=== PATIENT | male | born 1965 | race Caucasian/White ===

== ENCOUNTER 2024-04-23 00:05 | Inpatient (IN) | payer OTHER, SELFPAY ==
--- NOTE | ~2024-04-23 | XR_ITS ---
EXAMINATION: XR PELVIS CLINICAL INFORMATION: Unwitnessed mechanical fall COMPARISON: None available. TECHNIQUE: AP view of the pelvis. FINDINGS: No fracture. Hip joint spaces are maintained. Alignment is anatomic. Sacroiliac joints and pubic symphysis are normal. No abnormal soft tissue calcifications. XR/XR pelvis 1-2V IMPRESSION: Normal pelvis. Electronically signed by: John Garcia MD 04/27/2024 06:42 AM J[facility]
--- NOTE | ~2024-04-23 | CT_ITS ---
EXAMINATION: CT ABDOMEN AND PELVIS WITHOUT CONTRAST CLINICAL INFORMATION: Abdominal pain. Vomiting. COMPARISON: None available. TECHNIQUE: Multidetector volumetric imaging was performed from the superior aspect of the liver through the pubic symphysis. Sagittal and coronal reformatted images were obtained on the technologist's workstation. This CT examination was performed using dose optimization techniques as appropriate, variously including the following: *Automated exposure control *Adjustment of mA and/or kV according to patient size (this includes techniques or standardized protocols for targeted exams where dose is matched to indication/reason for exam; i.e. extremities or head) *Use of iterative reconstruction technique DLP: 656 mGy-cm FINDINGS: Inadequate evaluation of the intra-abdominal organs and vascular structures due to lack of IV contrast. LIVER, GALLBLADDER, AND BILIARY TREE: Liver measures 10 cm. Nodular surface. Heterogeneous attenuation. Prominent umbilical vein. Multiple calcifications layering within the lumen of the gallbladder. Gallbladder wall measures 3 mm. Common bile duct measures 4 mm. PANCREAS: No main pancreatic ductal dilatation. No peripancreatic fluid collections. SPLEEN: Measures 14 cm. ADRENAL GLANDS: No nodular lesions. KIDNEYS AND URETERS: There is dilatation of the left pelvicalyceal system and proximal left ureter. I do not see an obstructing calculus. No hydronephrosis in the right kidney. No gross nephrolithiasis in either kidney. BLADDER: Fluid-filled. GASTROINTESTINAL TRACT: Abundant stool within the large intestine and specifically rectosigmoid colon. No pneumatosis intestinalis. No intestinal obstruction pattern. Ascites, moderate volume. No fluid collections in the peritoneal cavity or retroperitoneum. Fluid-filled and fat-containing umbilical hernia, small. I cannot clearly identify the appendix. ABDOMINAL WALL: Small umbilical hernia containing fat and fluid. An edematous fat planes of the abdomen and pelvis and upper thighs. LYMPH NODES: Prominent lymph nodes in the retroperitoneum and mesentery and. VASCULAR: Prominent vessels in the splenic hilum and left perinephric suggesting splenorenal shunting. Prominent umbilical vein suggesting patency. I cannot evaluate the gastroesophageal junction. PELVIC VISCERA: Not evaluated. OSSEOUS STRUCTURES: Status post kyphoplasty/vertebroplasty procedure, L1 vertebra. Multilevel thoracolumbar spondylosis. No acute fracture in the axial skeleton or the bony pelvis. Osteopenia versus osteoporosis. No acute airspace disease in the included lungs. No gross pulmonary nodules. CT/CT abdomen pelvis wo IV con IMPRESSION: Concerning cirrhosis and likely portal hypertension resulting in moderate ascites. Spontaneous bacterial peritonitis cannot be excluded. Cholelithiasis. Fleischner guidelines were followed. Electronically signed by: Taco Rae MD 04/24/2024 07:48 AM [facility]
--- NOTE | ~2024-04-23 | XR_ITS ---
EXAMINATION: XR SHOULDER, LEFT CLINICAL INFORMATION: Unwitnessed mechanical fall, left shoulder injury and pain COMPARISON: None available. TECHNIQUE: AP external rotation, Grashey, scapular Y views of the left shoulder. FINDINGS: BONES: A radiolucent destructive lesion measuring 1.4 cm in width, 3.0 cm in vertical height is seen in the left humeral greater tuberosity and lateral superior left humeral head leading to superior lateral left humeral head cortical defect. JOINTS: Alignment of joints is normal. SOFT TISSUE: Soft tissue is normal. No radiopaque foreign body or abnormal air collection is seen. XR/XR shoulder LT min 2V IMPRESSION: 1. A radiolucent destructive lesion measuring 1.4 cm in width, 3.0 cm in vertical height is seen in the left humeral greater tuberosity and lateral superior left humeral head leading to superior lateral left humeral head cortical defect. 2. Differential diagnosis includes metastatic disease, multiple myeloma, and bony erosions due to inflammatory arthritis or hyperparathyroidism. Electronically signed by: John Garcia MD 04/27/2024 06:51 AM [facility]ADA PENALOZA
--- NOTE | ~2024-04-23 | CT_ITS ---
EXAMINATION: CT CERVICAL SPINE WITHOUT CONTRAST CLINICAL INFORMATION: Unwitnessed mechanical fall, neck injury and pain COMPARISON: None available. TECHNIQUE: Multiple 3 and 0.6 mm axial images were obtained from base of skull to T1 levels without IV contrast enhancement. Sagittal and coronal 2.0 mm bone window images were reconstructed from axial image data. This CT examination was performed using dose optimization techniques as appropriate, variously including the following: *Automated exposure control *Adjustment of mA and/or kV according to patient size (this includes techniques or standardized protocols for targeted exams where dose is matched to indication/reason for exam; i.e. extremities or head) *Use of iterative reconstruction technique DLP: 348.10 mGy-cm FINDINGS: C1/C2: Bony structures are intact. There is no spinal stenosis. C2/C3: Bony structures are intact with normal alignment. There is no spinal stenosis. Bilateral C2/C3 neuroforamina are patent. Bilateral apophyseal joints are intact with normal alignment. The right apophyseal joint shows bony ankylosis. C3/C4: Bony structures are intact with normal alignment. There is no spinal stenosis. Bilateral C3/C4 neuroforamina are patent. Bilateral apophyseal joints are intact with normal alignment. The right apophyseal joint shows bony ankylosis. C4/C5: Bony structures are intact with grade 1 C4-C5 anterolisthesis with exposure of intervertebral disc. There is no spinal stenosis. Bilateral C4/C5 neuroforamina are patent. Bilateral apophyseal joints are intact with normal alignment. C5/C6: Bony structures are intact with grade 1 C5-C6 anterolisthesis with exposure of intervertebral disc. There is no spinal stenosis. Bilateral C5/C6 neuroforamina are patent. Bilateral apophyseal joints are intact with normal alignment. C6/C7: Bony structures are intact with normal alignment. There is marked decrease in intervertebral disc height. Sclerotic vertebral endplate changes are seen at C6-C7 junction. Prominent anterior and posterior bridging syndesmophytes are present. There is no spinal stenosis. Bilateral C6/C7 neuroforamina are patent. Bilateral apophyseal joints are intact with normal alignment. C7/T1: Bony structures are intact with normal alignment. There is no spinal stenosis. Bilateral C7/T1 neuroforamina are patent. Bilateral apophyseal joints are intact with normal alignment. Multilevel bilateral apophyseal joint and uncovertebral joint osteoarthritis with loss of joint space, sclerosis, facet hypertrophy and osteophytosis are seen. In the visualized bilateral lung apices, a 4.4 mm right lateral apical nodule is seen attached to anterior pleural border. A 4.0 mm nodule is seen in medial right lung apex. CT/CT cervical spine wo IV con IMPRESSION: 1. No evidence of acute fracture or dislocation in the cervical spine. 2. Grade 1 C4-C5 and C5-C6 anterolisthesis. 3. Multilevel cervical spondylosis. 4. Advanced C6-C7 degenerative cervical disc disease, sclerotic vertebral endplate changes and bridging syndesmophytes are present. 5. Right-sided C2-C3 and C3-C4 apophyseal joints bony ankylosis. 6. According to the UPDATED 2017 Fleischner Society recommendations, the advised follow-up imaging for nodules <6mm in the upper lobes is not necessarily required in low-risk patients. In high-risk patients with a nodule in the upper lobe and/or demonstrating suspicious morphology, an optional CT follow-up at 12 months may be obtained. If stable at 12 months, no further follow-up is recommended. number Fleischner guidelines were followed. Electronically signed by: John Garcia MD 04/27/2024 07:16 AM [facility]
--- NOTE | ~2024-04-23 | CT_ITS ---
EXAMINATION: CT HEAD WITHOUT CONTRAST CLINICAL INFORMATION: Unwitnessed mechanical fall COMPARISON: None available. TECHNIQUE: Contiguous axial imaging was performed from the skull base to vertex without intravenous administration of contrast. This CT examination was performed using dose optimization techniques as appropriate, variously including the following: *Automated exposure control *Adjustment of mA and/or kV according to patient size (this includes techniques or standardized protocols for targeted exams where dose is matched to indication/reason for exam; i.e. extremities or head) *Use of iterative reconstruction technique DLP: 655.69 mGy-cm FINDINGS: Ventricles, sulci and cisterns are normal. Bilateral frontal periventricular white matters show decrease in attenuation. There is no midline shift, no abnormal intra- or extra- axial fluid accumulation. Parker and white matter differentiation is normal. Bone window images show no evidence of skull fracture. Moderate mucosal thickening is seen in lower bilateral maxillary sinuses. CT/CT head/brain wo IV con IMPRESSION: 1. Bilateral frontal periventricular ischemic white matter disease is seen, compatible with microangiopathy. 2. No intracranial hemorrhage or skull fracture is seen. 3. No evidence of space occupying lesion could be found. 4. The current plain CT scan of the brain shows no diagnostic evidence of acute cerebral infarction. 5. Moderate bilateral maxillary sinusitis. Electronically signed by: John Garcia MD 04/27/2024 07:04 AM [facility]
[2024-04-23 00:28] VITALS: BMI 22.1
[2024-04-23 03:57] VITALS: BP 129/92
[2024-04-23] MEDS: Furosemide 20 MG TABLET 60 MG PO (03:57)
[2024-04-23] MEDS: Lidocaine 4 % Patch ADH..PATCH 1 PATCH TRANSDERMA (04:03)
[2024-04-23] MEDS: hydrOXYzine HCL 25 MG TABLET PO ×2 (04:16→21:03)
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
[2024-04-23 07:00] VITALS: BMI 22.1
[2024-04-23] MEDS: Omeprazole 20 MG CAPSULE.DR PO (07:54)
[2024-04-23 08:00] VITALS: BP 101/73; PULSE 72; RESP 16; TEMP 36.9; O2SAT 100
--- NOTE | 2024-04-23 09:49 | HO.PM.IMCN ---
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 He reported a recent relapse from his alcohol sobriety, and his complex medical diagnoses secondary to cirrhosis have caused severe sudden depression for him. He just recently had a paracentesis 2 days ago which he reports he goes for every Saturday. He also takes furosemide 60 mg daily. He complains of constant 6/10 generalized abdominal pain which he describes as a pressure. He reports when this pain escalates he has frequent visits to the emergency department. Review of Systems Constitutional: Constitutional: Denies body ache(s), Denies chills, Denies fatigue, Denies fever(s) and Denies headache(s) Eyes: Eyes: Denies blurry vision and Denies change in vision ENT: Denies headache(s), Denies nasal congestion, Denies nasal obstruction, Denies post nasal drip and Denies sore throat Cardiovascular: Cardiovascular: Denies chest pain, Denies rapid heart rate, Denies leg edema and Denies dyspnea Respiratory: Respiratory: Denies chest congestion, Denies cough, Denies dyspnea and Denies wheezing Gastrointestinal: Gastrointestinal: Denies melena, Denies constipation, Denies diarrhea, Denies nausea and Denies vomiting Genitourinary: Genitourinary: Denies dysuria Musculoskeletal: Musculoskeletal: Denies myalgias and Reports arthralgias (left shoulder) Integumentary/Breasts: Skin/Breast: Denies rash Neurologic: Denies confusion, Denies headache(s) and Denies memory loss Psychiatric: Psychiatric: Denies confusion and Denies memory loss Endocrine: Endocrine: Denies fatigue Hematologic/Lymphatic: Hematologic/Lymphatic: Reports easy bruising Allergic/Immunologic: Allergic/Immunologic: Denies wheezing [facility] Medical History (Updated 04/23/24 @ 15:13 by Muriel Fu PA-C) Esophageal and gastric varices Bipolar 1 disorder CHERYL (obstructive sleep apnea) JOHANN (iron deficiency anemia) Chronic deep vein thrombosis (DVT) CKD (chronic kidney disease) Pancytopenia Portal hypertension Cirrhosis, alcoholic Type 2 diabetes mellitus without complications GERD (gastroesophageal reflux disease) Functional capacity: uses cane/walker Social History Household Members: None Housing: Other Housing Other:: pt was living in housing Do you presently have visiting nurse or other home services: No Patient Tobacco Use Status: Current everyday Tobacco user Tobacco use type: Cigar Cigarettes Per Day: 1 Smoked in Last 30 Days: Yes e-Cigarette/Vaping Use: Never Used Patient Interested in Nicotine Replacement: No Patient Given Instructions on How to Stop Smoking: No (pt not interested) Second Hand Smoke Exposure: Yes Use of substances other than those prescribed or required for medical reasons: Yes Substance Use Type: Marijuana Last Used Substance: Days (ago) Currently Displaying Signs/Symptoms of Drug Intoxication Withdrawal: No Any prior treatment program specific to substance use: No Have you been hit, kicked, punched, or otherwise hurt by someone within the past year? If so, by whom?: No Do you feel safe in your current relationship?: Yes Is there a partner from a previous relationship who is making you feel unsafe now?: No Are you made to feel afraid or neglected: No Spiritual Healthcare Practices: unknown Hinduism Healthcare Practices: unknown Cultural Healthcare Practices: unknown Advance Directives: No Advance Directives Information Provided: Yes Do you have thoughts of harming others: None Do you have a plan to hurt others: No Plan Recently lost weight without trying: Yes How much weight loss: 14-23 pounds Eating poorly because of decreased appetite: Yes Nutrition screen score: 5 Nutrition Risks: Anorexia Poor oral hygiene: No service: Yes Sexual orientation: Straight/Heterosexual Meds Allergies Allergy/AdvReac Type Severity Reaction Status Date / Time acetaminophen AdvReac Unknown Verified 04/23/24 00:13 bismuth subsalicylate AdvReac Unknown Verified 04/23/24 00:13 [From Pepto-Bismol] celecoxib [From Celebrex] AdvReac Unknown Verified 04/23/24 00:13 NSAIDS (Non-Steroidal AdvReac Unknown Verified 04/23/24 00:13 Anti-Inflamma Active Medications: Current Medications Al Hydroxide/Mg Hydroxide (Magnesium Hydrox/Alum Hydrox 30 Ml Oral.Susp) 30 ml PO Q6H PRN PRN Reason: Heartburn/Nausea Baclofen (Baclofen 10 Mg Tablet) 10 mg PO TID [facility] Gabapentin (Gabapentin 300 Mg Capsule) 600 mg PO TID [facility] Hydroxyzine HCl (Hydroxyzine Hcl 25 Mg Tablet) 25 mg PO Q6H PRN PRN Reason: Anxiety Last Admin: 04/23/24 04:16 Dose: 25 mg Insulin Glargine (Insulin Glargine,Hum.Rec.Anlog 100 Unit/Ml 10 Ml Vial) 20 unit SUBCUT BID [facility] Lactulose (Lactulose 20 Gm/30 Ml Solution) 30 gm PO TID [facility] Magnesium Hydroxide (Milk Of Magnesia 30 Ml Oral.Susp) 30 ml PO DAILY PRN PRN Reason: Constipation Magnesium Oxide (Magnesium Oxide 400 Mg Tablet) 400 mg PO DAILY [facility] Midodrine (Midodrine Hcl 5 Mg Tablet) 5 mg PO TID [facility] Nicotine (Nicotine 14 Mg Patch.Td24) 14 mg TRANSDERMA DAILY [facility] Non-Formulary Medication (Orphenadrine Citrate) 100 mg PO BID PRN PRN Reason: Pain Omeprazole (Omeprazole 20 Mg Capsule.Dr) 20 mg PO DAILY@0630 [facility] Last Admin: 04/23/24 07:54 Dose: 20 mg Ondansetron HCl (Ondansetron Odt 4 Mg Tab.Rapdis) 4 mg TRANSLINGU Q8H PRN PRN Reason: Nausea Propranolol HCl (Propranolol Hcl 10 Mg Tablet) 10 mg PO BID [facility]; Protocol Quetiapine Fumarate (Quetiapine Fumarate 25 Mg Tablet) 25 mg PO BEDTIME [facility] Rifaximin (Rifaximin 550 Mg Tablet) 550 mg PO BID [facility] Spironolactone (Spironolactone 25 Mg Tablet) 100 mg PO DAILY [facility]; Protocol Trazodone HCl (Trazodone Hcl 50 Mg Tablet) 50 mg PO BEDTIME MRX1 PRN PRN Reason: Insomnia Home Medications ?Medication ?Instructions ?Recorded ?Confirmed ?Last Taken ?Type Chronulac 30 g PO TID 04/23/24 04/23/24 Unknown History baclofen 10 mg tablet 10 mg PO TID 04/23/24 04/23/24 Unknown History furosemide 20 mg tablet 60 mg PO 1XD 04/23/24 04/23/24 Unknown History gabapentin 300 mg capsule 600 mg PO TID 04/23/24 04/23/24 Unknown History insulin detemir U-100 100 unit/mL 20 unit subcut BID 04/23/24 04/23/24 Unknown History (3 mL) subcutaneous pen (Levemir FlexPen) lidocaine 4 % topical patch 1 patch topical 1XD pain 04/23/24 04/23/24 Unknown History magnesium oxide 400 mg (241.3 mg 400 mg PO DAILY 04/23/24 04/23/24 Unknown History magnesium) tablet midodrine 5 mg tablet 5 mg PO TID 04/23/24 04/23/24 Unknown History nicotine 14 mg/24 hr daily 1 patch topical DAILY 04/23/24 04/23/24 Unknown History transdermal patch ondansetron HCl 4 mg tablet 4 mg PO Q8H PRN Nausea 04/23/24 04/23/24 Unknown History orphenadrine citrate 100 mg 100 mg PO BID PRN Pain 04/23/24 04/23/24 Unknown History tablet,extended release pantoprazole 40 mg tablet,delayed 40 mg PO DAILY 04/23/24 04/23/24 Unknown History release propranolol 10 mg tablet 10 mg PO BID 04/23/24 04/23/24 Unknown History quetiapine 25 mg tablet 25 mg PO BEDTIME 04/23/24 04/23/24 Unknown History rifaximin 550 mg tablet (Xifaxan) 550 mg PO BID 04/23/24 04/23/24 Unknown History spironolactone 25 mg tablet 100 mg PO DAILY 04/23/24 04/23/24 Unknown History Physical Exam Vital Signs and Narrative: Vital Signs: Last Vital Signs BP 129/92 H 04/23/24 03:57 BMI result Body Mass Index 22.1 General: AOx3, no acute distress Resp: CTA bilaterally CVS: RRR, +murmur GI: +BS, tender RLQ, bandage from recent paracentesis, distended, no fluid wave. Skin: Warm, dry Neuro: Cranial nerves II-XII grossly intact bilaterally. 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 Medically cleared for the psych floor. mood disorder/SI - plan per psych cirrhosis/portal HTN/gastric/esophageal varices - decompensated with ascites - US guided paracentesis every Saturday - continue furosemide, spironolactone, lactulose, rifaximin, baclofen, orphenadrine, midodrine, propranolol, gabapentin - given multiple medications for pain including gabapentin and muscle relaxers will hold off on adding anything else at this time T2DM - on insulin - check A1C to determine need for sliding scale - continue glargine 20U BID - encourage low carb/low sugar diet chronic JOHANN - continue iron CHERYL - no CPAP, pt declines CKD - avoid nephrotoxins GERD - continue omeprazole daily Thank you for allowing me to participate in the pt's care. Signing off for now. Please contact the medical team if any questions or concerns. Total time managing care of this patient today: 30 minutes.
[2024-04-23 10:04] VITALS: BP 101/73; PULSE 72
[2024-04-23] MEDS: Magnesium Oxide 400 MG TABLET PO (10:04)
[2024-04-23] MEDS: Spironolactone 25 MG TABLET 100 MG PO (10:04)
[2024-04-23] MEDS: Propranolol HCL 10 MG TABLET PO ×2 (10:04→20:42)
[2024-04-23] MEDS: Baclofen 10 MG TABLET PO (10:05)
[2024-04-23] MEDS: Gabapentin 300 MG CAPSULE 600 MG PO ×3 (10:05→20:44)
[2024-04-23] MEDS: Insulin Glargine,Hum.rec.anlog 100 UNIT/ML 10 ML VIAL 20 UNIT SUBCUT ×2 (10:05→20:40)
[2024-04-23] MEDS: Lactulose 20 GM/30 ML SOLUTION 30 GM PO (10:06)
[2024-04-23] MEDS: rifAXIMin 550 MG TABLET PO ×2 (11:28→20:43)
[2024-04-23 12:31] LABS: Glucose, Whole Blood 143 mg/dL (60-115)
[2024-04-23] MEDS: Ondansetron ODT 4 MG TAB.RAPDIS TRANSLINGU (13:03)
[2024-04-23 14:20] VITALS: BP 115/74; PULSE 77; RESP 20; O2SAT 100
--- NOTE | 2024-04-23 14:20 | PC.NURSE ---
This morning, this nurse approached Shan with a walker as his cane from home isnt typically allowed on the unit. He replied with well thats going to be a problem as I came here because I COULD use my cane. Its just aluminum. I have been reevaluated a couple of times since my surgery for a walker, but I cant use it because I cant lean on my left arm/shoulder. I cant use a wheelchair either because I cant use my left arm in that way either. Provider, charge nurse and control panel operator crude unit notified and decision made for Shan to utilize his cane and an order was placed for PT consult.
[2024-04-23] MEDS: Midodrine HCl 5 MG TABLET PO (14:23)
--- NOTE | 2024-04-23 15:04 | PM.EVENT ---
Event Note Date of Service: 04/23/24 Event Note: consult for severe abd pain. pt reports 7.5/10 pain, was 6/10 this morning. describes as severe ache and pressure. was eating lunch and had to run out and vomit. nurse witnessed. no fever or chills. nausea is mild now, did get zofran. PE: abd: mild distention, active, tender throughout, no erythema or sign of infection from recent paracentesis Plan: diagnostic paracentesis to r/o SBP ordered A/P CT without contrast ordered CBC, BMP ordered [employer] with multiple pain meds recently, concern for drug seeking. pt specifically requesting diludad, which does not feel appropriate. addiction med consult Time Spent With Patient Time: Total time managing care of this patient today 10 minutes.
--- NOTE | 2024-04-23 15:52 | P.HPPS_ITS ---
HPI Date of Service: 04/23/24 Chief Complaint: PTSD Sources of Information: patient interviewed (briefly allowed a discussion, then asked that tw read the chart and allow rest for pain), chart reviewed and crisis/core team assessment reviewed HPI Subjective Notes: [place] Warning and Conditional Voluntary Healthcare Proxy: No Guardianship: No Medical Problems Affecting Mental Status: No Narrative: 58 yo male, hx bipolar disorder ADHD, SI, Homelessness, [place] [facility]. Medically complex hx with cirrhosis with ascites. Paracentesis weekly, the last being 04/21/24 with 3730 cc removed, CKD, Pancytopenia, Hx of bile duct blockage, chronic iron deficiency anemia, DMII, Esophageal Bleeding with varices, portal HTN, chronic non obstructive thrombus @ portal splenic confluence, compression fx Lumbar spine with hx of fusion. Pt reporting depression with SI with plan to cut his throat. Reports homelessness and lack of supports. He reports [facility] 1[facility]5 [facility], having a new room-mate who is sensitive to noise and as a result was unable to open his drawer to take his meds and has missed doses for ~2 days prior to presenting to initial ER, namely Seroquel, Propranolol, Gabapentin. He argued with the staff and felt his rights were violated and left the program. He slept in his car, purchased alcohol and had increasing SI. Past Psychiatric History: Denies Denies SA Medical Evaluation Reviewed: Hospitalist [place] Pending [facility] Medical History (Updated 04/23/24 @ 17:33 by Nataly Gonzales, SURFACE [employer]) Homelessness ADHD PTSD (post-traumatic stress disorder) Esophageal and gastric varices Bipolar 1 disorder CHERYL (obstructive sleep apnea) JOHANN (iron deficiency anemia) Chronic deep vein thrombosis (DVT) CKD (chronic kidney disease) Pancytopenia Portal hypertension Cirrhosis, alcoholic Type 2 diabetes mellitus without complications GERD (gastroesophageal reflux disease) Narrative: rotator cuff tear upper endo with banding Substance History: alcohol, cannabis, cigars Diagnostics Vital Signs (24Hr): Vital Signs - 24 hr 04/23/24 03:57 04/23/24 08:00 04/23/24 10:04 Temperature 98.5 F Pulse Rate 72 Respiratory Rate 16 Blood Pressure 129/92 H 101/73 101/73 Pulse Oximetry 100 Oxygen Delivery Method 04/23/24 10:04 04/23/24 14:20 Temperature Pulse Rate 72 77 Respiratory Rate 20 Blood Pressure 101/73 115/74 Pulse Oximetry 100 Oxygen Delivery Method Room Air BMI result Body Mass Index 22.1 Labs 04/23/24 16:52 Labs: Laboratory Results - last 48 hr 04/23/24 12:26 POC Glucose 143 H EKG EKG Comment: NSR NST abn, QTc 423, rate 84 from [facility] Meds/Allergies Meds Home Medications ?Medication ?Instructions ?Recorded ?Confirmed ?Type Chronulac 30 g PO TID 04/23/24 04/23/24 History baclofen 10 mg tablet 10 mg PO TID 04/23/24 04/23/24 History furosemide 20 mg tablet 60 mg PO 1XD 04/23/24 04/23/24 History gabapentin 300 mg capsule 600 mg PO TID 04/23/24 04/23/24 History insulin detemir U-100 100 unit/mL 20 unit subcut BID 04/23/24 04/23/24 History (3 mL) subcutaneous pen (Levemir FlexPen) lidocaine 4 % topical patch 1 patch topical 1XD pain 04/23/24 04/23/24 History magnesium oxide 400 mg (241.3 mg 400 mg PO DAILY 04/23/24 04/23/24 History magnesium) tablet midodrine 5 mg tablet 5 mg PO TID 04/23/24 04/23/24 History nicotine 14 mg/24 hr daily 1 patch topical DAILY 04/23/24 04/23/24 History transdermal patch ondansetron HCl 4 mg tablet 4 mg PO Q8H PRN Nausea 04/23/24 04/23/24 History pantoprazole 40 mg tablet,delayed 40 mg PO DAILY 04/23/24 04/23/24 History release propranolol 10 mg tablet 10 mg PO BID 04/23/24 04/23/24 History quetiapine 25 mg tablet 25 mg PO BEDTIME 04/23/24 04/23/24 History rifaximin 550 mg tablet (Xifaxan) 550 mg PO BID 04/23/24 04/23/24 History spironolactone 25 mg tablet 100 mg PO DAILY 04/23/24 04/23/24 History Allergies Allergies Allergy/AdvReac Type Severity Reaction Status Date / Time acetaminophen AdvReac Unknown Verified 04/23/24 00:13 bismuth subsalicylate AdvReac Unknown Verified 04/23/24 00:13 [From Pepto-Bismol] celecoxib [From Celebrex] AdvReac Unknown Verified 04/23/24 00:13 NSAIDS (Non-Steroidal AdvReac Unknown Verified 04/23/24 00:13 Anti-Inflamma Mental Status Exam Mental Status Exam Patient Appearance: Fatigued and Appropriate Patient Orientation: Person, Place, Time and Situation Level of Consciousness: Alert Patient Behavior: Talkative Mood Description: Depressed Affect Description: Flat Patient Cognition Impaired: No Ability to Follow Directions: Good Speech Pattern: Spontaneous Speech Memory Description: Episodic Impaired Hallucinations: None Delusions: Not Present Thought Process: Rumination Thought Content: positive for Circumstantial, positive for Perseveration and positive for Suicidal Ideation Depressive Symptoms: Thoughts of /Suicide Judgement: Poor Assessment & Plan Assessment & Plan (1) Bipolar 1 disorder: Status: Acute Code(s): F31.9 - Bipolar disorder, unspecified (2) Cirrhosis, alcoholic: Status: Acute Code(s): K70.30 - Alcoholic cirrhosis of liver without ascites (3) PTSD (post-traumatic stress disorder): Status: Acute Code(s): F43.10 - Post-traumatic stress disorder, unspecified (4) ADHD: Status: Acute Code(s): F90.9 - Attention-deficit hyperactivity disorder, unspecified type (5) Homelessness: Status: Acute Code(s): Z59.00 - Homelessness unspecified Plan Bipolar Disorder, PTSD, ADHD, Homeless, cirrhosis and multiple medical problems from a history of alcohol dependence. Plan: Admit, CV, 15 minute checks Medical consultation-weekly paracentesis, abdominal pain Continue current regime Collateral contacts Diagnostics as needed Establish alliance Discharge planning. Patient educated on: therapeutic strategies Reason for continued inpatient stay Substantial Risk for: med/psych decompensation Statement Statement: I have reviewed the history and physical and performed a pertinent examination on my patient. No changes have occurred unless specified. If the History and Physical was not performed prior to admission, the Hospitalist's service will be consulted for completing the admission physical. Time Spent With Patient Time: Total time managing care of this patient today ____ minutes.
[2024-04-23 17:00] LABS: MANUAL DIFF FLAG NO
[2024-04-23 17:08] LABS: Basophils Percent Auto 0.7 % (0-2); Eosinophils Absolute Auto 0.2 X10*3/uL (0.0-0.4); Eosinophils Percent Auto 3.9 % (0-4); Hematocrit 27.3 % (42.0-52.0); Hemoglobin 9.5 g/dl (14.0-18.0); Imm Gran Abs Auto 0.01 X10*3/uL (0.00-0.03); Imm Gran Pct Auto 0.2 % (0.0-0.4); Lymphocytes Absolute Auto 0.5 X10*3/uL (1.2-4.9); Lymphocytes Percent Auto 11.1 % (20-40); Mean Corpuscular HGB Conc 34.8 g/dl (31.0-36.0); Mean Corpuscular Hemoglobin 36.3 pg (27.0-33.0); Mean Corpuscular Volume 104.2 fL (80.0-98.0); Mean Platelet Volume 11.7 fL (9.4-12.4); Monocytes Absolute Auto 0.7 X10*3/uL (0.1-1.2); Monocytes Percent Auto 16.9 % (2-11); Neutrophils Absolute Auto 2.9 x10*3/uL (2.0-8.3); Neutrophils Percent Auto 67.2 % (45-73); Red Blood Count 2.62 X10*6/uL (4.60-5.80); Red Cell Distribution Width 16.5 % (11.0-16.0); White Blood Count 4.3 X10*3/uL (4.8-10.8)
[2024-04-23 17:19] LABS: Platelet Count 96 X10*3/uL (160-400)
[2024-04-23 20:00] VITALS: BP 100/61; PULSE 76; RESP 16; TEMP 36.8; O2SAT 100
[2024-04-23] MEDS: oxyCODONE HCl Immed Release 5 MG TABLET PO (20:11)
[2024-04-23 20:42] VITALS: BP 106/68; PULSE 76
[2024-04-23] MEDS: QUEtiapine Fumarate 25 MG TABLET PO (20:43)
[2024-04-23] MEDS: traZODone HCL 50 MG TABLET PO (21:03)
--- NOTE | 2024-04-24 04:41 | PC.NURSE ---
Patient mentioned that his room is very cold and he would be able to stay warmer with his knitted cap on.
[2024-04-24 05:20] LABS: Estimated Average Glucose 120 mg/dL; Hemoglobin A1C 102.1605 umol/L; Hemoglobin A1c % 5.8 % (<6.0); Total Hemoglobin (HGBA1C) 2532.1062 umol/L
[2024-04-24] MEDS: Omeprazole 20 MG CAPSULE.DR PO (07:43)
[2024-04-24 08:14] LABS: Glucose, Whole Blood 150 mg/dL (60-115)
[2024-04-24] MEDS: Lactulose 20 GM/30 ML SOLUTION 30 GM PO (08:23)
[2024-04-24 08:24] VITALS: BP 104/59; PULSE 78; RESP 16; TEMP 36.4; O2SAT 100
[2024-04-24] MEDS: Gabapentin 300 MG CAPSULE 600 MG PO ×3 (08:24→22:01)
[2024-04-24] MEDS: Spironolactone 25 MG TABLET 100 MG PO (08:26)
[2024-04-24] MEDS: Furosemide 20 MG TABLET 60 MG PO (08:26)
[2024-04-24] MEDS: rifAXIMin 550 MG TABLET PO ×2 (08:26→22:02)
[2024-04-24] MEDS: Magnesium Oxide 400 MG TABLET PO (08:26)
[2024-04-24] MEDS: Insulin Glargine,Hum.rec.anlog 100 UNIT/ML 10 ML VIAL 20 UNIT SUBCUT ×2 (08:30→22:04)
[2024-04-24] MEDS: Propranolol HCL 10 MG TABLET PO ×2 (08:44→22:10)
[2024-04-24] MEDS: Lidocaine HCl 1 % MPF 5 ML VIAL SUBCUT (10:12)
[2024-04-24 10:34] LABS: MN% 95.4 %; PMN% 4.6 %; RBC Peritoneal Fluid < 0.002 X10*6/uL; WBC Peritoneal Fluid 0.044 X10*3/uL
[2024-04-24 11:15] LABS: BF Shift QC OK YES; Basophils Peritoneal Fl 1 %; Eosinophils Peritoneal Fl 3 %; Lymphocyte Peritoneal Fl 38 %; Monocytes Peritoneal Fl 13 %; Neutrophils Peritoneal Fluid 4 %; Other Peritioneal Fl 41 %
[2024-04-24] MEDS: Flu Vacc TS2024-25(6mos up)/PF 0.5 ML SYRINGE IM (11:35)
--- NOTE | 2024-04-24 11:58 | PM.EVENT ---
Event Note Date of Service: 04/24/24 Event Note: workup for severe generalized abd pain did not reveal any acute process in labs or CT. pt reported that this is chronic in nature. vitals stable. paracentesis without SBP, cultures pending. no need for antibiotics or further w/u at this time. his pain can be treated on an as needed basis. Thank you for allowing me to participate in the pt's care. Signing off for now. Please contact the medical team if any questions or concerns. Time Spent With Patient Time: Total time managing care of this patient today 5 minutes.
[2024-04-24] MEDS: OLANZapine 2.5 MG TABLET PO (12:13)
--- NOTE | 2024-04-24 16:03 | HO.PSYCHPN ---
Subjective Subjective Date of Service: 04/24/24 Reason For Visit: PTSD Subjective Notes: Conditional Voluntary Healthcare Proxy: No Guardianship: No Medical Problems Affecting Mental Status: No Interim History: Pt reports medications are needed to help him calm and to sleep. Reports hx of bipolar disorder, with no peace, evil thoughts and struggling with family losses. ADHD and PTSD are also issues to be addressed. Reports hx of Wellbutrin/Paxil/ Thorazine 1200 mg tid/Abilify/Trazodone, all with SE. Discussed medication metabolism and the care that we need to take given his cirrhosis. He reports this has been discussed by history. Medication Compliance: Yes Side effects from medications: No Attending Groups: No Review of Systems Acute medical concerns: Yes Review of Systems Review of Systems Abdominal pain Mental Status Exam Mental Status Exam Patient Appearance: Fatigued and Appropriate Patient Orientation: Person, Place, Time and Situation Level of Consciousness: Alert Patient Behavior: Talkative Mood Description: Depressed Affect Description: Flat Patient Cognition Impaired: No Ability to Follow Directions: Good Speech Pattern: Spontaneous Speech Memory Description: Episodic Impaired Hallucinations: None Delusions: Not Present Thought Process: Rumination Thought Content: positive for Circumstantial, positive for Perseveration and positive for Suicidal Ideation Depressive Symptoms: Thoughts of /Suicide Judgement: Poor Diagnostics Vital Signs (24Hr): Vital Signs - 24 hr 04/23/24 20:00 04/23/24 20:42 04/24/24 08:24 Temperature 98.3 F 97.6 F Pulse Rate 76 76 78 Respiratory Rate 16 16 Blood Pressure 100/61 106/68 104/59 L Pulse Oximetry 100 100 Oxygen Delivery Method Room Air Room Air BMI result Body Mass Index 22.1 Labs 04/23/24 16:52 Labs: Laboratory Results - last 48 hr 04/23/24 04/23/24 04/24/24 12:26 16:52 08:09 WBC 4.3 L RBC 2.62 L Hgb 9.5 L Hct 27.3 L MCV 104.2 H MCH 36.3 H MCHC 34.8 RDW 16.5 H Plt Count 96 L MPV 11.7 Immature Gran % (Auto) 0.2 Neut % (Auto) 67.2 Lymph % (Auto) 11.1 L [place] % (Auto) 16.9 H Eos % (Auto) 3.9 Baso % (Auto) 0.7 Lymph # (Auto) 0.5 L [place] # (Auto) 0.7 Eos # (Auto) 0.2 Baso # (Auto) 0.0 Abs Immat Gran (auto) 0.01 Absolute Neuts (auto) 2.9 Absolute Nucleated RBC 0.000 Nucleated RBC % (auto) 0.0 POC Glucose 143 H 150 H Estimat Average Glucose 120 Hemoglobin A1c % 5.8 Peritoneal WBC Peritoneal RBC Periton Neutrophils Periton Lymphocytes Peritoneal Monocytes Peritoneal Eosinophils Peritoneal Basophils Peritoneal Other Cells 04/24/24 09:40 WBC RBC Hgb Hct MCV MCH MCHC RDW Plt Count MPV Immature Gran % (Auto) Neut % (Auto) Lymph % (Auto) [place] % (Auto) Eos % (Auto) Baso % (Auto) Lymph # (Auto) [place] # (Auto) Eos # (Auto) Baso # (Auto) Abs Immat Gran (auto) Absolute Neuts (auto) Absolute Nucleated RBC Nucleated RBC % (auto) POC Glucose Estimat Average Glucose Hemoglobin A1c % Peritoneal WBC 0.044 Peritoneal RBC < 0.002 Periton Neutrophils 4 Periton Lymphocytes 38 Peritoneal Monocytes 13 Peritoneal Eosinophils 3 Peritoneal Basophils 1 Peritoneal Other Cells 41 Imaging Radiology Impressions: ITS Impressions Abdomen/Pelvis CT 04/23/24 17:17 IMPRESSION: Concerning cirrhosis and likely portal hypertension resulting in moderate ascites. Spontaneous bacterial peritonitis cannot be excluded. Cholelithiasis. Fleischner guidelines were followed. Electronically signed by: Taco Rae MD 04/24/2024 07:48 AM [facility] Medications Medications Current Medications Al Hydroxide/Mg Hydroxide (Magnesium Hydrox/Alum Hydrox 30 Ml Oral.Susp) 30 ml PO Q6H PRN PRN Reason: Heartburn/Nausea Baclofen (Baclofen 10 Mg Tablet) 10 mg PO TID PRN PRN Reason: muscle tension Furosemide (Furosemide 20 Mg Tablet) 60 mg PO DAILY [facility]; Protocol Last Admin: 04/24/24 08:26 Dose: 60 mg Gabapentin (Gabapentin 300 Mg Capsule) 600 mg PO TID [facility] Last Admin: 04/24/24 08:24 Dose: 600 mg Hydroxyzine HCl (Hydroxyzine Hcl 25 Mg Tablet) 25 mg PO Q6H PRN PRN Reason: Anxiety Last Admin: 04/23/24 21:03 Dose: 25 mg Insulin Glargine (Insulin Glargine,Hum.Rec.Anlog 100 Unit/Ml 10 Ml Vial) 20 unit SUBCUT BID ON LICENSE OF [facility] Last Admin: 04/24/24 08:30 Dose: 17 unit Lactulose (Lactulose 20 Gm/30 Ml Solution) 10 gm PO TID ON LICENSE OF [facility] Magnesium Hydroxide (Milk Of Magnesia 30 Ml Oral.Susp) 30 ml PO DAILY PRN PRN Reason: Constipation Magnesium Oxide (Magnesium Oxide 400 Mg Tablet) 400 mg PO DAILY ON LICENSE OF [facility] Last Admin: 04/24/24 08:26 Dose: 400 mg Nicotine (Nicotine 14 Mg Patch.Td24) 14 mg TRANSDERMA DAILY PRN PRN Reason: nicotine cravings Pt Owned ( Orphenadrine Citrate 100 Mg Tablet Extended Release) 100 mg PO BID PRN PRN Reason: Pain Omeprazole (Omeprazole 20 Mg Capsule.Dr) 20 mg PO DAILY@0630 ON LICENSE OF [facility] Last Admin: 04/24/24 07:43 Dose: 20 mg Ondansetron HCl (Ondansetron Odt 4 Mg Tab.Rapdis) 4 mg TRANSLINGU Q8H PRN PRN Reason: Nausea Last Admin: 04/23/24 13:03 Dose: 4 mg Oxycodone HCl (Oxycodone Hcl Immed Release 5 Mg Tablet) 5 mg PO Q8H PRN PRN Reason: severe pain Last Admin: 04/23/24 20:11 Dose: 5 mg Propranolol HCl (Propranolol Hcl 10 Mg Tablet) 10 mg PO BID ON LICENSE OF [facility]; Protocol Last Admin: 04/24/24 08:44 Dose: 10 mg Rifaximin (Rifaximin 550 Mg Tablet) 550 mg PO BID ON LICENSE OF [facility] Last Admin: 04/24/24 08:26 Dose: 550 mg Spironolactone (Spironolactone 25 Mg Tablet) 100 mg PO DAILY ON LICENSE OF [facility]; Protocol Last Admin: 04/24/24 08:26 Dose: 100 mg Trazodone HCl (Trazodone Hcl 50 Mg Tablet) 50 mg PO BEDTIME MRX1 PRN PRN Reason: Insomnia Last Admin: 04/23/24 21:03 Dose: 50 mg Allergies Allergies Allergy/AdvReac Type Severity Reaction Status Date / Time acetaminophen AdvReac Unknown Verified 04/23/24 00:13 bismuth subsalicylate AdvReac Unknown Verified 04/23/24 00:13 [From Pepto-Bismol] celecoxib [From Celebrex] AdvReac Unknown Verified 04/23/24 00:13 NSAIDS (Non-Steroidal AdvReac Unknown Verified 04/23/24 00:13 Anti-Inflamma Assessment & Plan Assessment & Plan (1) Bipolar 1 disorder: Status: Acute Code(s): F31.9 - Bipolar disorder, unspecified (2) Cirrhosis, alcoholic: Status: Acute Code(s): K70.30 - Alcoholic cirrhosis of liver without ascites (3) PTSD (post-traumatic stress disorder): Status: Acute Code(s): F43.10 - Post-traumatic stress disorder, unspecified (4) ADHD: Status: Acute Code(s): F90.9 - Attention-deficit hyperactivity disorder, unspecified type (5) Homelessness: Status: Acute Code(s): Z59.00 - Homelessness unspecified Plan Bipolar Disorder, PTSD, ADHD, Homeless, cirrhosis and multiple medical problems from a history of alcohol dependence. Plan: Admit, CV, 15 minute checks Medical consultation-weekly paracentesis, abdominal pain Continue current regime Collateral contacts Diagnostics as needed Establish alliance Discharge planning. 04/24- Paracentesis completed, medicine will follow prn Olanzapine 2.5 mg x 1 trial dose. PRN's are available DC Oxycontin. Pt's pain meds ordered and [place] [facility] Encourage alliance, group participation Aftercare planning. Reason for continued inpatient stay Substantial Risk for: med/psych decompensation Time Spent With Patient Time: Total time managing care of this patient today ____ minutes.
[2024-04-24] MEDS: oxyCODONE HCl Immed Release 5 MG TABLET PO (17:48)
[2024-04-24 20:00] VITALS: BP 93/52; PULSE 89; TEMP 36.4; O2SAT 96
[2024-04-24] MEDS: traZODone HCL 50 MG TABLET PO (22:02)
[2024-04-24] MEDS: ORPHENADRINE 100 MG 100 EACH PO (22:03)
[2024-04-24 22:05] VITALS: BP 100/72; PULSE 92; TEMP 37
[2024-04-24 22:10] VITALS: BP 100/62; PULSE 92
[2024-04-25] MEDS: hydrOXYzine HCL 25 MG TABLET PO (02:25)
[2024-04-25] MEDS: traZODone HCL 50 MG TABLET PO ×2 (02:25→22:16)
[2024-04-25] MEDS: Omeprazole 20 MG CAPSULE.DR PO (07:21)
[2024-04-25 08:00] VITALS: BP 92/64; PULSE 80; RESP 16; TEMP 37.2; O2SAT 96
[2024-04-25 08:44] LABS: Alanine Aminotransferase 16 U/L (0-40); Albumin Level 2.4 g/dL (3.5-5.0); Alkaline Phosphatase 164 U/L (39-117); Anion Gap 13 (12-20); Aspartate Amino Transferase 45 U/L (5-37); Bilirubin Total 1.7 mg/dL (0.0-1.0); Blood Urea Nitrogen 36 mg/dL (9-16); Calcium 8.2 mg/dL (8.4-10.2); Carbon Dioxide 27 mmol/L (22-29); Chloride 103 mmol/L (96-108); Cholesterol 92 mg/dL (<200); Creatinine Clr Calc Pharmacy 44.1; Estimated Glomerular Filt Rate 42; Glucose Fasting 150 mg/dL (60-99); HDL Cholesterol 30 mg/dL (>40); Iron 50 mcg/dL (45-160); LDL Cholesterol Calculated 52 mg/dL (<100); Percent Iron Saturation 30 % (15-50); Potassium 4.6 mmol/L (3.3-5.1); Sodium 138 mmol/L (135-145); Total Iron Binding Capacity 169 mcg/dL (228-428); Total Protein 6.9 g/dL (6.5-8.0); Triglycerides 51 mg/dL (<150); Unsaturated Iron Binding 119 ug/dL
[2024-04-25 09:13] LABS: Folate 8.6 ng/mL (> or = 4.0); Vitamin B12 759 pg/mL (200-900)
[2024-04-25] MEDS: Insulin Glargine,Hum.rec.anlog 100 UNIT/ML 10 ML VIAL 20 UNIT SUBCUT ×2 (10:10→22:19)
[2024-04-25 10:11] VITALS: BP 92/64
[2024-04-25] MEDS: Gabapentin 300 MG CAPSULE 600 MG PO ×3 (10:11→22:16)
[2024-04-25] MEDS: ORPHENADRINE 100 MG 100 EACH PO ×2 (10:11→22:15)
[2024-04-25] MEDS: Furosemide 20 MG TABLET 60 MG PO (10:11)
[2024-04-25 10:13] VITALS: BP 92/64; PULSE 75
[2024-04-25] MEDS: Magnesium Oxide 400 MG TABLET PO (10:13)
[2024-04-25 10:14] VITALS: BP 92/64
[2024-04-25] MEDS: rifAXIMin 550 MG TABLET PO ×2 (10:14→22:16)
[2024-04-25] MEDS: Spironolactone 25 MG TABLET 100 MG PO (10:14)
--- NOTE | 2024-04-25 11:22 | P.PNPSI_ITS ---
Subjective Subjective Date of Service: 04/25/24 Reason For Visit: PTSD Interim History: Pt remains discouraged, depressed, reports insomnia, racing thoughts, and waking up in the middle of the night with nightmares. He is hyperverbal. Circumstantial. Reports chronic pain. Reports hx of bipolar disorder. He also reports ADHD and PTSD. Reports hx of Wellbutrin/Paxil/ Thorazine 1200 mg tid/Abilify/Trazodone, all with SE. Discussed medication metabolism and the care that we need to take given his cirrhosis. Review of Systems Review of Systems Abdominal pain Constitutional: Denies body ache(s), Denies chills, Denies fatigue, Denies fever(s) and Denies headache(s) Eyes: Denies blurry vision and Denies change in vision Denies headache(s), Denies nasal congestion, Denies nasal obstruction, Denies post nasal drip and Denies sore throat Cardiovascular: Denies chest pain, Denies rapid heart rate, Denies leg edema and Denies dyspnea Respiratory: Denies chest congestion, Denies cough, Denies dyspnea and Denies wheezing Gastrointestinal: Denies melena, Denies constipation, Denies diarrhea, Denies nausea and Denies vomiting Genitourinary: Denies dysuria Musculoskeletal: Denies myalgias and Reports arthralgias (left shoulder) Skin/Breast: Denies rash Denies confusion, Denies headache(s) and Denies memory loss Psychiatric: Denies confusion and Denies memory loss Endocrine: Denies fatigue Hematologic/Lymphatic: Reports easy bruising Allergic/Immunologic: Denies wheezing Mental Status Exam Mental Status Exam Patient Appearance: Fatigued and Appropriate Patient Orientation: Person, Place, Time and Situation Level of Consciousness: Alert Patient Behavior: Talkative Mood Description: Depressed Affect Description: Flat Patient Cognition Impaired: No Ability to Follow Directions: Good Speech Pattern: Spontaneous Speech Memory Description: Episodic Impaired Diagnostics Vital Signs (24Hr): Vital Signs - 24 hr 04/24/24 20:00 04/24/24 22:05 04/24/24 22:10 Temperature 97.5 F 98.6 F Pulse Rate 89 92 92 Respiratory Rate Blood Pressure 93/52 L 100/72 100/62 Pulse Oximetry 96 Oxygen Delivery Method Room Air 04/25/24 08:00 04/25/24 10:11 04/25/24 10:13 Temperature 99 F Pulse Rate 80 75 Respiratory Rate 16 Blood Pressure 92/64 92/64 92/64 Pulse Oximetry 96 Oxygen Delivery Method Room Air 04/25/24 10:14 Temperature Pulse Rate Respiratory Rate Blood Pressure 92/64 Pulse Oximetry Oxygen Delivery Method BMI result Body Mass Index 22.1 Labs 04/23/24 16:52 04/25/24 08:00 Labs: Laboratory Results - last 48 hr 04/23/24 04/23/24 04/24/24 12:26 16:52 08:09 WBC 4.3 L RBC 2.62 L Hgb 9.5 L Hct 27.3 L MCV 104.2 H MCH 36.3 H MCHC 34.8 RDW 16.5 H Plt Count 96 L MPV 11.7 Immature Gran % (Auto) 0.2 Neut % (Auto) 67.2 Lymph % (Auto) 11.1 L [place] % (Auto) 16.9 H Eos % (Auto) 3.9 Baso % (Auto) 0.7 Lymph # (Auto) 0.5 L [place] # (Auto) 0.7 Eos # (Auto) 0.2 Baso # (Auto) 0.0 Abs Immat Gran (auto) 0.01 Absolute Neuts (auto) 2.9 Absolute Nucleated RBC 0.000 Nucleated RBC % (auto) 0.0 Sodium Potassium Chloride Carbon Dioxide Anion Gap BUN Creatinine Estim Creat Clear Calc Estimated GFR POC Glucose 143 H 150 H Fasting Glucose Estimat Average Glucose 120 Hemoglobin A1c % 5.8 Calcium Iron TIBC % Saturation Unsat Iron Binding Total Bilirubin AST ALT Alkaline Phosphatase Total Protein Albumin Triglycerides Cholesterol LDL Cholesterol, Calc HDL Cholesterol Vitamin B12 Folate TSH Peritoneal WBC Peritoneal RBC Periton Neutrophils Periton Lymphocytes Peritoneal Monocytes Peritoneal Eosinophils Peritoneal Basophils Peritoneal Other Cells 04/24/24 04/25/24 09:40 08:00 WBC RBC Hgb Hct MCV MCH MCHC RDW Plt Count MPV Immature Gran % (Auto) Neut % (Auto) Lymph % (Auto) [place] % (Auto) Eos % (Auto) Baso % (Auto) Lymph # (Auto) [place] # (Auto) Eos # (Auto) Baso # (Auto) Abs Immat Gran (auto) Absolute Neuts (auto) Absolute Nucleated RBC Nucleated RBC % (auto) Sodium 138 Potassium 4.6 Chloride 103 Carbon Dioxide 27 Anion Gap 13 BUN 36 H Creatinine 1.68 H Estim Creat Clear Calc 44.1 Estimated GFR 42 POC Glucose Fasting Glucose 150 H Estimat Average Glucose Hemoglobin A1c % Calcium 8.2 L Iron 50 TIBC 169 L % Saturation 30 Unsat Iron Binding 119 Total Bilirubin 1.7 H AST 45 H ALT 16 Alkaline Phosphatase 164 H Total Protein 6.9 Albumin 2.4 L Triglycerides 51 Cholesterol 92 LDL Cholesterol, Calc 52 HDL Cholesterol 30 L Vitamin B12 759 Folate 8.6 TSH 1.70 Peritoneal WBC 0.044 Peritoneal RBC < 0.002 Periton Neutrophils 4 Periton Lymphocytes 38 Peritoneal Monocytes 13 Peritoneal Eosinophils 3 Peritoneal Basophils 1 Peritoneal Other Cells 41 Imaging Radiology Impressions: ITS Impressions Abdomen/Pelvis CT 04/23/24 17:17 IMPRESSION: Concerning cirrhosis and likely portal hypertension resulting in moderate ascites. Spontaneous bacterial peritonitis cannot be excluded. Cholelithiasis. Fleischner guidelines were followed. Electronically signed by: Taco Rae MD 04/24/2024 07:48 AM EST RP Paracentesis Ultrasound 04/24/24 09:30 IMPRESSION: Ultrasound-guided diagnostic paracentesis as described above. No immediate complications Electronically signed by: Aramis Leija MD 04/24/2024 04:37 PM EST RP Medications Medications Current Medications Al Hydroxide/Mg Hydroxide (Magnesium Hydrox/Alum Hydrox 30 Ml Oral.Susp) 30 ml PO Q6H PRN PRN Reason: Heartburn/Nausea Baclofen (Baclofen 10 Mg Tablet) 10 mg PO TID PRN PRN Reason: muscle tension Furosemide (Furosemide 20 Mg Tablet) 60 mg PO DAILY [facility]; Protocol Last Admin: 04/25/24 10:11 Dose: 60 mg Gabapentin (Gabapentin 300 Mg Capsule) 600 mg PO TID [facility] Last Admin: 04/25/24 10:11 Dose: 600 mg Hydroxyzine HCl (Hydroxyzine Hcl 25 Mg Tablet) 25 mg PO Q6H PRN PRN Reason: Anxiety Last Admin: 04/25/24 02:25 Dose: 25 mg Insulin Glargine (Insulin Glargine,Hum.Rec.Anlog 100 Unit/Ml 10 Ml Vial) 20 unit SUBCUT BID [facility] Last Admin: 04/25/24 10:10 Dose: 20 unit Lactulose (Lactulose 20 Gm/30 Ml Solution) 10 gm PO TID [facility] Last Admin: 04/25/24 10:29 Dose: Not Given Magnesium Hydroxide (Milk Of Magnesia 30 Ml Oral.Susp) 30 ml PO DAILY PRN PRN Reason: Constipation Magnesium Oxide (Magnesium Oxide 400 Mg Tablet) 400 mg PO DAILY [facility] Last Admin: 04/25/24 10:13 Dose: 400 mg Nicotine (Nicotine 14 Mg Patch.Td24) 14 mg TRANSDERMA DAILY PRN PRN Reason: nicotine cravings Pt Owned ( Orphenadrine Citrate 100 Mg Tablet Extended Release) 100 mg PO BID PRN PRN Reason: Pain Last Admin: 04/25/24 10:11 Dose: 100 mg Omeprazole (Omeprazole 20 Mg Capsule.Dr) 20 mg PO DAILY@0630 [facility] Last Admin: 04/25/24 07:21 Dose: 20 mg Ondansetron HCl (Ondansetron Odt 4 Mg Tab.Rapdis) 4 mg TRANSLINGU Q8H PRN PRN Reason: Nausea Last Admin: 04/23/24 13:03 Dose: 4 mg Propranolol HCl (Propranolol Hcl 10 Mg Tablet) 10 mg PO BID [facility]; Protocol Last Admin: 04/25/24 10:13 Dose: Not Given Rifaximin (Rifaximin 550 Mg Tablet) 550 mg PO BID [facility] Last Admin: 04/25/24 10:14 Dose: 550 mg Spironolactone (Spironolactone 25 Mg Tablet) 100 mg PO DAILY [facility]; Protocol Last Admin: 04/25/24 10:14 Dose: 100 mg Trazodone HCl (Trazodone Hcl 50 Mg Tablet) 50 mg PO BEDTIME MRX1 PRN PRN Reason: Insomnia Last Admin: 04/25/24 02:25 Dose: 50 mg Allergies Allergies Allergy/AdvReac Type Severity Reaction Status Date / Time acetaminophen AdvReac Unknown Verified 04/23/24 00:13 bismuth subsalicylate AdvReac Unknown Verified 04/23/24 00:13 [From Pepto-Bismol] celecoxib [From Celebrex] AdvReac Unknown Verified 04/23/24 00:13 NSAIDS (Non-Steroidal AdvReac Unknown Verified 04/23/24 00:13 Anti-Inflamma Assessment & Plan Assessment & Plan (1) Bipolar 1 disorder: Status: Acute Code(s): F31.9 - Bipolar disorder, unspecified (2) Cirrhosis, alcoholic: Status: Acute Code(s): K70.30 - Alcoholic cirrhosis of liver without ascites (3) PTSD (post-traumatic stress disorder): Status: Acute Code(s): F43.10 - Post-traumatic stress disorder, unspecified (4) ADHD: Status: Acute Code(s): F90.9 - Attention-deficit hyperactivity disorder, unspecified type (5) Homelessness: Status: Acute Code(s): Z59.00 - Homelessness unspecified Plan Bipolar Disorder, PTSD, ADHD, Homeless, cirrhosis and multiple medical problems from a history of alcohol dependence. Plan: Admit, CV, 15 minute checks Medical consultation-weekly paracentesis, abdominal pain Continue current regime Collateral contacts Diagnostics as needed Establish alliance Discharge planning. 04/24- Paracentesis completed, medicine will follow prn Olanzapine 2.5 mg x 1 trial dose. PRN's are available DC Oxycontin. [place]'s pain [place] [facility] [place] Encourage alliance, group participation Aftercare planning. 04/25: Start Seroquel 25 mg HS and BID PRN and reassess tomorrow. Reason for continued inpatient stay Substantial Risk for: harm to self, inability to function, rapid decompensation and med/psych decompensation Time Spent With Patient Time: Total time managing care of this patient today ____ minutes.
[2024-04-25] MEDS: QUEtiapine Fumarate 25 MG TABLET PO ×3 (13:30→22:19)
[2024-04-25 20:00] VITALS: BP 102/62; TEMP 37.2; O2SAT 95
[2024-04-25 22:03] LABS: Glucose, Whole Blood 225 mg/dL (60-115)
[2024-04-25 22:17] VITALS: BP 102/62; PULSE 95
[2024-04-25] MEDS: Propranolol HCL 10 MG TABLET PO (22:17)
[2024-04-26 07:20] VITALS: BP 103/67; PULSE 84; TEMP 36.6; O2SAT 97
--- NOTE | 2024-04-26 07:30 | P.EN_ITS ---
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 patient alert oriented times 3, no new focal deficits (has old lue weakness from prior injury). Time Spent With Patient Time: Total time managing care of this patient today ____ minutes.
[2024-04-26 08:00] VITALS: BP 103/67; PULSE 84; RESP 16; TEMP 36.6; O2SAT 98
--- NOTE | 2024-04-26 08:00 | PC.NURSE ---
Pt triggered alarm in bathroom of room 506 at 0715 after losing balance and having a near fall. Staff reported a patient fall and a Rapid Response was called at 0717. This senior mortgage underwriter entered room 506 and found pt sitting upright at end of bed 506-2 having vital signs assessed. BP 103/67, P 84, o2 97%, 97.8 F. Pt said he got up from bed to use the bathroom and felt unsteady and his left leg buckled due to pre-existing left leg/ ankle weakness. Pt also has pre-existing left arm weakness. Pt reported he fell against the wall with his left shoulder and slid along wall, but did not fall to the floor. Pt reported he did not strike his head. Pt seen by Dr Campos, who indicated no need for imaging unless pain in left shoulder increases today. Dr Campos asked assigned RN and attending provider to monitor and control pain as needed.
[2024-04-26 09:55] VITALS: BP 103/67
[2024-04-26] MEDS: Spironolactone 25 MG TABLET 100 MG PO (09:55)
[2024-04-26] MEDS: rifAXIMin 550 MG TABLET PO ×2 (09:56→20:54)
[2024-04-26] MEDS: Baclofen 10 MG TABLET PO ×3 (09:56→20:54)
[2024-04-26] MEDS: Omeprazole 20 MG CAPSULE.DR PO (09:56)
[2024-04-26] MEDS: Insulin Glargine,Hum.rec.anlog 100 UNIT/ML 10 ML VIAL 20 UNIT SUBCUT ×2 (09:56→20:56)
[2024-04-26] MEDS: Magnesium Oxide 400 MG TABLET PO (09:56)
[2024-04-26] MEDS: Gabapentin 300 MG CAPSULE 600 MG PO ×3 (09:56→20:54)
[2024-04-26 09:58] VITALS: BP 103/67
[2024-04-26] MEDS: ORPHENADRINE 100 MG 100 EACH PO (09:58)
[2024-04-26] MEDS: Furosemide 20 MG TABLET 60 MG PO (09:58)
--- NOTE | 2024-04-26 11:01 | P.PNPSI_ITS ---
Subjective Subjective Date of Service: 04/26/24 Reason For Visit: PTSD Interim History: Had a fall in the morning. Hit shoulder. Seen by hospital medicine. Reports Seroquel last night was helpful and he slept well and without nightmares. Remains hyperverbal and circumstantial. Difficult to follow. Appears confused at times. Review of Systems Review of Systems Abdominal pain Constitutional: Denies body ache(s), Denies chills, Denies fatigue, Denies fever(s) and Denies headache(s) Eyes: Denies blurry vision and Denies change in vision Denies headache(s), Denies nasal congestion, Denies nasal obstruction, Denies post nasal drip and Denies sore throat Cardiovascular: Denies chest pain, Denies rapid heart rate, Denies leg edema and Denies dyspnea Respiratory: Denies chest congestion, Denies cough, Denies dyspnea and Denies wheezing Gastrointestinal: Denies melena, Denies constipation, Denies diarrhea, Denies nausea and Denies vomiting Genitourinary: Denies dysuria Musculoskeletal: Denies myalgias and Reports arthralgias (left shoulder) Skin/Breast: Denies rash Denies confusion, Denies headache(s) and Denies memory loss Psychiatric: Denies confusion and Denies memory loss Endocrine: Denies fatigue Hematologic/Lymphatic: Reports easy bruising Allergic/Immunologic: Denies wheezing Mental Status Exam Mental Status Exam Patient Appearance: Fatigued and Appropriate Patient Orientation: Person, Place, Time and Situation Level of Consciousness: Alert Patient Behavior: Talkative Mood Description: Depressed Affect Description: Flat Patient Cognition Impaired: No Ability to Follow Directions: Good Speech Pattern: Spontaneous Speech Memory Description: Episodic Impaired Diagnostics Vital Signs (24Hr): Vital Signs - 24 hr 04/25/24 20:00 04/25/24 22:17 04/26/24 07:20 Temperature 99.0 F 97.8 F Pulse Rate 95 84 Respiratory Rate Blood Pressure 102/62 102/62 103/67 Pulse Oximetry 95 97 Oxygen Delivery Method Room Air Room Air 04/26/24 08:00 04/26/24 09:55 04/26/24 09:58 Temperature 97.8 F Pulse Rate 84 Respiratory Rate 16 Blood Pressure 103/67 103/67 103/67 Pulse Oximetry 98 Oxygen Delivery Method Room Air BMI result Body Mass Index 22.1 Labs 04/23/24 16:52 04/25/24 08:00 Labs: Laboratory Results - last 48 hr 04/24/24 04/25/24 04/25/24 09:40 08:00 21:51 Sodium 138 Potassium 4.6 Chloride 103 Carbon Dioxide 27 Anion Gap 13 BUN 36 H Creatinine 1.68 H Estim Creat Clear Calc 44.1 Estimated GFR 42 POC Glucose 225 H Fasting Glucose 150 H Calcium 8.2 L Iron 50 TIBC 169 L % Saturation 30 Unsat Iron Binding 119 Total Bilirubin 1.7 H AST 45 H ALT 16 Alkaline Phosphatase 164 H Total Protein 6.9 Albumin 2.4 L Triglycerides 51 Cholesterol 92 LDL Cholesterol, Calc 52 HDL Cholesterol 30 L Vitamin B12 759 Folate 8.6 TSH 1.70 Periton Neutrophils 4 Periton Lymphocytes 38 Peritoneal Monocytes 13 Peritoneal Eosinophils 3 Peritoneal Basophils 1 Peritoneal Other Cells 41 Imaging Radiology Impressions: ITS Impressions Abdomen/Pelvis CT 04/23/24 17:17 IMPRESSION: Concerning cirrhosis and likely portal hypertension resulting in moderate ascites. Spontaneous bacterial peritonitis cannot be excluded. Cholelithiasis. Fleischner guidelines were followed. Electronically signed by: Taco Rae MD 04/24/2024 07:48 AM EST RP Paracentesis Ultrasound 04/24/24 09:30 IMPRESSION: Ultrasound-guided diagnostic paracentesis as described above. No immediate complications Electronically signed by: Aramis Leija MD 04/24/2024 04:37 PM EST RP Medications Medications Current Medications Al Hydroxide/Mg Hydroxide (Magnesium Hydrox/Alum Hydrox 30 Ml Oral.Susp) 30 ml PO Q6H PRN PRN Reason: Heartburn/Nausea Baclofen (Baclofen 10 Mg Tablet) 10 mg PO TID PRN PRN Reason: muscle tension Last Admin: 04/26/24 09:56 Dose: 10 mg Furosemide (Furosemide 20 Mg Tablet) 60 mg PO DAILY [facility]; Protocol Last Admin: 04/26/24 09:58 Dose: 60 mg Gabapentin (Gabapentin 300 Mg Capsule) 600 mg PO TID [facility]REE[facility] Last Admin: 04/26/24 09:56 Dose: 600 mg Insulin Glargine (Insulin Glargine,Hum.Rec.Anlog 100 Unit/Ml 10 Ml Vial) 20 unit SUBCUT BID [facility] Last Admin: 04/26/24 09:56 Dose: 20 unit Lactulose (Lactulose 20 Gm/30 Ml Solution) 10 gm PO TID [facility] Last Admin: 04/26/24 10:40 Dose: Not Given Magnesium Hydroxide (Milk Of Magnesia 30 Ml Oral.Susp) 30 ml PO DAILY PRN PRN Reason: Constipation Magnesium Oxide (Magnesium Oxide 400 Mg Tablet) 400 mg PO DAILY [facility] Last Admin: 04/26/24 09:56 Dose: 400 mg Nicotine (Nicotine 14 Mg Patch.Td24) 14 mg TRANSDERMA DAILY PRN PRN Reason: nicotine cravings Pt Owned ( Orphenadrine Citrate 100 Mg Tablet Extended Release) 100 mg PO BID PRN PRN Reason: Pain Last Admin: 04/26/24 09:58 Dose: 100 mg Omeprazole (Omeprazole 20 Mg Capsule.Dr) 20 mg PO DAILY@0630 [facility] Last Admin: 04/26/24 09:56 Dose: 20 mg Ondansetron HCl (Ondansetron Odt 4 Mg Tab.Rapdis) 4 mg TRANSLINGU Q8H PRN PRN Reason: Nausea Last Admin: 04/23/24 13:03 Dose: 4 mg Propranolol HCl (Propranolol Hcl 10 Mg Tablet) 10 mg PO BID [facility]; Protocol Last Admin: 04/26/24 10:40 Dose: Not Given Quetiapine Fumarate (Quetiapine Fumarate 25 Mg Tablet) 25 mg PO BEDTIME [facility] Last Admin: 04/25/24 22:18 Dose: 25 mg Quetiapine Fumarate (Quetiapine Fumarate 25 Mg Tablet) 25 mg PO BID PRN PRN Reason: Anxiety Last Admin: 04/25/24 22:19 Dose: 25 mg Rifaximin (Rifaximin 550 Mg Tablet) 550 mg PO BID [facility] Last Admin: 04/26/24 09:56 Dose: 550 mg Spironolactone (Spironolactone 25 Mg Tablet) 100 mg PO DAILY [facility]; Protocol Last Admin: 04/26/24 09:55 Dose: 100 mg Trazodone HCl (Trazodone Hcl 50 Mg Tablet) 50 mg PO BEDTIME MRX1 PRN PRN Reason: Insomnia Last Admin: 04/25/24 22:16 Dose: 50 mg Allergies Allergies Allergy/AdvReac Type Severity Reaction Status Date / Time acetaminophen AdvReac Unknown Verified 04/23/24 00:13 bismuth subsalicylate AdvReac Unknown Verified 04/23/24 00:13 [From Pepto-Bismol] celecoxib [From Celebrex] AdvReac Unknown Verified 04/23/24 00:13 NSAIDS (Non-Steroidal AdvReac Unknown Verified 04/23/24 00:13 Anti-Inflamma Assessment & Plan Assessment & Plan (1) Bipolar 1 disorder: Status: Acute Code(s): F31.9 - Bipolar disorder, unspecified (2) Cirrhosis, alcoholic: Status: Acute Code(s): K70.30 - Alcoholic cirrhosis of liver without ascites (3) PTSD (post-traumatic stress disorder): Status: Acute Code(s): F43.10 - Post-traumatic stress disorder, unspecified (4) ADHD: Status: Acute Code(s): F90.9 - Attention-deficit hyperactivity disorder, unspecified type (5) Homelessness: Status: Acute Code(s): Z59.00 - Homelessness unspecified Plan Bipolar Disorder, PTSD, ADHD, Homeless, cirrhosis and multiple medical problems from a history of alcohol dependence. Plan: Admit, CV, 15 minute checks Medical consultation-weekly paracentesis, abdominal pain Continue current regime Collateral contacts Diagnostics as needed Establish alliance Discharge planning. 04/24- Paracentesis completed, medicine will follow prn Olanzapine 2.5 mg x 1 trial dose. PRN's are available DC Oxycontin. Pt's pain meds ordered and obtained by [facility] [place]. Encourage alliance, group participation Aftercare planning. 04/25: Start Seroquel 25 mg HS and BID PRN and reassess tomorrow. 04/26: No change with medications. Found Seroquel helpful at low dose. Further collateral history would be helpful to get a history of symptom progression and differential diagnosis. Check Ammonia levels. Reason for continued inpatient stay Substantial Risk for: inability to function, rapid decompensation and med/psych decompensation Time Spent With Patient Time: Total time managing care of this patient today ____ minutes.
[2024-04-26] MEDS: QUEtiapine Fumarate 25 MG TABLET PO ×2 (16:11→20:54)
[2024-04-26 20:00] VITALS: BP 120/80; PULSE 91; TEMP 36.5; O2SAT 100
[2024-04-26] MEDS: Propranolol HCL 10 MG TABLET PO (20:54)
[2024-04-26] MEDS: traZODone HCL 50 MG TABLET PO (20:54)
[2024-04-27 01:13] LABS: Glucose, Whole Blood 245 mg/dL (60-115)
[2024-04-27 01:16] VITALS: BP 128/68; PULSE 68; O2SAT 98
[2024-04-27 01:43] LABS: MANUAL DIFF FLAG NO
[2024-04-27 01:46] LABS: Venous Blood Gas Refer to POC result
[2024-04-27 01:48] LABS: Basophils Percent Auto 0.6 % (0-2); Eosinophils Absolute Auto 0.1 X10*3/uL (0.0-0.4); Eosinophils Percent Auto 2.8 % (0-4); Hematocrit 21.4 % (42.0-52.0); Hemoglobin 7.3 g/dl (14.0-18.0); Imm Gran Abs Auto 0.01 X10*3/uL (0.00-0.03); Imm Gran Pct Auto 0.3 % (0.0-0.4); Lymphocytes Absolute Auto 0.3 X10*3/uL (1.2-4.9); Lymphocytes Percent Auto 9.5 % (20-40); Mean Corpuscular HGB Conc 34.1 g/dl (31.0-36.0); Mean Corpuscular Hemoglobin 35.3 pg (27.0-33.0); Mean Corpuscular Volume 103.4 fL (80.0-98.0); Mean Platelet Volume 11.8 fL (9.4-12.4); Monocytes Absolute Auto 0.5 X10*3/uL (0.1-1.2); Monocytes Percent Auto 15.9 % (2-11); Neutrophils Absolute Auto 2.3 x10*3/uL (2.0-8.3); Neutrophils Percent Auto 70.9 % (45-73); Red Blood Count 2.07 X10*6/uL (4.60-5.80); Red Cell Distribution Width 16.2 % (11.0-16.0); White Blood Count 3.3 X10*3/uL (4.8-10.8)
[2024-04-27 01:51] LABS: Platelet Count 62 X10*3/uL (160-400)
[2024-04-27 01:51] LABS: VBG HCO3 30 mmol/L (22-26); VBG pCO2 30 mmHg; VBG pH 7.61 (7.32-7.43); VBG pO2 47 mmHg
[2024-04-27 01:53] LABS: Ammonia 66 umol/L (13-55)
[2024-04-27 02:00] LABS: Alanine Aminotransferase 16 U/L (0-40); Albumin Level 2.5 g/dL (3.5-5.0); Alkaline Phosphatase 173 U/L (39-117); Anion Gap 14 (12-20); Aspartate Amino Transferase 43 U/L (5-37); Bilirubin Total 1.6 mg/dL (0.0-1.0); Blood Urea Nitrogen 45 mg/dL (9-16); Calcium 8.8 mg/dL (8.4-10.2); Carbon Dioxide 25 mmol/L (22-29); Chloride 102 mmol/L (96-108); Creatinine Clr Calc Pharmacy 39.4; Estimated Glomerular Filt Rate 37; Glucose Random 254 mg/dL (60-115); Potassium 4.1 mmol/L (3.3-5.1); Sodium 137 mmol/L (135-145); Total Protein 7.2 g/dL (6.5-8.0)
--- NOTE | 2024-04-27 02:11 | PC.NURSE ---
Patient found on floor during checks. Unwitnessed fall. Rapid Response called. VSS. POC 245. Patient taken to ED for scans via WC. Unit notified by hospitalist that patient would be admitted to medical. Psych provider notified. Discharge orders pending.
--- NOTE | 2024-04-27 02:20 | PM.EVENT ---
Documented by User: Yaquelin Pulliam NP 04/27/24 02:22 Event Note Date of Service: 04/27/24 Time Spent With Patient Time: Total time managing care of this patient today ____ minutes. Event Note Date of Service: 04/27/24 Psych On-Call Event Note: this mortgage underwriter received tiger text, pt being transferred for work of possible GI bleed. Time Spent With Patient Time: Total time managing care of this patient today ____ minutes. Documented by User: Esau Vanessa MD 04/27/24 22:33 Event Note Date of Service: 04/27/24 Event Note Date of Service: 04/27/24
[2024-04-27 03:39] VITALS: BP 114/82; PULSE 73; RESP 17; TEMP 36.2; O2SAT 99
--- NOTE | 2024-05-29 12:55 | P.DS_ITS ---
DS: Providers Provider Date of Service: 05/27/24 Date of admission: 04/23/24 00:05 Date of discharge: 05/27/24 Primary care physician: Unknown Physician Admitting clinician: Nataly Gonzales Attending physician on admission: Esau Vanessa Consults: 04/23/24 02:17 Consult to Hospitalist Routine Comment: Consulting Provider: [facility] Hospitalists Reason For Exam: direct admission 04/23/24 14:10 Consult to Hospitalist Routine Comment: Consulting Provider: [facility] Hospitalists Reason For Exam: pt reporting severe abdominal pain Attending physician on discharge: Esau Vanessa Discharging clinician: Yaquelin Pulliam DS: Diagnosis Discharge Diagnosis (1) Bipolar 1 disorder: Status: Inactive (2) Cirrhosis, alcoholic: Status: Acute (3) PTSD (post-traumatic stress disorder): Status: Acute (4) ADHD: Status: Deleted (5) Homelessness: Status: Acute DS: Medications Discharge Medications Home Medications: Home Medications ?Medication ?Instructions ?Recorded ?Confirmed spironolactone 25 mg tablet 25 mg PO DAILY 04/27/24 04/29/24 Previous Rx's ?Medication ?Instructions ?Recorded orphenadrine citrate 100 mg 100 mg PO BID PRN Pain #60 tabs 04/23/24 tablet,extended release gabapentin 300 mg capsule 600 mg (2 x 300 mg) PO TID #0 caps 04/27/24 insulin lispro 100 unit/mL See Protocol subcut QIDACHS #0 mL 04/27/24 subcutaneous solution (Admelog U-100 Insulin lispro) rifaximin 550 mg tablet (Xifaxan) 550 mg PO BID #0 tabs 04/27/24 lactulose 20 gram/30 mL oral 20 g (30 mL) PO DAILY 30 days #900 04/29/24 solution mL omeprazole 20 mg capsule,delayed 20 mg PO BID #60 caps 04/29/24 release baclofen 10 mg tablet 10 mg PO TID PRN muscle tension #0 05/26/24 tabs escitalopram oxalate 10 mg tablet 10 mg PO DAILY #0 tabs 05/26/24 furosemide 20 mg tablet 20 mg PO DAILY #0 tabs 05/26/24 hydroxyzine HCl 25 mg tablet 25 mg PO Q6H PRN Anxiety #0 tabs 05/26/24 insulin glargine 100 unit/mL 10 unit (0.1 mL) subcut BEDTIME #0 05/26/24 subcutaneous solution (Lantus mL U-100 Insulin) lorazepam 0.5 mg tablet 0.5 mg PO BID PRN Anxiety #0 tabs 05/26/24 midodrine 5 mg tablet 5 mg PO TID #0 tabs 05/26/24 ondansetron 4 mg disintegrating 4 mg translingual Q6H PRN Nausea 05/26/24 tablet And Vomiting #0 tabs oxycodone 5 mg tablet 5 mg PO Q4H PRN Pain, Severe (Pain 05/26/24 Scale 7-10) #0 tabs quetiapine 25 mg tablet 25 mg PO DAILY #0 tabs 05/26/24 quetiapine 25 mg tablet 75 mg (3 x 25 mg) PO BEDTIME #0 05/26/24 tabs trazodone 100 mg tablet 100 mg PO BEDTIME #0 tabs 05/26/24 Mental Status Exam Mental Status Exam Narrative: Pt was not seen by this instructional writer as environmental services specialist team was covering at the time of transfer to medicine. Data Data Completed and Pending Completed studies during hospitalization [Text1]: 04/24/24 09:40 Ascites Fluid Gram Stain - Final 04/24/24 09:40 Ascites Fluid Anaerobic Culture - Final Propionibacterium acnes 04/24/24 09:40 Ascites Fluid Body Fluid Culture - Final No growth after 2 days Imaging Diagnostic Imaging Impressions Abdomen/Pelvis CT 04/23/24 17:17 IMPRESSION: Concerning cirrhosis and likely portal hypertension resulting in moderate ascites. Spontaneous bacterial peritonitis cannot be excluded. Cholelithiasis. Fleischner guidelines were followed. Electronically signed by: Taco Rae MD 04/24/2024 07:48 AM [facility] Cervical Spine CT 04/27/24 01:45 IMPRESSION: 1. No evidence of acute fracture or dislocation in the cervical spine. 2. Grade 1 C4-C5 and C5-C6 anterolisthesis. 3. Multilevel cervical spondylosis. 4. Advanced C6-C7 degenerative cervical disc disease, sclerotic vertebral endplate changes and bridging syndesmophytes are present. 5. Right-sided C2-C3 and C3-C4 apophyseal joints bony ankylosis. 6. According to the UPDATED 2017 Fleischner Society recommendations, the advised follow-up imaging for nodules <6mm in the upper lobes is not necessarily required in low-risk patients. In high-risk patients with a nodule in the upper lobe and/or demonstrating suspicious morphology, an optional CT follow-up at 12 months may be obtained. If stable at 12 months, no further follow-up is recommended. number Fleischner guidelines were followed. Electronically signed by: John Garcia MD 04/27/2024 07:16 AM EST RP Head CT 04/27/24 01:45 IMPRESSION: 1. Bilateral frontal periventricular ischemic white matter disease is seen, compatible with microangiopathy. 2. No intracranial hemorrhage or skull fracture is seen. 3. No evidence of space occupying lesion could be found. 4. The current plain CT scan of the brain shows no diagnostic evidence of acute cerebral infarction. 5. Moderate bilateral maxillary sinusitis. Electronically signed by: John Garcia MD 04/27/2024 07:04 AM EST RP Pelvis X-Ray 04/27/24 01:59 IMPRESSION: Normal pelvis. Electronically signed by: John Garcia MD 04/27/2024 06:42 AM EST RP Shoulder X-Ray 04/27/24 01:59 IMPRESSION: 1. A radiolucent destructive lesion measuring 1.4 cm in width, 3.0 cm in vertical height is seen in the left humeral greater tuberosity and lateral superior left humeral head leading to superior lateral left humeral head cortical defect. 2. Differential diagnosis includes metastatic disease, multiple myeloma, and bony erosions due to inflammatory arthritis or hyperparathyroidism. Electronically signed by: John Garcia MD 04/27/2024 06:51 AM EST RP DS: Summary Hospital Course Hospital Course: Admitted to adult psychiatry 04/23/24 to 04/27/24 for exacerbation of bipolar disorder, alcohol use disorder, cirrhosis, PTSD, ADHD. Pt followed closely by medicine for anemia, deepti, pancytopenia, thrombocytopenia, DM2, CHERYL, elevated LFT's, elevated ammonia. Paracentesis was continued by medicine during admit. Pt was thought to possible have a GI Bleed on the weekend of 04/24-04/27 and environmental services specialist team along with hospitalist team transferred pt to the medical service for ongoing care and assessment of these symptoms. Status at Discharge Functional status at discharge: bed bound Overall status at discharge: patient is not back to baseline Time Spent with Patient Time attestation: Total time managing care of this patient today ____ minutes. Time spent: Less than 30 minutes Discharge Plan Discharge Anticipated Discharge Date/Time: 04/27/24 02:13 Patient Disposition: [facility] Discharge Diagnosis: mdd Referrals: Physician,Unknown J [Primary Care Provider] - 1 Week Discharge Medications: New gabapentin 300 mg Capsule 600 mg PO TID Qty: 0 0RF insulin lispro [Admelog U-100 Insulin lispro] 100 unit/mL Solution See Protocol subcut QIDACHS Qty: 0 0RF Protocol: Insulin Correction Scale Less than or equal to 110 ---- Give (units): 0 111 to 150 Give (units): 0 151 to 200 Give (units): 2 201 to 250 Give (units): 4 251 to 300 Give (units): 6 301 to 350 Give (units): 8 Greater than 350 Give (units): 10 Call MD if Blood Glucose > : 350 Rx Instructions: 0-20 units Xifaxan 550 mg Tablet 550 mg PO BID Qty: 0 0RF Continued orphenadrine citrate 100 mg tablet extended release 100 mg PO BID PRN (Reason: Pain) Qty: 60 0RF Discontinued quetiapine 25 mg tablet 25 mg PO BEDTIME nicotine 14 mg/24 hr patch 24 hour 1 patch topical DAILY ondansetron HCl 4 mg tablet 4 mg PO Q8H PRN (Reason: Nausea) midodrine 5 mg tablet 5 mg PO TID spironolactone 25 mg tablet 100 mg PO DAILY propranolol 10 mg tablet 10 mg PO BID baclofen 10 mg tablet 10 mg PO TID pantoprazole 40 mg tablet,delayed release (DR/EC) 40 mg PO DAILY gabapentin 300 mg capsule 600 mg PO TID furosemide 20 mg tablet 60 mg PO 1XD Xifaxan 550 mg tablet 550 mg PO BID Levemir FlexPen 100 unit/mL (3 mL) insulin pen 20 unit subcut BID Rx Instructions: 20 units at HS increase by 3 units every third day until fasting BS reaches 110 magnesium oxide 400 mg (241.3 mg magnesium) tablet 400 mg PO DAILY lidocaine 4 % Adhesive Patch,Medicated 1 patch TOPICAL 1XD Chronulac 30 g liquid 30 g PO TID No Action spironolactone 25 mg tablet 25 mg PO DAILY Protocol: Hold for SBP< HOLD for SBP < : 90 lactulose 20 gram/30 mL Solution 20 g PO DAILY 30 Days Qty: 900 0RF omeprazole 20 mg capsule,delayed release(DR/EC) 20 mg PO BID Qty: 60 0RF quetiapine 25 mg Tablet 25 mg PO DAILY Qty: 0 0RF quetiapine 25 mg Tablet 75 mg PO BEDTIME Qty: 0 0RF insulin glargine [Lantus U-100 Insulin] 100 unit/mL Solution 10 unit subcut BEDTIME Qty: 0 0RF midodrine 5 mg Tablet 5 mg PO TID Qty: 0 0RF lorazepam 0.5 mg Tablet 0.5 mg PO BID PRN (Reason: Anxiety) Qty: 0 0RF trazodone 100 mg Tablet 100 mg PO BEDTIME Qty: 0 0RF baclofen 10 mg Tablet 10 mg PO TID PRN (Reason: muscle tension) Qty: 0 0RF hydroxyzine HCl 25 mg Tablet 25 mg PO Q6H PRN (Reason: Anxiety) Qty: 0 0RF furosemide 20 mg Tablet 20 mg PO DAILY Qty: 0 0RF Protocol: Hold for SBP< HOLD for SBP < : 90 ondansetron 4 mg Tablet,Disintegrating 4 mg translingual Q6H PRN (Reason: Nausea And Vomiting) Qty: 0 0RF oxycodone 5 mg Tablet 5 mg PO Q4H PRN (Reason: Pain, Severe (Pain Scale 7-10)) Qty: 0 0RF Rx Instructions: Partial Fill upon patient request. escitalopram oxalate 10 mg Tablet 10 mg PO DAILY Qty: 0 0RF Discharge Orders: Discharge Order (Routine); Ordered 11/11/24 Ordered By: Yaquelin Hajati Activity on Discharge: As tolerated Stand Alone Forms: Patient Portal Discharge page Print Language: Turkmen Care Plan Goals: transfer to medicine for GI bleed Health Concerns: transfer to medicine for GI bleed Plan of Treatment: transfer to medicine Assessment: transfer to medicine Discharge Date/Time: 04/27/24 02:29
== END 2024-04-27 02:29 | disposition short-term general hospital (02) | DRG 885 ==
PROVIDERS: Internal Medicine; Physician Assistant; Psychiatry & Neurology Psychiatry; Admitting Provider Psychiatry & Neurology Psychiatry; Visit Provider Clinical Nurse Specialist Psychiatric/Mental Health, Adult
DX: F31.9 Bipolar disorder, unspecified (principal); R45.851 Suicidal ideations; Z59.02 Unsheltered homelessness; D50.9 Iron deficiency anemia, unspecified; E11.22 Type 2 diabetes mellitus with diabetic chronic kidney disease; G47.33 Obstructive sleep apnea (adult) (pediatric); K21.9 Gastro-esophageal reflux disease without esophagitis; F90.9 Attention-deficit hyperactivity disorder, unspecified type; Z98.1 Arthrodesis status; K70.31 Alcoholic cirrhosis of liver with ascites; F43.10 Post-traumatic stress disorder, unspecified; F17.210 Nicotine dependence, cigarettes, uncomplicated; Z71.6 Tobacco abuse counseling; Z79.4 Long term (current) use of insulin; Z79.899 Other long term (current) drug therapy
CPT/HCPCS: 36415; 49083; 70450; 72125; 72170; 73030; 74176; 80053; 80061; 82140; 82607; 82746; 82803; 82947; 83036; 83540; 84443; 85025; 87070; 87073; 87076; 87185; 87205; 89051; 90656; 94799; 97161; J2003

== ENCOUNTER 2024-04-23 00:05 | Outpatient (BNV) | payer OTHER, SELFPAY | END 2024-04-23 17:17 | PROVIDERS: Admitting Provider Psychiatry & Neurology Psychiatry; Visit Provider Radiology Diagnostic Radiology | DX: R10.9 Unspecified abdominal pain (principal); R00-R99 Symptoms, signs and abnormal clinical and laboratory findings, not elsewhere classified | CPT/HCPCS: 74176 ==

== ENCOUNTER → 2024-04-23 00:05 | Outpatient (BNV) | payer OTHER, SELFPAY | PROVIDERS: Admitting Provider Psychiatry & Neurology Psychiatry; Visit Provider Physician Assistant | DX: K70.30 Alcoholic cirrhosis of liver without ascites (principal); E11.65 Type 2 diabetes mellitus with hyperglycemia | CPT/HCPCS: 99222; 99499 ==

== ENCOUNTER → 2024-04-23 00:05 | Outpatient (BNV) | payer OTHER, SELFPAY | PROVIDERS: Admitting Provider Psychiatry & Neurology Psychiatry; Visit Provider Clinical Nurse Specialist Psychiatric/Mental Health, Adult | DX: F31.4 Bipolar disorder, current episode depressed, severe, without psychotic features (principal); F43.11 Post-traumatic stress disorder, acute; F90.9 Attention-deficit hyperactivity disorder, unspecified type; K70.30 Alcoholic cirrhosis of liver without ascites; Z59.00 Homelessness unspecified | CPT/HCPCS: 90792; 99232; 99499 ==

== ENCOUNTER → 2024-04-24 | Day surgery (SDC) | payer OTHER, SELFPAY ==
--- NOTE | ~2024-04-24 | US_ITS ---
ULTRASOUND GUIDED DIAGNOSTIC PARACENTESIS HISTORY: Ascites. Abdominal pain. Diagnostic tap. TECHNIQUE: Risks and benefits and possible complications were discussed with the patient and consent form was signed. A safe pocket of ascitic fluid was identified using ultrasound guidance, and the overlying skin was marked. The abdomen prepped and draped in sterile fashion. 1% lidocaine was used as a local anesthetic. Using ultrasound guidance, a 22-gauge spinal needle was placed into the ascitic pocket. 20 cc of yellow fluid was removed. The needle was then removed. Specimen was sent for analysis. A few customer relations representative images from before and after the examination were obtained. The procedure was performed by Scott Gimenez PA-C and supervised by Dr. Leija. US/US paracentesis abd w/image IMPRESSION: Ultrasound-guided diagnostic paracentesis as described above. No immediate complications Electronically signed by: Aramis Leija MD 04/24/2024 04:37 PM [facility]
[2024-04-24 09:02] VITALS: BP 124/58; PULSE 73; RESP 20; TEMP 36.9; O2SAT 97; BMI 22.1
[2024-04-24 10:00] VITALS: BP 119/82; PULSE 71; RESP 17; TEMP 36.9; O2SAT 100
[2024-04-24 15:40] LABS: Glucose, Whole Blood 155 mg/dL (60-115)
[2024-04-24 21:48] LABS: Glucose, Whole Blood 181 mg/dL (60-115)
== END ==
LOC: HO.SSS 04-28 15:23
PROVIDERS: Physician Assistant Surgical; Visit Provider Internal Medicine
DX: R18.8 Other ascites (principal); R10.9 Unspecified abdominal pain; E11.9 Type 2 diabetes mellitus without complications
CPT/HCPCS: 49083; 82947

== ENCOUNTER 2024-04-27 03:00 | Inpatient (IN) | payer OTHER, SELFPAY ==
[2024-04-27] VITALS (10 sets, daily range): BP systolic 102–132; BP diastolic 64–97; PULSE 68–77; RESP 16–18; TEMP 36–37.1; O2SAT 96–100; BMI 23.4
--- NOTE | 2024-04-27 03:10 | P.HPHOSP_ITS ---
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 Tonight a rapid response was activated after the patient was found on the floor. He fell and his fall was unwitnessed. Upon arrival to his room the patient was on the ground landing on his back surrounded by multiple staff members. Multiple members required to help him stand up at his was unable to do it by himself. He was unable to move well his left upper extremity which seems to be a chronic problem for him. He was alert and oriented x3, however, his responses were delayed and he seems quite uninterested in answering my questions. He denied head trauma upon falling down. According to psychiatric staff, the patient's seems to be more hypoactive and wander if we could check his ammonia level. Vital signs were normal. Imaging stat ordered including: Head and C-spine CT scan, left shoulder x-ray, pelvis x-ray and CXR; as well as stat labs remarkable for significant drop of hemoglobin over the last 4 days from 9.5 to 7.3. Venous blood gas showed pH of 7.61 NaHCO3 of 30, however, BNP showed and normal HC03. Review of Systems Review of Systems: Yes Unobtainable due to mental condition [facility] Medical History (Updated 04/27/24 @ 05:26 by Vania Salgado MD) Homelessness ADHD PTSD (post-traumatic stress disorder) Esophageal and gastric varices Bipolar 1 disorder CHERYL (obstructive sleep apnea) JOHANN (iron deficiency anemia) Chronic deep vein thrombosis (DVT) CKD (chronic kidney disease) Pancytopenia Portal hypertension Cirrhosis, alcoholic Type 2 diabetes mellitus without complications GERD (gastroesophageal reflux disease) Social History Household Members: None Housing: Other Housing Other:: pt was living in housing Do you presently have visiting nurse or other home services: No Patient Tobacco Use Status: Current everyday Tobacco user Tobacco use type: Cigar Cigarettes Per Day: 1 e-Cigarette/Vaping Use: Never Used Second Hand Smoke Exposure: Yes Substance Use Type: Marijuana Advance Directives: No service: Yes Sexual orientation: Straight/Heterosexual Meds Allergies Allergy/AdvReac Type Severity Reaction Status Date / Time acetaminophen AdvReac Unknown Verified 04/23/24 00:13 bismuth subsalicylate AdvReac Unknown Verified 04/23/24 00:13 [From Pepto-Bismol] celecoxib [From Celebrex] AdvReac Unknown Verified 04/23/24 00:13 NSAIDS (Non-Steroidal AdvReac Unknown Verified 04/23/24 00:13 Anti-Inflamma Active Medications: Current Medications Glucose (Glucose Gel 15 Gm Gel..Gram.) 15 gm PO Q15M PRN; Protocol PRN Reason: per Hypoglycemia Standing Ord. Octreotide Acetate 500 mcg/ (Sodium Chloride) 501 mls @ 50.1 mls/hr IVCONT .Q10H [facility] Dextrose (D10) 250 mls @ 750 mls/hr IV Q15M PRN; Protocol PRN Reason: per Hypoglycemia Standing Ord. Thiamine HCl 100 mg/ Sodium (Chloride) 101 mls @ 202 mls/hr IV DAILY [facility] Insulin Human Lispro (Insulin Lispro 100 Unit/Ml 3 Ml Vial) 0 unit SUBCUT Q6H [facility]; Protocol Octreotide Acetate (Octreotide Acetate 100 Mcg/Ml Ampul) 100 mcg IVPUSH ONCE ONE Stop: 04/27/24 03:04 Pantoprazole Sodium (Pantoprazole Sodium 40 Mg/10 Ml Vial) 80 mg IVPUSH ONCE STA Stop: 04/27/24 03:07 Pantoprazole Sodium (Pantoprazole Sodium 40 Mg/10 Ml Vial) 40 mg IVPUSH BID@0630,1630 [facility] Sodium Chloride (0.9 % Sodium Chloride Flush 3 Ml Syringe) 3 ml IVFLUSH QSHIFT [facility] Physical Exam Const: Other: Constitutional - Somnolent but awakes upon calling his name. Cooperative. HEENT - PER, EOMI. Normal sclerae. Dry oral mucosa. Heart - S1S2, RRR, No murmurs Lungs - Normal lung expansion, Normal respiratory effort, No respiratory distress, CTA bilaterally Abdomen - NT / ND; +BS; No rebound or guarding. Positive fluid wave. Extremities - no calf tenderness bilaterally, no swelling Musculoskeletal - Normal inspection, normal ROM Skin - Warm/Dry Neurological - Alert & oriented x3. No focal weakness grossly noted. Normal speech. Psychological - Depression affect. No agitation. 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 Admit to hospitalist service. Telemetry. NPO. Start treatment with Protonix 80 mg IV followed by 40 mg IV twice daily, octreotide 100 mcg IV push then followed by IV infusion. Blood transfusion: 1 PRBC. Continue to monitor hemoglobin. Start treatment with ceftriaxone 1 g IV daily. Check INR and anemia workup. GI consult. * Worsening renal failure, acute? Acute on chronic? Likely related to above and/or use of furosemide. PRBCs transfusion. Hold furosemide. Avoid nephrotoxic agents. Continue to monitor renal function. If continue to deteriorate we will consider Nephrology consult. * Thrombocytopenia, worsening. Continue to monitor. If continue to decrease and/or overt bleeding. Will transfuse platelets. * Type 2 diabetes mellitus. BG checks every 6 hours while NPO. Insulin sliding scale. * CHERYL. No tolerating CPAP. * Mood disorder. Continue psych medication when able (pt is currently NPO). * Elevated LFTs, likely secondary to liver cirrhosis + hep C infection. * Elevated ammonia. Continue lactulose when able. DVT prophylaxis: SCDs only (thrombocytopenia, suspecting GI bleeding) Code status: Full Patient will need hospitalization for at least 2 midnights for worsening anemia concerning for GI bleeding treatment with PRBC transfusion, close monitoring of hemoglobin and evaluation by subspecialty. Quality Stroke Does the patient have a stroke diagnosis?: No VTE Prior VTE?: No VTE Risk Level:: Medical - moderate - high VTE Device Contraindication: N/A - Device Ordered VTE Drug Contraindication: Treatment Not Indicated
[2024-04-27] MEDS: Pantoprazole Sodium 40 MG/10 ML VIAL 80 MG IVPUSH (04:09)
[2024-04-27] MEDS: Octreotide Acetate 100 MCG/ML AMPUL IVPUSH (04:23)
--- NOTE | 2024-04-27 04:26 | PC.NURSE ---
Patient was a transfer from to M/S room 385 after a fall and a RR call. Arrived via w/c at 0320 and transfer not processed, medications not crossing over, Id bracelet delay as not assigned to room 385, and also pt with no IV access. Charge nurse completed admission, placed an #20 gauge IV to right forearm, and nursing supervisor lending activities assisted the needed steps for room transfer orders and bed management, therefore, medications were delayed. Hospitalist at bedside and aware of delays. tele monitoring initiated, HFR protocol explained, and patient educated on safety and to alert staff to needs and not OOB alone. Will continue to monitor frequently.
[2024-04-27 04:56] LABS: Glucose, Whole Blood 149 mg/dL (60-115)
[2024-04-27 06:16] LABS: Immature Retic Fraction 12.8 % (2.3-13.4); Retic HGB Equivalent 39.2 pg (30.0-35.0); Reticulocyte Percent 2.8 % (0.5-1.8); Reticulocytes Absolute 0.066 X10*6/uL (0.026-0.095)
[2024-04-27 06:27] LABS: INTERNATIONAL NORM RATIO 1.1 (0.9-1.1); Prothrombin Time 13.3 SEC (10.9-12.4)
--- NOTE | 2024-04-27 06:30 | PC.NURSE ---
0630- Octreotide drip still unavailable for this M5 transfer patient. Hospitalist, auditor in charge, and nursing labor relations supervisor aware. Day pharmacy called at 0600 and unable to deliver until 0700. Type and screen still pending, All medications available, given as per AUG. Will alert day RN if not to floor by 0700
[2024-04-27 06:33] LABS: Iron 66 mcg/dL (45-160); Percent Iron Saturation 33 % (15-50); Total Iron Binding Capacity 200 mcg/dL (228-428); Unsaturated Iron Binding 134 ug/dL
[2024-04-27 06:48] LABS: Ferritin 227 ng/mL (20-250)
[2024-04-27 07:37] LABS: Vitamin B12 729 pg/mL (200-900)
[2024-04-27 07:38] LABS: Folate 8.3 ng/mL (> or = 4.0)
--- NOTE | 2024-04-27 08:20 | PC.NURSE ---
Confirmed with Jayda Boss RNsocial professionals pt needs 1:1 sitter for SI from initial admission on M5. 1:1 sitter at bedside for SI and multiple falls, last fall on M5 before admission to med surg. Pharmacy called for Octerotide , med not available in pyxis.
[2024-04-27] MEDS: Thiamine HCL 100 MG in 0.9 % Sodium Chloride 100 ML 202 MG IV (09:10)
[2024-04-27] MEDS: 0.9 % Sodium Chloride Flush 3 ML SYRINGE IVFLUSH ×2 (09:12→15:32)
[2024-04-27 09:34] LABS: VBG HCO3 32 mmol/L (22-26); VBG pCO2 39 mmHg; VBG pH 7.52 (7.32-7.43); VBG pO2 64 mmHg
--- NOTE | 2024-04-27 09:36 | PC.NURSE ---
Addendum entered by Irish Mcguire RN 04/27/24 13:33: pt extra clothing brought to this RN from M5. One bottle of orphenadrine sent to pharmacy to be verified. Original Note: pt belongings stored in 4th floor locker-1 laptop, orange backpack with clothes, wallet, shoes and watch, cane left at bedside.
[2024-04-27 09:37] LABS: Venous Blood Gas Refer to POC result
--- NOTE | 2024-04-27 09:43 | HO.PM.IMPN ---
Subjective Subjective Date of Service: 04/27/24 Interval History: tired, no black stools Physical Exam Vital Signs: Vital Signs: Last Vital Signs Temp 97.2 F 04/27/24 08:00 Pulse 68 04/27/24 08:00 Resp 16 04/27/24 08:00 BP 102/64 04/27/24 08:00 Pulse Ox 100 04/27/24 08:00 O2 Del Method Room Air 04/27/24 08:00 cachexic, some tremor Objective Data Active Medications Ceftriaxone Sodium (Ceftriaxone Sodium 1 Gm Vial) 1 gm IVPUSH Q24H [facility] Glucose (Glucose Gel 15 Gm Gel..Gram.) 15 gm PO Q15M PRN; Protocol PRN Reason: per Hypoglycemia Standing Ord. Dextrose (D10) 250 mls @ 750 mls/hr IV Q15M PRN; Protocol PRN Reason: per Hypoglycemia Standing Ord. Thiamine HCl 100 mg/ Sodium (Chloride) 101 mls @ 202 mls/hr IV DAILY [facility] Last Admin: 04/27/24 09:10 Dose: 202 mls/hr Documented By: KARLO Octreotide Acetate 500 mcg/ (Sodium Chloride) 501 mls @ 50.1 mls/hr IVCONT .Q10H [facility] Insulin Human Lispro (Insulin Lispro 100 Unit/Ml 3 Ml Vial) 0 unit SUBCUT Q6H [facility]; Protocol Last Admin: 04/27/24 05:01 Dose: Not Given Documented By: KEYSHA Non-Admin Reason: No Insulin Coverage Comments: poc 149 Pantoprazole Sodium (Pantoprazole Sodium 40 Mg/10 Ml Vial) 40 mg IVPUSH BID@0630,1630 [facility] Sodium Chloride (0.9 % Sodium Chloride Flush 3 Ml Syringe) 3 ml IVFLUSH QSHIFT [facility] Last Admin: 04/27/24 09:12 Dose: 3 ml Documented By: KARLO Labs Labs: Laboratory Results - last 24 hr 04/27/24 04/27/24 04/27/24 04:51 06:02 09:30 Absolute Retic 0.066 Percent Retic 2.8 H Immature Retic Fraction 12.8 Retic Hgb Equivalent 39.2 H PT 13.3 H INR 1.1 VBG pH 7.52 H VBG pCO2 39 VBG pO2 64 VBG HCO3 32 H VBG O2 Saturation TNP VBG Base Excess 9.0 POC Glucose 149 H Iron 66 TIBC 200 L % Saturation 33 Unsat Iron Binding 134 Ferritin 227 Vitamin B12 729 Folate 8.3 Blood Type O Positive Antibody Screen NEGATIVE Crossmatch See Detail Assessment and Plan (1) Bipolar 1 disorder: Status: Acute Plan 58M PMH etoh and HCV cirrhosis complicated by portal hypertension, pancytopeni, admitted from inpatient psych for fall found to be anemic. Acute on chronic anemia Likely acute blood loss and chronic inflammatory Continue PPI, octreotide, empiric ceftriaxone, follow up GI, monitor hemoglobin Elevated creatinine MAYE versus CKD 3 Monitor Diabetes Insulin sliding scale Mood disorder Seroquel Alcohol and HCV cirrhosis Continue lactulose DVT prophylaxis-mechanical due to suspected GI bleed and thrombocytopenia Full code reason for continued hospitalization: Working up suspected GI bleed Quality Stroke Does the patient have a stroke diagnosis?: No VTE Prior VTE?: No VTE Risk Level:: Medical - moderate - high VTE Device Contraindication: N/A - Device Ordered VTE Drug Contraindication: Treatment Not Indicated
[2024-04-27] MEDS: cefTRIAXone sodium 1 GM VIAL IVPUSH (10:20)
[2024-04-27 11:00] LABS: Glucose, Whole Blood 100 mg/dL (60-115)
--- NOTE | 2024-04-27 13:04 | PHA.MEDREC ---
Pharmacy Consult ? Medication Reconciliation Pharmacy has completed the medication reconciliation, spoke to patient at bedside. Went through list and patient confirmed meds and how he has been taking them. When asked about long acting insulin he said I don't touch the levemir but said he does have a sliding scale short acting insulin between 0 and 20 units. When asked about lactuse he said whatever that is, I don't use it , said he doesn't use the nicotine patches and said he had no idea what omeprazole was for and that he doesn't take it. After explaining what omeprazole was for, patient denied using it at home. Pt also stated he did not use propranolol or quetiapine but did say he was using the xifaxan and spironolactone, also said he was just started on the trazodone prn. Spoke to [facility] before speaking to patient and they confirmed baclofen, furosemide, lactulose, and xifaxan had been picked up recently.
[2024-04-27] MEDS: Octreotide Acetate 500 MCG in 0.9 % Sodium Chloride 500 ML 50.1 MCG IVCONT ×2 (13:12→23:11)
[2024-04-27] MEDS: Pantoprazole Sodium 40 MG/10 ML VIAL IVPUSH (15:31)
[2024-04-27] MEDS: Gabapentin 300 MG CAPSULE 600 MG PO ×2 (15:31→20:00)
[2024-04-27] MEDS: Dextrose 5 % and 0.45 % NaCl 1,000 ML 80 ML IVCONT (15:31)
--- NOTE | 2024-04-27 15:56 | MHC.CM.PN ---
IMM delivered. Patient currently homeless. Was living in 's housing and working w/ case investigator on permanent housing. However, patient decided to leave d/t disagreement w/ another resident. Was staying in car prior to admission. Initially admitted to psych unit, +SI. Ambulates w/ cane. Denies any services. Reports he is not service connected. PCP Olivia Sauceda MD Completed HCP naming his daughter, Xiang, as HCA. +THRIVE. Resource guide left at bedside. DP: Patient does not wish to return to 's housing. Declines assistance w/ retirement placement. Plans to return to his car which is [facility] at [facility] in fall. He will need a lyft ride. Will need care team eval. CM will continue to follow.
[2024-04-27 16:49] LABS: Glucose, Whole Blood 81 mg/dL (60-115)
--- NOTE | 2024-04-27 17:51 | P.EN_ITS ---
Event Note Date of Service: 04/27/24 Event Note: GI Consult-Full note dictated-History from patient, RN, and EMR Imp: 58 yo male with cirrhosis, followed in the [facility], due to previous Hep C and EtOH abuse. He has had associated history of varices with bleeding and is s/p banding, ascites with weekly paracenteses, and thrombocytopenia. Transferred from [facility] due to a fall and the finding of significant anemia. There has been no report of any definitive bleeding by the patient or the nursing staff. He has been stable on the medical floor. He does have some chronic anorexia and dysphagia that he attributes to the previous variceal banding procedures. He describes an upper endo within the last year although details are not readily available. He also describes previous colonoscopies but not for at least the past couple of years. He denies smoking, NSAIDs or Aspirin use, or EtOH for the past 1 1/2 years. Diff dx: Anemia due to GI bleed from portal gastropathy, gastritis, esophagitis, or peptic ulcer disease, although without any definitive symptoms of melena or hematochezia. I don't think this represents a variceal bleed given the lack of any clinical history to suggest that. I don't think this was from a lower GI bleed. Intraabdominal bleed from recent paracentesis is something to consider as well. Rec: Upper endoscopy with MAC with me or Dr. Ruffin 04/28. Full consent obtained for this, including risks of bleeding and perforation. If EGD is nonrevealing and the Hgb continues to drop without any clear evidence of GI blood loss, I would recommend a CT of the abdomen to assess for an intraabdominal bleed from the paracentesis. Continue PPI, but his IV Sandostatin can be discontinued given no clinical history to suggest a variceal bleed. This has been D/W the patient in detail and he is comfortable with this plan. Thanks Time Spent With Patient Time: Total time managing care of this patient today ____ minutes.
--- NOTE | 2024-04-27 17:51 | MHC.SHP ---
Pre-Procedural Eval Section A - 24 Hr Update-Section A only Date of Service: 04/28/24 The patient is an INPATIENT: Yes The patient has been examined within 24 hours of the surgical procedure. The History & Physical has been completed within 30 days and I have reviewed it.: Yes Section B - Complete if H&P > 30 days Chief Complaint: Symptomatic anemia, GI Bleeding suspecting Allergies: Allergies Allergy/AdvReac Type Severity Reaction Status Date / Time acetaminophen AdvReac Unknown Verified 04/23/24 00:13 bismuth subsalicylate AdvReac Unknown Verified 04/23/24 00:13 [From Pepto-Bismol] celecoxib [From Celebrex] AdvReac Unknown Verified 04/23/24 00:13 NSAIDS (Non-Steroidal AdvReac Unknown Verified 04/23/24 00:13 Anti-Inflamma Plan I have reviewed the history and physical and performed a pertinent physical examination on my patient. No changes have occurred unless specified. Time Spent With Patient Time: Total time managing care of this patient today ____ minutes.
[2024-04-27 19:21] LABS: OBS Int Ctl Valid YES; OBS1 POSITIVE (NEGATIVE)
[2024-04-27] MEDS: HYDROmorphone HCl 2 MG TABLET 1 MG PO (19:45)
[2024-04-27] MEDS: rifAXIMin 550 MG TABLET PO (20:00)
[2024-04-27 23:13] LABS: Glucose, Whole Blood 214 mg/dL (60-115)
[2024-04-27] MEDS: Insulin Lispro 100 UNIT/ML 3 ML VIAL SUBCUT (23:22)
[2024-04-28] VITALS (9 sets, daily range): BP systolic 81–129; BP diastolic 49–92; PULSE 71–88; RESP 14–20; TEMP 36.1–36.9; O2SAT 95–100
[2024-04-28] MEDS: Dextrose 5 % and 0.45 % NaCl 1,000 ML 80 ML IVCONT ×2 (02:33→13:15)
[2024-04-28] MEDS: diphenhydrAMINE HCL 25 MG CAPSULE PO (05:02)
--- NOTE | 2024-04-28 05:06 | CONS_ITS ---
DATE OF SERVICE: 04/27/2024 REASON FOR CONSULTATION: Cirrhosis, anemia, and ascites. HISTORY OF PRESENT ILLNESS: This has been obtained from the patient, the nursing staff, and the medical record. The patient is a 58-year-old male who was transferred to the medical unit today from the psychiatric service due to the finding of an anemia. The patient has a past history notable for significant cirrhosis in relation to previous alcohol abuse and previous hepatitis C. The patient describes that he resides in the [place], [place] area and is under the care of a application support technician. He describes a history of previous variceal bleeding with subsequent banding. He describes currently significant problems with ascites, for which he undergoes a weekly paracentesis in that area. He describes a previous history of GI bleeding from varices. He describes an upper endoscopy probably early this year, but is not entirely clear as to the details, but he does not think there was any significant bleeding. He also describes a colonoscopy, but not for at least a couple of years now. He thinks the colonoscopy was unremarkable. The patient describes sobriety from alcohol for about a year and a half now. He has not noticed any melena nor hematochezia. However, he was transferred from the psychiatric floor to the medical floor today due to the finding of significant anemia, with a hemoglobin that went from 9.5 on April 23, to 7.3 early this morning. He also had a rise in his BUN from 36 to 45 from April 25 to today. The patient denies any melena nor hematochezia. He does describe some anorexia and some dysphagia that he reports is from his previous banding procedures. He denies any vomiting, chronic heartburn, nor any signs of jaundice. He did have a paracentesis on April 24, with the removal of only a minimal amount of fluid, which was sent for cell count, which was negative for spontaneous bacterial peritonitis. The patient did receive 1 unit of blood this morning. PRESENT MEDICATIONS: Include baclofen, IV ceftriaxone, gabapentin, insulin, lactulose, IV Sandostatin, IV pantoprazole, Xifaxan, spironolactone 25 mg daily, thiamine, and trazodone. PAST MEDICAL HISTORY: Cirrhosis in relation to alcohol abuse and previous chronic hepatitis C, that was treated successfully by his description with a prolonged course of interferon. He has had problems including ascites, variceal bleeding, thrombocytopenia. He does have a history of psychiatric issues including PTSD, bipolar disease, and ADHD, history of diabetes mellitus. He denies history of IA or stroke. He describes bilateral shoulder surgery, but denies any other surgeries. He also has a history of gastroesophageal reflux and sleep apnea. SOCIAL HISTORY: He reports that he lives in a facility for [facility]. He denies current drug, tobacco, nor alcohol use. FAMILY HISTORY: Noncontributory. REVIEW OF SYSTEMS: CONSTITUTIONAL: He has been feeling weak and anorexic. CARDIAC: No chest pain. PULMONARY: No cough or hemoptysis. GI: As above. URINARY: No dysuria. No hematuria. PHYSICAL EXAMINATION: GENERAL: The patient is alert, pleasant, cooperative male. SKIN: Warm and dry. No jaundice. EYES: Icteric sclerae. CARDIAC: Normal S1, S2. ABDOMEN: Distended with some ascites. There is no focal mass. Exam is nontender. EXTREMITIES: Without edema. LABORATORY DATA: As above. White count 3.3, hemoglobin 7.3, platelets 62,000. PT 13.3 with INR 1.1. Normal electrolytes, BUN 45, creatinine 1.9. Iron 66, iron saturation 33% and ferritin 227. Total bilirubin 1.6, AST 43, ALT 16, alkaline phosphatase 173. Albumin 2.5. Normal B12 and folate. His BUN was 36 with creatinine 1.[address] scan on admission on April 23, described cirrhosis, gallstones, and evidence of portal hypertension. The CAT scan described a moderate amount of ascites. There was no sign of biliary obstruction or pancreatic disease. IMPRESSION: The patient is a 58-year-old male with advanced liver disease in relation to previous alcohol use and previous hepatitis C. This has been associated with complicating factors including ascites, portal hypertension with reported variceal bleeding, and thrombocytopenia. He has had a significant drop in hemoglobin, although without any clear evidence of GI bleeding by his history. This certainly does not sound like a variceal bleed given no reported vomiting nor any sign of active GI blood loss. He may very well have some chronic GI blood loss occurring in relation to portal gastropathy, gastritis, peptic ulcer disease, and/or esophagitis. At this point, given the significant drop in his hemoglobin and underlying history, it would be reasonable for him to undergo an upper endoscopy while here to exclude any significant potential upper GI source of further blood loss. Full consent has been obtained from him for that, including risks of bleeding and perforation. Based on the clinical history, I do not think this was a lower GI bleed nor a variceal bleed. He will undergo upper endoscopy tomorrow with either myself or Dr. Ruffin. Full consent was obtained for that from him for this, including risks of bleeding and perforation. If the upper endoscopy is nonrevealing and the hemoglobin continues to drop without any clear evidence of GI blood loss, I would recommend a CT scan of the abdomen to assess for any intraabdominal bleeding from his recent paracentesis. I will continue his PPI, but I think his Sandostatin can be stopped as there is no clinical evidence of a variceal bleed. I did review with him that when he is discharged from the hospital, he should definitely follow up with his primary care physician and application support technician at home. The patient understood the plan and was comfortable with it. Thank you for the consultation. MD PING Kerns/CYNDI / [phone] MTDD
[2024-04-28 05:21] LABS: Glucose, Whole Blood 80 mg/dL (60-115)
[2024-04-28] MEDS: Pantoprazole Sodium 40 MG/10 ML VIAL IVPUSH ×2 (06:21→17:11)
[2024-04-28 06:58] LABS: MANUAL DIFF FLAG NO
[2024-04-28 07:07] LABS: Basophils Percent Auto 0.6 % (0-2); Eosinophils Absolute Auto 0.1 X10*3/uL (0.0-0.4); Eosinophils Percent Auto 2.6 % (0-4); Hematocrit 30.6 % (42.0-52.0); Hemoglobin 10.1 g/dl (14.0-18.0); Imm Gran Abs Auto 0.01 X10*3/uL (0.00-0.03); Imm Gran Pct Auto 0.3 % (0.0-0.4); Lymphocytes Absolute Auto 0.4 X10*3/uL (1.2-4.9); Lymphocytes Percent Auto 12.2 % (20-40); Mean Corpuscular Hemoglobin 34.8 pg (27.0-33.0); Mean Corpuscular Volume 105.5 fL (80.0-98.0); Mean Platelet Volume 12.1 fL (9.4-12.4); Monocytes Absolute Auto 0.4 X10*3/uL (0.1-1.2); Monocytes Percent Auto 12.9 % (2-11); Neutrophils Absolute Auto 2.2 x10*3/uL (2.0-8.3); Neutrophils Percent Auto 71.4 % (45-73); White Blood Count 3.1 X10*3/uL (4.8-10.8)
[2024-04-28 07:08] LABS: Platelet Count 82 X10*3/uL (160-400)
[2024-04-28 07:25] LABS: Alanine Aminotransferase 16 U/L (0-40); Albumin Level 2.6 g/dL (3.5-5.0); Alkaline Phosphatase 143 U/L (39-117); Anion Gap 12 (12-20); Aspartate Amino Transferase 49 U/L (5-37); Bilirubin Direct 1.3 mg/dL (0.0-0.5); Bilirubin Total 2.6 mg/dL (0.0-1.0); Blood Urea Nitrogen 39 mg/dL (9-16); Calcium 8.1 mg/dL (8.4-10.2); Carbon Dioxide 26 mmol/L (22-29); Chloride 104 mmol/L (96-108); Creatinine Clr Calc Pharmacy 47.5; Estimated Glomerular Filt Rate 44; Glucose Fasting 93 mg/dL (60-99); Glucose Random 92 mg/dL (60-115); Potassium 4.2 mmol/L (3.3-5.1); Sodium 138 mmol/L (135-145); Total Protein 7.8 g/dL (6.5-8.0)
[2024-04-28] MEDS: cefTRIAXone sodium 1 GM VIAL IVPUSH (08:23)
--- NOTE | 2024-04-28 08:50 | HO.PM.IMPN ---
Subjective Subjective Date of Service: 04/28/24 Interval History: no black or red stools, feels stronger today Physical Exam Vital Signs: Vital Signs: Last Vital Signs Temp 97.7 F 04/28/24 07:14 Pulse 81 04/28/24 07:14 Resp 16 04/28/24 07:14 BP 129/75 04/28/24 07:14 Pulse Ox 96 04/28/24 07:14 O2 Del Method Room Air 04/28/24 07:14 BMI result Body Mass Index 23.4 General: AO X 3, no acute distress, cachexia, less tremulous Resp: CTA bilateral, no accessory muscles used CVS: S1,S2,RRR GI: soft, non tender, non distended Neuro: motor grossly intact, alert Psych: appropriate affect, appropriate insight Objective Data Active Medications Baclofen (Baclofen 10 Mg Tablet) 10 mg PO TID PRN PRN Reason: muscle tension Ceftriaxone Sodium (Ceftriaxone Sodium 1 Gm Vial) 1 gm IVPUSH Q24H [facility] Last Admin: 04/28/24 08:23 Dose: 1 gm Documented By: KARLO Gabapentin (Gabapentin 300 Mg Capsule) 600 mg PO TID [facility] Last Admin: 04/27/24 20:00 Dose: 600 mg Documented By: KEYSHA Glucose (Glucose Gel 15 Gm Gel..Gram.) 15 gm PO Q15M PRN; Protocol PRN Reason: per Hypoglycemia Standing Ord. Hydromorphone HCl (Hydromorphone Hcl 2 Mg Tablet) 1 mg PO Q6H PRN PRN Reason: Pain, Severe (Pain Scale 7-10) Last Admin: 04/27/24 19:45 Dose: 1 mg Documented By: KEYSHA Dextrose (D10) 250 mls @ 750 mls/hr IV Q15M PRN; Protocol PRN Reason: per Hypoglycemia Standing Ord. Thiamine HCl 100 mg/ Sodium (Chloride) 101 mls @ 202 mls/hr IV DAILY [facility] Last Infusion: 04/27/24 11:07 Dose: Infused Documented By: KARLO Dextrose/Sodium Chloride (D51/2ns) 1,000 mls @ 80 mls/hr IVCONT .[id number] [facility] Last Admin: 04/28/24 02:33 Dose: 80 mls/hr Documented By: KEYSHA Octreotide Acetate 500 mcg/ (Sodium Chloride) 501 mls @ 50.1 mls/hr IVCONT .Q10H [facility] Last Admin: 04/27/24 23:11 Dose: 50 mcg/hr, 50.1 mls/hr Documented By: KEYSHA Insulin Human Lispro (Insulin Lispro 100 Unit/Ml 3 Ml Vial) 0 unit SUBCUT Q6H [facility]; Protocol Last Admin: 04/28/24 05:08 Dose: Not Given Documented By: KEYSHA Non-Admin Reason: No Insulin Coverage Comments: poc 80 Lactulose (Lactulose 20 Gm/30 Ml Solution) 20 gm PO DAILY [facility] Magnesium Oxide (Magnesium Oxide 400 Mg Tablet) 400 mg PO DAILY [facility] Pt Own (Orphenadrine Citrate 100 Mg Tablet Extended Release) 100 mg PO BID PRN PRN Reason: Pain, Severe (Pain Scale 7-10) Pantoprazole Sodium (Pantoprazole Sodium 40 Mg/10 Ml Vial) 40 mg IVPUSH BID@0630,1630 [facility] Last Admin: 04/28/24 06:21 Dose: 40 mg Documented By: KEYSHA Rifaximin (Rifaximin 550 Mg Tablet) 550 mg PO BID [facility] Last Admin: 04/27/24 20:00 Dose: 550 mg Documented By: KEYSHA Sodium Chloride (0.9 % Sodium Chloride Flush 3 Ml Syringe) 3 ml IVFLUSH QSHIFT [facility] Last Admin: 04/28/24 08:24 Dose: Not Given Documented By: KARLO Non-Admin Reason: IV Running Spironolactone (Spironolactone 25 Mg Tablet) 25 mg PO DAILY [facility]; Protocol Trazodone HCl (Trazodone Hcl 50 Mg Tablet) 50 mg PO BEDTIME PRN PRN Reason: Insomnia Labs 04/28/24 05:32 04/28/24 05:31 Labs: Laboratory Results - last 24 hr 04/27/24 04/27/24 04/27/24 06:02 09:30 10:56 MCV MCH MCHC RDW Plt Count MPV Immature Gran % (Auto) Neut % (Auto) Lymph % (Auto) [place] % (Auto) Eos % (Auto) Baso % (Auto) Lymph # (Auto) [place] # (Auto) Eos # (Auto) Baso # (Auto) Abs Immat Gran (auto) Absolute Neuts (auto) Absolute Nucleated RBC Nucleated RBC % (auto) VBG pH 7.52 H VBG pCO2 39 VBG pO2 64 VBG HCO3 32 H VBG O2 Saturation TNP VBG Base Excess 9.0 Anion Gap Estim Creat Clear Calc Estimated GFR POC Glucose 100 Random Glucose Fasting Glucose Calcium Magnesium Total Bilirubin Direct Bilirubin AST ALT Alkaline Phosphatase Total Protein Albumin Stool Occult Blood Blood Type O Positive Antibody Screen NEGATIVE Crossmatch See Detail 04/27/24 04/27/24 04/27/24 16:46 18:40 23:09 MCV MCH MCHC RDW Plt Count MPV Immature Gran % (Auto) Neut % (Auto) Lymph % (Auto) [place] % (Auto) Eos % (Auto) Baso % (Auto) Lymph # (Auto) [place] # (Auto) Eos # (Auto) Baso # (Auto) Abs Immat Gran (auto) Absolute Neuts (auto) Absolute Nucleated RBC Nucleated RBC % (auto) VBG pH VBG pCO2 VBG pO2 VBG HCO3 VBG O2 Saturation VBG Base Excess Anion Gap Estim Creat Clear Calc Estimated GFR POC Glucose 81 214 H Random Glucose Fasting Glucose Calcium Magnesium Total Bilirubin Direct Bilirubin AST ALT Alkaline Phosphatase Total Protein Albumin Stool Occult Blood POSITIVE Blood Type Antibody Screen Crossmatch 04/28/24 04/28/24 04/28/24 05:06 05:31 05:32 MCV 105.5 H MCH 34.8 H MCHC 33.0 RDW 17.0 H Plt Count 82 L D MPV 12.1 Immature Gran % (Auto) 0.3 Neut % (Auto) 71.4 Lymph % (Auto) 12.2 L [place] % (Auto) 12.9 H Eos % (Auto) 2.6 Baso % (Auto) 0.6 Lymph # (Auto) 0.4 L [place] # (Auto) 0.4 Eos # (Auto) 0.1 Baso # (Auto) 0.0 Abs Immat Gran (auto) 0.01 Absolute Neuts (auto) 2.2 Absolute Nucleated RBC 0.000 Nucleated RBC % (auto) 0.0 VBG pH VBG pCO2 VBG pO2 VBG HCO3 VBG O2 Saturation VBG Base Excess Anion Gap 12 Estim Creat Clear Calc 47.5 Estimated GFR 44 POC Glucose 80 Random Glucose 92 Fasting Glucose 93 Calcium 8.1 L D Magnesium 2.0 Total Bilirubin 2.6 H Direct Bilirubin 1.3 H AST 49 H ALT 16 Alkaline Phosphatase 143 H Total Protein 7.8 Albumin 2.6 L Stool Occult Blood Blood Type Antibody Screen Crossmatch Assessment and Plan (1) Bipolar 1 disorder: Status: Acute Plan 58M PMH etoh and HCV cirrhosis complicated by portal hypertension, pancytopeni, admitted from inpatient psych for fall found to be anemic. Acute on chronic anemia Likely acute blood loss and chronic inflammatory s/p 1 unit prbc Continue PPI, octreotide, empiric ceftriaxone, follow up GI, monitor hemoglobin plan for EGD today Elevated creatinine MAYE versus CKD 3 Monitor Diabetes Insulin sliding scale Mood disorder Seroquel Alcohol and HCV cirrhosis Continue lactulose DVT prophylaxis-mechanical due to suspected GI bleed and thrombocytopenia Full code reason for continued hospitalization: Working up suspected GI bleed Quality Stroke Does the patient have a stroke diagnosis?: No VTE Prior VTE?: No VTE Risk Level:: Medical - moderate - high VTE Device Contraindication: N/A - Device Ordered VTE Drug Contraindication: Treatment Not Indicated
[2024-04-28] MEDS: Thiamine HCL 100 MG in 0.9 % Sodium Chloride 100 ML 202 MG IV (10:49)
[2024-04-28 11:05] LABS: Glucose, Whole Blood 96 mg/dL (60-115)
[2024-04-28] MEDS: Lactated Ringers 1,000 ML 50 ML IVCONT (11:49)
--- NOTE | 2024-04-28 12:06 | P.CONAN_ITS ---
[facility] Active Problems Active Problems: All Active Problems Thrombocytopenia (Acute) MAYE (acute kidney injury) (Acute) Symptomatic anemia (Acute) Bipolar 1 disorder (Acute) PTSD (post-traumatic stress disorder) (Acute) ADHD (Acute) Homelessness (Acute) Medical clearance for psychiatric admission (Acute) CHERYL (obstructive sleep apnea) (Acute) JOHANN (iron deficiency anemia) (Acute) Chronic deep vein thrombosis (DVT) (Acute) CKD (chronic kidney disease) (Acute) Pancytopenia (Acute) Portal hypertension (Acute) Cirrhosis, alcoholic (Acute) GERD (gastroesophageal reflux disease) (Acute) Type 2 diabetes mellitus without complications (Acute) Past Medical History Medical History Homelessness ADHD PTSD (post-traumatic stress disorder) Esophageal and gastric varices Bipolar 1 disorder CHERYL (obstructive sleep apnea) JOHANN (iron deficiency anemia) Chronic deep vein thrombosis (DVT) CKD (chronic kidney disease) Pancytopenia Portal hypertension Cirrhosis, alcoholic Type 2 diabetes mellitus without complications GERD (gastroesophageal reflux disease) Family History Family history of problems with anesthesia: No Surgical History History of Problems with Anesthesia: No Social History Social History Household Members: None Household Members Other:: Homeless Housing: Homeless Housing Other:: pt was living in housing Are you a primary janitor caretaker to a significant other at home: No Do you presently have visiting nurse or other home services: No Comment: 1:1 sitter Patient Tobacco Use Status: Never used Tobacco Tobacco use type: Cigar Cigarettes Per Day: 1 e-Cigarette/Vaping Use: Never Used Second Hand Smoke Exposure: Yes Use of substances other than those prescribed or required for medical reasons: No Substance Use Type: Marijuana Currently Displaying Signs/Symptoms of Drug Intoxication Withdrawal: No Have you been hit, kicked, punched, or otherwise hurt by someone within the past year? If so, by whom?: No Do you feel safe in your current relationship?: No Current Relationship Is there a partner from a previous relationship who is making you feel unsafe now?: No Are you made to feel afraid or neglected: No Are you DNR?: No Advance Directives: No Do you have a plan to hurt others: No Plan Recently lost weight without trying: No Eating poorly because of decreased appetite: No Nutrition Risks: No Nutritional Risk Poor oral hygiene: No service: Yes Sexual orientation: Straight/Heterosexual Meds Allergies Allergy/AdvReac Type Severity Reaction Status Date / Time acetaminophen AdvReac Unknown Verified 04/28/24 11:48 bismuth subsalicylate AdvReac Unknown Verified 04/28/24 11:48 [From Pepto-Bismol] celecoxib [From Celebrex] AdvReac Unknown Verified 04/28/24 11:48 NSAIDS (Non-Steroidal AdvReac Unknown Verified 04/28/24 11:48 Anti-Inflamma Active Medications: Current Medications Baclofen (Baclofen 10 Mg Tablet) 10 mg PO TID PRN PRN Reason: muscle tension Ceftriaxone Sodium (Ceftriaxone Sodium 1 Gm Vial) 1 gm IVPUSH Q24H [facility] Last Admin: 04/28/24 08:23 Dose: 1 gm Gabapentin (Gabapentin 300 Mg Capsule) 600 mg PO TID [facility]REE[facility]Y Last Admin: 04/28/24 10:47 Dose: Not Given Glucose (Glucose Gel 15 Gm Gel..Gram.) 15 gm PO Q15M PRN; Protocol PRN Reason: per Hypoglycemia Standing Ord. Hydromorphone HCl (Hydromorphone Hcl 2 Mg Tablet) 1 mg PO Q6H PRN PRN Reason: Pain, Severe (Pain Scale 7-10) Last Admin: 04/27/24 19:45 Dose: 1 mg Dextrose (D10) 250 mls @ 750 mls/hr IV Q15M PRN; Protocol PRN Reason: per Hypoglycemia Standing Ord. Thiamine HCl 100 mg/ Sodium (Chloride) 101 mls @ 202 mls/hr IV DAILY [facility] Last Infusion: 04/28/24 11:35 Dose: Infused Dextrose/Sodium Chloride (D51/2ns) 1,000 mls @ 80 mls/hr IVCONT .[id number] BREEZY Last Admin: 04/28/24 02:33 Dose: 80 mls/hr Lactated Ringer's (Lr) 1,000 mls @ 50 mls/hr IVCONT .Q20H [facility]REE[facility] Last Admin: 04/28/24 11:49 Dose: 50 mls/hr Insulin Human Lispro (Insulin Lispro 100 Unit/Ml 3 Ml Vial) 0 unit SUBCUT Q6H BREEZY; Protocol Last Admin: 04/28/24 12:05 Dose: Not Given Lactulose (Lactulose 20 Gm/30 Ml Solution) 20 gm PO DAILY [facility] Magnesium Oxide (Magnesium Oxide 400 Mg Tablet) 400 mg PO DAILY [facility] Pt Own (Orphenadrine Citrate 100 Mg Tablet Extended Release) 100 mg PO BID PRN PRN Reason: Pain, Severe (Pain Scale 7-10) Pantoprazole Sodium (Pantoprazole Sodium 40 Mg/10 Ml Vial) 40 mg IVPUSH BID@0630,1630 [facility] Last Admin: 04/28/24 06:21 Dose: 40 mg Rifaximin (Rifaximin 550 Mg Tablet) 550 mg PO BID [facility] Last Admin: 04/27/24 20:00 Dose: 550 mg Sodium Chloride (0.9 % Sodium Chloride Flush 3 Ml Syringe) 3 ml IVFLUSH QSHIFT [facility] Last Admin: 04/28/24 08:24 Dose: Not Given Spironolactone (Spironolactone 25 Mg Tablet) 25 mg PO DAILY [facility]; Protocol Trazodone HCl (Trazodone Hcl 50 Mg Tablet) 50 mg PO BEDTIME PRN PRN Reason: Insomnia Home Medications ?Medication ?Instructions ?Recorded ?Confirmed ?Last Taken ?Type spironolactone 25 mg tablet 25 mg PO DAILY 04/27/24 04/27/24 Unknown History trazodone 50 mg tablet 50 mg PO BEDTIME PRN Insomnia 04/27/24 04/27/24 Unknown History Exam Height,Weight and Vital Signs: Height 5 ft 8 in Weight 69.9 kg Last Vital Signs Temp 98.2 F 04/28/24 11:37 Pulse 80 04/28/24 11:37 Resp 14 04/28/24 11:37 BP 117/76 04/28/24 11:37 Pulse Ox 100 04/28/24 11:37 O2 Del Method Room Air 04/28/24 11:37 Pertinent Lab Results Pertinent Lab Results: Laboratory Tests 04/27/24 04/27/24 04/27/24 04:51 06:02 09:30 WBC RBC Hgb Hct MCV MCH MCHC RDW Plt Count MPV Immature Gran % (Auto) Neut % (Auto) Lymph % (Auto) [place]atte % (Auto) Eos % (Auto) Baso % (Auto) Lymph # (Auto) [place] # (Auto) Eos # (Auto) Baso # (Auto) Abs Immat Gran (auto) Absolute Neuts (auto) Absolute Nucleated RBC Nucleated RBC % (auto) Absolute Retic 0.066 Percent Retic 2.8 H Immature Retic Fraction 12.8 Retic Hgb Equivalent 39.2 H PT 13.3 H INR 1.1 VBG pH 7.52 H VBG pCO2 39 VBG pO2 64 VBG HCO3 32 H VBG O2 Saturation TNP VBG Base Excess 9.0 Sodium Potassium Chloride Carbon Dioxide Anion Gap BUN Creatinine Estim Creat Clear Calc Estimated GFR POC Glucose 149 H Random Glucose Fasting Glucose Calcium Magnesium Iron 66 TIBC 200 L % Saturation 33 Unsat Iron Binding 134 Ferritin 227 Total Bilirubin Direct Bilirubin AST ALT Alkaline Phosphatase Total Protein Albumin Vitamin B12 729 Folate 8.3 Stool Occult Blood Blood Type O Positive Antibody Screen NEGATIVE Crossmatch See Detail 04/27/24 04/27/24 04/27/24 10:56 16:46 18:40 WBC RBC Hgb Hct MCV MCH MCHC RDW Plt Count MPV Immature Gran % (Auto) Neut % (Auto) Lymph % (Auto) [place] % (Auto) Eos % (Auto) Baso % (Auto) Lymph # (Auto) [place] # (Auto) Eos # (Auto) Baso # (Auto) Abs Immat Gran (auto) Absolute Neuts (auto) Absolute Nucleated RBC Nucleated RBC % (auto) Absolute Retic Percent Retic Immature Retic Fraction Retic Hgb Equivalent PT INR VBG pH VBG pCO2 VBG pO2 VBG HCO3 VBG O2 Saturation VBG Base Excess Sodium Potassium Chloride Carbon Dioxide Anion Gap BUN Creatinine Estim Creat Clear Calc Estimated GFR POC Glucose 100 81 Random Glucose Fasting Glucose Calcium Magnesium Iron TIBC % Saturation Unsat Iron Binding Ferritin Total Bilirubin Direct Bilirubin AST ALT Alkaline Phosphatase Total Protein Albumin Vitamin B12 Folate Stool Occult Blood POSITIVE Blood Type Antibody Screen Crossmatch 04/27/24 04/28/24 04/28/24 23:09 05:06 05:31 WBC RBC Hgb Hct MCV MCH MCHC RDW Plt Count MPV Immature Gran % (Auto) Neut % (Auto) Lymph % (Auto) [place] % (Auto) Eos % (Auto) Baso % (Auto) Lymph # (Auto) [place] # (Auto) Eos # (Auto) Baso # (Auto) Abs Immat Gran (auto) Absolute Neuts (auto) Absolute Nucleated RBC Nucleated RBC % (auto) Absolute Retic Percent Retic Immature Retic Fraction Retic Hgb Equivalent PT INR VBG pH VBG pCO2 VBG pO2 VBG HCO3 VBG O2 Saturation VBG Base Excess Sodium 138 Potassium 4.2 Chloride 104 Carbon Dioxide 26 Anion Gap 12 BUN 39 H Creatinine 1.62 H Estim Creat Clear Calc 47.5 Estimated GFR 44 POC Glucose 214 H 80 Random Glucose 92 Fasting Glucose 93 Calcium 8.1 L D Magnesium 2.0 Iron TIBC % Saturation Unsat Iron Binding Ferritin Total Bilirubin 2.6 H Direct Bilirubin 1.3 H AST 49 H ALT 16 Alkaline Phosphatase 143 H Total Protein 7.8 Albumin 2.6 L Vitamin B12 Folate Stool Occult Blood Blood Type Antibody Screen Crossmatch 04/28/24 04/28/24 05:32 11:01 WBC 3.1 L RBC 2.90 L D Hgb 10.1 L D Hct 30.6 L D MCV 105.5 H MCH 34.8 H MCHC 33.0 RDW 17.0 H Plt Count 82 L D MPV 12.1 Immature Gran % (Auto) 0.3 Neut % (Auto) 71.4 Lymph % (Auto) 12.2 L [place] % (Auto) 12.9 H Eos % (Auto) 2.6 Baso % (Auto) 0.6 Lymph # (Auto) 0.4 L [place] # (Auto) 0.4 Eos # (Auto) 0.1 Baso # (Auto) 0.0 Abs Immat Gran (auto) 0.01 Absolute Neuts (auto) 2.2 Absolute Nucleated RBC 0.000 Nucleated RBC % (auto) 0.0 Absolute Retic Percent Retic Immature Retic Fraction Retic Hgb Equivalent PT INR VBG pH VBG pCO2 VBG pO2 VBG HCO3 VBG O2 Saturation VBG Base Excess Sodium Potassium Chloride Carbon Dioxide Anion Gap BUN Creatinine Estim Creat Clear Calc Estimated GFR POC Glucose 96 Random Glucose Fasting Glucose Calcium Magnesium Iron TIBC % Saturation Unsat Iron Binding Ferritin Total Bilirubin Direct Bilirubin AST ALT Alkaline Phosphatase Total Protein Albumin Vitamin B12 Folate Stool Occult Blood Blood Type Antibody Screen Crossmatch Airway Mallampati Class: I TM Dist: >3cm Neck ROM: Full Heart: RRR Lungs: CTA Assessment and Plan Assessment Anesthesia Assessment: Anesthesia Plan Discussed and Chart Reviewed Final Anesthetic Review Family History of Problems with Anesthesia: No History of Problems with Anesthesia: No NPO: Yes ASA Class: III and Emergency Final Preanesthetic Review: Meds/Allgs Chart Reviewed, Consent Obtained/Reviewed and Anes Risks/Benef Reviewed Patient Risk: Intermediate Procedure Risk: Low Anesthetic Plan Anesthetic Plan: MAC: Disposition: Standard PACU
--- NOTE | 2024-04-28 12:13 | PM.OP ---
Brief Operative Note Date of Service: 04/28/24 Pre-op diagnosis: anemia heme pos stools Post-op diagnosis: same Procedure: EGD Surgeon: Carlos Ruffin MD Anesthesia: MAC Was an Business Intelligence Engineer used for this Procedure?: No Estimated blood loss (mL): 0 Pathology: none sent Condition: stable Disposition: PACU
--- NOTE | 2024-04-28 12:14 | PM.EVENT ---
Event Note Date of Service: 04/28/24 Event Note: EGD dictated grade 2 varices x2, nonbleeding portal hypertensive gastropathy no bleeding seen advance diet continue present rx. Time Spent With Patient Time: Total time managing care of this patient today ____ minutes.
[2024-04-28] MEDS: rifAXIMin 550 MG TABLET PO ×2 (13:04→20:05)
[2024-04-28] MEDS: Gabapentin 300 MG CAPSULE 600 MG PO ×2 (13:04→20:05)
[2024-04-28] MEDS: Magnesium Oxide 400 MG TABLET PO (13:04)
[2024-04-28] MEDS: Lactulose 20 GM/30 ML SOLUTION PO (13:05)
--- NOTE | 2024-04-28 14:03 | HO.POSTANES ---
Post Anesthesia Evaluation Post Anesthesia Evaluation Date of Service: 04/28/24 Vital Signs: Vital Signs Temp Pulse Resp BP Pulse Ox O2 Del Method 04/28/24 12:45 97.8 F 79 20 112/78 97 Room Air 04/28/24 12:30 98.5 F 80 16 101/64 95 Room Air 04/28/24 12:15 97.6 F 83 16 81/49 L 99 Room Air 04/28/24 11:37 98.2 F 80 14 117/76 100 Room Air 04/28/24 07:14 97.7 F 81 16 129/75 96 Room Air 04/28/24 03:51 96.9 F 71 16 102/69 97 Room Air Anesthesia: Monitored Mental Status: Awake Pain Control: Satisfactory Nausea/Vomiting: None Hydration: Adequate Anesthesia-Related Issues: No Anes. Related Issues
--- NOTE | 2024-04-28 14:06 | HO.POSTANES ---
Post Anesthesia Evaluation Post Anesthesia Evaluation Vital Signs: Vital Signs Temp Pulse Resp BP Pulse Ox O2 Del Method 04/28/24 12:45 97.8 F 79 20 112/78 97 Room Air 04/28/24 12:30 98.5 F 80 16 101/64 95 Room Air 04/28/24 12:15 97.6 F 83 16 81/49 L 99 Room Air 04/28/24 11:37 98.2 F 80 14 117/76 100 Room Air 04/28/24 07:14 97.7 F 81 16 129/75 96 Room Air 04/28/24 03:51 96.9 F 71 16 102/69 97 Room Air Anesthesia: Monitored Mental Status: Awake Pain Control: Satisfactory Nausea/Vomiting: None Hydration: Adequate Anesthesia-Related Issues: No Anes. Related Issues
[2024-04-28 16:20] LABS: Glucose, Whole Blood 210 mg/dL (60-115)
[2024-04-28] MEDS: Insulin Lispro 100 UNIT/ML 3 ML VIAL SUBCUT ×2 (17:11→21:27)
[2024-04-28] MEDS: HYDROmorphone HCl 2 MG TABLET 1 MG PO (20:05)
[2024-04-28 20:15] LABS: Glucose, Whole Blood 212 mg/dL (60-115)
--- NOTE | 2024-04-28 23:01 | OP_ITS ---
DATE OF SERVICE: 04/28/2024 SURGEON: Carlos Ruffin MD INDICATIONS: Anemia and Hemoccult-positive stools. PREOPERATIVE DIAGNOSIS: POSTOPERATIVE DIAGNOSIS: PROCEDURE PERFORMED: Upper endoscopy. ESTIMATED BLOOD LOSS: COMPLICATIONS: ANESTHESIA: Monitored anesthesia care. ASSISTANTS: SPECIMENS: DESCRIPTION OF PROCEDURE: A history and physical was performed. The risks and benefits of the procedure were explained to the patient. Informed consent was obtained. The patient was placed in a left lateral decubitus position. The Olympus video gastroscope was introduced into the esophagus, stomach, and duodenum. Examination was performed. The scope was removed. He tolerated the procedure well and was taken to the recovery area in stable condition. FINDINGS: Esophagus: There were 2 changes of esophageal varices extending from the EG junction to the mid esophagus. There was no active bleeding. There was evidence of prior scarring from esophageal band ligation procedures. There were no stigmata of recent hemorrhage. Stomach: The stomach showed changes of portal hypertensive gastropathy without any active bleeding. Duodenum: The bulb and 2nd portion were normal. No therapy was performed at this procedure. IMPRESSION: 1. Portal hypertensive gastropathy. 2. Esophageal varices, not bleeding. RECOMMENDATION: 1. Continue to monitor hematocrit. 2. Follow up as outpatient with primary GI provider.. MD EBENEZER Liu/CYNDI / [id number] MTDD
[2024-04-29] MEDS: traZODone HCL 50 MG TABLET PO (00:17)
[2024-04-29] MEDS: 0.9 % Sodium Chloride Flush 3 ML SYRINGE IVFLUSH ×2 (00:23→08:22)
[2024-04-29] MEDS: ORPHENADRINE CITRATE 100 MG 100 EACH PO ×2 (00:26→08:29)
[2024-04-29] MEDS: HYDROmorphone HCl 2 MG TABLET 1 MG PO ×3 (02:10→13:55)
[2024-04-29 03:09] VITALS: BP 109/73; PULSE 88; RESP 18; TEMP 36; O2SAT 99
[2024-04-29] MEDS: Pantoprazole Sodium 40 MG/10 ML VIAL IVPUSH (05:24)
[2024-04-29 07:11] LABS: Hematocrit 28.4 % (42.0-52.0); Hemoglobin 9.7 g/dl (14.0-18.0); Mean Corpuscular HGB Conc 34.2 g/dl (31.0-36.0); Mean Corpuscular Hemoglobin 35.1 pg (27.0-33.0); Mean Corpuscular Volume 102.9 fL (80.0-98.0); Red Blood Count 2.76 X10*6/uL (4.60-5.80); White Blood Count 3.7 X10*3/uL (4.8-10.8)
[2024-04-29 07:13] LABS: Glucose, Whole Blood 160 mg/dL (60-115)
[2024-04-29 07:17] VITALS: BP 129/80; PULSE 80; RESP 16; TEMP 36.6; O2SAT 97
[2024-04-29 07:19] LABS: Platelet Count 82 X10*3/uL (160-400)
[2024-04-29 07:22] LABS: Anion Gap 12 (12-20); Blood Urea Nitrogen 35 mg/dL (9-16); Calcium 7.9 mg/dL (8.4-10.2); Carbon Dioxide 23 mmol/L (22-29); Chloride 104 mmol/L (96-108); Creatinine Clr Calc Pharmacy 42.9; Estimated Glomerular Filt Rate 39; Glucose Fasting 190 mg/dL (60-99); Potassium 4.2 mmol/L (3.3-5.1); Sodium 135 mmol/L (135-145)
[2024-04-29] MEDS: Thiamine HCL 100 MG in 0.9 % Sodium Chloride 100 ML 200 MG IV (08:20)
[2024-04-29] MEDS: Lactulose 20 GM/30 ML SOLUTION PO (08:20)
[2024-04-29] MEDS: Spironolactone 25 MG TABLET PO (08:21)
[2024-04-29] MEDS: cefTRIAXone sodium 1 GM VIAL IVPUSH (08:21)
[2024-04-29] MEDS: Gabapentin 300 MG CAPSULE 600 MG PO ×2 (08:22→13:55)
[2024-04-29] MEDS: Magnesium Oxide 400 MG TABLET PO (08:22)
[2024-04-29] MEDS: rifAXIMin 550 MG TABLET PO (08:22)
[2024-04-29] MEDS: Insulin Lispro 100 UNIT/ML 3 ML VIAL SUBCUT ×2 (08:23→11:41)
[2024-04-29 11:04] LABS: Glucose, Whole Blood 237 mg/dL (60-115)
--- NOTE | 2024-04-29 11:25 | P.DS_ITS ---
DS: Providers Provider Date of Service: 04/29/24 Date of admission: 04/27/24 03:00 Date of discharge: 04/29/24 Primary care physician: Unknown Physician Consults: 04/27/24 03:03 Consult to Gastroenterology Routine Consulting Provider: Zion Guerrero Reason for consultation: cirrhosis,worsening anemia Has provider been notified: No 04/29/24 07:44 Consult to Care Team Routine Comment: Reason for consultation: medically free, placement. 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 Tonight a rapid response was activated after the patient was found on the floor. He fell and his fall was unwitnessed. Upon arrival to his room the patient was on the ground landing on his back surrounded by multiple staff members. Multiple members required to help him stand up at his was unable to do it by himself. He was unable to move well his left upper extremity which seems to be a chronic problem for him. He was alert and oriented x3, however, his responses were gilberto yed and he seems quite uninterested in answering my questions. He denied head trauma upon falling down. According to psychiatric staff, the patient's seems to be more hypoactive and wander if we could check his ammonia level. Vital signs were normal. Imaging stat ordered including: Head and C-spine CT scan, left shoulder x-ray, pelvis x-ray and CXR; as well as stat labs remarkable for significant drop of hemoglobin over the last 4 days from 9.5 to 7.3. Venous blood gas showed pH of 7.61 NaHCO3 of 30, however, BNP showed and normal HC03. Hospital course The patient was admitted and monitored for Acute on chronic anemia which is Likely from acute on chronic blood loss and chronic inflammatory as no reported bleeding\melena noted inpatient, he could have bled post paracentesis on 04/24. received one unit of blood with improvement of Hb from 7.3 to 9.7. maintained Hb level stable around 10. received treatment with PPI, octreotide, empiric ceftriaxone and GI evaluation who did an EGD showing grade 2 varices x2, nonbleeding with portal hypertensive gastropathy. to start Omeprazole. Elevated creatinine with no previous records MAYE versus CKD 3. remained stable and will need follow up as outpatient. For history of Alcohol and HCV cirrhosis. Continue lactulose and Spironolactone with lasix. Discharge plan Omeprazole bid Lactulose daily with 1-2 BM daily Time Attestation Discharge Coordination Time (in mins): 42 Quality: Safe Use of Opioids Does Pt have an Active Cancer Diagnosis on the Problem List?: No Quality: Stroke Does the patient have a stroke diagnosis?: No Physical Exam Vital Signs: Vital Signs: Last Vital Signs Temp 97.9 F 04/29/24 07:17 Pulse 80 04/29/24 07:17 Resp 16 04/29/24 07:17 BP 129/80 04/29/24 07:17 Pulse Ox 97 04/29/24 07:17 O2 Del Method Room Air 04/29/24 07:17 BMI result Body Mass Index 23.4 Const: Other: Constitutional : Awake, interactive, not in distress Neck : Normal inspection, Supple Cardiovascular : RRR, no JVP, no lower extremity edema Respiratory : good bilateral air entry, no crackles, wheezes or rhonchi Gastrointestinal: soft, lax, Normal bowel sounds, mild ascites, Non tender Skin : Warm, Dry Neurological : Alert & oriented x3, No focal deficit DS: Data Data Completed and Pending Labs on day of discharge: Laboratory Results - last 24 hr 04/28/24 04/28/24 04/29/24 16:09 20:09 05:31 WBC 3.7 L RBC 2.76 L Hgb 9.7 L Hct 28.4 L MCV 102.9 H MCH 35.1 H MCHC 34.2 RDW 17.0 H Plt Count 82 L MPV 12.0 Absolute Nucleated RBC 0.000 Nucleated RBC % (auto) 0.0 Sodium 135 Potassium 4.2 Chloride 104 Carbon Dioxide 23 Anion Gap 12 BUN 35 H Creatinine 1.79 H Estim Creat Clear Calc 42.9 Estimated GFR 39 POC Glucose 210 H 212 H Fasting Glucose 190 H Calcium 7.9 L 04/29/24 04/29/24 07:10 11:00 WBC RBC Hgb Hct MCV MCH MCHC RDW Plt Count MPV Absolute Nucleated RBC Nucleated RBC % (auto) Sodium Potassium Chloride Carbon Dioxide Anion Gap BUN Creatinine Estim Creat Clear Calc Estimated GFR POC Glucose 160 H 237 H Fasting Glucose Calcium Discharge Plan Discharge Anticipated Discharge Date/Time: 04/29/24 11:13 Patient Disposition: Xfer Psychiatric Hosp Discharge Diagnosis: Acute on chronic anemia Referrals: Physician,Unknown J [Primary Care Provider] - 1 Week Discharge Medications: New lactulose 20 gram/30 mL Solution 20 g PO DAILY 30 Days Qty: 900 0RF omeprazole 20 mg capsule,delayed release(DR/EC) 20 mg PO BID Qty: 60 0RF Continued orphenadrine citrate 100 mg tablet extended release 100 mg PO BID PRN (Reason: Pain) Qty: 60 0RF magnesium oxide 400 mg (241.3 mg magnesium) Tablet 400 mg PO DAILY Qty: 0 0RF baclofen 10 mg Tablet 10 mg PO TID PRN (Reason: muscle tension) Qty: 0 0RF gabapentin 300 mg Capsule 600 mg PO TID Qty: 0 0RF furosemide 20 mg Tablet 60 mg PO DAILY Qty: 0 0RF Protocol: Hold for SBP< HOLD for SBP < : 90 insulin lispro [Admelog U-100 Insulin lispro] 100 unit/mL Solution See Protocol subcut QIDACHS Qty: 0 0RF Protocol: Insulin Correction Scale Less than or equal to 110 ---- Give (units): 0 111 to 150 Give (units): 0 151 to 200 Give (units): 2 201 to 250 Give (units): 4 251 to 300 Give (units): 6 301 to 350 Give (units): 8 Greater than 350 Give (units): 10 Call MD if Blood Glucose > : 350 Rx Instructions: 0-20 units Xifaxan 550 mg Tablet 550 mg PO BID Qty: 0 0RF trazodone 50 mg Tablet 50 mg PO BEDTIME PRN (Reason: Insomnia) spironolactone 25 mg tablet 25 mg PO DAILY Protocol: Hold for SBP< HOLD for SBP < : 90 Discharge Orders: Discharge Order (Routine); Ordered 04/29/24 Ordered By: Jef Her Diet: Advance to usual diet Activity on Discharge: As tolerated Stand Alone Forms: Patient Portal Discharge page Print Language: Hungarian
--- NOTE | 2024-04-29 11:28 | MHC.CARE ---
Assessed by CARE team, [facility]. Insurance, [employer] form faxed to [employer] as well as emailed to Zion GUZMAN on S1
[2024-04-29 11:30] VITALS: BP 104/68; PULSE 83; RESP 16; TEMP 36.9; O2SAT 97
--- NOTE | 2024-04-29 11:32 | MHC.CM.PN ---
Patient medically cleared for dc to IP psych.
[2024-04-29] MEDS: oxyCODONE HCl Immed Release 5 MG TABLET 2.5 MG PO (13:22)
== END 2024-04-29 13:57 | DRG 812 ==
PROVIDERS: Internal Medicine; Internal Medicine Gastroenterology; Admitting Provider Internal Medicine; PCP Internal Medicine; Visit Provider Student in an Organized Health Care Education/Training Program
PROC: 0DJ08ZZ Inspection of Upper Intestinal Tract, Via Natural or Artificial Opening Endoscopic (ICD-10-PCS; CPT 43235; principal; 2024-04-28 13:20)
DX: D62 Acute posthemorrhagic anemia (principal); Z59.02 Unsheltered homelessness; K76.6 Portal hypertension; I85.10 Secondary esophageal varices without bleeding; K70.31 Alcoholic cirrhosis of liver with ascites; F17.210 Nicotine dependence, cigarettes, uncomplicated; E11.22 Type 2 diabetes mellitus with diabetic chronic kidney disease; G47.33 Obstructive sleep apnea (adult) (pediatric); D61.818 Other pancytopenia; D63.1 Anemia in chronic kidney disease; N18.30 Chronic kidney disease, stage 3 unspecified; F31.9 Bipolar disorder, unspecified; K31.89 Other diseases of stomach and duodenum; Z71.6 Tobacco abuse counseling; Z79.4 Long term (current) use of insulin; Z79.899 Other long term (current) drug therapy
CPT/HCPCS: 43235; 36415; 80048; 80053; 82248; 82272; 82607; 82728; 82746; 82803; 82947; 83540; 83735; 85025; 85027; 85045; 85610; 86850; 86900; 86901; 86923; J0696; J2003; J2354; J2470; J2704; J3411; J7120; P9016; S9485

== ENCOUNTER → 2024-04-27 03:00 | Outpatient (BNV) | payer OTHER, SELFPAY | PROVIDERS: Admitting Provider Internal Medicine; Visit Provider Internal Medicine | DX: D64.9 Anemia, unspecified (principal); F31.9 Bipolar disorder, unspecified | CPT/HCPCS: 99223; 99232; 99239; 99499 ==

== ENCOUNTER 2024-04-29 13:42 | Inpatient (IN) | payer OTHER, SELFPAY ==
--- NOTE | ~2024-04-29 | XR_ITS ---
EXAMINATION: XR BONE SURVEY, COMPLETE CLINICAL INFORMATION: Destructive lesion left shoulder, ?MM COMPARISON: Pelvic and left shoulder radiographs dated 04/27/2024. CT head and cervical spine dated 05/07/2024. CT abdomen/pelvis dated 04/23/2024. TECHNIQUE: Lateral view of the skull. AP and lateral views of the thoracic spine and lumbar spine. AP view of the chest and abdomen/pelvis. AP views of the upper and lower extremities. FINDINGS: Cortical depression and adjacent cystic change within the lateral aspect of the left humeral head is redemonstrated. Findings could represent sequela of prior trauma. No periosteal reaction or aggressive features to suggest an underlying neoplastic lesion. Degenerative cystic change within the right greater tuberosity. No concerning lytic or blastic osseous lesion. No acute fracture or dislocation. Chronic compression deformity with kyphoplasty at L1. Retrocardiac left lower lobe airspace consolidation. [id number] stool burden. XR/XR bone survey IMPRESSION: 1. Cortical depression and adjacent cystic change within the lateral aspect of the left humeral head is redemonstrated. Findings could represent sequela of prior trauma. No aggressive features to suggest an underlying neoplastic lesion. 2. No additional lytic or blastic osseous lesion. 3. Left lower lobe airspace opacities. 4. [id number] stool burden. Electronically signed by: Roman Power MD 05/07/2024 11:00 PM [facility]
--- NOTE | ~2024-04-29 | XR_ITS ---
EXAMINATION: XR ABDOMEN KUB CLINICAL INDICATION: Cirrhosis, upper abdominal pain,ascites? COMPARISON: Most recent bone survey radiographs dated 05/07/2024. TECHNIQUE: AP views of the abdomen. FINDINGS: Moderate air and stool throughout the colon. Nonobstructive bowel gas pattern. Redemonstration of an L1 kyphoplasty. No acute osseous abnormality. No abnormal soft tissue calcification. XR/XR KUB IMPRESSION: Moderate air and stool throughout the colon. Nonobstructive bowel gas pattern. Electronically signed by: Roman Power MD 05/09/2024 08:07 PM JADA
--- NOTE | ~2024-04-29 | US_ITS ---
EXAMINATION: US ABDOMEN LIMITED CLINICAL INFORMATION: Upper abdominal pain, distention, question ascites. COMPARISON: X-ray abdomen KUB 05/09/2024. CT abdomen and pelvis 04/23/2024. TECHNIQUE: Real-time imaging of the entire abdomen. FINDINGS: Moderate ascites in the abdomen. US/US abdomen limited IMPRESSION: Moderate ascites. Electronically signed by: David Saul MD 05/10/2024 04:09 PM JADA
--- NOTE | 2024-04-29 17:18 | PHA.MEDREC ---
Pharmacy Consult ? Medication Reconciliation Pharmacy has completed the medication reconciliation. Used med rec completed on the from before they went to S[facility].
[2024-04-29 17:37] VITALS: BMI 23.9
--- NOTE | 2024-04-29 18:13 | P.EN_ITS ---
Event Note Date of Service: 04/29/24 Event Note: Patient is a 58-year-old male admitted to [facility] with a PMH significant for alcoholic cirrhosis receiving weekly therapeutic paracenteses. Hospitalist consult for 10 abdominal pain. Patient just discharged back to [facility] after being brought to the medical floor for acute on chronic anemia. Patient seen and evaluated in his room where he is seen resting comfortably on his bed. Patient states it has been over 1 week since last paracentesis. Did receive a diagnostic paracentesis on 04/24 where only 50cc were withdrawn. Complains of diffuse abdominal pain and distention which he rates a 10/10. Will give analgesics for pain management and schedule ultrasound-guided therapeutic paracentesis for tomorrow. Time Spent With Patient Time: Total time managing care of this patient today ____ minutes.
--- NOTE | 2024-04-29 18:16 | PC.ADMIT ---
Shan arrived to the unit at 1415, met with Dr. Santillan, signed Conditional Voluntary. Upon approach he appears slightly jaundice, skin check done he has +2 left lower extremity edema, he has a hematoma on left forearm, rest of the skin appears intact. He reported endorsing anxiety and depression rated it a 10/10. he reports Poor sleep, stated It's been difficult to care for myself. When asked if he had any htoughts of wanting to hurt self stated Yes I have thoughts of driving my car off the bridge, he then stated I have no future with this liver disease. When asked if he would seek out staff if urges to hurt self occurred stated Yes. He reports he Cut-off his family, he also reports Feeling like a burden. He reports having trauma. Per assessment patient was an external admit from [facility], he was admitted due to SI and constant thoughts of wanting to kill self. Per assessment [facility] and half but per records he packed up his things and left after a disagreement . Shan has ascites, he was supposed to have paracentesis yesterday but he had an endoscopy. His abdomen measures 44 inches, he reports he is in pain, Dr. Santillan notified, hospitalist consult was put in.
[2024-04-29] MEDS: oxyCODONE HCl Immed Release 5 MG TABLET PO (18:26)
[2024-04-29 20:00] VITALS: BP 122/81; PULSE 87; RESP 16; TEMP 36.7; O2SAT 97
[2024-04-29 21:26] LABS: Glucose, Whole Blood 169 mg/dL (60-115)
[2024-04-29] MEDS: ORPHENADRINE CITRATE 100 MG 100 EACH PO (21:26)
[2024-04-29] MEDS: Gabapentin 300 MG CAPSULE 600 MG PO (21:27)
[2024-04-29] MEDS: rifAXIMin 550 MG TABLET PO (21:28)
[2024-04-29] MEDS: traZODone HCL 50 MG TABLET PO (21:28)
[2024-04-29] MEDS: Insulin Lispro 100 UNIT/ML 3 ML VIAL SUBCUT (21:33)
[2024-04-30] MEDS: traZODone HCL 50 MG TABLET PO ×2 (00:07→21:19)
[2024-04-30] MEDS: oxyCODONE HCl Immed Release 5 MG TABLET PO ×3 (00:08→17:34)
[2024-04-30 06:44] LABS: Glucose, Whole Blood 164 mg/dL (60-115)
[2024-04-30 07:45] VITALS: BP 111/73; PULSE 88; RESP 18; TEMP 36.6; O2SAT 100
[2024-04-30] MEDS: Insulin Lispro 100 UNIT/ML 3 ML VIAL SUBCUT ×4 (07:53→21:21)
[2024-04-30] MEDS: rifAXIMin 550 MG TABLET PO ×2 (07:55→21:22)
[2024-04-30] MEDS: Furosemide 20 MG TABLET 60 MG PO (07:57)
[2024-04-30] MEDS: Spironolactone 25 MG TABLET PO (07:57)
[2024-04-30] MEDS: Magnesium Oxide 400 MG TABLET PO (07:57)
[2024-04-30] MEDS: Omeprazole 20 MG CAPSULE.DR PO ×2 (07:58→16:31)
[2024-04-30] MEDS: Gabapentin 300 MG CAPSULE 600 MG PO ×3 (07:58→21:19)
[2024-04-30] MEDS: Lactulose 20 GM/30 ML SOLUTION PO (08:00)
[2024-04-30 09:17] LABS: Hematocrit 26.1 % (42.0-52.0); Hemoglobin 8.7 g/dl (14.0-18.0); Mean Corpuscular HGB Conc 33.3 g/dl (31.0-36.0); Mean Corpuscular Hemoglobin 35.1 pg (27.0-33.0); Mean Corpuscular Volume 105.2 fL (80.0-98.0); Mean Platelet Volume 11.1 fL (9.4-12.4); Platelet Count 72 X10*3/uL (160-400); Red Blood Count 2.48 X10*6/uL (4.60-5.80); Red Cell Distribution Width 16.4 % (11.0-16.0); White Blood Count 4.8 X10*3/uL (4.8-10.8)
[2024-04-30 10:57] LABS: Glucose, Whole Blood 210 mg/dL (60-115)
--- NOTE | 2024-04-30 12:23 | PC.NURSE ---
Dr. Santillan approached Shan Spearsmarva today at 1213 and asked him he could place a consult for smoking cessation, Patient denied smoking cigarettes except for occasional cigar and he does not need any nicotine replacement.
--- NOTE | 2024-04-30 12:41 | P.HPPS_ITS ---
HPI Date of Service: 04/30/24 Chief Complaint: mood disorder Sources of Information: patient interviewed, chart reviewed and crisis/core team assessment reviewed HPI Subjective Notes: [place]ridge Warning and Conditional Voluntary Narrative: The patient is a 58-year-old male, single, with no social support, chronically homeless for the last months who was residing a [facility] transitional [facility] for nearly a year ago that left a from [facility]. With a past history of bipolar disorder. The patient walked in that [facility] complaining of suicidal ideation with a plan to drive his car [facility]. The patient was assessed by the crisis team and transferring to this facility for psychiatric stabilization. On admission, the patient reported that he had been partially compliant with medications, he stated that he was very difficult to be fully compliant since his chronically homeless. He complains of depressed mood, anhedonia, lack of energy, feelings of hopelessness and suicidal ideation. The patient was able to contract for safety in the facility. The patient reported that since his liver disease got worse and he is now having chronic ascites with frequent paracentesis he has been feeling worse. At the moment of the admission, the patient reported that he missed his paracentesis 3 days ago and he is feeling worse. He also complains of chronic pain. While he was assess, the patient adamantly denies psychotic symptoms, he was pleasant cooperative and easily redirectable. He signed himself into the hospital in a conditional voluntary and understood Aldridge warning. Past Psychiatric History: Denies Denies SA Medical Evaluation Reviewed: Yes [facility] Medical History Homelessness ADHD PTSD (post-traumatic stress disorder) Esophageal and gastric varices Bipolar 1 disorder CHERYL (obstructive sleep apnea) JOHANN (iron deficiency anemia) Chronic deep vein thrombosis (DVT) CKD (chronic kidney disease) Pancytopenia Portal hypertension Cirrhosis, alcoholic Type 2 diabetes mellitus without complications GERD (gastroesophageal reflux disease) Family History: Refused to elaborate but apparently there were several family members with mood disorder. Social History: The patient is a better and with no service connection, chronically homeless with poor social support reports conflict with his family Substance History: He reported a remote history of substance abuse refused to elaborate Trauma History: Refused to elaborate but apparently there was some trauma. Diagnostics Vital Signs (24Hr): Vital Signs - 24 hr 04/29/24 20:00 04/30/24 07:45 Temperature 98.1 F 98 F Pulse Rate 87 88 Respiratory Rate 16 18 Blood Pressure 122/81 111/73 Pulse Oximetry 97 100 Oxygen Delivery Method Room Air Ambu-Bag BMI result Body Mass Index 23.9 Labs 04/30/24 08:15 Labs: Laboratory Results - last 48 hr 04/29/24 04/30/24 04/30/24 21:14 06:28 08:15 WBC 4.8 RBC 2.48 L Hgb 8.7 L Hct 26.1 L MCV 105.2 H MCH 35.1 H MCHC 33.3 RDW 16.4 H Plt Count 72 L MPV 11.1 Absolute Nucleated RBC 0.000 Nucleated RBC % (auto) 0.0 POC Glucose 169 H 164 H 04/30/24 10:52 WBC RBC Hgb Hct MCV MCH MCHC RDW Plt Count MPV Absolute Nucleated RBC Nucleated RBC % (auto) POC Glucose 210 H Meds/Allergies Meds Home Medications ?Medication ?Instructions ?Recorded ?Confirmed ?Type spironolactone 25 mg tablet 25 mg PO DAILY 04/27/24 04/29/24 History trazodone 50 mg tablet 50 mg PO BEDTIME PRN Insomnia 04/27/24 04/29/24 History Allergies Allergies Allergy/AdvReac Type Severity Reaction Status Date / Time acetaminophen AdvReac Unknown Verified 04/28/24 11:48 bismuth subsalicylate AdvReac Unknown Verified 04/28/24 11:48 [From Pepto-Bismol] celecoxib [From Celebrex] AdvReac Unknown Verified 04/28/24 11:48 NSAIDS (Non-Steroidal AdvReac Unknown Verified 04/28/24 11:48 Anti-Inflamma Mental Status Exam Mental Status Exam Patient Appearance: Appropriate Patient Orientation: Person and Situation Level of Consciousness: Awake and Appropriate Patient Behavior: Guarded and Passive Mood Description: Withdrawn Affect Description: Constricted Patient Cognition Impaired: Yes Ability to Follow Directions: Good Speech Pattern: Clear Hallucinations: None Delusions: Not Present Thought Process: Distracted and Linear Thought Content: positive for [place] and positive for Circumstantial Judgement: Fair Assessment & Plan Assessment & Plan (1) Bipolar 1 disorder: Status: Acute Code(s): F31.9 - Bipolar disorder, unspecified (2) PTSD (post-traumatic stress disorder): Status: Acute Code(s): F43.10 - Post-traumatic stress disorder, unspecified (3) ADHD: Status: Acute Code(s): F90.9 - Attention-deficit hyperactivity disorder, unspecified type (4) Homelessness: Status: Acute Code(s): Z59.00 - Homelessness unspecified (5) Thrombocytopenia: Status: Acute Code(s): D69.6 - Thrombocytopenia, unspecified (6) MAYE (acute kidney injury): Status: Acute Code(s): N17.9 - Acute kidney failure, unspecified Plan The patient is a middle-aged male with a past history of chronically were failure, bipolar disorder, PTSD, ADHD and chronic homelessness who was brought into the facility after he disclosed suicidal ideation [place] The patient was assessed by crisis and transferring to this facility for psychiatric stabilization. Plan 1. We will try to gather more collateral information. 2. The patient is able to contract for safety 15 minute checks. 3. Referral for hospitalist for paracentesis and medical treatment. 4. Reassessment with results. Patient educated on: diagnosis, medication risk/benefits, therapeutic strategies and medical condition Reason for continued inpatient stay Substantial Risk for: inability to function, rapid decompensation and med/psych decompensation Statement Statement: I have reviewed the history and physical and performed a pertinent examination on my patient. No changes have occurred unless specified. If the History and Physical was not performed prior to admission, the Hospitalist's service will be consulted for completing the admission physical. Time Spent With Patient Time: Total time managing care of this patient today __45__ minutes.
--- NOTE | 2024-04-30 15:09 | PM.PROC ---
Brief Operative Note Date of procedure: 04/30/24 Pre-op diagnosis: Ascites Post-op diagnosis: same Procedure: US paracentesis 1.3 L serous fluid removed. No immediate complications
[2024-04-30 16:16] LABS: Glucose, Whole Blood 166 mg/dL (60-115)
[2024-04-30 20:00] VITALS: BP 128/70; PULSE 86; RESP 16; TEMP 36.6; O2SAT 95
[2024-04-30 21:09] LABS: Glucose, Whole Blood 215 mg/dL (60-115)
[2024-04-30] MEDS: ORPHENADRINE CITRATE 100 MG 100 EACH PO (21:21)
[2024-04-30] MEDS: hydrOXYzine HCL 25 MG TABLET PO (21:21)
[2024-05-01] MEDS: oxyCODONE HCl Immed Release 5 MG TABLET PO ×4 (00:08→20:32)
[2024-05-01] MEDS: traZODone HCL 50 MG TABLET PO ×2 (01:57→20:32)
[2024-05-01] MEDS: Omeprazole 20 MG CAPSULE.DR PO ×2 (05:58→15:58)
[2024-05-01 06:56] LABS: Glucose, Whole Blood 206 mg/dL (60-115)
[2024-05-01] MEDS: Insulin Lispro 100 UNIT/ML 3 ML VIAL SUBCUT ×4 (07:43→20:33)
[2024-05-01] MEDS: Furosemide 20 MG TABLET 60 MG PO (07:54)
[2024-05-01] MEDS: Spironolactone 25 MG TABLET PO (07:54)
[2024-05-01] MEDS: rifAXIMin 550 MG TABLET PO ×2 (07:54→20:33)
[2024-05-01] MEDS: Magnesium Oxide 400 MG TABLET PO (07:54)
[2024-05-01] MEDS: Gabapentin 300 MG CAPSULE 600 MG PO ×3 (07:55→20:33)
[2024-05-01] MEDS: Lactulose 20 GM/30 ML SOLUTION PO (07:56)
[2024-05-01 08:00] VITALS: BP 123/77; PULSE 96; RESP 16; TEMP 36.9; O2SAT 98
[2024-05-01 08:22] LABS: Alanine Aminotransferase 17 U/L (0-40); Albumin Level 2.4 g/dL (3.5-5.0); Alkaline Phosphatase 187 U/L (39-117); Anion Gap 9 (12-20); Aspartate Amino Transferase 44 U/L (5-37); Bilirubin Total 2.7 mg/dL (0.0-1.0); Blood Urea Nitrogen 29 mg/dL (9-16); Calcium 7.6 mg/dL (8.4-10.2); Carbon Dioxide 27 mmol/L (22-29); Chloride 99 mmol/L (96-108); Cholesterol 88 mg/dL (<200); Creatinine Clr Calc Pharmacy 50.2; Estimated Glomerular Filt Rate 47; Glucose Fasting 233 mg/dL (60-99); HDL Cholesterol 29 mg/dL (>40); LDL Cholesterol Calculated 49 mg/dL (<100); Potassium 4.2 mmol/L (3.3-5.1); Sodium 131 mmol/L (135-145); Total Protein 7.3 g/dL (6.5-8.0); Triglycerides 51 mg/dL (<150)
[2024-05-01 11:01] LABS: Glucose, Whole Blood 209 mg/dL (60-115)
--- NOTE | 2024-05-01 12:05 | P.PNPSI_ITS ---
Subjective Subjective Date of Service: 05/01/24 Reason For Visit: mood disorder Subjective Notes: Conditional Voluntary Interim History: The nursing staff reported the patient has been come pleasant, he had a paracentesis and drained 3 L of fluid. He took oxycodone and trazodone p.r.n. slept 3 hours. On interview the patient remains pleasant and cooperative, worried about his medical conditions. He had nausea and vomiting and he requested benzodiazepines. We met with the social media project manager and it was clear that the patient has problems with housing and placement. Mental Status Exam Mental Status Exam Patient Appearance: Well Grooomed and Appropriate Patient Orientation: Person and Situation Level of Consciousness: Awake and Appropriate Patient Behavior: Guarded and Passive Mood Description: Withdrawn Affect Description: Constricted Patient Cognition Impaired: Yes Ability to Follow Directions: Good Speech Pattern: Clear Hallucinations: None Delusions: Not Present Thought Process: Distracted and Slowed Thinking Thought Content: positive for [place] and positive for Poverty of Content Judgement: Fair Diagnostics Vital Signs (24Hr): Vital Signs - 24 hr 04/30/24 20:00 05/01/24 08:00 Temperature 98 F 98.4 F Pulse Rate 86 96 Respiratory Rate 16 16 Blood Pressure 128/70 123/77 Pulse Oximetry 95 98 Oxygen Delivery Method Room Air Room Air BMI result Body Mass Index 23.9 Labs 04/30/24 08:15 05/01/24 07:48 Labs: Laboratory Results - last 48 hr 04/29/24 04/30/24 04/30/24 21:14 06:28 08:15 WBC 4.8 RBC 2.48 L Hgb 8.7 L Hct 26.1 L MCV 105.2 H MCH 35.1 H MCHC 33.3 RDW 16.4 H Plt Count 72 L MPV 11.1 Absolute Nucleated RBC 0.000 Nucleated RBC % (auto) 0.0 Sodium Potassium Chloride Carbon Dioxide Anion Gap BUN Creatinine Estim Creat Clear Calc Estimated GFR POC Glucose 169 H 164 H Fasting Glucose Calcium Total Bilirubin AST ALT Alkaline Phosphatase Total Protein Albumin Triglycerides Cholesterol LDL Cholesterol, Calc HDL Cholesterol 04/30/24 04/30/24 04/30/24 10:52 16:09 20:59 WBC RBC Hgb Hct MCV MCH MCHC RDW Plt Count MPV Absolute Nucleated RBC Nucleated RBC % (auto) Sodium Potassium Chloride Carbon Dioxide Anion Gap BUN Creatinine Estim Creat Clear Calc Estimated GFR POC Glucose 210 H 166 H 215 H Fasting Glucose Calcium Total Bilirubin AST ALT Alkaline Phosphatase Total Protein Albumin Triglycerides Cholesterol LDL Cholesterol, Calc HDL Cholesterol 05/01/24 05/01/24 05/01/24 06:48 07:48 10:55 WBC RBC Hgb Hct MCV MCH MCHC RDW Plt Count MPV Absolute Nucleated RBC Nucleated RBC % (auto) Sodium 131 L Potassium 4.2 Chloride 99 Carbon Dioxide 27 Anion Gap 9 L BUN 29 H Creatinine 1.53 H Estim Creat Clear Calc 50.2 Estimated GFR 47 POC Glucose 206 H 209 H Fasting Glucose 233 H Calcium 7.6 L Total Bilirubin 2.7 H AST 44 H ALT 17 Alkaline Phosphatase 187 H Total Protein 7.3 Albumin 2.4 L Triglycerides 51 Cholesterol 88 LDL Cholesterol, Calc 49 HDL Cholesterol 29 L Medications Medications Current Medications Al Hydroxide/Mg Hydroxide (Magnesium Hydrox/Alum Hydrox 30 Ml Oral.Susp) 30 ml PO Q6H PRN PRN Reason: Heartburn/Nausea Baclofen (Baclofen 10 Mg Tablet) 10 mg PO TID PRN PRN Reason: muscle tension Furosemide (Furosemide 20 Mg Tablet) 60 mg PO DAILY [facility]; Protocol Last Admin: 05/01/24 07:54 Dose: 60 mg Gabapentin (Gabapentin 300 Mg Capsule) 600 mg PO TID [facility] Last Admin: 05/01/24 07:55 Dose: 600 mg Hydroxyzine HCl (Hydroxyzine Hcl 25 Mg Tablet) 25 mg PO Q6H PRN PRN Reason: Anxiety Last Admin: 04/30/24 21:21 Dose: 25 mg Insulin Human Lispro (Insulin Lispro 100 Unit/Ml 3 Ml Vial) 0 unit SUBCUT QIDACHS [facility]; Protocol Last Admin: 05/01/24 11:34 Dose: 4 unit Lactulose (Lactulose 20 Gm/30 Ml Solution) 20 gm PO DAILY [facility] Last Admin: 05/01/24 07:56 Dose: 20 gm Magnesium Hydroxide (Milk Of Magnesia 30 Ml Oral.Susp) 30 ml PO DAILY PRN PRN Reason: Constipation Magnesium Oxide (Magnesium Oxide 400 Mg Tablet) 400 mg PO DAILY [facility] Last Admin: 05/01/24 07:54 Dose: 400 mg Pt Own (Orphenadrine Citrate 100 Mg Tablet Extended Release) 100 mg PO BID PRN PRN Reason: Pain Last Admin: 04/30/24 21:21 Dose: 100 mg Omeprazole (Omeprazole 20 Mg Capsule.Dr) 20 mg PO BID@0630,1630 [facility] Last Admin: 05/01/24 05:58 Dose: 20 mg Oxycodone HCl (Oxycodone Hcl Immed Release 5 Mg Tablet) 5 mg PO Q6H PRN PRN Reason: Pain, Severe (Pain Scale 7-10) Last Admin: 05/01/24 06:01 Dose: 5 mg Rifaximin (Rifaximin 550 Mg Tablet) 550 mg PO BID [facility] Last Admin: 05/01/24 07:54 Dose: 550 mg Spironolactone (Spironolactone 25 Mg Tablet) 25 mg PO DAILY [facility]; Protocol Last Admin: 05/01/24 07:54 Dose: 25 mg Trazodone HCl (Trazodone Hcl 50 Mg Tablet) 50 mg PO BEDTIME MRX1 PRN PRN Reason: Insomnia Last Admin: 04/30/24 21:19 Dose: 50 mg Trazodone HCl (Trazodone Hcl 50 Mg Tablet) 50 mg PO BEDTIME PRN PRN Reason: Insomnia Last Admin: 05/01/24 01:57 Dose: 50 mg Allergies Allergies Allergy/AdvReac Type Severity Reaction Status Date / Time acetaminophen AdvReac Unknown Verified 04/28/24 11:48 bismuth subsalicylate AdvReac Unknown Verified 04/28/24 11:48 [From Pepto-Bismol] celecoxib [From Celebrex] AdvReac Unknown Verified 04/28/24 11:48 NSAIDS (Non-Steroidal AdvReac Unknown Verified 04/28/24 11:48 Anti-Inflamma Assessment & Plan Assessment & Plan (1) Bipolar 1 disorder: Status: Acute Code(s): F31.9 - Bipolar disorder, unspecified (2) PTSD (post-traumatic stress disorder): Status: Acute Code(s): F43.10 - Post-traumatic stress disorder, unspecified (3) ADHD: Status: Acute Code(s): F90.9 - Attention-deficit hyperactivity disorder, unspecified type (4) Homelessness: Status: Acute Code(s): Z59.00 - Homelessness unspecified (5) Thrombocytopenia: Status: Acute Code(s): D69.6 - Thrombocytopenia, unspecified (6) MAYE (acute kidney injury): Status: Acute Code(s): N17.9 - Acute kidney failure, unspecified Plan The patient is a middle-aged male with a past history of chronically were failure, bipolar disorder, PTSD, ADHD and chronic homelessness who was brought into the facility after he disclosed suicidal ideation [place]. The patient was assessed by crisis and transferring to this facility for psychiatric stabilization. Plan 1. We will try to gather more collateral information. 2. The patient is able to contract for safety 15 minute checks. 3. Referral for hospitalist for paracentesis and medical treatment. 4. Reassessment with results. Reason for continued inpatient stay Substantial Risk for: inability to function, rapid decompensation and med/psych decompensation Time Spent With Patient Time: Total time managing care of this patient today __20__ minutes.
[2024-05-01] MEDS: LORazepam 0.5 MG TABLET PO ×2 (13:10→21:04)
[2024-05-01] MEDS: Ondansetron ODT 4 MG TAB.RAPDIS TRANSLINGU (13:11)
[2024-05-01 16:21] LABS: Glucose, Whole Blood 258 mg/dL (60-115)
[2024-05-01 19:49] LABS: Glucose, Whole Blood 201 mg/dL (60-115)
[2024-05-01 20:00] VITALS: BP 108/68; PULSE 98; RESP 18; TEMP 36.2; O2SAT 99
[2024-05-01] MEDS: hydrOXYzine HCL 25 MG TABLET PO (20:32)
[2024-05-02] MEDS: Omeprazole 20 MG CAPSULE.DR PO ×2 (06:31→16:59)
[2024-05-02 06:43] LABS: Glucose, Whole Blood 193 mg/dL (60-115)
[2024-05-02 09:18] VITALS: BP 103/62; PULSE 90; RESP 15; TEMP 36.8; O2SAT 97
[2024-05-02] MEDS: LORazepam 0.5 MG TABLET PO ×2 (09:20→18:03)
[2024-05-02] MEDS: Magnesium Oxide 400 MG TABLET PO (09:20)
[2024-05-02] MEDS: oxyCODONE HCl Immed Release 5 MG TABLET PO ×3 (09:20→20:35)
[2024-05-02] MEDS: rifAXIMin 550 MG TABLET PO ×2 (09:20→20:35)
[2024-05-02] MEDS: Insulin Lispro 100 UNIT/ML 3 ML VIAL SUBCUT ×4 (09:25→20:36)
[2024-05-02] MEDS: Gabapentin 300 MG CAPSULE 600 MG PO ×3 (09:25→20:35)
[2024-05-02] MEDS: Spironolactone 25 MG TABLET PO (09:44)
[2024-05-02] MEDS: Furosemide 20 MG TABLET 60 MG PO (09:44)
--- NOTE | 2024-05-02 09:45 | PC.NURSE ---
This marketing copywriter texted Dr. Vega on [facility] to ask if she should give Spirinolactone and Lasix, given BP. Provider stated to give all.
[2024-05-02 11:43] LABS: Glucose, Whole Blood 312 mg/dL (60-115)
--- NOTE | 2024-05-02 12:17 | P.PNPSI_ITS ---
Subjective Subjective Date of Service: 05/02/24 Reason For Visit: mood disorder Subjective Notes: Conditional Voluntary Interim History: Patient was seen and discussed in rounds today. Records and plans were reviewed. He has been doing better and has been pleasant and interactive. Continues to complain of not sleeping and is requesting low-dose Seroquel which I will add at 25 mg p.r.n.. He is denying any other issues. No behavioral issues. Review of Systems Review of Systems Sleep Yes all other systems are reviewed and are negative Mental Status Exam Mental Status Exam Patient Appearance: Well Grooomed and Appropriate Patient Orientation: Person and Situation Level of Consciousness: Awake and Appropriate Patient Behavior: Guarded and Passive Mood Description: Withdrawn Affect Description: Constricted Patient Cognition Impaired: Yes Ability to Follow Directions: Good Speech Pattern: Clear Hallucinations: None Delusions: Not Present Thought Process: Distracted and Slowed Thinking Thought Content: positive for [place] and positive for Poverty of Content Judgement: Fair Diagnostics Vital Signs (24Hr): Vital Signs - 24 hr 05/01/24 20:00 05/02/24 09:18 Temperature 97.2 F 98.2 F Pulse Rate 98 90 Respiratory Rate 18 15 Blood Pressure 108/68 103/62 Pulse Oximetry 99 97 Oxygen Delivery Method Room Air Room Air BMI result Body Mass Index 23.9 Labs 04/30/24 08:15 05/01/24 07:48 Labs: Laboratory Results - last 48 hr 04/30/24 04/30/24 05/01/24 16:09 20:59 06:48 Sodium Potassium Chloride Carbon Dioxide Anion Gap BUN Creatinine Estim Creat Clear Calc Estimated GFR POC Glucose 166 H 215 H 206 H Fasting Glucose Calcium Total Bilirubin AST ALT Alkaline Phosphatase Total Protein Albumin Triglycerides Cholesterol LDL Cholesterol, Calc HDL Cholesterol 05/01/24 05/01/24 05/01/24 07:48 10:55 16:13 Sodium 131 L Potassium 4.2 Chloride 99 Carbon Dioxide 27 Anion Gap 9 L BUN 29 H Creatinine 1.53 H Estim Creat Clear Calc 50.2 Estimated GFR 47 POC Glucose 209 H 258 H Fasting Glucose 233 H Calcium 7.6 L Total Bilirubin 2.7 H AST 44 H ALT 17 Alkaline Phosphatase 187 H Total Protein 7.3 Albumin 2.4 L Triglycerides 51 Cholesterol 88 LDL Cholesterol, Calc 49 HDL Cholesterol 29 L 05/01/24 05/02/24 05/02/24 19:43 06:34 11:39 Sodium Potassium Chloride Carbon Dioxide Anion Gap BUN Creatinine Estim Creat Clear Calc Estimated GFR POC Glucose 201 H 193 H 312 H Fasting Glucose Calcium Total Bilirubin AST ALT Alkaline Phosphatase Total Protein Albumin Triglycerides Cholesterol LDL Cholesterol, Calc HDL Cholesterol Medications Medications Current Medications Al Hydroxide/Mg Hydroxide (Magnesium Hydrox/Alum Hydrox 30 Ml Oral.Susp) 30 ml PO Q6H PRN PRN Reason: Heartburn/Nausea Baclofen (Baclofen 10 Mg Tablet) 10 mg PO TID PRN PRN Reason: muscle tension Furosemide (Furosemide 20 Mg Tablet) 60 mg PO DAILY [facility]; Protocol Last Admin: 05/02/24 09:44 Dose: 60 mg Gabapentin (Gabapentin 300 Mg Capsule) 600 mg PO TID [facility] Last Admin: 05/02/24 09:25 Dose: 600 mg Hydroxyzine HCl (Hydroxyzine Hcl 25 Mg Tablet) 25 mg PO Q6H PRN PRN Reason: Anxiety Last Admin: 05/01/24 20:32 Dose: 25 mg Insulin Human Lispro (Insulin Lispro 100 Unit/Ml 3 Ml Vial) 0 unit SUBCUT QIDACHS [facility]; Protocol Last Admin: 05/02/24 11:48 Dose: 8 unit Lactulose (Lactulose 20 Gm/30 Ml Solution) 20 gm PO DAILY [facility] Last Admin: 05/02/24 09:25 Dose: Not Given Lorazepam (Lorazepam 0.5 Mg Tablet) 0.5 mg PO Q8H PRN PRN Reason: Anxiety Last Admin: 05/02/24 09:20 Dose: 0.5 mg Magnesium Hydroxide (Milk Of Magnesia 30 Ml Oral.Susp) 30 ml PO DAILY PRN PRN Reason: Constipation Magnesium Oxide (Magnesium Oxide 400 Mg Tablet) 400 mg PO DAILY [facility] Last Admin: 05/02/24 09:20 Dose: 400 mg Pt Own (Orphenadrine Citrate 100 Mg Tablet Extended Release) 100 mg PO BID PRN PRN Reason: Pain Last Admin: 04/30/24 21:21 Dose: 100 mg Omeprazole (Omeprazole 20 Mg Capsule.Dr) 20 mg PO BID@0630,1630 [facility] Last Admin: 05/02/24 06:31 Dose: 20 mg Ondansetron HCl (Ondansetron Odt 4 Mg Tab.Rapdis) 4 mg TRANSLINGU Q6H PRN PRN Reason: Nausea and Vomiting Last Admin: 05/01/24 13:11 Dose: 4 mg Oxycodone HCl (Oxycodone Hcl Immed Release 5 Mg Tablet) 5 mg PO Q4H PRN PRN Reason: Pain, Severe (Pain Scale 7-10) Last Admin: 05/02/24 09:20 Dose: 5 mg Rifaximin (Rifaximin 550 Mg Tablet) 550 mg PO BID [facility] Last Admin: 05/02/24 09:20 Dose: 550 mg Spironolactone (Spironolactone 25 Mg Tablet) 25 mg PO DAILY [facility]; Protocol Last Admin: 05/02/24 09:44 Dose: 25 mg Trazodone HCl (Trazodone Hcl 50 Mg Tablet) 50 mg PO BEDTIME MRX1 PRN PRN Reason: Insomnia Last Admin: 05/01/24 20:32 Dose: 50 mg Trazodone HCl (Trazodone Hcl 50 Mg Tablet) 50 mg PO BEDTIME PRN PRN Reason: Insomnia Last Admin: 05/01/24 01:57 Dose: 50 mg Allergies Allergies Allergy/AdvReac Type Severity Reaction Status Date / Time acetaminophen AdvReac Unknown Verified 04/28/24 11:48 bismuth subsalicylate AdvReac Unknown Verified 04/28/24 11:48 [From Pepto-Bismol] celecoxib [From Celebrex] AdvReac Unknown Verified 04/28/24 11:48 NSAIDS (Non-Steroidal AdvReac Unknown Verified 04/28/24 11:48 Anti-Inflamma Assessment & Plan Assessment & Plan (1) Bipolar 1 disorder: Status: Acute Code(s): F31.9 - Bipolar disorder, unspecified (2) PTSD (post-traumatic stress disorder): Status: Acute Code(s): F43.10 - Post-traumatic stress disorder, unspecified (3) ADHD: Status: Acute Code(s): F90.9 - Attention-deficit hyperactivity disorder, unspecified type (4) Homelessness: Status: Acute Code(s): Z59.00 - Homelessness unspecified (5) Thrombocytopenia: Status: Acute Code(s): D69.6 - Thrombocytopenia, unspecified (6) MAYE (acute kidney injury): Status: Acute Code(s): N17.9 - Acute kidney failure, unspecified Plan The patient is a middle-aged male with a past history of chronically were failure, bipolar disorder, PTSD, ADHD and chronic homelessness who was brought into the facility after he disclosed suicidal ideation [place] The patient was assessed by crisis and transferring to this facility for psychiatric stabilization. 05/02: Continue current regimen and plans for stabilization and medication management. Added Seroquel 25 mg nightly p.r.n. Plan 1. We will try to gather more collateral information. 2. The patient is able to contract for safety 15 minute checks. 3. Referral for hospitalist for paracentesis and medical treatment. 4. Reassessment with results. Patient educated on: medication risk/benefits Reason for continued inpatient stay Substantial Risk for: med/psych decompensation Time Spent With Patient Time: Total time managing care of this patient today ____ minutes.
[2024-05-02] MEDS: Ondansetron ODT 4 MG TAB.RAPDIS TRANSLINGU (13:23)
[2024-05-02 16:33] LABS: Glucose, Whole Blood 208 mg/dL (60-115)
[2024-05-02 19:55] LABS: Glucose, Whole Blood 211 mg/dL (60-115)
[2024-05-02 19:57] VITALS: BP 151/67; PULSE 104; RESP 18; TEMP 36.4; O2SAT 97
[2024-05-02] MEDS: traZODone HCL 50 MG TABLET PO ×2 (20:34→22:13)
[2024-05-02] MEDS: hydrOXYzine HCL 25 MG TABLET PO (20:34)
[2024-05-02] MEDS: QUEtiapine Fumarate 25 MG TABLET PO (20:34)
[2024-05-03] MEDS: oxyCODONE HCl Immed Release 5 MG TABLET PO ×4 (00:45→20:29)
[2024-05-03] MEDS: Omeprazole 20 MG CAPSULE.DR PO ×2 (05:48→16:59)
[2024-05-03 06:56] LABS: Glucose, Whole Blood 191 mg/dL (60-115)
[2024-05-03] MEDS: Insulin Lispro 100 UNIT/ML 3 ML VIAL SUBCUT ×4 (07:40→20:31)
[2024-05-03 09:49] VITALS: BP 103/65; PULSE 103; RESP 18; TEMP 37.4; O2SAT 96
[2024-05-03] MEDS: Lactulose 20 GM/30 ML SOLUTION PO (09:50)
[2024-05-03] MEDS: Gabapentin 300 MG CAPSULE 600 MG PO ×3 (09:50→20:29)
[2024-05-03] MEDS: rifAXIMin 550 MG TABLET PO ×2 (09:51→20:29)
[2024-05-03] MEDS: Spironolactone 25 MG TABLET PO (09:51)
[2024-05-03] MEDS: Magnesium Oxide 400 MG TABLET PO (09:51)
[2024-05-03] MEDS: Furosemide 20 MG TABLET 60 MG PO (09:51)
--- NOTE | 2024-05-03 10:55 | HO.PSYCHPN ---
Subjective Subjective Date of Service: 05/03/24 Reason For Visit: mood disorder Subjective Notes: Conditional Voluntary Interim History: Patient was seen and discussed in rounds today. Records and plans were reviewed. He states that he did sleep a little better last night with the Seroquel but still a lot of interruptions and would like to go up on it a little bit which I will do at 50 mg q.h.s. p.r.n.. He also talked about issues of depression which he will bring up with his providers tomorrow. He continues to be somewhat verbose but coherent. No other complaints or changes were made today Review of Systems Review of Systems Sleep, depression Yes all other systems are reviewed and are negative Mental Status Exam Mental Status Exam Patient Appearance: Well Grooomed and Appropriate Patient Orientation: Person and Situation Level of Consciousness: Awake and Appropriate Patient Behavior: Guarded and Passive Mood Description: Withdrawn Affect Description: Constricted Patient Cognition Impaired: Yes Ability to Follow Directions: Good Speech Pattern: Clear Hallucinations: None Delusions: Not Present Thought Process: Distracted and Slowed Thinking Thought Content: positive for [place] and positive for Poverty of Content Judgement: Fair Diagnostics Vital Signs (24Hr): Vital Signs - 24 hr 05/02/24 19:57 05/03/24 09:49 Temperature 97.6 F 99.3 F Pulse Rate 104 H 103 H Respiratory Rate 18 18 Blood Pressure 151/67 H 103/65 Pulse Oximetry 97 96 Oxygen Delivery Method Room Air Room Air BMI result Body Mass Index 23.9 Labs 04/30/24 08:15 05/01/24 07:48 Labs: Laboratory Results - last 48 hr 05/01/24 05/01/24 05/01/24 10:55 16:13 19:43 POC Glucose 209 H 258 H 201 H 05/02/24 05/02/24 05/02/24 06:34 11:39 16:26 POC Glucose 193 H 312 H 208 H 05/02/24 05/03/24 19:51 06:40 POC Glucose 211 H 191 H Medications Medications Current Medications Al Hydroxide/Mg Hydroxide (Magnesium Hydrox/Alum Hydrox 30 Ml Oral.Susp) 30 ml PO Q6H PRN PRN Reason: Heartburn/Nausea Baclofen (Baclofen 10 Mg Tablet) 10 mg PO TID PRN PRN Reason: muscle tension Furosemide (Furosemide 20 Mg Tablet) 60 mg PO DAILY [facility]; Protocol Last Admin: 05/03/24 09:51 Dose: 60 mg Gabapentin (Gabapentin 300 Mg Capsule) 600 mg PO TID [facility] Last Admin: 05/03/24 09:50 Dose: 600 mg Hydroxyzine HCl (Hydroxyzine Hcl 25 Mg Tablet) 25 mg PO Q6H PRN PRN Reason: Anxiety Last Admin: 05/02/24 20:34 Dose: 25 mg Insulin Human Lispro (Insulin Lispro 100 Unit/Ml 3 Ml Vial) 0 unit SUBCUT QIDACHS [facility]; Protocol Last Admin: 05/03/24 07:40 Dose: 2 unit Lactulose (Lactulose 20 Gm/30 Ml Solution) 20 gm PO DAILY [facility] Last Admin: 05/03/24 09:50 Dose: 20 gm Lorazepam (Lorazepam 0.5 Mg Tablet) 0.5 mg PO Q8H PRN PRN Reason: Anxiety Last Admin: 05/02/24 18:03 Dose: 0.5 mg Magnesium Hydroxide (Milk Of Magnesia 30 Ml Oral.Susp) 30 ml PO DAILY PRN PRN Reason: Constipation Magnesium Oxide (Magnesium Oxide 400 Mg Tablet) 400 mg PO DAILY [facility] Last Admin: 05/03/24 09:51 Dose: 400 mg Pt Own (Orphenadrine Citrate 100 Mg Tablet Extended Release) 100 mg PO BID PRN PRN Reason: Pain Last Admin: 04/30/24 21:21 Dose: 100 mg Omeprazole (Omeprazole 20 Mg Capsule.Dr) 20 mg PO BID@0630,1630 [facility] Last Admin: 05/03/24 05:48 Dose: 20 mg Ondansetron HCl (Ondansetron Odt 4 Mg Tab.Rapdis) 4 mg TRANSLINGU Q6H PRN PRN Reason: Nausea and Vomiting Last Admin: 05/02/24 13:23 Dose: 4 mg Oxycodone HCl (Oxycodone Hcl Immed Release 5 Mg Tablet) 5 mg PO Q4H PRN PRN Reason: Pain, Severe (Pain Scale 7-10) Last Admin: 05/03/24 00:45 Dose: 5 mg Quetiapine Fumarate (Quetiapine Fumarate 25 Mg Tablet) 25 mg PO BEDTIME PRN PRN Reason: Sleep Last Admin: 05/02/24 20:34 Dose: 25 mg Rifaximin (Rifaximin 550 Mg Tablet) 550 mg PO BID [facility] Last Admin: 05/03/24 09:51 Dose: 550 mg Spironolactone (Spironolactone 25 Mg Tablet) 25 mg PO DAILY [facility]; Protocol Last Admin: 05/03/24 09:51 Dose: 25 mg Trazodone HCl (Trazodone Hcl 50 Mg Tablet) 50 mg PO BEDTIME MRX1 PRN PRN Reason: Insomnia Last Admin: 05/02/24 22:13 Dose: 50 mg Trazodone HCl (Trazodone Hcl 50 Mg Tablet) 50 mg PO BEDTIME PRN PRN Reason: Insomnia Last Admin: 05/01/24 01:57 Dose: 50 mg Allergies Allergies Allergy/AdvReac Type Severity Reaction Status Date / Time acetaminophen AdvReac Unknown Verified 04/28/24 11:48 bismuth subsalicylate AdvReac Unknown Verified 04/28/24 11:48 [From Pepto-Bismol] celecoxib [From Celebrex] AdvReac Unknown Verified 04/28/24 11:48 NSAIDS (Non-Steroidal AdvReac Unknown Verified 04/28/24 11:48 Anti-Inflamma Assessment & Plan Assessment & Plan (1) Bipolar 1 disorder: Status: Acute Code(s): F31.9 - Bipolar disorder, unspecified (2) PTSD (post-traumatic stress disorder): Status: Acute Code(s): F43.10 - Post-traumatic stress disorder, unspecified (3) ADHD: Status: Acute Code(s): F90.9 - Attention-deficit hyperactivity disorder, unspecified type (4) Homelessness: Status: Acute Code(s): Z59.00 - Homelessness unspecified (5) Thrombocytopenia: Status: Acute Code(s): D69.6 - Thrombocytopenia, unspecified (6) MAYE (acute kidney injury): Status: Acute Code(s): N17.9 - Acute kidney failure, unspecified Plan The patient is a middle-aged male with a past history of chronically were failure, bipolar disorder, PTSD, ADHD and chronic homelessness who was brought into the facility after he disclosed suicidal ideation with a plan [place] the bridge. The patient was assessed by crisis and transferring to this facility for psychiatric stabilization. 05/02: Continue current regimen and plans for stabilization and medication management. Added Seroquel 25 mg nightly p.r.n. 05/03: Continue current regimen and plans for stabilization and medication management Plan 1. We will try to gather more collateral information. 2. The patient is able to contract for safety 15 minute checks. 3. Referral for hospitalist for paracentesis and medical treatment. 4. Reassessment with results. Patient educated on: medication risk/benefits Reason for continued inpatient stay Substantial Risk for: med/psych decompensation Time Spent With Patient Time: Total time managing care of this patient today ____ minutes.
[2024-05-03 11:31] LABS: Glucose, Whole Blood 239 mg/dL (60-115)
[2024-05-03] MEDS: hydrOXYzine HCL 25 MG TABLET PO (15:58)
[2024-05-03 16:15] LABS: Glucose, Whole Blood 228 mg/dL (60-115)
[2024-05-03 19:50] LABS: Glucose, Whole Blood 209 mg/dL (60-115)
[2024-05-03 20:00] VITALS: BP 107/60; PULSE 100; RESP 18; TEMP 36.6; O2SAT 95
[2024-05-03] MEDS: QUEtiapine Fumarate 50 MG TABLET PO (20:29)
[2024-05-03] MEDS: Ondansetron ODT 4 MG TAB.RAPDIS TRANSLINGU (20:29)
[2024-05-03] MEDS: traZODone HCL 50 MG TABLET PO (20:29)
[2024-05-04] MEDS: hydrOXYzine HCL 25 MG TABLET PO (00:03)
[2024-05-04] MEDS: LORazepam 0.5 MG TABLET PO (00:03)
[2024-05-04] MEDS: traZODone HCL 50 MG TABLET PO (00:03)
[2024-05-04] MEDS: oxyCODONE HCl Immed Release 5 MG TABLET PO ×3 (02:14→21:05)
[2024-05-04] MEDS: Omeprazole 20 MG CAPSULE.DR PO ×2 (06:37→16:23)
[2024-05-04 06:45] LABS: Glucose, Whole Blood 204 mg/dL (60-115)
[2024-05-04] MEDS: Insulin Lispro 100 UNIT/ML 3 ML VIAL SUBCUT ×4 (07:44→21:03)
[2024-05-04] MEDS: Furosemide 20 MG TABLET 60 MG PO (07:46)
[2024-05-04] MEDS: rifAXIMin 550 MG TABLET PO ×2 (07:46→21:04)
[2024-05-04] MEDS: Spironolactone 25 MG TABLET PO (07:46)
[2024-05-04] MEDS: Gabapentin 300 MG CAPSULE 600 MG PO ×3 (07:47→21:04)
[2024-05-04] MEDS: Magnesium Oxide 400 MG TABLET PO (07:47)
[2024-05-04] MEDS: Lactulose 20 GM/30 ML SOLUTION PO (07:55)
[2024-05-04 08:00] VITALS: BP 100/67; PULSE 99; RESP 18; TEMP 37.1; O2SAT 96
--- NOTE | 2024-05-04 09:46 | P.PNPSI_ITS ---
Subjective Subjective Date of Service: 05/04/24 Reason For Visit: mood disorder Subjective Notes: Conditional Voluntary Interim History: Pt continues to report feeling depressed, suicidal stating I will kill myself in 5 minutes once discharge. He reports he has access to guns or driving somewhere. He reports his depression steam from lack of housing, lack of support from family and worsening medical conditions. He is taking medications as prescribed. Not on antidepressant- reports hx of bipolar,not sure if hx of gudelia or psychosis. Noted hyponatremia on 05/01, will repeat labs. also check ammonia. Medication Compliance: Yes Review of Systems Review of Systems Sleep, depression Yes all other systems are reviewed and are negative Mental Status Exam Mental Status Exam Patient Appearance: Well Grooomed and Appropriate Patient Orientation: Person and Situation Level of Consciousness: Awake and Appropriate Patient Behavior: Guarded and Passive Mood Description: Withdrawn Affect Description: Constricted Patient Cognition Impaired: Yes Ability to Follow Directions: Good Speech Pattern: Clear Diagnostics Vital Signs (24Hr): Vital Signs - 24 hr 05/03/24 09:49 05/03/24 20:00 Temperature 99.3 F 97.8 F Pulse Rate 103 H 100 Respiratory Rate 18 18 Blood Pressure 103/65 107/60 Pulse Oximetry 96 95 Oxygen Delivery Method Room Air Room Air BMI result Body Mass Index 23.9 Labs 05/04/24 12:22 05/04/24 12:22 Labs: Laboratory Results - last 48 hr 05/02/24 05/02/24 05/02/24 11:39 16:26 19:51 POC Glucose 312 H 208 H 211 H 05/03/24 05/03/24 05/03/24 06:40 11:27 16:11 POC Glucose 191 H 239 H 228 H 05/03/24 05/04/24 19:46 06:38 POC Glucose 209 H 204 H Medications Medications Current Medications Al Hydroxide/Mg Hydroxide (Magnesium Hydrox/Alum Hydrox 30 Ml Oral.Susp) 30 ml PO Q6H PRN PRN Reason: Heartburn/Nausea Baclofen (Baclofen 10 Mg Tablet) 10 mg PO TID PRN PRN Reason: muscle tension Furosemide (Furosemide 20 Mg Tablet) 60 mg PO DAILY [facility]; Protocol Last Admin: 05/04/24 07:46 Dose: 60 mg Gabapentin (Gabapentin 300 Mg Capsule) 600 mg PO TID [facility] Last Admin: 05/04/24 07:47 Dose: 600 mg Hydroxyzine HCl (Hydroxyzine Hcl 25 Mg Tablet) 25 mg PO Q6H PRN PRN Reason: Anxiety Last Admin: 05/04/24 00:03 Dose: 25 mg Insulin Human Lispro (Insulin Lispro 100 Unit/Ml 3 Ml Vial) 0 unit SUBCUT QIDACHS [facility]; Protocol Last Admin: 05/04/24 07:44 Dose: 4 unit Lactulose (Lactulose 20 Gm/30 Ml Solution) 20 gm PO DAILY [facility] Last Admin: 05/04/24 07:55 Dose: 20 gm Lorazepam (Lorazepam 0.5 Mg Tablet) 0.5 mg PO Q8H PRN PRN Reason: Anxiety Last Admin: 05/04/24 00:03 Dose: 0.5 mg Magnesium Hydroxide (Milk Of Magnesia 30 Ml Oral.Susp) 30 ml PO DAILY PRN PRN Reason: Constipation Magnesium Oxide (Magnesium Oxide 400 Mg Tablet) 400 mg PO DAILY [facility] Last Admin: 05/04/24 07:47 Dose: 400 mg Pt Own (Orphenadrine Citrate 100 Mg Tablet Extended Release) 100 mg PO BID PRN PRN Reason: Pain Last Admin: 04/30/24 21:21 Dose: 100 mg Omeprazole (Omeprazole 20 Mg Capsule.Dr) 20 mg PO BID@0630,1630 [facility] Last Admin: 05/04/24 06:37 Dose: 20 mg Ondansetron HCl (Ondansetron Odt 4 Mg Tab.Rapdis) 4 mg TRANSLINGU Q6H PRN PRN Reason: Nausea and Vomiting Last Admin: 05/03/24 20:29 Dose: 4 mg Oxycodone HCl (Oxycodone Hcl Immed Release 5 Mg Tablet) 5 mg PO Q4H PRN PRN Reason: Pain, Severe (Pain Scale 7-10) Last Admin: 05/04/24 02:14 Dose: 5 mg Quetiapine Fumarate (Quetiapine Fumarate 50 Mg Tablet) 50 mg PO BEDTIME PRN PRN Reason: Sleep Last Admin: 05/03/24 20:29 Dose: 50 mg Rifaximin (Rifaximin 550 Mg Tablet) 550 mg PO BID [facility] Last Admin: 05/04/24 07:46 Dose: 550 mg Spironolactone (Spironolactone 25 Mg Tablet) 25 mg PO DAILY [facility]; Protocol Last Admin: 05/04/24 07:46 Dose: 25 mg Trazodone HCl (Trazodone Hcl 50 Mg Tablet) 50 mg PO BEDTIME MRX1 PRN PRN Reason: Insomnia Last Admin: 05/04/24 00:03 Dose: 50 mg Trazodone HCl (Trazodone Hcl 50 Mg Tablet) 50 mg PO BEDTIME PRN PRN Reason: Insomnia Last Admin: 05/01/24 01:57 Dose: 50 mg Allergies Allergies Allergy/AdvReac Type Severity Reaction Status Date / Time acetaminophen AdvReac Unknown Verified 04/28/24 11:48 bismuth subsalicylate AdvReac Unknown Verified 04/28/24 11:48 [From Pepto-Bismol] celecoxib [From Celebrex] AdvReac Unknown Verified 04/28/24 11:48 NSAIDS (Non-Steroidal AdvReac Unknown Verified 04/28/24 11:48 Anti-Inflamma Assessment & Plan Assessment & Plan (1) Bipolar 1 disorder: Status: Acute Code(s): F31.9 - Bipolar disorder, unspecified (2) PTSD (post-traumatic stress disorder): Status: Acute Code(s): F43.10 - Post-traumatic stress disorder, unspecified (3) ADHD: Status: Acute Code(s): F90.9 - Attention-deficit hyperactivity disorder, unspecified type (4) Homelessness: Status: Acute Code(s): Z59.00 - Homelessness unspecified (5) Thrombocytopenia: Status: Acute Code(s): D69.6 - Thrombocytopenia, unspecified (6) MAYE (acute kidney injury): Status: Acute Code(s): N17.9 - Acute kidney failure, unspecified Plan The patient is a middle-aged male with a past history of chronically were failure, bipolar disorder, PTSD, ADHD and chronic homelessness who was brought into the facility after he disclosed suicidal ideation with a plan to [place] the bridge. The patient was assessed by crisis and transferring to this facility for psychiatric stabilization. 05/02: Continue current regimen and plans for stabilization and medication management. Added Seroquel 25 mg nightly p.r.n. 05/03: Continue current regimen and plans for stabilization and medication management 05/04 repeat cmp, cbc, ammonia. Reason for continued inpatient stay Substantial Risk for: inability to function Time Spent With Patient Time: Total time managing care of this patient today ____ minutes.
[2024-05-04 11:08] LABS: Glucose, Whole Blood 449 mg/dL (60-115)
[2024-05-04 12:23] LABS: MANUAL DIFF FLAG NO
[2024-05-04 12:31] LABS: Ammonia 62 umol/L (13-55)
[2024-05-04 12:35] LABS: Basophils Percent Auto 0.7 % (0-2); Eosinophils Absolute Auto 0.1 X10*3/uL (0.0-0.4); Eosinophils Percent Auto 2.3 % (0-4); Hematocrit 21.4 % (42.0-52.0); Hemoglobin 7.5 g/dl (14.0-18.0); Imm Gran Abs Auto 0.02 X10*3/uL (0.00-0.03); Imm Gran Pct Auto 0.7 % (0.0-0.4); Lymphocytes Absolute Auto 0.3 X10*3/uL (1.2-4.9); Lymphocytes Percent Auto 8.6 % (20-40); Mean Corpuscular Hemoglobin 35.9 pg (27.0-33.0); Mean Corpuscular Volume 102.4 fL (80.0-98.0); Mean Platelet Volume 10.6 fL (9.4-12.4); Monocytes Absolute Auto 0.4 X10*3/uL (0.1-1.2); Monocytes Percent Auto 11.9 % (2-11); Neutrophils Absolute Auto 2.3 x10*3/uL (2.0-8.3); Neutrophils Percent Auto 75.8 % (45-73); Red Blood Count 2.09 X10*6/uL (4.60-5.80); Red Cell Distribution Width 16.5 % (11.0-16.0)
[2024-05-04 12:38] LABS: Platelet Count 56 X10*3/uL (160-400)
[2024-05-04 12:41] LABS: Alanine Aminotransferase 11 U/L (0-40); Albumin Level 2.1 g/dL (3.5-5.0); Alkaline Phosphatase 216 U/L (39-117); Anion Gap 7 (12-20); Aspartate Amino Transferase 39 U/L (5-37); Bilirubin Total 1.7 mg/dL (0.0-1.0); Blood Urea Nitrogen 29 mg/dL (9-16); Calcium 7.7 mg/dL (8.4-10.2); Carbon Dioxide 29 mmol/L (22-29); Chloride 101 mmol/L (96-108); Creatinine Clr Calc Pharmacy 46.3; Estimated Glomerular Filt Rate 43; Glucose Random 251 mg/dL (60-115); Potassium 4.1 mmol/L (3.3-5.1); Sodium 133 mmol/L (135-145); Total Protein 6.5 g/dL (6.5-8.0)
[2024-05-04 16:19] LABS: Glucose, Whole Blood 159 mg/dL (60-115)
[2024-05-04 20:35] VITALS: BP 102/65; PULSE 93; RESP 18; TEMP 37; O2SAT 96
[2024-05-04 20:44] LABS: Glucose, Whole Blood 324 mg/dL (60-115)
[2024-05-05] MEDS: traZODone HCL 50 MG TABLET PO ×2 (01:23→21:08)
[2024-05-05] MEDS: QUEtiapine Fumarate 50 MG TABLET PO ×2 (01:23→21:08)
[2024-05-05] MEDS: Omeprazole 20 MG CAPSULE.DR PO ×2 (06:58→17:25)
[2024-05-05 07:28] LABS: Glucose, Whole Blood 174 mg/dL (60-115)
[2024-05-05 08:00] VITALS: BP 100/80; PULSE 95; RESP 15; TEMP 36.9; O2SAT 98
--- NOTE | 2024-05-05 08:41 | HO.PSYCHPN ---
Subjective Subjective Date of Service: 05/05/24 Reason For Visit: mood disorder Subjective Notes: Conditional Voluntary Interim History: Pt reports feeling tired today. BP low-lasix held. may need to hold spinorolactone. He continues to report depressed mood, suicidal ideation in context of multiple psychosocial stressors worsening medical conditions, lack of stable housing. 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 No plan or intent to harm himself now, but conditional to going to the streets. Diagnostics Vital Signs (24Hr): Vital Signs - 24 hr 05/04/24 20:35 Temperature 98.6 F Pulse Rate 93 Respiratory Rate 18 Blood Pressure 102/65 Pulse Oximetry 96 Oxygen Delivery Method Room Air BMI result Body Mass Index 23.9 Labs 05/06/24 14:44 05/04/24 12:22 Labs: Laboratory Results - last 48 hr 05/03/24 05/03/24 05/03/24 11:27 16:11 19:46 WBC RBC Hgb Hct MCV MCH MCHC RDW Plt Count MPV Immature Gran % (Auto) Neut % (Auto) Lymph % (Auto) [place] % (Auto) Eos % (Auto) Baso % (Auto) Lymph # (Auto) [place] # (Auto) Eos # (Auto) Baso # (Auto) Abs Immat Gran (auto) Absolute Neuts (auto) Absolute Nucleated RBC Nucleated RBC % (auto) Sodium Potassium Chloride Carbon Dioxide Anion Gap BUN Creatinine Estim Creat Clear Calc Estimated GFR POC Glucose 239 H 228 H 209 H Random Glucose Calcium Total Bilirubin AST ALT Alkaline Phosphatase Ammonia Total Protein Albumin 05/04/24 05/04/24 05/04/24 06:38 11:03 12:22 WBC 3.0 L RBC 2.09 L Hgb 7.5 L Hct 21.4 L MCV 102.4 H MCH 35.9 H MCHC 35.0 RDW 16.5 H Plt Count 56 L MPV 10.6 Immature Gran % (Auto) 0.7 H Neut % (Auto) 75.8 H Lymph % (Auto) 8.6 L [place] % (Auto) 11.9 H Eos % (Auto) 2.3 Baso % (Auto) 0.7 Lymph # (Auto) 0.3 L [place] # (Auto) 0.4 Eos # (Auto) 0.1 Baso # (Auto) 0.0 Abs Immat Gran (auto) 0.02 Absolute Neuts (auto) 2.3 Absolute Nucleated RBC 0.000 Nucleated RBC % (auto) 0.0 Sodium 133 L Potassium 4.1 Chloride 101 Carbon Dioxide 29 Anion Gap 7 L BUN 29 H Creatinine 1.66 H Estim Creat Clear Calc 46.3 Estimated GFR 43 POC Glucose 204 H 449 H* Random Glucose 251 H Calcium 7.7 L Total Bilirubin 1.7 H AST 39 H ALT 11 Alkaline Phosphatase 216 H Ammonia 62 H Total Protein 6.5 Albumin 2.1 L 05/04/24 05/04/24 05/05/24 16:14 20:30 06:57 WBC RBC Hgb Hct MCV MCH MCHC RDW Plt Count MPV Immature Gran % (Auto) Neut % (Auto) Lymph % (Auto) [place] % (Auto) Eos % (Auto) Baso % (Auto) Lymph # (Auto) [place] # (Auto) Eos # (Auto) Baso # (Auto) Abs Immat Gran (auto) Absolute Neuts (auto) Absolute Nucleated RBC Nucleated RBC % (auto) Sodium Potassium Chloride Carbon Dioxide Anion Gap BUN Creatinine Estim Creat Clear Calc Estimated GFR POC Glucose 159 H 324 H 174 H Random Glucose Calcium Total Bilirubin AST ALT Alkaline Phosphatase Ammonia Total Protein Albumin Medications Medications Current Medications Al Hydroxide/Mg Hydroxide (Magnesium Hydrox/Alum Hydrox 30 Ml Oral.Susp) 30 ml PO Q6H PRN PRN Reason: Heartburn/Nausea Baclofen (Baclofen 10 Mg Tablet) 10 mg PO TID PRN PRN Reason: muscle tension Furosemide (Furosemide 20 Mg Tablet) 60 mg PO DAILY [facility]; Protocol Last Admin: 05/04/24 07:46 Dose: 60 mg Gabapentin (Gabapentin 300 Mg Capsule) 600 mg PO TID [facility] Last Admin: 05/04/24 21:04 Dose: 600 mg Hydroxyzine HCl (Hydroxyzine Hcl 25 Mg Tablet) 25 mg PO Q6H PRN PRN Reason: Anxiety Last Admin: 05/04/24 00:03 Dose: 25 mg Insulin Human Lispro (Insulin Lispro 100 Unit/Ml 3 Ml Vial) 0 unit SUBCUT QIDACHS [facility]; Protocol Last Admin: 05/04/24 21:03 Dose: 8 unit Lactulose (Lactulose 20 Gm/30 Ml Solution) 20 gm PO DAILY [facility] Last Admin: 05/04/24 07:55 Dose: 20 gm Lorazepam (Lorazepam 0.5 Mg Tablet) 0.5 mg PO Q8H PRN PRN Reason: Anxiety Last Admin: 05/04/24 00:03 Dose: 0.5 mg Magnesium Hydroxide (Milk Of Magnesia 30 Ml Oral.Susp) 30 ml PO DAILY PRN PRN Reason: Constipation Magnesium Oxide (Magnesium Oxide 400 Mg Tablet) 400 mg PO DAILY [facility] Last Admin: 05/04/24 07:47 Dose: 400 mg Pt Own (Orphenadrine Citrate 100 Mg Tablet Extended Release) 100 mg PO BID PRN PRN Reason: Pain Last Admin: 04/30/24 21:21 Dose: 100 mg Omeprazole (Omeprazole 20 Mg Capsule.Dr) 20 mg PO BID@0630,1630 [facility] Last Admin: 05/05/24 06:58 Dose: 20 mg Ondansetron HCl (Ondansetron Odt 4 Mg Tab.Rapdis) 4 mg TRANSLINGU Q6H PRN PRN Reason: Nausea and Vomiting Last Admin: 05/03/24 20:29 Dose: 4 mg Oxycodone HCl (Oxycodone Hcl Immed Release 5 Mg Tablet) 5 mg PO Q4H PRN PRN Reason: Pain, Severe (Pain Scale 7-10) Last Admin: 05/04/24 21:05 Dose: 5 mg Quetiapine Fumarate (Quetiapine Fumarate 50 Mg Tablet) 50 mg PO BEDTIME PRN PRN Reason: Sleep Last Admin: 05/05/24 01:23 Dose: 50 mg Rifaximin (Rifaximin 550 Mg Tablet) 550 mg PO BID [facility] Last Admin: 05/04/24 21:04 Dose: 550 mg Spironolactone (Spironolactone 25 Mg Tablet) 25 mg PO DAILY [facility]; Protocol Last Admin: 05/04/24 07:46 Dose: 25 mg Trazodone HCl (Trazodone Hcl 50 Mg Tablet) 50 mg PO BEDTIME MRX1 PRN PRN Reason: Insomnia Last Admin: 05/05/24 01:23 Dose: 50 mg Trazodone HCl (Trazodone Hcl 50 Mg Tablet) 50 mg PO BEDTIME PRN PRN Reason: Insomnia Last Admin: 05/01/24 01:57 Dose: 50 mg Allergies Allergies Allergy/AdvReac Type Severity Reaction Status Date / Time acetaminophen AdvReac Unknown Verified 04/28/24 11:48 bismuth subsalicylate AdvReac Unknown Verified 11/12/24 11:48 [From Pepto-Bismol] celecoxib [From Celebrex] AdvReac Unknown Verified 04/28/24 11:48 NSAIDS (Non-Steroidal AdvReac Unknown Verified 04/28/24 11:48 Anti-Inflamma Assessment & Plan Assessment & Plan (1) Bipolar 1 disorder: Status: Inactive Code(s): F31.9 - Bipolar disorder, unspecified (2) PTSD (post-traumatic stress disorder): Status: Acute Code(s): F43.10 - Post-traumatic stress disorder, unspecified (3) ADHD: Status: Acute Code(s): F90.9 - Attention-deficit hyperactivity disorder, unspecified type (4) Homelessness: Status: Acute Code(s): Z59.00 - Homelessness unspecified (5) Thrombocytopenia: Status: Inactive Code(s): D69.6 - Thrombocytopenia, unspecified (6) MAYE (acute kidney injury): Status: Resolved Code(s): N17.9 - Acute kidney failure, unspecified Plan The patient is a middle-aged male with a past history of chronically were failure, bipolar disorder, PTSD, ADHD and chronic homelessness who was brought into the facility after he disclosed suicidal ideation with a plan [place] the bridge. The patient was assessed by crisis and transferring to this facility for psychiatric stabilization. 05/02: Continue current regimen and plans for stabilization and medication management. Added Seroquel 25 mg nightly p.r.n. 05/03: Continue current regimen and plans for stabilization and medication management 05/04 repeat cmp, cbc, ammonia. 05/05 continue tx. pending GI consult, re: dropping HgB, Reason for continued inpatient stay Substantial Risk for: inability to function Time Spent With Patient Time: Total time managing care of this patient today ____ minutes.
[2024-05-05] MEDS: Insulin Lispro 100 UNIT/ML 3 ML VIAL SUBCUT ×4 (08:52→21:08)
[2024-05-05] MEDS: rifAXIMin 550 MG TABLET PO ×2 (08:53→21:07)
[2024-05-05] MEDS: Magnesium Oxide 400 MG TABLET PO (08:53)
[2024-05-05] MEDS: Gabapentin 300 MG CAPSULE 600 MG PO ×3 (08:53→21:07)
[2024-05-05] MEDS: Lactulose 20 GM/30 ML SOLUTION PO ×3 (10:07→21:09)
[2024-05-05 11:25] LABS: Glucose, Whole Blood 313 mg/dL (60-115)
[2024-05-05 13:37] LABS: MANUAL DIFF FLAG NO
[2024-05-05 13:40] LABS: Basophils Percent Auto 0.3 % (0-2); Eosinophils Absolute Auto 0.1 X10*3/uL (0.0-0.4); Eosinophils Percent Auto 2.9 % (0-4); Hematocrit 22.3 % (42.0-52.0); Hemoglobin 7.6 g/dl (14.0-18.0); Imm Gran Abs Auto 0.01 X10*3/uL (0.00-0.03); Imm Gran Pct Auto 0.3 % (0.0-0.4); Lymphocytes Absolute Auto 0.2 X10*3/uL (1.2-4.9); Lymphocytes Percent Auto 7.5 % (20-40); Mean Corpuscular HGB Conc 34.1 g/dl (31.0-36.0); Mean Corpuscular Hemoglobin 35.2 pg (27.0-33.0); Mean Corpuscular Volume 103.2 fL (80.0-98.0); Mean Platelet Volume 11.2 fL (9.4-12.4); Monocytes Absolute Auto 0.4 X10*3/uL (0.1-1.2); Neutrophils Absolute Auto 2.3 x10*3/uL (2.0-8.3); Red Blood Count 2.16 X10*6/uL (4.60-5.80); Red Cell Distribution Width 16.7 % (11.0-16.0); White Blood Count 3.1 X10*3/uL (4.8-10.8)
[2024-05-05 13:41] LABS: Platelet Count 62 X10*3/uL (160-400)
[2024-05-05 13:44] LABS: Ammonia 57 umol/L (13-55)
[2024-05-05 13:45] LABS: INTERNATIONAL NORM RATIO 1.3 (0.9-1.1); Prothrombin Time 15.1 SEC (10.9-12.4)
[2024-05-05 16:34] LABS: Glucose, Whole Blood 190 mg/dL (60-115)
[2024-05-05 20:00] VITALS: BP 130/77; PULSE 101; RESP 16; TEMP 36.9; O2SAT 96
[2024-05-05 21:06] LABS: Glucose, Whole Blood 200 mg/dL (60-115)
[2024-05-05] MEDS: oxyCODONE HCl Immed Release 5 MG TABLET PO (21:07)
[2024-05-05] MEDS: hydrOXYzine HCL 25 MG TABLET PO (21:08)
[2024-05-05] MEDS: LORazepam 0.5 MG TABLET PO (21:08)
[2024-05-06] MEDS: Omeprazole 20 MG CAPSULE.DR PO ×2 (06:11→15:34)
[2024-05-06 06:43] LABS: Glucose, Whole Blood 243 mg/dL (60-115)
[2024-05-06 09:11] VITALS: BP 101/63; PULSE 85; RESP 18; TEMP 36.9; O2SAT 95
[2024-05-06] MEDS: Insulin Lispro 100 UNIT/ML 3 ML VIAL SUBCUT ×3 (09:11→20:25)
[2024-05-06] MEDS: Spironolactone 25 MG TABLET PO (09:11)
[2024-05-06] MEDS: Lactulose 20 GM/30 ML SOLUTION PO (09:11)
[2024-05-06] MEDS: Magnesium Oxide 400 MG TABLET PO (09:11)
[2024-05-06] MEDS: Gabapentin 300 MG CAPSULE 600 MG PO ×3 (09:11→20:08)
[2024-05-06] MEDS: rifAXIMin 550 MG TABLET PO ×2 (09:11→20:10)
[2024-05-06 11:33] LABS: Glucose, Whole Blood 192 mg/dL (60-115)
[2024-05-06 14:48] LABS: MANUAL DIFF FLAG NO
[2024-05-06 14:51] LABS: Basophils Percent Auto 0.7 % (0-2); Eosinophils Absolute Auto 0.1 X10*3/uL (0.0-0.4); Eosinophils Percent Auto 2.4 % (0-4); Hematocrit 22.6 % (42.0-52.0); Hemoglobin 7.9 g/dl (14.0-18.0); Imm Gran Abs Auto 0.02 X10*3/uL (0.00-0.03); Imm Gran Pct Auto 0.7 % (0.0-0.4); Lymphocytes Absolute Auto 0.2 X10*3/uL (1.2-4.9); Lymphocytes Percent Auto 8.1 % (20-40); Mean Corpuscular Hemoglobin 35.9 pg (27.0-33.0); Mean Corpuscular Volume 102.7 fL (80.0-98.0); Mean Platelet Volume 11.7 fL (9.4-12.4); Monocytes Absolute Auto 0.4 X10*3/uL (0.1-1.2); Monocytes Percent Auto 14.6 % (2-11); Neutrophils Absolute Auto 2.2 x10*3/uL (2.0-8.3); Neutrophils Percent Auto 73.5 % (45-73); Platelet Count 66 X10*3/uL (160-400); Red Cell Distribution Width 16.9 % (11.0-16.0)
[2024-05-06 15:00] LABS: Ammonia 62 umol/L (13-55)
[2024-05-06 15:05] LABS: Gamma Glutamyl Transpeptidase 81 U/L (11-51)
[2024-05-06 15:12] LABS: Parathyroid Hormone Intact 55.7 pg/mL (8.7-77.1)
[2024-05-06] MEDS: oxyCODONE HCl Immed Release 5 MG TABLET PO ×2 (15:33→20:08)
--- NOTE | 2024-05-06 15:50 | HO.PSYCHPN ---
Subjective Subjective Date of Service: 05/06/24 Reason For Visit: mood disorder Subjective Notes: Conditional Voluntary Interim History: Pt slept only 2hrs. He met with this technical proposal writer and ELVIRA Liz to discuss aftercare plans. We discussed his medical needs and need for SNF. He agrees to referrals to different facilities. He does state he has had bad experiences in some places. His suicidality seems to be conditional to being in a safe place. Discussion of intermission coordinator plans with idea of going to facility like SNF, seemed to bring some sense of relief. He currently denies SI- again is conditional to going back to the streets in a car. We also discuss code- this technical proposal writer explained to pt if goes into respiratory arrest or cardiac arrest, what would be his preference (whether to allow natural or attempt to resuscitate), pt reports he would like attempts to be resuscitated and intubated if needed. HE WILL CONTINUE TO BE FULL CODE. Pending GI consult- guideline as to how to manage him while on tthe unit, including drop in Hgb and platelets. He reports left shoulder pain- reviewed xray done in 04/27/24- which showed destructive lesion of 1.4 cm on left humeral head- differentials ranging from metastatic disease, multiple myeloma, inflammatory arthritis, hyperthyroidism (will consult hospitalist for further narrowing of dx). His head CT does show frontal atrophy and microvascular changes, which probably contributes to some of his impulsive behaviors and irritability. Medication Compliance: Intermittent Side effects from medications: No Attending Groups: No Mental Status Exam Mental Status Exam Narrative: Appearance: wearing hospital gown, fair hygiene, in NAD Behavior: cooperative Psychomotor: no agitation or retardation noted Speech: clear, normal rate/rhythm/volume, spontaneous TP: linear TC: wanting help with coordination of care Mood: depressed Affect: cnogruent, somewhat irritable at times SI: conditional to living situation post discharge HI: none VH/AH: none Delusions: no delusional content noted or reported Insight/judgment: poor x 2. Memory/cog: alert, oriented x 4. pending MOCA, ACL. Diagnostics Vital Signs (24Hr): Vital Signs - 24 hr 05/05/24 20:00 05/06/24 09:11 05/06/24 09:11 Temperature 98.4 F 98.4 F Pulse Rate 101 H 85 Respiratory Rate 16 18 Blood Pressure 130/77 101/63 101/63 Pulse Oximetry 96 95 Oxygen Delivery Method Room Air Room Air BMI result Body Mass Index 23.9 Labs 05/06/24 14:44 05/04/24 12:22 Labs: Laboratory Results - last 48 hr 05/04/24 05/04/24 05/05/24 16:14 20:30 06:57 WBC RBC Hgb Hct MCV MCH MCHC RDW Plt Count MPV Immature Gran % (Auto) Neut % (Auto) Lymph % (Auto) Bartholomew % (Auto) Eos % (Auto) Baso % (Auto) Lymph # (Auto) Bartholomew # (Auto) Eos # (Auto) Baso # (Auto) Abs Immat Gran (auto) Absolute Neuts (auto) Absolute Nucleated RBC Nucleated RBC % (auto) PT INR POC Glucose 159 H 324 H 174 H GGT Ammonia PTH Intact 05/05/24 05/05/24 05/05/24 11:18 13:32 16:26 WBC 3.1 L RBC 2.16 L Hgb 7.6 L Hct 22.3 L MCV 103.2 H MCH 35.2 H MCHC 34.1 RDW 16.7 H Plt Count 62 L MPV 11.2 Immature Gran % (Auto) 0.3 Neut % (Auto) 75.0 H Lymph % (Auto) 7.5 L Bartholomew % (Auto) 14.0 H Eos % (Auto) 2.9 Baso % (Auto) 0.3 Lymph # (Auto) 0.2 L Bartholomew # (Auto) 0.4 Eos # (Auto) 0.1 Baso # (Auto) 0.0 Abs Immat Gran (auto) 0.01 Absolute Neuts (auto) 2.3 Absolute Nucleated RBC 0.000 Nucleated RBC % (auto) 0.0 PT 15.1 H INR 1.3 H POC Glucose 313 H 190 H GGT Ammonia 57 H PTH Intact 05/05/24 05/06/24 05/06/24 20:45 06:34 11:26 WBC RBC Hgb Hct MCV MCH MCHC RDW Plt Count MPV Immature Gran % (Auto) Neut % (Auto) Lymph % (Auto) Bartholomew % (Auto) Eos % (Auto) Baso % (Auto) Lymph # (Auto) Bartholomew # (Auto) Eos # (Auto) Baso # (Auto) Abs Immat Gran (auto) Absolute Neuts (auto) Absolute Nucleated RBC Nucleated RBC % (auto) PT INR POC Glucose 200 H 243 H 192 H GGT Ammonia PTH Intact 05/06/24 14:44 WBC 3.0 L RBC 2.20 L Hgb 7.9 L Hct 22.6 L MCV 102.7 H MCH 35.9 H MCHC 35.0 RDW 16.9 H Plt Count 66 L MPV 11.7 Immature Gran % (Auto) 0.7 H Neut % (Auto) 73.5 H Lymph % (Auto) 8.1 L Bartholomew % (Auto) 14.6 H Eos % (Auto) 2.4 Baso % (Auto) 0.7 Lymph # (Auto) 0.2 L Bartholomew # (Auto) 0.4 Eos # (Auto) 0.1 Baso # (Auto) 0.0 Abs Immat Gran (auto) 0.02 Absolute Neuts (auto) 2.2 Absolute Nucleated RBC 0.000 Nucleated RBC % (auto) 0.0 PT INR POC Glucose GGT 81 H Ammonia 62 H PTH Intact 55.7 Medications Medications Current Medications Al Hydroxide/Mg Hydroxide (Magnesium Hydrox/Alum Hydrox 30 Ml Oral.Susp) 30 ml PO Q6H PRN PRN Reason: Heartburn/Nausea Baclofen (Baclofen 10 Mg Tablet) 10 mg PO TID PRN PRN Reason: muscle tension Furosemide (Furosemide 20 Mg Tablet) 60 mg PO DAILY [facility]; Protocol Last Admin: 05/05/24 08:45 Dose: Not Given Gabapentin (Gabapentin 300 Mg Capsule) 600 mg PO TID [facility] Last Admin: 05/06/24 14:18 Dose: 600 mg Hydroxyzine HCl (Hydroxyzine Hcl 25 Mg Tablet) 25 mg PO Q6H PRN PRN Reason: Anxiety Last Admin: 05/05/24 21:08 Dose: 25 mg Insulin Human Lispro (Insulin Lispro 100 Unit/Ml 3 Ml Vial) 0 unit SUBCUT QIDACHS [facility]; Protocol Last Admin: 05/06/24 11:58 Dose: 2 unit Lactulose (Lactulose 20 Gm/30 Ml Solution) 20 gm PO TID [facility] Last Admin: 05/06/24 14:22 Dose: Not Given Lorazepam (Lorazepam 0.5 Mg Tablet) 0.5 mg PO BID PRN PRN Reason: Anxiety Last Admin: 05/05/24 21:08 Dose: 0.5 mg Magnesium Hydroxide (Milk Of Magnesia 30 Ml Oral.Susp) 30 ml PO DAILY PRN PRN Reason: Constipation Magnesium Oxide (Magnesium Oxide 400 Mg Tablet) 400 mg PO DAILY [facility] Last Admin: 05/06/24 09:11 Dose: 400 mg Pt Own (Orphenadrine Citrate 100 Mg Tablet Extended Release) 100 mg PO BID PRN PRN Reason: Pain Last Admin: 04/30/24 21:21 Dose: 100 mg Omeprazole (Omeprazole 20 Mg Capsule.Dr) 20 mg PO BID@0630,1630 [facility] Last Admin: 05/06/24 15:34 Dose: 20 mg Ondansetron HCl (Ondansetron Odt 4 Mg Tab.Rapdis) 4 mg TRANSLINGU Q6H PRN PRN Reason: Nausea and Vomiting Last Admin: 05/03/24 20:29 Dose: 4 mg Oxycodone HCl (Oxycodone Hcl Immed Release 5 Mg Tablet) 5 mg PO Q4H PRN PRN Reason: Pain, Severe (Pain Scale 7-10) Last Admin: 05/06/24 15:33 Dose: 5 mg Quetiapine Fumarate (Quetiapine Fumarate 50 Mg Tablet) 50 mg PO BEDTIME PRN PRN Reason: Sleep Last Admin: 05/05/24 21:08 Dose: 50 mg Rifaximin (Rifaximin 550 Mg Tablet) 550 mg PO BID [facility] Last Admin: 05/06/24 09:11 Dose: 550 mg Spironolactone (Spironolactone 25 Mg Tablet) 25 mg PO DAILY [facility]; Protocol Last Admin: 05/06/24 09:11 Dose: 25 mg Trazodone HCl (Trazodone Hcl 50 Mg Tablet) 50 mg PO BEDTIME PRN PRN Reason: Insomnia Last Admin: 05/05/24 21:08 Dose: 50 mg Allergies Allergies Allergy/AdvReac Type Severity Reaction Status Date / Time acetaminophen AdvReac Unknown Verified 04/28/24 11:48 bismuth subsalicylate AdvReac Unknown Verified 04/28/24 11:48 [From Pepto-Bismol] celecoxib [From Celebrex] AdvReac Unknown Verified 04/28/24 11:48 NSAIDS (Non-Steroidal AdvReac Unknown Verified 04/28/24 11:48 Anti-Inflamma Assessment & Plan Assessment & Plan (1) Bipolar 1 disorder: Status: Inactive Code(s): F31.9 - Bipolar disorder, unspecified (2) PTSD (post-traumatic stress disorder): Status: Acute Code(s): F43.10 - Post-traumatic stress disorder, unspecified (3) Homelessness: Status: Acute Code(s): Z59.00 - Homelessness unspecified (4) Thrombocytopenia: Status: Inactive Code(s): D69.6 - Thrombocytopenia, unspecified (5) MAYE (acute kidney injury): Status: Resolved Code(s): N17.9 - Acute kidney failure, unspecified Plan The patient is a middle-aged male with a past history of chronically were failure, bipolar disorder, PTSD, ADHD and chronic homelessness who was brought into the facility after he disclosed suicidal ideation with a plan [place]. The patient was assessed by crisis and transferring to this facility for psychiatric stabilization. 05/02: Continue current regimen and plans for stabilization and medication management. Added Seroquel 25 mg nightly p.r.n. 05/03: Continue current regimen and plans for stabilization and medication management 05/04 repeat cmp, cbc, ammonia. 05/05 continue tx. pending GI consult, re: dropping HgB, 05/06- discussed code, pt would like to continue full code at this moment. planning for referrals for SNF. left shoulder pain- had left shoulder xr which shows destructive lesion of 1.4cm (will contact hospitalist for dx and tx). continue to monitor HgB, ammonia (mildly elevated, pt at times refuses lactulose, he is also on rifaximin). Will check pth, ionized calcium (regular calcium low but note low albumin). may consider esr/crp Reason for continued inpatient stay Substantial Risk for: harm to self Time Spent With Patient Time: Total time managing care of this patient today ____ minutes.
[2024-05-06 16:28] LABS: Glucose, Whole Blood 240 mg/dL (60-115)
[2024-05-06 19:59] LABS: Glucose, Whole Blood 207 mg/dL (60-115)
[2024-05-06 20:00] VITALS: BP 122/82; PULSE 99; RESP 17; TEMP 36.7; O2SAT 96
[2024-05-06] MEDS: hydrOXYzine HCL 25 MG TABLET PO (20:08)
[2024-05-06] MEDS: traZODone HCL 100 MG TABLET PO (20:08)
[2024-05-06] MEDS: QUEtiapine Fumarate 50 MG TABLET PO (20:09)
[2024-05-06] MEDS: LORazepam 0.5 MG TABLET PO (20:09)
[2024-05-06] MEDS: ORPHENADRINE CITRATE 100 MG 100 EACH PO (20:20)
[2024-05-06] MEDS: traZODone HCL 50 MG TABLET PO (22:19)
[2024-05-07] MEDS: Omeprazole 20 MG CAPSULE.DR PO ×2 (06:23→16:19)
[2024-05-07 06:52] LABS: Glucose, Whole Blood 166 mg/dL (60-115)
[2024-05-07 07:50] VITALS: BP 95/58; PULSE 82; RESP 16; TEMP 36.6; O2SAT 95
[2024-05-07] MEDS: Insulin Lispro 100 UNIT/ML 3 ML VIAL SUBCUT ×4 (07:55→20:49)
[2024-05-07] MEDS: Magnesium Oxide 400 MG TABLET PO (08:29)
[2024-05-07] MEDS: Gabapentin 300 MG CAPSULE 600 MG PO ×3 (08:29→20:49)
[2024-05-07] MEDS: Spironolactone 25 MG TABLET PO (08:29)
[2024-05-07] MEDS: rifAXIMin 550 MG TABLET PO ×2 (08:29→20:50)
[2024-05-07 09:03] VITALS: BMI 24.6
[2024-05-07 10:49] LABS: Glucose, Whole Blood 239 mg/dL (60-115)
--- NOTE | 2024-05-07 14:04 | PM.EVENT ---
Event Note Date of Service: 05/07/24 Event Note: Patient is a 58-year-old male admitted to 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 Hospitalist consult for abnormal left shoulder x-ray. Patient reports has been experiencing left shoulder pain since undergoing L1 kyphoplasty on 02/11/2024 after fracturing his vertebrae secondary to mechanical fall at home. Reports hospitalization complicated by pneumonia and patient stayed for 4-5 days and was discharged to rehab. States complained of left shoulder pain at both facilities, but workup/treatment/evaluation unclear. Psychiatry currently attempting to get medical records from that stay. Patient was initially admitted to [address] unit until rapid response was called after patient fell in bathroom, striking his left shoulder. Imaging, including CT of head and cervical spine and x-ray of shoulder and pelvis all negative for acute abnormality. Patient was brought to the medical floor due to worsening anemia and concern for GI bleed [facility] where workup was negative for acute bleeding. Patient was eventually transferred to [facility] where he is awaiting placement. Of note, x-ray of left shoulder showed a radiolucent destructive lesion measuring 1.4 x 3.0 cm in left humeral greater tuberosity. Differential diagnosis include metastatic disease, multiple myeloma, and bony erosions due to inflammatory arthritis or hyperparathyroidism. Abnormal left shoulder x-ray X-ray on 04/27/2024 showed radiolucent destructive lesion of left humeral greater tuberosity, unclear etiology Differential includes: Metastatic disease, multiple myeloma, and bony erosions due to inflammatory arthritis or hyperparathyroidism Workup for hyperparathyroidism negative Patient without known malignancy Will check for multiple myeloma, workup will include: X-ray bone survey to evaluate for additional lytic bone lesions Immunofixation panel Serum kappa/lambda light chain Serum protein electrophoresis Will continue to follow for results. Time Spent With Patient Time: Total time managing care of this patient today ____ minutes.
--- NOTE | 2024-05-07 14:54 | P.PNPSI_ITS ---
Subjective Subjective Date of Service: 05/07/24 Reason For Visit: mood disorder Subjective Notes: Conditional Voluntary Interim History: Pt had a better night sleep last night. He reports mood anxious. He denies SI/HI. He has been between bed and going for meals. His BP is low. Lasix was held. No VH/AH. No delusional content. Review of Systems Review of Systems Sleep, depression Yes all other systems are reviewed and are negative Mental Status Exam Mental Status Exam Narrative: Appearance: wearing hospital gown, fair hygiene, in NAD Behavior: cooperative Psychomotor: no agitation or retardation noted Speech: clear, normal rate/rhythm/volume, spontaneous TP: linear TC: wanting help with coordination of care Mood: depressed Affect: cnogruent, somewhat irritable at times SI: conditional to living situation post discharge HI: none VH/AH: none Delusions: no delusional content noted or reported Insight/judgment: poor x 2. Memory/cog: alert, oriented x 4. pending MOCA, ACL. Patient Appearance: Well Grooomed and Appropriate Patient Orientation: Person and Situation Level of Consciousness: Awake and Appropriate Patient Behavior: Guarded and Passive Mood Description: Withdrawn Affect Description: Constricted Patient Cognition Impaired: Yes Ability to Follow Directions: Good Speech Pattern: Clear Diagnostics Vital Signs (24Hr): Vital Signs - 24 hr 05/06/24 20:00 05/07/24 07:50 Temperature 98.1 F 97.9 F Pulse Rate 99 82 Respiratory Rate 17 16 Blood Pressure 122/82 95/58 L Pulse Oximetry 96 95 Oxygen Delivery Method Room Air Room Air BMI result Body Mass Index 24.6 Labs 05/06/24 14:44 05/04/24 12:22 Labs: Laboratory Results - last 48 hr 05/05/24 05/05/24 05/06/24 16:26 20:45 06:34 WBC RBC Hgb Hct MCV MCH MCHC RDW Plt Count MPV Immature Gran % (Auto) Neut % (Auto) Lymph % (Auto) Wolfe % (Auto) Eos % (Auto) Baso % (Auto) Lymph # (Auto) Wolfe # (Auto) Eos # (Auto) Baso # (Auto) Abs Immat Gran (auto) Absolute Neuts (auto) Absolute Nucleated RBC Nucleated RBC % (auto) POC Glucose 190 H 200 H 243 H GGT Ammonia PTH Intact 05/06/24 05/06/24 05/06/24 11:26 14:44 16:20 WBC 3.0 L RBC 2.20 L Hgb 7.9 L Hct 22.6 L MCV 102.7 H MCH 35.9 H MCHC 35.0 RDW 16.9 H Plt Count 66 L MPV 11.7 Immature Gran % (Auto) 0.7 H Neut % (Auto) 73.5 H Lymph % (Auto) 8.1 L Wolfe % (Auto) 14.6 H Eos % (Auto) 2.4 Baso % (Auto) 0.7 Lymph # (Auto) 0.2 L Wolfe # (Auto) 0.4 Eos # (Auto) 0.1 Baso # (Auto) 0.0 Abs Immat Gran (auto) 0.02 Absolute Neuts (auto) 2.2 Absolute Nucleated RBC 0.000 Nucleated RBC % (auto) 0.0 POC Glucose 192 H 240 H GGT 81 H Ammonia 62 H PTH Intact 55.7 05/06/24 05/07/24 05/07/24 19:55 06:41 10:44 WBC RBC Hgb Hct MCV MCH MCHC RDW Plt Count MPV Immature Gran % (Auto) Neut % (Auto) Lymph % (Auto) Wolfe % (Auto) Eos % (Auto) Baso % (Auto) Lymph # (Auto) Wolfe # (Auto) Eos # (Auto) Baso # (Auto) Abs Immat Gran (auto) Absolute Neuts (auto) Absolute Nucleated RBC Nucleated RBC % (auto) POC Glucose 207 H 166 H 239 H GGT Ammonia PTH Intact Medications Medications Current Medications Al Hydroxide/Mg Hydroxide (Magnesium Hydrox/Alum Hydrox 30 Ml Oral.Susp) 30 ml PO Q6H PRN PRN Reason: Heartburn/Nausea Baclofen (Baclofen 10 Mg Tablet) 10 mg PO TID PRN PRN Reason: muscle tension Gabapentin (Gabapentin 300 Mg Capsule) 600 mg PO TID [facility] Last Admin: 05/07/24 08:29 Dose: 600 mg Hydroxyzine HCl (Hydroxyzine Hcl 25 Mg Tablet) 25 mg PO Q6H PRN PRN Reason: Anxiety Last Admin: 05/06/24 20:08 Dose: 25 mg Insulin Human Lispro (Insulin Lispro 100 Unit/Ml 3 Ml Vial) 0 unit SUBCUT QIDACHS [facility]; Protocol Last Admin: 05/07/24 11:44 Dose: 4 unit Lactulose (Lactulose 20 Gm/30 Ml Solution) 20 gm PO TID [facility] Last Admin: 05/07/24 09:57 Dose: 20 gm Lorazepam (Lorazepam 0.5 Mg Tablet) 0.5 mg PO BID PRN PRN Reason: Anxiety Last Admin: 05/06/24 20:09 Dose: 0.5 mg Magnesium Hydroxide (Milk Of Magnesia 30 Ml Oral.Susp) 30 ml PO DAILY PRN PRN Reason: Constipation Magnesium Oxide (Magnesium Oxide 400 Mg Tablet) 400 mg PO DAILY [facility] Last Admin: 05/07/24 08:29 Dose: 400 mg Pt Own (Orphenadrine Citrate 100 Mg Tablet Extended Release) 100 mg PO BID PRN PRN Reason: Pain Last Admin: 05/06/24 20:20 Dose: 100 mg Omeprazole (Omeprazole 20 Mg Capsule.Dr) 20 mg PO BID@0630,1630 [facility] Last Admin: 05/07/24 06:23 Dose: 20 mg Ondansetron HCl (Ondansetron Odt 4 Mg Tab.Rapdis) 4 mg TRANSLINGU Q6H PRN PRN Reason: Nausea and Vomiting Last Admin: 05/03/24 20:29 Dose: 4 mg Oxycodone HCl (Oxycodone Hcl Immed Release 5 Mg Tablet) 5 mg PO Q4H PRN PRN Reason: Pain, Severe (Pain Scale 7-10) Last Admin: 05/06/24 20:08 Dose: 5 mg Quetiapine Fumarate (Quetiapine Fumarate 50 Mg Tablet) 50 mg PO BEDTIME PRN PRN Reason: Sleep Last Admin: 05/06/24 20:09 Dose: 50 mg Rifaximin (Rifaximin 550 Mg Tablet) 550 mg PO BID [facility] Last Admin: 05/07/24 08:29 Dose: 550 mg Spironolactone (Spironolactone 25 Mg Tablet) 25 mg PO DAILY [facility]; Protocol Last Admin: 05/07/24 08:29 Dose: 25 mg Trazodone HCl (Trazodone Hcl 50 Mg Tablet) 50 mg PO BEDTIME PRN PRN Reason: Insomnia Last Admin: 05/06/24 22:19 Dose: 50 mg Trazodone HCl (Trazodone Hcl 100 Mg Tablet) 100 mg PO BEDTIME [facility] Last Admin: 05/06/24 20:08 Dose: 100 mg Allergies Allergies Allergy/AdvReac Type Severity Reaction Status Date / Time acetaminophen AdvReac Unknown Verified 04/28/24 11:48 bismuth subsalicylate AdvReac Unknown Verified 04/28/24 11:48 [From Pepto-Bismol] celecoxib [From Celebrex] AdvReac Unknown Verified 04/28/24 11:48 NSAIDS (Non-Steroidal AdvReac Unknown Verified 04/28/24 11:48 Anti-Inflamma Assessment & Plan Assessment & Plan (1) Bipolar 1 disorder: Status: Inactive Code(s): F31.9 - Bipolar disorder, unspecified (2) PTSD (post-traumatic stress disorder): Status: Acute Code(s): F43.10 - Post-traumatic stress disorder, unspecified (3) Homelessness: Status: Acute Code(s): Z59.00 - Homelessness unspecified (4) Thrombocytopenia: Status: Inactive Code(s): D69.6 - Thrombocytopenia, unspecified (5) MAYE (acute kidney injury): Status: Resolved Code(s): N17.9 - Acute kidney failure, unspecified Plan The patient is a middle-aged male with a past history of chronically were failure, bipolar disorder, PTSD, ADHD and chronic homelessness who was brought into the facility after he disclosed suicidal ideation with [place]. The patient was assessed by crisis and transferring to this facility for psychiatric stabilization. 05/02: Continue current regimen and plans for stabilization and medication management. Added Seroquel 25 mg nightly p.r.n. 05/03: Continue current regimen and plans for stabilization and medication management 05/04 repeat cmp, cbc, ammonia. 05/05 continue tx. pending GI consult, re: dropping HgB, 05/06- discussed code, pt would like to continue full code at this moment. planning for referrals for SNF. left shoulder pain- had left shoulder xr which shows destructive lesion of 1.4cm (will contact hospitalist for dx and tx). continue to monitor HgB, ammonia (mildly elevated, pt at times refuses lactulose, he is also on rifaximin). Will check pth, ionized calcium (regular calcium low but note low albumin). may consider esr/crp 05/07 continue tx. Reason for continued inpatient stay Substantial Risk for: inability to function Time Spent With Patient Time: Total time managing care of this patient today ____ minutes.
[2024-05-07] MEDS: Lactulose 20 GM/30 ML SOLUTION PO ×2 (15:51→16:28)
[2024-05-07 16:14] LABS: Glucose, Whole Blood 199 mg/dL (60-115)
[2024-05-07] MEDS: oxyCODONE HCl Immed Release 5 MG TABLET PO ×2 (16:18→20:51)
[2024-05-07] MEDS: Ondansetron ODT 4 MG TAB.RAPDIS TRANSLINGU (18:25)
[2024-05-07 19:53] LABS: Glucose, Whole Blood 202 mg/dL (60-115)
[2024-05-07 20:00] VITALS: BP 112/71; PULSE 91; RESP 18; TEMP 37.1; O2SAT 97
[2024-05-07] MEDS: traZODone HCL 100 MG TABLET PO (20:50)
[2024-05-07] MEDS: LORazepam 0.5 MG TABLET PO (20:52)
[2024-05-07] MEDS: traZODone HCL 50 MG TABLET PO (20:52)
[2024-05-07] MEDS: QUEtiapine Fumarate 50 MG TABLET PO (20:52)
[2024-05-07] MEDS: hydrOXYzine HCL 25 MG TABLET PO (20:52)
[2024-05-08] MEDS: hydrOXYzine HCL 25 MG TABLET PO ×3 (02:46→21:13)
[2024-05-08] MEDS: oxyCODONE HCl Immed Release 5 MG TABLET PO ×3 (02:46→21:13)
[2024-05-08] MEDS: Omeprazole 20 MG CAPSULE.DR PO ×2 (06:24→16:35)
[2024-05-08 07:09] LABS: Glucose, Whole Blood 173 mg/dL (60-115)
[2024-05-08] MEDS: Gabapentin 300 MG CAPSULE 600 MG PO ×3 (07:58→21:12)
[2024-05-08] MEDS: Spironolactone 25 MG TABLET PO (07:58)
[2024-05-08] MEDS: Magnesium Oxide 400 MG TABLET PO (07:58)
[2024-05-08] MEDS: rifAXIMin 550 MG TABLET PO ×2 (07:58→21:12)
[2024-05-08] MEDS: Insulin Lispro 100 UNIT/ML 3 ML VIAL SUBCUT ×3 (07:59→16:33)
[2024-05-08 08:00] VITALS: BP 98/55; PULSE 83; RESP 16; TEMP 36.1; O2SAT 95
[2024-05-08] MEDS: Lactulose 20 GM/30 ML SOLUTION PO ×2 (08:02→15:11)
[2024-05-08 11:09] LABS: Glucose, Whole Blood 242 mg/dL (60-115)
[2024-05-08 16:12] LABS: Glucose, Whole Blood 227 mg/dL (60-115)
[2024-05-08 20:00] VITALS: BP 108/77; PULSE 91; RESP 18; TEMP 36.9; O2SAT 98
[2024-05-08 20:15] LABS: Glucose, Whole Blood 149 mg/dL (60-115)
[2024-05-08] MEDS: traZODone HCL 100 MG TABLET PO (21:11)
[2024-05-09] MEDS: Morphine Sulfate Immed Release 15 MG TABLET PO (00:52)
[2024-05-09] MEDS: oxyCODONE HCl Immed Release 5 MG TABLET PO ×5 (03:46→20:17)
[2024-05-09] MEDS: Omeprazole 20 MG CAPSULE.DR PO ×2 (06:26→16:38)
[2024-05-09 06:46] LABS: Glucose, Whole Blood 193 mg/dL (60-115)
[2024-05-09 08:06] VITALS: BP 118/81; PULSE 97; RESP 18; TEMP 36.2; O2SAT 98
[2024-05-09] MEDS: Insulin Lispro 100 UNIT/ML 3 ML VIAL SUBCUT ×4 (08:11→20:17)
[2024-05-09] MEDS: Magnesium Oxide 400 MG TABLET PO (08:13)
[2024-05-09] MEDS: rifAXIMin 550 MG TABLET PO ×2 (08:13→20:16)
[2024-05-09] MEDS: Gabapentin 300 MG CAPSULE 600 MG PO ×3 (08:13→20:16)
[2024-05-09] MEDS: Lactulose 20 GM/30 ML SOLUTION PO ×3 (08:13→20:16)
[2024-05-09] MEDS: Spironolactone 25 MG TABLET PO (08:13)
--- NOTE | 2024-05-09 09:52 | PM.EVENT ---
Event Note Date of Service: 05/09/24 Event Note: S: Upper abdominal pain that started last night. Better today associated with nausea. No vomiting or diarrhea reported. He also complained worsening leg edema since last night. Pain relieved by oxycodone. O: VS: Reviewed, normal. HEENT: Grossly normal. Heart: RRR Lungs: Clear. Abdomen: Distended. Epigastric/RUQ tenderness w/o rebound or garding. Ext: Bilateral pitting edema. Skin: Pale. Some jaundice. Excoriation to the lower extremity due to scratching. Psych: No agitation. Alert. A/P: Upper abdominal pain likely secondary to ascites and associated reflux. -Check abdominal ultrasound. -Check labs: CMP, CBC and lipase. -Add furosemide -Elevate extremities. -Continue omeprazole antiemetic therapy. -Continue lactulose and rifaximin. Time Spent With Patient Time: Total time managing care of this patient today ____ minutes.
[2024-05-09 10:24] VITALS: BP 112/71
[2024-05-09] MEDS: Furosemide 20 MG TABLET PO (10:24)
[2024-05-09 11:18] LABS: Glucose, Whole Blood 187 mg/dL (60-115)
[2024-05-09] MEDS: hydrOXYzine HCL 25 MG TABLET PO ×2 (12:08→23:07)
--- NOTE | 2024-05-09 14:17 | HO.PSYCHPN ---
Subjective Subjective Date of Service: 05/09/24 Reason For Visit: mood disorder Subjective Notes: Conditional Voluntary Healthcare Proxy: No Guardianship: No Medical Problems Affecting Mental Status: Yes (end yojana kidney and liver disease) Interim History: 58 yo Vet who was struggling with issues with a few people at housing at [employer] that were resulting in suicidal ideation [place]- Patient continues hyperverbal and tangential - many complaints about his itching and bleeding (thrombocytopenia) as he scratches his itchy skin and then it bleeds- sometimes even bleeding under the skin- showing me bruising on left arm from internal bleeding due to thrombocytopenia- Medication Compliance: Yes Side effects from medications: No Attending Groups: Intermittent Review of Systems Acute medical concerns: Yes ongoing ascites Medical Review of Systems: unchanged Mental Status Exam Mental Status Exam Narrative: Casually dressed, talkative over inclusive of detail and tangential, swiping at small wounds bleeding with wash cloth- Patient Appearance: Inappropriate (blood stains on jeans- ) Patient Orientation: Person, Place, Time and Situation Level of Consciousness: Awake Patient Behavior: Talkative and Good Eye Contact Mood Description: Calm Affect Description: Blunted Patient Cognition Impaired: No Ability to Follow Directions: Fair Speech Pattern: Clear and Rambling Hallucinations: None Delusions: Paranoid Ideation (?) Thought Process: Distracted Thought Content: positive for Perseveration, positive for Preoccupation and positive for Tangential Depressive Symptoms: Increased Irritability and Increased Fatigue Judgement: Fair (-poor) Judgement and Insight: picking at scabs, aware he has a new set of problems to deal with outsid of va- Diagnostics Vital Signs (24Hr): Vital Signs - 24 hr 05/08/24 20:00 05/09/24 08:06 05/09/24 10:24 Temperature 98.4 F 97.1 F Pulse Rate 91 97 Respiratory Rate 18 18 Blood Pressure 108/77 118/81 112/71 Pulse Oximetry 98 98 Oxygen Delivery Method Room Air Room Air BMI result Body Mass Index 24.6 Labs 05/09/24 14:32 05/09/24 14:32 Labs: Laboratory Results - last 48 hr 05/06/24 05/07/24 05/07/24 14:44 16:10 19:48 POC Glucose 199 H 202 H Ionized Calcium 5.0 05/08/24 05/08/24 05/08/24 06:26 11:04 16:08 POC Glucose 173 H 242 H 227 H Ionized Calcium 05/08/24 05/09/24 05/09/24 20:06 06:29 11:13 POC Glucose 149 H 193 H 187 H Ionized Calcium Imaging Radiology Impressions: ITS Impressions Bone Osseous Survey 05/07/24 15:00 IMPRESSION: 1. Cortical depression and adjacent cystic change within the lateral aspect of the left humeral head is redemonstrated. Findings could represent sequela of prior trauma. No aggressive features to suggest an underlying neoplastic lesion. 2. No additional lytic or blastic osseous lesion. 3. Left lower lobe airspace opacities. 4. Iujb-ne-kzkknmuc stool burden. Electronically signed by: Roman Power MD 05/07/2024 11:00 PM [facility] [place] Medications Medications Current Medications Al Hydroxide/Mg Hydroxide (Magnesium Hydrox/Alum Hydrox 30 Ml Oral.Susp) 30 ml PO Q6H PRN PRN Reason: Heartburn/Nausea Baclofen (Baclofen 10 Mg Tablet) 10 mg PO TID PRN PRN Reason: muscle tension Furosemide (Furosemide 20 Mg Tablet) 20 mg PO DAILY COUNT [facility]CLUDES [facility]; Protocol Last Admin: 05/09/24 10:24 Dose: 20 mg Gabapentin (Gabapentin 300 Mg Capsule) 600 mg PO TID COUNT INCLUDES [facility] Last Admin: 05/09/24 08:13 Dose: 600 mg Hydroxyzine HCl (Hydroxyzine Hcl 25 Mg Tablet) 25 mg PO Q6H PRN PRN Reason: Anxiety Last Admin: 05/09/24 12:08 Dose: 25 mg Insulin Human Lispro (Insulin Lispro 100 Unit/Ml 3 Ml Vial) 0 unit SUBCUT QIDACHS COUNT INCLUDES [facility]; Protocol Last Admin: 05/09/24 11:35 Dose: 2 unit Lactulose (Lactulose 20 Gm/30 Ml Solution) 20 gm PO TID COUNT INCLUDES [facility] Last Admin: 05/09/24 08:13 Dose: 20 gm Lorazepam (Lorazepam 0.5 Mg Tablet) 0.5 mg PO BID PRN PRN Reason: Anxiety Last Admin: 05/07/24 20:52 Dose: 0.5 mg Magnesium Hydroxide (Milk Of Magnesia 30 Ml Oral.Susp) 30 ml PO DAILY PRN PRN Reason: Constipation Magnesium Oxide (Magnesium Oxide 400 Mg Tablet) 400 mg PO DAILY COUNT [facility]CLUDES [facility] Last Admin: 05/09/24 08:13 Dose: 400 mg Pt Own (Orphenadrine Citrate 100 Mg Tablet Extended Release) 100 mg PO BID PRN PRN Reason: Pain Last Admin: 05/06/24 20:20 Dose: 100 mg Omeprazole (Omeprazole 20 Mg Capsule.Dr) 20 mg PO BID@0630,1630 [facility] Last Admin: 05/09/24 06:26 Dose: 20 mg Ondansetron HCl (Ondansetron Odt 4 Mg Tab.Rapdis) 4 mg TRANSLINGU Q6H PRN PRN Reason: Nausea and Vomiting Last Admin: 05/07/24 18:25 Dose: 4 mg Oxycodone HCl (Oxycodone Hcl Immed Release 5 Mg Tablet) 5 mg PO Q4H PRN PRN Reason: Pain, Severe (Pain Scale 7-10) Last Admin: 05/09/24 12:15 Dose: 5 mg Quetiapine Fumarate (Quetiapine Fumarate 50 Mg Tablet) 50 mg PO BEDTIME PRN PRN Reason: Sleep Last Admin: 05/07/24 20:52 Dose: 50 mg Rifaximin (Rifaximin 550 Mg Tablet) 550 mg PO BID COUNT [facility]CLUDES [facility] Last Admin: 05/09/24 08:13 Dose: 550 mg Spironolactone (Spironolactone 25 Mg Tablet) 25 mg PO DAILY COUNT [facility]CLUDES [facility]; Protocol Last Admin: 05/09/24 08:13 Dose: 25 mg Trazodone HCl (Trazodone Hcl 50 Mg Tablet) 50 mg PO BEDTIME PRN PRN Reason: Insomnia Last Admin: 05/07/24 20:52 Dose: 50 mg Trazodone HCl (Trazodone Hcl 100 Mg Tablet) 100 mg PO BEDTIME COUNT [facility]CLUDES [facility] Last Admin: 05/08/24 21:11 Dose: 100 mg Allergies Allergies Allergy/AdvReac Type Severity Reaction Status Date / Time acetaminophen AdvReac Unknown Verified 04/28/24 11:48 bismuth subsalicylate AdvReac Unknown Verified 04/28/24 11:48 [From Pepto-Bismol] celecoxib [From Celebrex] AdvReac Unknown Verified 04/28/24 11:48 NSAIDS (Non-Steroidal AdvReac Unknown Verified 04/28/24 11:48 Anti-Inflamma Assessment & Plan Assessment & Plan (1) Bipolar 1 disorder: Status: Inactive Code(s): F31.9 - Bipolar disorder, unspecified (2) PTSD (post-traumatic stress disorder): Status: Acute Code(s): F43.10 - Post-traumatic stress disorder, unspecified (3) Homelessness: Status: Acute Code(s): Z59.00 - Homelessness unspecified (4) Thrombocytopenia: Status: Inactive Code(s): D69.6 - Thrombocytopenia, unspecified (5) MAYE (acute kidney injury): Status: Resolved Code(s): N17.9 - Acute kidney failure, unspecified Plan The patient is a middle-aged male with a past history of chronically were failure, bipolar disorder, PTSD, ADHD and chronic homelessness who was brought into the facility after he disclosed suicidal ideation with [place] The patient was assessed by crisis and transferring to this facility for psychiatric stabilization. 05/02: Continue current regimen and plans for stabilization and medication management. Added Seroquel 25 mg nightly p.r.n. 05/03: Continue current regimen and plans for stabilization and medication management 05/04 repeat cmp, cbc, ammonia. 05/05 continue tx. pending GI consult, re: dropping HgB, 05/06- discussed code, pt would like to continue full code at this moment. planning for referrals for SNF. left shoulder pain- had left shoulder xr which shows destructive lesion of 1.4cm (will contact hospitalist for dx and tx). continue to monitor HgB, ammonia (mildly elevated, pt at times refuses lactulose, he is also on rifaximin). Will check pth, ionized calcium (regular calcium low but note low albumin). may consider esr/crp 05/07 continue tx. 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 complicated patient provider loathe to make change lead weekend for pt Patient educated on: therapeutic strategies Informed Consent: further education needed Reason for continued inpatient stay Substantial Risk for: harm to self, inability to function, rapid decompensation and med/psych decompensation Time Spent With Patient Time: Total time managing care of this patient today ____ minutes.
[2024-05-09 14:37] LABS: MANUAL DIFF FLAG NO
[2024-05-09 14:43] LABS: Basophils Percent Auto 0.3 % (0-2); Eosinophils Absolute Auto 0.1 X10*3/uL (0.0-0.4); Eosinophils Percent Auto 2.8 % (0-4); Hematocrit 25.8 % (42.0-52.0); Hemoglobin 8.8 g/dl (14.0-18.0); Imm Gran Abs Auto 0.01 X10*3/uL (0.00-0.03); Imm Gran Pct Auto 0.3 % (0.0-0.4); Lymphocytes Absolute Auto 0.4 X10*3/uL (1.2-4.9); Lymphocytes Percent Auto 9.5 % (20-40); Mean Corpuscular HGB Conc 34.1 g/dl (31.0-36.0); Mean Corpuscular Hemoglobin 35.3 pg (27.0-33.0); Mean Corpuscular Volume 103.6 fL (80.0-98.0); Mean Platelet Volume 10.3 fL (9.4-12.4); Monocytes Absolute Auto 0.4 X10*3/uL (0.1-1.2); Monocytes Percent Auto 10.3 % (2-11); Neutrophils Absolute Auto 3.1 x10*3/uL (2.0-8.3); Neutrophils Percent Auto 76.8 % (45-73); Red Blood Count 2.49 X10*6/uL (4.60-5.80); Red Cell Distribution Width 17.1 % (11.0-16.0)
[2024-05-09 14:44] LABS: Platelet Count 82 X10*3/uL (160-400)
[2024-05-09 14:52] LABS: Alanine Aminotransferase 19 U/L (0-40); Albumin Level 2.4 g/dL (3.5-5.0); Alkaline Phosphatase 248 U/L (39-117); Anion Gap 13 (12-20); Aspartate Amino Transferase 56 U/L (5-37); Bilirubin Total 2.4 mg/dL (0.0-1.0); Blood Urea Nitrogen 28 mg/dL (9-16); Calcium 8.6 mg/dL (8.4-10.2); Carbon Dioxide 25 mmol/L (22-29); Chloride 100 mmol/L (96-108); Creatinine Clr Calc Pharmacy 51.9; Estimated Glomerular Filt Rate 49; Glucose Random 195 mg/dL (60-115); Lipase 20 U/L (8-78); Potassium 4.9 mmol/L (3.3-5.1); Sodium 133 mmol/L (135-145); Total Protein 7.7 g/dL (6.5-8.0)
[2024-05-09 16:33] LABS: Glucose, Whole Blood 204 mg/dL (60-115)
[2024-05-09 19:53] LABS: Glucose, Whole Blood 172 mg/dL (60-115)
[2024-05-09 20:00] VITALS: BP 120/71; PULSE 96; RESP 16; TEMP 36.6; O2SAT 97
[2024-05-09] MEDS: traZODone HCL 100 MG TABLET PO (20:16)
[2024-05-09] MEDS: QUEtiapine Fumarate 50 MG TABLET PO (22:02)
[2024-05-09] MEDS: traZODone HCL 50 MG TABLET PO (23:07)
[2024-05-10] MEDS: LORazepam 0.5 MG TABLET PO ×2 (02:16→16:50)
[2024-05-10] MEDS: oxyCODONE HCl Immed Release 5 MG TABLET PO ×4 (02:16→21:21)
[2024-05-10] MEDS: Omeprazole 20 MG CAPSULE.DR PO ×2 (06:20→16:50)
[2024-05-10 06:54] LABS: Glucose, Whole Blood 176 mg/dL (60-115)
[2024-05-10 08:00] VITALS: BP 86/50; PULSE 94; TEMP 36.8; O2SAT 97
--- NOTE | 2024-05-10 08:02 | P.PNPSI_ITS ---
Subjective Subjective Date of Service: 05/08/24 Reason For Visit: mood disorder Subjective Notes: Conditional Voluntary Interim History: Late entry for 05/08/2024--> Pt slept thrugh the night. Awaiting GI consult re: cirrhosis, anemia, parecentisis. Pt reports feeling better, concern in terms of placement after admission. More hopeful, no SI/HI. No psychosis. Discussed with hospitalist findings of Left shoulder and getting records from previous hospitalization. additional labs will be added. 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 Mental Status Exam Mental Status Exam Narrative: Appearance: wearing hospital gown, fair hygiene, in NAD Behavior: cooperative Psychomotor: no agitation or retardation noted Speech: clear, normal rate/rhythm/volume, spontaneous TP: linear TC: wanting help with coordination of care Mood: better Affect: congruent, somewhat irritable at times SI: conditional to living situation post discharge HI: none VH/AH: none Delusions: no delusional content noted or reported Insight/judgment: poor x 2. Memory/cog: alert, oriented x 4. pending MOCA, ACL. Diagnostics Vital Signs (24Hr): Vital Signs - 24 hr 05/09/24 08:06 05/09/24 10:24 05/09/24 20:00 Temperature 97.1 F 97.8 F Pulse Rate 97 96 Respiratory Rate 18 16 Blood Pressure 118/81 112/71 120/71 Pulse Oximetry 98 97 Oxygen Delivery Method Room Air BMI result Body Mass Index 24.6 Labs 05/09/24 14:32 05/09/24 14:32 Labs: Laboratory Results - last 48 hr 05/06/24 05/08/24 05/08/24 14:44 11:04 16:08 WBC RBC Hgb Hct MCV MCH MCHC RDW Plt Count MPV Immature Gran % (Auto) Neut % (Auto) Lymph % (Auto) Collin % (Auto) Eos % (Auto) Baso % (Auto) Lymph # (Auto) Collin # (Auto) Eos # (Auto) Baso # (Auto) Abs Immat Gran (auto) Absolute Neuts (auto) Absolute Nucleated RBC Nucleated RBC % (auto) Sodium Potassium Chloride Carbon Dioxide Anion Gap BUN Creatinine Estim Creat Clear Calc Estimated GFR POC Glucose 242 H 227 H Random Glucose Calcium Ionized Calcium 5.0 Total Bilirubin AST ALT Alkaline Phosphatase Total Protein Albumin Lipase 05/08/24 05/09/24 05/09/24 20:06 06:29 11:13 WBC RBC Hgb Hct MCV MCH MCHC RDW Plt Count MPV Immature Gran % (Auto) Neut % (Auto) Lymph % (Auto) Collin % (Auto) Eos % (Auto) Baso % (Auto) Lymph # (Auto) Collin # (Auto) Eos # (Auto) Baso # (Auto) Abs Immat Gran (auto) Absolute Neuts (auto) Absolute Nucleated RBC Nucleated RBC % (auto) Sodium Potassium Chloride Carbon Dioxide Anion Gap BUN Creatinine Estim Creat Clear Calc Estimated GFR POC Glucose 149 H 193 H 187 H Random Glucose Calcium Ionized Calcium Total Bilirubin AST ALT Alkaline Phosphatase Total Protein Albumin Lipase 05/09/24 05/09/24 05/09/24 14:32 16:28 19:47 WBC 4.0 L RBC 2.49 L Hgb 8.8 L Hct 25.8 L MCV 103.6 H MCH 35.3 H MCHC 34.1 RDW 17.1 H Plt Count 82 L MPV 10.3 Immature Gran % (Auto) 0.3 Neut % (Auto) 76.8 H Lymph % (Auto) 9.5 L Collin % (Auto) 10.3 Eos % (Auto) 2.8 Baso % (Auto) 0.3 Lymph # (Auto) 0.4 L Collin # (Auto) 0.4 Eos # (Auto) 0.1 Baso # (Auto) 0.0 Abs Immat Gran (auto) 0.01 Absolute Neuts (auto) 3.1 Absolute Nucleated RBC 0.000 Nucleated RBC % (auto) 0.0 Sodium 133 L Potassium 4.9 Chloride 100 Carbon Dioxide 25 Anion Gap 13 BUN 28 H Creatinine 1.48 H Estim Creat Clear Calc 51.9 Estimated GFR 49 POC Glucose 204 H 172 H Random Glucose 195 H Calcium 8.6 D Ionized Calcium Total Bilirubin 2.4 H AST 56 H ALT 19 Alkaline Phosphatase 248 H Total Protein 7.7 Albumin 2.4 L Lipase 20 05/10/24 06:28 WBC RBC Hgb Hct MCV MCH MCHC RDW Plt Count MPV Immature Gran % (Auto) Neut % (Auto) Lymph % (Auto) Collin % (Auto) Eos % (Auto) Baso % (Auto) Lymph # (Auto) Collin # (Auto) Eos # (Auto) Baso # (Auto) Abs Immat Gran (auto) Absolute Neuts (auto) Absolute Nucleated RBC Nucleated RBC % (auto) Sodium Potassium Chloride Carbon Dioxide Anion Gap BUN Creatinine Estim Creat Clear Calc Estimated GFR POC Glucose 176 H Random Glucose Calcium Ionized Calcium Total Bilirubin AST ALT Alkaline Phosphatase Total Protein Albumin Lipase Imaging Radiology Impressions: ITS Impressions Bone Osseous Survey 05/07/24 15:00 IMPRESSION: 1. Cortical depression and adjacent cystic change within the lateral aspect of the left humeral head is redemonstrated. Findings could represent sequela of prior trauma. No aggressive features to suggest an underlying neoplastic lesion. 2. No additional lytic or blastic osseous lesion. 3. Left lower lobe airspace opacities. 4. [id number] stool burden. Electronically signed by: Roman oPwer MD 05/07/2024 11:00 PM EST RP K[facility] X-Ray 05/09/24 10:00 IMPRESSION: Moderate air and stool throughout the colon. Nonobstructive bowel gas pattern. Electronically signed by: Roman Power MD 05/09/2024 08:07 PM EST RP Medications Medications Current Medications Al Hydroxide/Mg Hydroxide (Magnesium Hydrox/Alum Hydrox 30 Ml Oral.Susp) 30 ml PO Q6H PRN PRN Reason: Heartburn/Nausea Baclofen (Baclofen 10 Mg Tablet) 10 mg PO TID PRN PRN Reason: muscle tension Furosemide (Furosemide 20 Mg Tablet) 20 mg PO DAILY [facility]; Protocol Last Admin: 05/09/24 10:24 Dose: 20 mg Gabapentin (Gabapentin 300 Mg Capsule) 600 mg PO TID [facility] Last Admin: 05/09/24 20:16 Dose: 600 mg Hydroxyzine HCl (Hydroxyzine Hcl 25 Mg Tablet) 25 mg PO Q6H PRN PRN Reason: Anxiety Last Admin: 05/09/24 23:07 Dose: 25 mg Insulin Human Lispro (Insulin Lispro 100 Unit/Ml 3 Ml Vial) 0 unit SUBCUT QIDACHS [facility]; Protocol Last Admin: 05/09/24 20:17 Dose: 2 unit Lactulose (Lactulose 20 Gm/30 Ml Solution) 20 gm PO TID [facility] Last Admin: 05/09/24 20:16 Dose: 20 gm Lorazepam (Lorazepam 0.5 Mg Tablet) 0.5 mg PO BID PRN PRN Reason: Anxiety Last Admin: 05/10/24 02:16 Dose: 0.5 mg Magnesium Hydroxide (Milk Of Magnesia 30 Ml Oral.Susp) 30 ml PO DAILY PRN PRN Reason: Constipation Magnesium Oxide (Magnesium Oxide 400 Mg Tablet) 400 mg PO DAILY [facility] Last Admin: 05/09/24 08:13 Dose: 400 mg Pt Own (Orphenadrine Citrate 100 Mg Tablet Extended Release) 100 mg PO BID PRN PRN Reason: Pain Last Admin: 05/06/24 20:20 Dose: 100 mg Olanzapine (Olanzapine 2.5 Mg Tablet) 2.5 mg PO BEDTIME [facility] Omeprazole (Omeprazole 20 Mg Capsule.Dr) 20 mg PO BID@0630,1630 [facility] Last Admin: 05/10/24 06:20 Dose: 20 mg Ondansetron HCl (Ondansetron Odt 4 Mg Tab.Rapdis) 4 mg TRANSLINGU Q6H PRN PRN Reason: Nausea and Vomiting Last Admin: 05/07/24 18:25 Dose: 4 mg Oxycodone HCl (Oxycodone Hcl Immed Release 5 Mg Tablet) 5 mg PO Q4H PRN PRN Reason: Pain, Severe (Pain Scale 7-10) Last Admin: 05/10/24 06:22 Dose: 5 mg Rifaximin (Rifaximin 550 Mg Tablet) 550 mg PO BID [facility] Last Admin: 05/09/24 20:16 Dose: 550 mg Spironolactone (Spironolactone 25 Mg Tablet) 25 mg PO DAILY [facility]; Protocol Last Admin: 05/09/24 08:13 Dose: 25 mg Trazodone HCl (Trazodone Hcl 100 Mg Tablet) 100 mg PO BEDTIME [facility] Last Admin: 05/09/24 20:16 Dose: 100 mg Allergies Allergies Allergy/AdvReac Type Severity Reaction Status Date / Time acetaminophen AdvReac Unknown Verified 04/28/24 11:48 bismuth subsalicylate AdvReac Unknown Verified 04/28/24 11:48 [From Pepto-Bismol] celecoxib [From Celebrex] AdvReac Unknown Verified 04/28/24 11:48 NSAIDS (Non-Steroidal AdvReac Unknown Verified 04/28/24 11:48 Anti-Inflamma Assessment & Plan Assessment & Plan (1) Bipolar 1 disorder: Status: Inactive Code(s): F31.9 - Bipolar disorder, unspecified (2) PTSD (post-traumatic stress disorder): Status: Acute Code(s): F43.10 - Post-traumatic stress disorder, unspecified (3) Homelessness: Status: Acute Code(s): Z59.00 - Homelessness unspecified (4) Thrombocytopenia: Status: Inactive Code(s): D69.6 - Thrombocytopenia, unspecified (5) MAYE (acute kidney injury): Status: Resolved Code(s): N17.9 - Acute kidney failure, unspecified Plan The patient is a middle-aged male with a past history of chronically were failure, bipolar disorder, PTSD, ADHD and chronic homelessness who was brought into the facility after he disclosed suicidal ideation [place] The patient was assessed by crisis and transferring to this facility for psychiatric stabilization. 05/02: Continue current regimen and plans for stabilization and medication management. Added Seroquel 25 mg nightly p.r.n. 05/03: Continue current regimen and plans for stabilization and medication management 05/04 repeat cmp, cbc, ammonia. 05/05 continue tx. pending GI consult, re: dropping HgB, 05/06- discussed code, pt would like to continue full code at this moment. planning for referrals for SNF. left shoulder pain- had left shoulder xr which shows destructive lesion of 1.4cm (will contact hospitalist for dx and tx). continue to monitor HgB, ammonia (mildly elevated, pt at times refuses lactulose, he is also on rifaximin). Will check pth, ionized calcium (regular calcium low but note low albumin). may consider esr/crp 05/07 continue tx. 05/08 continue tx. pending GI consult. Reason for continued inpatient stay Substantial Risk for: inability to function Time Spent With Patient Time: Total time managing care of this patient today ____ minutes.
[2024-05-10] MEDS: rifAXIMin 550 MG TABLET PO ×2 (08:21→20:06)
[2024-05-10] MEDS: Gabapentin 300 MG CAPSULE 600 MG PO ×3 (08:21→20:05)
[2024-05-10] MEDS: Magnesium Oxide 400 MG TABLET PO (08:21)
[2024-05-10] MEDS: Insulin Lispro 100 UNIT/ML 3 ML VIAL SUBCUT ×4 (08:22→20:05)
[2024-05-10 08:37] VITALS: BP 93/51; RESP 16
--- NOTE | 2024-05-10 11:00 | PC.NURSE ---
Patient's BP this morning 86/50, recheck 93/51, patient asymptomatic, provider notified of low BP reading and both Lasix and Aldactone held this morning.
[2024-05-10 11:58] LABS: Glucose, Whole Blood 212 mg/dL (60-115)
--- NOTE | 2024-05-10 15:16 | P.PNPSI_ITS ---
Subjective Subjective Date of Service: 05/10/24 Reason For Visit: mood disorder Subjective Notes: Conditional Voluntary Healthcare Proxy: No Guardianship: No Medical Problems Affecting Mental Status: Yes (liver and kidney failure end stage) Interim History: 58 yo reports having had terrible night with nightmares woke up and struggled rest of night with sleep = agrees to trial of olanzapine, will taper down trazodone and add in low dose olanzapine- Also provider coordinated care with weekday provider and gi - around ? ascites and tap- which will likely occur upcoming week - Medication Compliance: Yes Side effects from medications: Yes (? nightmares) Attending Groups: Intermittent Review of Systems Acute medical concerns: Yes acites Medical Review of Systems: unchanged Mental Status Exam Mental Status Exam Patient Appearance: Well Grooomed Patient Orientation: Person, Place, Time and Situation Level of Consciousness: Awake Patient Behavior: Appropriate, Talkative, Cooperative and Good Eye Contact Mood Description: Anxious and Apprehensive Affect Description: Blunted Patient Cognition Impaired: No Ability to Follow Directions: Fair Speech Pattern: Clear and Rambling Hallucinations: None Delusions: Paranoid Ideation (?) Thought Process: Distracted Thought Content: positive for Tangential Depressive Symptoms: Difficulty Sleeping Judgement: Fair Diagnostics Vital Signs (24Hr): Vital Signs - 24 hr 05/09/24 20:00 05/10/24 08:00 05/10/24 08:37 Temperature 97.8 F 98.3 F Pulse Rate 96 94 Respiratory Rate 16 16 Blood Pressure 120/71 86/50 L 93/51 L Pulse Oximetry 97 97 Oxygen Delivery Method Room Air BMI result Body Mass Index 24.6 Labs 05/09/24 14:32 05/09/24 14:32 Labs: Laboratory Results - last 48 hr 05/06/24 05/08/24 05/08/24 14:44 16:08 20:06 WBC RBC Hgb Hct MCV MCH MCHC RDW Plt Count MPV Immature Gran % (Auto) Neut % (Auto) Lymph % (Auto) [place] % (Auto) Eos % (Auto) Baso % (Auto) Lymph # (Auto) [place] # (Auto) Eos # (Auto) Baso # (Auto) Abs Immat Gran (auto) Absolute Neuts (auto) Absolute Nucleated RBC Nucleated RBC % (auto) Sodium Potassium Chloride Carbon Dioxide Anion Gap BUN Creatinine Estim Creat Clear Calc Estimated GFR POC Glucose 227 H 149 H Random Glucose Calcium Ionized Calcium 5.0 Total Bilirubin AST ALT Alkaline Phosphatase Total Protein Albumin Lipase 05/09/24 05/09/24 05/09/24 06:29 11:13 14:32 WBC 4.0 L RBC 2.49 L Hgb 8.8 L Hct 25.8 L MCV 103.6 H MCH 35.3 H MCHC 34.1 RDW 17.1 H Plt Count 82 L MPV 10.3 Immature Gran % (Auto) 0.3 Neut % (Auto) 76.8 H Lymph % (Auto) 9.5 L [place] % (Auto) 10.3 Eos % (Auto) 2.8 Baso % (Auto) 0.3 Lymph # (Auto) 0.4 L [place] # (Auto) 0.4 Eos # (Auto) 0.1 Baso # (Auto) 0.0 Abs Immat Gran (auto) 0.01 Absolute Neuts (auto) 3.1 Absolute Nucleated RBC 0.000 Nucleated RBC % (auto) 0.0 Sodium 133 L Potassium 4.9 Chloride 100 Carbon Dioxide 25 Anion Gap 13 BUN 28 H Creatinine 1.48 H Estim Creat Clear Calc 51.9 Estimated GFR 49 POC Glucose 193 H 187 H Random Glucose 195 H Calcium 8.6 D Ionized Calcium Total Bilirubin 2.4 H AST 56 H ALT 19 Alkaline Phosphatase 248 H Total Protein 7.7 Albumin 2.4 L Lipase 20 05/09/24 05/09/24 05/10/24 16:28 19:47 06:28 WBC RBC Hgb Hct MCV MCH MCHC RDW Plt Count MPV Immature Gran % (Auto) Neut % (Auto) Lymph % (Auto) [place] % (Auto) Eos % (Auto) Baso % (Auto) Lymph # (Auto) [place] # (Auto) Eos # (Auto) Baso # (Auto) Abs Immat Gran (auto) Absolute Neuts (auto) Absolute Nucleated RBC Nucleated RBC % (auto) Sodium Potassium Chloride Carbon Dioxide Anion Gap BUN Creatinine Estim Creat Clear Calc Estimated GFR POC Glucose 204 H 172 H 176 H Random Glucose Calcium Ionized Calcium Total Bilirubin AST ALT Alkaline Phosphatase Total Protein Albumin Lipase 05/10/24 11:54 WBC RBC Hgb Hct MCV MCH MCHC RDW Plt Count MPV Immature Gran % (Auto) Neut % (Auto) Lymph % (Auto) [place] % (Auto) Eos % (Auto) Baso % (Auto) Lymph # (Auto) [place] # (Auto) Eos # (Auto) Baso # (Auto) Abs Immat Gran (auto) Absolute Neuts (auto) Absolute Nucleated RBC Nucleated RBC % (auto) Sodium Potassium Chloride Carbon Dioxide Anion Gap BUN Creatinine Estim Creat Clear Calc Estimated GFR POC Glucose 212 H Random Glucose Calcium Ionized Calcium Total Bilirubin AST ALT Alkaline Phosphatase Total Protein Albumin Lipase Imaging Radiology Impressions: ITS Impressions Bone Osseous Survey 05/07/24 15:00 IMPRESSION: 1. Cortical depression and adjacent cystic change within the lateral aspect of the left humeral head is redemonstrated. Findings could represent sequela of prior trauma. No aggressive features to suggest an underlying neoplastic lesion. 2. No additional lytic or blastic osseous lesion. 3. Left lower lobe airspace opacities. 4. Hezn-su-kytxnhde stool burden. Electronically signed by: Roman Power MD 05/07/2024 11:00 PM Audiam RP KUB X-Ray 05/09/24 10:00 IMPRESSION: Moderate air and stool throughout the colon. Nonobstructive bowel gas pattern. Electronically signed by: Roman Power MD 05/09/2024 08:07 PM Audiam RP Medications Medications Current Medications Al Hydroxide/Mg Hydroxide (Magnesium Hydrox/Alum Hydrox 30 Ml Oral.Susp) 30 ml PO Q6H PRN PRN Reason: Heartburn/Nausea Baclofen (Baclofen 10 Mg Tablet) 10 mg PO TID PRN PRN Reason: muscle tension Furosemide (Furosemide 20 Mg Tablet) 20 mg PO DAILY [facility]; Protocol Last Admin: 05/10/24 11:37 Dose: Not Given Gabapentin (Gabapentin 300 Mg Capsule) 600 mg PO TID [facility] Last Admin: 05/10/24 08:21 Dose: 600 mg Hydroxyzine HCl (Hydroxyzine Hcl 25 Mg Tablet) 25 mg PO Q6H PRN PRN Reason: Anxiety Last Admin: 05/09/24 23:07 Dose: 25 mg Insulin Human Lispro (Insulin Lispro 100 Unit/Ml 3 Ml Vial) 0 unit SUBCUT QIDACHS [facility]; Protocol Last Admin: 05/10/24 12:21 Dose: 4 unit Lactulose (Lactulose 20 Gm/30 Ml Solution) 20 gm PO TID [facility] Last Admin: 05/10/24 11:22 Dose: Not Given Lorazepam (Lorazepam 0.5 Mg Tablet) 0.5 mg PO BID PRN PRN Reason: Anxiety Last Admin: 05/10/24 02:16 Dose: 0.5 mg Magnesium Hydroxide (Milk Of Magnesia 30 Ml Oral.Susp) 30 ml PO DAILY PRN PRN Reason: Constipation Magnesium Oxide (Magnesium Oxide 400 Mg Tablet) 400 mg PO DAILY [facility] Last Admin: 05/10/24 08:21 Dose: 400 mg Pt Own (Orphenadrine Citrate 100 Mg Tablet Extended Release) 100 mg PO BID PRN PRN Reason: Pain Last Admin: 05/06/24 20:20 Dose: 100 mg Olanzapine (Olanzapine 2.5 Mg Tablet) 2.5 mg PO BEDTIME [facility] Omeprazole (Omeprazole 20 Mg Capsule.Dr) 20 mg PO BID@0630,1630 [facility] Last Admin: 05/10/24 06:20 Dose: 20 mg Ondansetron HCl (Ondansetron Odt 4 Mg Tab.Rapdis) 4 mg TRANSLINGU Q6H PRN PRN Reason: Nausea and Vomiting Last Admin: 05/07/24 18:25 Dose: 4 mg Oxycodone HCl (Oxycodone Hcl Immed Release 5 Mg Tablet) 5 mg PO Q4H PRN PRN Reason: Pain, Severe (Pain Scale 7-10) Last Admin: 05/10/24 06:22 Dose: 5 mg Rifaximin (Rifaximin 550 Mg Tablet) 550 mg PO BID [facility] Last Admin: 05/10/24 08:21 Dose: 550 mg Spironolactone (Spironolactone 25 Mg Tablet) 25 mg PO DAILY [facility]; Protocol Last Admin: 05/10/24 11:38 Dose: Not Given Trazodone HCl (Trazodone Hcl 100 Mg Tablet) 100 mg PO BEDTIME [facility] Last Admin: 05/09/24 20:16 Dose: 100 mg Allergies Allergies Allergy/AdvReac Type Severity Reaction Status Date / Time acetaminophen AdvReac Unknown Verified 04/28/24 11:48 bismuth subsalicylate AdvReac Unknown Verified 04/28/24 11:48 [From Pepto-Bismol] celecoxib [From Celebrex] AdvReac Unknown Verified 04/28/24 11:48 NSAIDS (Non-Steroidal AdvReac Unknown Verified 04/28/24 11:48 Anti-Inflamma Assessment & Plan Assessment & Plan (1) Bipolar 1 disorder: Status: Inactive Code(s): F31.9 - Bipolar disorder, unspecified (2) PTSD (post-traumatic stress disorder): Status: Acute Code(s): F43.10 - Post-traumatic stress disorder, unspecified (3) Homelessness: Status: Acute Code(s): Z59.00 - Homelessness unspecified (4) Thrombocytopenia: Status: Inactive Code(s): D69.6 - Thrombocytopenia, unspecified (5) MAYE (acute kidney injury): Status: Resolved Code(s): N17.9 - Acute kidney failure, unspecified Plan The patient is a middle-aged male with a past history of chronically were failure, bipolar disorder, PTSD, ADHD and chronic homelessness who was brought into the facility after he disclosed suicidal ideation with a plan [place] The patient was assessed by crisis and transferring to this facility for psychiatric stabilization. 05/02: Continue current regimen and plans for stabilization and medication management. Added Seroquel 25 mg nightly p.r.n. 05/03: Continue current regimen and plans for stabilization and medication management 05/04 repeat cmp, cbc, ammonia. 05/05 continue tx. pending GI consult, re: dropping HgB, 05/06- discussed code, pt would like to continue full code at this moment. planning for referrals for SNF. left shoulder pain- had left shoulder xr which shows destructive lesion of 1.4cm (will contact hospitalist for dx and tx). continue to monitor HgB, ammonia (mildly elevated, pt at times refuses lactulose, he is also on rifaximin). Will check pth, ionized calcium (regular calcium low but note low albumin). may consider esr/crp 05/07 continue tx. 05/08 continue tx. pending GI consult. 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 complicated patient provider loathe to make change coordinator weekend for pt 05/10 starting olanzapine tonight- 25mg, lower trazodone 75mg- awaiting for paracentesis may want to further decrease trazodone and inc olanzapine- watch for nightmares Patient educated on: medication risk/benefits Informed Consent: understands Reason for continued inpatient stay Substantial Risk for: med/psych decompensation Time Spent With Patient Time: Total time managing care of this patient today ____ minutes.
[2024-05-10] MEDS: Lactulose 20 GM/30 ML SOLUTION PO ×2 (15:43→20:06)
[2024-05-10 16:41] LABS: Glucose, Whole Blood 203 mg/dL (60-115)
[2024-05-10] MEDS: Ondansetron ODT 4 MG TAB.RAPDIS TRANSLINGU (16:50)
--- NOTE | 2024-05-10 17:54 | PC.NURSE ---
Patient c/o leg pain, R foot being the most severe pain. Significant edema noted to bilateral lower extremities, per patient not new. Provider notified.
[2024-05-10] MEDS: ORPHENADRINE CITRATE 100 MG 100 EACH PO (18:19)
[2024-05-10 19:42] LABS: Glucose, Whole Blood 203 mg/dL (60-115)
[2024-05-10 20:00] VITALS: BP 132/81; PULSE 100; RESP 16; TEMP 36.5; O2SAT 95
[2024-05-10] MEDS: OLANZapine 2.5 MG TABLET PO (20:06)
[2024-05-10] MEDS: traZODone HCL 25 MG HALFTAB 75 MG PO (20:07)
[2024-05-10] MEDS: hydrOXYzine HCL 25 MG TABLET PO (21:21)
[2024-05-11] MEDS: oxyCODONE HCl Immed Release 5 MG TABLET PO ×3 (02:31→21:04)
[2024-05-11] MEDS: hydrOXYzine HCL 25 MG TABLET PO ×2 (02:40→21:00)
[2024-05-11] MEDS: LORazepam 0.5 MG TABLET PO ×2 (05:54→20:59)
[2024-05-11] MEDS: Omeprazole 20 MG CAPSULE.DR PO ×2 (05:54→16:34)
[2024-05-11 07:00] LABS: Glucose, Whole Blood 141 mg/dL (60-115)
[2024-05-11 08:00] VITALS: BP 94/65; PULSE 87; RESP 16; TEMP 36.3; O2SAT 94
[2024-05-11] MEDS: rifAXIMin 550 MG TABLET PO ×2 (09:11→21:00)
[2024-05-11] MEDS: Gabapentin 300 MG CAPSULE 600 MG PO ×3 (09:12→20:57)
[2024-05-11] MEDS: Magnesium Oxide 400 MG TABLET PO (09:12)
[2024-05-11] MEDS: Lactulose 20 GM/30 ML SOLUTION PO ×3 (09:14→21:19)
[2024-05-11 09:49] LABS: MANUAL DIFF FLAG NO
[2024-05-11 09:57] LABS: Basophils Percent Auto 0.4 % (0-2); Eosinophils Absolute Auto 0.1 X10*3/uL (0.0-0.4); Eosinophils Percent Auto 2.1 % (0-4); Hematocrit 22.5 % (42.0-52.0); Hemoglobin 7.5 g/dl (14.0-18.0); Imm Gran Abs Auto 0.02 X10*3/uL (0.00-0.03); Imm Gran Pct Auto 0.4 % (0.0-0.4); Lymphocytes Absolute Auto 0.4 X10*3/uL (1.2-4.9); Mean Corpuscular HGB Conc 33.3 g/dl (31.0-36.0); Mean Corpuscular Hemoglobin 35.2 pg (27.0-33.0); Mean Corpuscular Volume 105.6 fL (80.0-98.0); Mean Platelet Volume 10.3 fL (9.4-12.4); Monocytes Absolute Auto 0.5 X10*3/uL (0.1-1.2); Monocytes Percent Auto 9.7 % (2-11); Neutrophils Absolute Auto 4.2 x10*3/uL (2.0-8.3); Neutrophils Percent Auto 79.4 % (45-73); Red Blood Count 2.13 X10*6/uL (4.60-5.80); White Blood Count 5.3 X10*3/uL (4.8-10.8)
[2024-05-11 10:00] LABS: Platelet Count 61 X10*3/uL (160-400)
[2024-05-11 10:58] LABS: Prot Elec - Albumin 2.6 g/dL (3.8-4.8); Prot Elec - Alpha1 0.4 g/dL (0.2-0.3); Prot Elec - Alpha2 0.5 g/dL (0.5-0.9); Prot Elec - Beta 1 0.4 g/dL (0.4-0.6); Prot Elec - Beta 2 0.7 g/dL (0.2-0.5); Prot Elec - Gamma 3.1 g/dL (0.8-1.7); Prot Elec - Total Protein 7.7 g/dL (6.1-8.1)
[2024-05-11 11:30] LABS: Glucose, Whole Blood 248 mg/dL (60-115)
[2024-05-11 11:36] VITALS: BP 108/69; PULSE 88; RESP 16; O2SAT 97
[2024-05-11 11:38] LABS: Ammonia 39 umol/L (13-55)
[2024-05-11] MEDS: Insulin Lispro 100 UNIT/ML 3 ML VIAL SUBCUT ×3 (11:44→21:05)
[2024-05-11] MEDS: Midodrine HCl 5 MG TABLET PO ×2 (11:50→21:01)
--- NOTE | 2024-05-11 15:21 | P.EN_ITS ---
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 Medical consult to evaluate for paracentesis. Abdominal ultrasound from yesterday 05/10 found moderate ascites. Patient exam significant for diffuse abdominal tenderness with moderate firmness and distention, as well as 2+ bilateral pitting lower leg edema. Will order therapeutic paracentesis for tomorrow. The patient has also been noted to be hypotensive as low as 86/50 last evening. Patient has recently been started on diuretics for persistent lower leg edema, likely secondary to portal hypertension from liver cirrhosis. Will start midodrine 5 mg t.i.d. and continue furosemide and spironolactone for now. Continue to monitor BP. For anemia, patient's H&H today 7.5/22.5, reduced from 8.8/25.8 on 05/09/2024. Will trend H&H tomorrow and transfuse as necessary. Time Spent With Patient Time: Total time managing care of this patient today ____ minutes.
--- NOTE | 2024-05-11 15:51 | HO.PSYCHPN ---
Subjective Subjective Date of Service: 05/11/24 Reason For Visit: mood disorder Subjective Notes: Conditional Voluntary Interim History: Pt slept most of the night. discussed with hospitalist need for parecenthesis, although last time it was less than 1.5L. Hgb dropped to 7.5- continue to monitor. He is has been mostly sleeping. He reports feeling very tired. Depressed, no SI/HI. Diagnostics Vital Signs (24Hr): Vital Signs - 24 hr 05/10/24 20:00 05/11/24 08:00 05/11/24 11:36 Temperature 97.7 F 97.4 F Pulse Rate 100 87 88 Respiratory Rate 16 16 16 Blood Pressure 132/81 94/65 108/69 Pulse Oximetry 95 94 97 Oxygen Delivery Method Room Air Room Air Room Air BMI result Body Mass Index 24.6 Labs 05/12/24 14:12 05/12/24 07:54 Labs: Laboratory Results - last 48 hr 05/08/24 05/09/24 05/09/24 07:57 16:28 19:47 WBC RBC Hgb Hct MCV MCH MCHC RDW Plt Count MPV Immature Gran % (Auto) Neut % (Auto) Lymph % (Auto) [place] % (Auto) Eos % (Auto) Baso % (Auto) Lymph # (Auto) [place] # (Auto) Eos # (Auto) Baso # (Auto) Abs Immat Gran (auto) Absolute Neuts (auto) Absolute Nucleated RBC Nucleated RBC % (auto) POC Glucose 204 H 172 H Ammonia Total Protein (PEP) 7.7 Albumin (PEP) 2.6 L Jwzzl-2-Jrvegojtn 0.4 H Cviyr-8-Flprlriij 0.5 Xgnf-1-Dfqdcyny 0.4 Ibzx-7-Rmlvcbij 0.7 H Gamma Globulins 3.1 H PEP Interpretation SEE NOTE 05/10/24 05/10/24 05/10/24 06:28 11:54 16:37 WBC RBC Hgb Hct MCV MCH MCHC RDW Plt Count MPV Immature Gran % (Auto) Neut % (Auto) Lymph % (Auto) [place] % (Auto) Eos % (Auto) Baso % (Auto) Lymph # (Auto) [place] # (Auto) Eos # (Auto) Baso # (Auto) Abs Immat Gran (auto) Absolute Neuts (auto) Absolute Nucleated RBC Nucleated RBC % (auto) POC Glucose 176 H 212 H 203 H Ammonia Total Protein (PEP) Albumin (PEP) Cmbdm-8-Vmbubfner Ibxph-2-Grqkowfvi Ijcp-5-Ebfjoxtz Nxze-8-Rkmkxtkh Gamma Globulins PEP Interpretation 05/10/24 05/11/24 05/11/24 19:37 06:43 09:41 WBC 5.3 RBC 2.13 L Hgb 7.5 L Hct 22.5 L MCV 105.6 H MCH 35.2 H MCHC 33.3 RDW 17.0 H Plt Count 61 L D MPV 10.3 Immature Gran % (Auto) 0.4 Neut % (Auto) 79.4 H Lymph % (Auto) 8.0 L [place] % (Auto) 9.7 Eos % (Auto) 2.1 Baso % (Auto) 0.4 Lymph # (Auto) 0.4 L [place] # (Auto) 0.5 Eos # (Auto) 0.1 Baso # (Auto) 0.0 Abs Immat Gran (auto) 0.02 Absolute Neuts (auto) 4.2 Absolute Nucleated RBC 0.000 Nucleated RBC % (auto) 0.0 POC Glucose 203 H 141 H Ammonia Total Protein (PEP) Albumin (PEP) Vwmye-4-Nmipkbbmv Ydltw-7-Ifrrgxmhj Wrhl-3-Eofemhjn Lkly-6-Kmmjmwox Gamma Globulins PEP Interpretation 05/11/24 05/11/24 11:20 11:24 WBC RBC Hgb Hct MCV MCH MCHC RDW Plt Count MPV Immature Gran % (Auto) Neut % (Auto) Lymph % (Auto) [place] % (Auto) Eos % (Auto) Baso % (Auto) Lymph # (Auto) [place] # (Auto) Eos # (Auto) Baso # (Auto) Abs Immat Gran (auto) Absolute Neuts (auto) Absolute Nucleated RBC Nucleated RBC % (auto) POC Glucose 248 H Ammonia 39 Total Protein (PEP) Albumin (PEP) Pmcbv-8-Zhgetmdqf Gppsw-4-Nfabpamwp Hfxv-0-Iydjxxej Ygfj-2-Gsubytwy Gamma Globulins PEP Interpretation Imaging Radiology Impressions: ITS Impressions Bone Osseous Survey 05/07/24 15:00 IMPRESSION: 1. Cortical depression and adjacent cystic change within the lateral aspect of the left humeral head is redemonstrated. Findings could represent sequela of prior trauma. No aggressive features to suggest an underlying neoplastic lesion. 2. No additional lytic or blastic osseous lesion. 3. Left lower lobe airspace opacities. 4. Zlzx-bj-wpyugrrx stool burden. Electronically signed by: Roman Power MD 05/07/2024 11:00 PM EST RP KUB X-Ray 05/09/24 10:00 IMPRESSION: Moderate air and stool throughout the colon. Nonobstructive bowel gas pattern. Electronically signed by: Roman Power MD 05/09/2024 08:07 PM EST RP Abdomen Ultrasound 05/10/24 09:45 IMPRESSION: Moderate ascites. Electronically signed by: David Saul MD 05/10/2024 04:09 PM EST RP Medications Medications Current Medications Al Hydroxide/Mg Hydroxide (Magnesium Hydrox/Alum Hydrox 30 Ml Oral.Susp) 30 ml PO Q6H PRN PRN Reason: Heartburn/Nausea Baclofen (Baclofen 10 Mg Tablet) 10 mg PO TID PRN PRN Reason: muscle tension Furosemide (Furosemide 20 Mg Tablet) 20 mg PO DAILY [facility]; Protocol Last Admin: 05/11/24 10:06 Dose: Not Given Gabapentin (Gabapentin 300 Mg Capsule) 600 mg PO TID [facility] Last Admin: 05/11/24 14:49 Dose: 600 mg Hydroxyzine HCl (Hydroxyzine Hcl 25 Mg Tablet) 25 mg PO Q6H PRN PRN Reason: Anxiety Last Admin: 05/11/24 02:40 Dose: 25 mg Insulin Human Lispro (Insulin Lispro 100 Unit/Ml 3 Ml Vial) 0 unit SUBCUT QIDACHS [facility]; Protocol Last Admin: 05/11/24 11:44 Dose: 4 unit Lactulose (Lactulose 20 Gm/30 Ml Solution) 20 gm PO TID [facility] Last Admin: 05/11/24 14:50 Dose: 20 gm Lorazepam (Lorazepam 0.5 Mg Tablet) 0.5 mg PO BID PRN PRN Reason: Anxiety Last Admin: 05/11/24 05:54 Dose: 0.5 mg Magnesium Hydroxide (Milk Of Magnesia 30 Ml Oral.Susp) 30 ml PO DAILY PRN PRN Reason: Constipation Magnesium Oxide (Magnesium Oxide 400 Mg Tablet) 400 mg PO DAILY [facility] Last Admin: 05/11/24 09:12 Dose: 400 mg Midodrine (Midodrine Hcl 5 Mg Tablet) 5 mg PO TID [facility] Pt Own (Orphenadrine Citrate 100 Mg Tablet Extended Release) 100 mg PO BID PRN PRN Reason: Pain Last Admin: 05/10/24 18:19 Dose: 100 mg Olanzapine (Olanzapine 2.5 Mg Tablet) 2.5 mg PO BEDTIME [facility] Last Admin: 05/10/24 20:06 Dose: 2.5 mg Omeprazole (Omeprazole 20 Mg Capsule.Dr) 20 mg PO BID@0630,1630 [facility] Last Admin: 05/11/24 05:54 Dose: 20 mg Ondansetron HCl (Ondansetron Odt 4 Mg Tab.Rapdis) 4 mg TRANSLINGU Q6H PRN PRN Reason: Nausea and Vomiting Last Admin: 05/10/24 16:50 Dose: 4 mg Oxycodone HCl (Oxycodone Hcl Immed Release 5 Mg Tablet) 5 mg PO Q4H PRN PRN Reason: Pain, Severe (Pain Scale 7-10) Last Admin: 05/11/24 15:11 Dose: 5 mg Rifaximin (Rifaximin 550 Mg Tablet) 550 mg PO BID [facility] Last Admin: 05/11/24 09:11 Dose: 550 mg Spironolactone (Spironolactone 25 Mg Tablet) 25 mg PO DAILY [facility]; Protocol Last Admin: 05/11/24 10:25 Dose: Not Given Trazodone HCl (Trazodone Hcl 25 Mg Halftab) 75 mg PO BEDTIME [facility] Last Admin: 05/10/24 20:07 Dose: 75 mg Allergies Allergies Allergy/AdvReac Type Severity Reaction Status Date / Time acetaminophen AdvReac Unknown Verified 04/28/24 11:48 bismuth subsalicylate AdvReac Unknown Verified 04/28/24 11:48 [From Pepto-Bismol] celecoxib [From Celebrex] AdvReac Unknown Verified 04/28/24 11:48 NSAIDS (Non-Steroidal AdvReac Unknown Verified 04/28/24 11:48 Anti-Inflamma Assessment & Plan Assessment & Plan (1) Bipolar 2 disorder, major depressive episode: Status: Acute Code(s): F31.81 - Bipolar II disorder (2) PTSD (post-traumatic stress disorder): Status: Acute Code(s): F43.10 - Post-traumatic stress disorder, unspecified (3) Homelessness: Status: Acute Code(s): Z59.00 - Homelessness unspecified (4) Thrombocytopenia: Status: Inactive Code(s): D69.6 - Thrombocytopenia, unspecified (5) MAYE (acute kidney injury): Status: Resolved Code(s): N17.9 - Acute kidney failure, unspecified Plan The patient is a middle-aged male with a past history of chronically were failure, bipolar disorder, PTSD, ADHD and chronic homelessness who was brought into the facility after he disclosed suicidal ideation with [place] The patient was assessed by crisis and transferring to this facility for psychiatric stabilization. 05/02: Continue current regimen and plans for stabilization and medication management. Added Seroquel 25 mg nightly p.r.n. 05/03: Continue current regimen and plans for stabilization and medication management 05/04 repeat cmp, cbc, ammonia. 05/05 continue tx. pending GI consult, re: dropping HgB, 05/06- discussed code, pt would like to continue full code at this moment. planning for referrals for SNF. left shoulder pain- had left shoulder xr which shows destructive lesion of 1.4cm (will contact hospitalist for dx and tx). continue to monitor HgB, ammonia (mildly elevated, pt at times refuses lactulose, he is also on rifaximin). Will check pth, ionized calcium (regular calcium low but note low albumin). may consider esr/crp 05/07 continue tx. 05/08 continue tx. pending GI consult. 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 complicated patient provider loathe to make mash filter cloth changer weekend for pt 05/10 starting olanzapine tonight- 25mg, lower trazodone 75mg- awaiting week for paracentesis may want to further decrease trazodone and inc olanzapine- watch for nightmares 05/11 parecentesis scheduled for tomorrow. hospitalist added midodrine for pt to be able t tolerate diuretic therapy, especially if amount is less than 2L when they do parecentesis. continue to monitor Hgb. daily weigh. Reason for continued inpatient stay Substantial Risk for: inability to function Time Spent With Patient Time: Total time managing care of this patient today ____ minutes.
[2024-05-11 16:22] LABS: Glucose, Whole Blood 207 mg/dL (60-115)
[2024-05-11 20:00] VITALS: BP 129/79; PULSE 90; RESP 18; TEMP 36.4; O2SAT 100
[2024-05-11] MEDS: traZODone HCL 25 MG HALFTAB 75 MG PO (20:56)
[2024-05-11] MEDS: OLANZapine 2.5 MG TABLET PO (20:58)
[2024-05-11 21:01] VITALS: BP 117/91
[2024-05-11] MEDS: Baclofen 10 MG TABLET PO (21:02)
[2024-05-11 21:46] LABS: Glucose, Whole Blood 161 mg/dL (60-115)
[2024-05-11] MEDS: ORPHENADRINE CITRATE 100 MG 100 EACH PO (23:15)
[2024-05-12] MEDS: Omeprazole 20 MG CAPSULE.DR PO ×2 (05:31→15:48)
[2024-05-12 06:37] LABS: Glucose, Whole Blood 186 mg/dL (60-115)
[2024-05-12] MEDS: Insulin Lispro 100 UNIT/ML 3 ML VIAL SUBCUT ×4 (07:41→21:25)
[2024-05-12 08:00] VITALS: BP 118/81; PULSE 95; RESP 16; TEMP 36.3; O2SAT 99
[2024-05-12 08:04] LABS: Hematocrit 25.8 % (42.0-52.0); Hemoglobin 8.5 g/dl (14.0-18.0); Mean Corpuscular HGB Conc 32.9 g/dl (31.0-36.0); Mean Corpuscular Hemoglobin 34.8 pg (27.0-33.0); Mean Corpuscular Volume 105.7 fL (80.0-98.0); Mean Platelet Volume 10.8 fL (9.4-12.4); Platelet Count 84 X10*3/uL (160-400); Red Blood Count 2.44 X10*6/uL (4.60-5.80); Red Cell Distribution Width 16.9 % (11.0-16.0); White Blood Count 4.2 X10*3/uL (4.8-10.8)
[2024-05-12 08:10] LABS: INTERNATIONAL NORM RATIO 1.2 (0.9-1.1); Prothrombin Time 14.1 SEC (10.9-12.4)
[2024-05-12 08:15] LABS: Alanine Aminotransferase 21 U/L (0-40); Albumin Level 2.4 g/dL (3.5-5.0); Alkaline Phosphatase 218 U/L (39-117); Anion Gap 11 (12-20); Aspartate Amino Transferase 59 U/L (5-37); Bilirubin Total 2.5 mg/dL (0.0-1.0); Blood Urea Nitrogen 24 mg/dL (9-16); Calcium 8.2 mg/dL (8.4-10.2); Carbon Dioxide 26 mmol/L (22-29); Chloride 99 mmol/L (96-108); Creatinine Clr Calc Pharmacy 55.7; Estimated Glomerular Filt Rate 53; Glucose Random 228 mg/dL (60-115); Potassium 3.8 mmol/L (3.3-5.1); Sodium 132 mmol/L (135-145); Total Protein 7.6 g/dL (6.5-8.0)
[2024-05-12] MEDS: Spironolactone 25 MG TABLET PO (08:31)
[2024-05-12] MEDS: Midodrine HCl 5 MG TABLET PO ×3 (08:31→20:52)
[2024-05-12] MEDS: Furosemide 20 MG TABLET PO (08:31)
[2024-05-12] MEDS: rifAXIMin 550 MG TABLET PO ×2 (08:32→20:52)
[2024-05-12] MEDS: Lactulose 20 GM/30 ML SOLUTION PO ×3 (08:32→20:55)
[2024-05-12] MEDS: Gabapentin 300 MG CAPSULE 600 MG PO ×3 (08:32→20:52)
[2024-05-12] MEDS: Magnesium Oxide 400 MG TABLET PO (08:32)
[2024-05-12 11:10] LABS: Glucose, Whole Blood 250 mg/dL (60-115)
[2024-05-12 14:26] LABS: Hematocrit 23.7 % (42.0-52.0); Mean Corpuscular HGB Conc 33.8 g/dl (31.0-36.0); Mean Corpuscular Hemoglobin 35.2 pg (27.0-33.0); Mean Corpuscular Volume 104.4 fL (80.0-98.0); Mean Platelet Volume 10.5 fL (9.4-12.4); Platelet Count 70 X10*3/uL (160-400); Red Blood Count 2.27 X10*6/uL (4.60-5.80)
[2024-05-12 15:11] VITALS: BP 116/76; PULSE 96; O2SAT 100
[2024-05-12] MEDS: oxyCODONE HCl Immed Release 5 MG TABLET PO ×2 (15:48→21:12)
[2024-05-12 16:03] LABS: Glucose, Whole Blood 213 mg/dL (60-115)
--- NOTE | 2024-05-12 16:05 | P.PNPSI_ITS ---
Subjective Subjective Date of Service: 05/12/24 Reason For Visit: mood disorder Subjective Notes: Conditional Voluntary Interim History: Pt had parecentises. He reports feeling depressed, and emotions catching up. We discussed starting lexapro as antidepressant- hoping less impact on his liver function and minimally excreated by kidneys. will switch olanzapine for seroquel for more impulsive, irritable behaviors- it is not gudelia, more tendency for explosive behaviors when frustrated. No SI/HI. Looking for snf Review of Systems Review of Systems Sleep, depression Yes all other systems are reviewed and are negative Mental Status Exam Mental Status Exam Narrative: Appearance: wearing hospital gown, fair hygiene, in NAD Behavior: cooperative Psychomotor: no agitation or retardation noted Speech: clear, normal rate/rhythm/volume, spontaneous TP: linear TC: wanting help with coordination of care Mood: better Affect: congruent, somewhat irritable at times SI: conditional to living situation post discharge HI: none VH/AH: none Delusions: no delusional content noted or reported Insight/judgment: poor x 2. Memory/cog: alert, oriented x 4. pending MOCA, ACL. Diagnostics Vital Signs (24Hr): Vital Signs - 24 hr 05/11/24 20:00 05/11/24 21:01 05/12/24 08:00 Temperature 97.6 F 97.3 F Pulse Rate 90 95 Respiratory Rate 18 16 Blood Pressure 129/79 117/91 H 118/81 Pulse Oximetry 100 99 Oxygen Delivery Method Room Air Room Air 05/12/24 15:11 Temperature Pulse Rate 96 Respiratory Rate Blood Pressure 116/76 Pulse Oximetry 100 Oxygen Delivery Method Room Air BMI result Body Mass Index 24.6 Labs 05/12/24 14:12 05/12/24 07:54 Labs: Laboratory Results - last 48 hr 05/08/24 05/10/24 05/10/24 07:57 16:37 19:37 WBC RBC Hgb Hct MCV MCH MCHC RDW Plt Count MPV Immature Gran % (Auto) Neut % (Auto) Lymph % (Auto) [place] % (Auto) Eos % (Auto) Baso % (Auto) Lymph # (Auto) [place] # (Auto) Eos # (Auto) Baso # (Auto) Abs Immat Gran (auto) Absolute Neuts (auto) Absolute Nucleated RBC Nucleated RBC % (auto) PT INR Sodium Potassium Chloride Carbon Dioxide Anion Gap BUN Creatinine Estim Creat Clear Calc Estimated GFR POC Glucose 203 H 203 H Random Glucose Calcium Total Bilirubin AST ALT Alkaline Phosphatase Ammonia Total Protein (PEP) 7.7 Albumin (PEP) 2.6 L Total Protein Albumin Oaerg-4-Ufwjyzbhd 0.4 H Iprhr-4-Vmsahjvdb 0.5 Svwl-3-Kydwaavi 0.4 Mgwp-0-Afxdwzgd 0.7 H Gamma Globulins 3.1 H PEP Interpretation SEE NOTE Abnorm Protein Band 1 TNP Abnorm Protein Band 2 TNP Abnorm Protein Band 3 TNP 05/11/24 05/11/24 05/11/24 06:43 09:41 11:20 WBC 5.3 RBC 2.13 L Hgb 7.5 L Hct 22.5 L MCV 105.6 H MCH 35.2 H MCHC 33.3 RDW 17.0 H Plt Count 61 L D MPV 10.3 Immature Gran % (Auto) 0.4 Neut % (Auto) 79.4 H Lymph % (Auto) 8.0 L [place] % (Auto) 9.7 Eos % (Auto) 2.1 Baso % (Auto) 0.4 Lymph # (Auto) 0.4 L [place] # (Auto) 0.5 Eos # (Auto) 0.1 Baso # (Auto) 0.0 Abs Immat Gran (auto) 0.02 Absolute Neuts (auto) 4.2 Absolute Nucleated RBC 0.000 Nucleated RBC % (auto) 0.0 PT INR Sodium Potassium Chloride Carbon Dioxide Anion Gap BUN Creatinine Estim Creat Clear Calc Estimated GFR POC Glucose 141 H Random Glucose Calcium Total Bilirubin AST ALT Alkaline Phosphatase Ammonia 39 Total Protein (PEP) Albumin (PEP) Total Protein Albumin Lnjlv-1-Uutqycqzv Euhfn-5-Fohftqhmr Ajub-1-Hapeilmj Okak-5-Exgedftg Gamma Globulins PEP Interpretation Abnorm Protein Band 1 Abnorm Protein Band 2 Abnorm Protein Band 3 05/11/24 05/11/24 05/11/24 11:24 16:17 20:37 WBC RBC Hgb Hct MCV MCH MCHC RDW Plt Count MPV Immature Gran % (Auto) Neut % (Auto) Lymph % (Auto) [place] % (Auto) Eos % (Auto) Baso % (Auto) Lymph # (Auto) [place] # (Auto) Eos # (Auto) Baso # (Auto) Abs Immat Gran (auto) Absolute Neuts (auto) Absolute Nucleated RBC Nucleated RBC % (auto) PT INR Sodium Potassium Chloride Carbon Dioxide Anion Gap BUN Creatinine Estim Creat Clear Calc Estimated GFR POC Glucose 248 H 207 H 161 H Random Glucose Calcium Total Bilirubin AST ALT Alkaline Phosphatase Ammonia Total Protein (PEP) Albumin (PEP) Total Protein Albumin Cuffh-9-Tskvgsghi Ncqon-1-Kbhlfrfgj Huzi-4-Pewkhpfb Esgx-2-Rdqovhib Gamma Globulins PEP Interpretation Abnorm Protein Band 1 Abnorm Protein Band 2 Abnorm Protein Band 3 05/12/24 05/12/24 05/12/24 06:28 07:53 07:54 WBC 4.2 L RBC 2.44 L Hgb 8.5 L Hct 25.8 L MCV 105.7 H MCH 34.8 H MCHC 32.9 RDW 16.9 H Plt Count 84 L D MPV 10.8 Immature Gran % (Auto) Neut % (Auto) Lymph % (Auto) [place] % (Auto) Eos % (Auto) Baso % (Auto) Lymph # (Auto) [place] # (Auto) Eos # (Auto) Baso # (Auto) Abs Immat Gran (auto) Absolute Neuts (auto) Absolute Nucleated RBC 0.000 Nucleated RBC % (auto) 0.0 PT 14.1 H INR 1.2 H Sodium 132 L Potassium 3.8 D Chloride 99 Carbon Dioxide 26 Anion Gap 11 L BUN 24 H Creatinine 1.38 Estim Creat Clear Calc 55.7 Estimated GFR 53 POC Glucose 186 H Random Glucose 228 H Calcium 8.2 L Total Bilirubin 2.5 H AST 59 H ALT 21 Alkaline Phosphatase 218 H Ammonia Total Protein (PEP) Albumin (PEP) Total Protein 7.6 Albumin 2.4 L Bssii-9-Fllfhzqoc Uxsev-3-Ymfcgypvj Bxmh-9-Ivyhvnwl Icph-6-Ckrnlqzn Gamma Globulins PEP Interpretation Abnorm Protein Band 1 Abnorm Protein Band 2 Abnorm Protein Band 3 05/12/24 05/12/24 05/12/24 11:05 14:12 15:58 WBC 4.0 L RBC 2.27 L Hgb 8.0 L Hct 23.7 L MCV 104.4 H MCH 35.2 H MCHC 33.8 RDW 17.0 H Plt Count 70 L MPV 10.5 Immature Gran % (Auto) Neut % (Auto) Lymph % (Auto) [place] % (Auto) Eos % (Auto) Baso % (Auto) Lymph # (Auto) [place] # (Auto) Eos # (Auto) Baso # (Auto) Abs Immat Gran (auto) Absolute Neuts (auto) Absolute Nucleated RBC 0.000 Nucleated RBC % (auto) 0.0 PT INR Sodium Potassium Chloride Carbon Dioxide Anion Gap BUN Creatinine Estim Creat Clear Calc Estimated GFR POC Glucose 250 H 213 H Random Glucose Calcium Total Bilirubin AST ALT Alkaline Phosphatase Ammonia Total Protein (PEP) Albumin (PEP) Total Protein Albumin Arzbb-0-Kcdjrtdnp Mottl-0-Ldeiogpfn Idtq-4-Dyofrzas Bddm-9-Armkcqkb Gamma Globulins PEP Interpretation Abnorm Protein Band 1 Abnorm Protein Band 2 Abnorm Protein Band 3 Imaging Radiology Impressions: ITS Impressions Bone Osseous Survey 05/07/24 15:00 IMPRESSION: 1. Cortical depression and adjacent cystic change within the lateral aspect of the left humeral head is redemonstrated. Findings could represent sequela of prior trauma. No aggressive features to suggest an underlying neoplastic lesion. 2. No additional lytic or blastic osseous lesion. 3. Left lower lobe airspace opacities. 4. Slxa-dk-mwwguzlh stool burden. Electronically signed by: Roman Power MD 05/07/2024 11:00 PM EST RP KUB X-Ray 05/09/24 10:00 IMPRESSION: Moderate air and stool throughout the colon. Nonobstructive bowel gas pattern. Electronically signed by: Roman Power MD 05/09/2024 08:07 PM EST RP Abdomen Ultrasound 05/10/24 09:45 IMPRESSION: Moderate ascites. Electronically signed by: David Saul MD 05/10/2024 04:09 PM EST RP Medications Medications Current Medications Al Hydroxide/Mg Hydroxide (Magnesium Hydrox/Alum Hydrox 30 Ml Oral.Susp) 30 ml PO Q6H PRN PRN Reason: Heartburn/Nausea Baclofen (Baclofen 10 Mg Tablet) 10 mg PO TID PRN PRN Reason: muscle tension Last Admin: 05/11/24 21:02 Dose: 10 mg Furosemide (Furosemide 20 Mg Tablet) 20 mg PO DAILY [facility]; Protocol Last Admin: 05/12/24 08:31 Dose: 20 mg Gabapentin (Gabapentin 300 Mg Capsule) 600 mg PO TID [facility] Last Admin: 05/12/24 15:14 Dose: 600 mg Hydroxyzine HCl (Hydroxyzine Hcl 25 Mg Tablet) 25 mg PO Q6H PRN PRN Reason: Anxiety Last Admin: 05/11/24 21:00 Dose: 25 mg Insulin Human Lispro (Insulin Lispro 100 Unit/Ml 3 Ml Vial) 0 unit SUBCUT QIDACHS [facility]; Protocol Last Admin: 05/12/24 11:35 Dose: 2 unit Lactulose (Lactulose 20 Gm/30 Ml Solution) 20 gm PO TID [facility] Last Admin: 05/12/24 15:16 Dose: 20 gm Lorazepam (Lorazepam 0.5 Mg Tablet) 0.5 mg PO BID PRN PRN Reason: Anxiety Last Admin: 05/11/24 20:59 Dose: 0.5 mg Magnesium Hydroxide (Milk Of Magnesia 30 Ml Oral.Susp) 30 ml PO DAILY PRN PRN Reason: Constipation Magnesium Oxide (Magnesium Oxide 400 Mg Tablet) 400 mg PO DAILY [facility] Last Admin: 05/12/24 08:32 Dose: 400 mg Midodrine (Midodrine Hcl 5 Mg Tablet) 5 mg PO TID [facility] Last Admin: 05/12/24 15:13 Dose: 5 mg Pt Own (Orphenadrine Citrate 100 Mg Tablet Extended Release) 100 mg PO BID PRN PRN Reason: Pain Last Admin: 05/11/24 23:15 Dose: 100 mg Olanzapine (Olanzapine 2.5 Mg Tablet) 2.5 mg PO BEDTIME [facility] Last Admin: 05/11/24 20:58 Dose: 2.5 mg Omeprazole (Omeprazole 20 Mg Capsule.Dr) 20 mg PO BID@0630,1630 [facility] Last Admin: 05/12/24 15:48 Dose: 20 mg Ondansetron HCl (Ondansetron Odt 4 Mg Tab.Rapdis) 4 mg TRANSLINGU Q6H PRN PRN Reason: Nausea and Vomiting Last Admin: 05/10/24 16:50 Dose: 4 mg Oxycodone HCl (Oxycodone Hcl Immed Release 5 Mg Tablet) 5 mg PO Q4H PRN PRN Reason: Pain, Severe (Pain Scale 7-10) Last Admin: 05/12/24 15:48 Dose: 5 mg Rifaximin (Rifaximin 550 Mg Tablet) 550 mg PO BID [facility] Last Admin: 05/12/24 08:32 Dose: 550 mg Spironolactone (Spironolactone 25 Mg Tablet) 25 mg PO DAILY [facility]; Protocol Last Admin: 05/12/24 08:31 Dose: 25 mg Trazodone HCl (Trazodone Hcl 25 Mg Halftab) 75 mg PO BEDTIME [facility] Last Admin: 05/11/24 20:56 Dose: 75 mg Allergies Allergies Allergy/AdvReac Type Severity Reaction Status Date / Time acetaminophen AdvReac Unknown Verified 04/28/24 11:48 bismuth subsalicylate AdvReac Unknown Verified 04/28/24 11:48 [From Pepto-Bismol] celecoxib [From Celebrex] AdvReac Unknown Verified 04/28/24 11:48 NSAIDS (Non-Steroidal AdvReac Unknown Verified 04/28/24 11:48 Anti-Inflamma Assessment & Plan Assessment & Plan (1) PTSD (post-traumatic stress disorder): Status: Acute Code(s): F43.10 - Post-traumatic stress disorder, unspecified (2) Homelessness: Status: Acute Code(s): Z59.00 - Homelessness unspecified (3) MAYE (acute kidney injury): Status: Resolved Code(s): N17.9 - Acute kidney failure, unspecified Plan The patient is a middle-aged male with a past history of chronically were failure, bipolar disorder, PTSD, ADHD and chronic homelessness who was brought into the facility after he disclosed suicidal ideation with a plan [place] The patient was assessed by crisis and transferring to this facility for psychiatric stabilization. 05/02: Continue current regimen and plans for stabilization and medication management. Added Seroquel 25 mg nightly p.r.n. 05/03: Continue current regimen and plans for stabilization and medication management 05/04 repeat cmp, cbc, ammonia. 05/05 continue tx. pending GI consult, re: dropping HgB, 05/06- discussed code, pt would like to continue full code at this moment. planning for referrals for SNF. left shoulder pain- had left shoulder xr which shows destructive lesion of 1.4cm (will contact hospitalist for dx and tx). continue to monitor HgB, ammonia (mildly elevated, pt at times refuses lactulose, he is also on rifaximin). Will check pth, ionized calcium (regular calcium low but note low albumin). may consider esr/crp 05/07 continue tx. 05/08 continue tx. pending GI consult. 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 complicated patient provider loathe to make change control analyst weekend for pt 05/10 starting olanzapine tonight- 25mg, lower trazodone 75mg- awaiting week for paracentesis may want to further decrease trazodone and inc olanzapine- watch for nightmares 05/11 parencetises for 05/12. continue monitor hgb. 05/12 daily weights, measurement of abdominal girt. will start lexapro for depression 10mg po daily. seroquel bedtime and morning- will monitor liver function as he start these medications. Reason for continued inpatient stay Substantial Risk for: inability to function Time Spent With Patient Time: Total time managing care of this patient today ____ minutes.
[2024-05-12] MEDS: Escitalopram Oxalate 10 MG TABLET PO (16:51)
[2024-05-12] MEDS: ORPHENADRINE CITRATE 100 MG 100 EACH PO (17:14)
[2024-05-12 18:03] LABS: IgA 1335 mg/dL (47-310); IgG 2696 mg/dL (600-1640); IgM 90 mg/dL (50-300)
[2024-05-12 20:00] VITALS: BP 120/81; PULSE 91; RESP 16; TEMP 36.5; O2SAT 99
[2024-05-12] MEDS: QUEtiapine Fumarate 25 MG TABLET 75 MG PO (20:53)
[2024-05-12] MEDS: traZODone HCL 100 MG TABLET PO (20:53)
[2024-05-12] MEDS: hydrOXYzine HCL 25 MG TABLET PO (21:12)
[2024-05-12 21:23] LABS: Glucose, Whole Blood 153 mg/dL (60-115)
[2024-05-13] MEDS: Omeprazole 20 MG CAPSULE.DR PO ×2 (06:37→16:52)
[2024-05-13 07:00] LABS: Glucose, Whole Blood 124 mg/dL (60-115)
[2024-05-13 08:25] VITALS: BP 111/71; PULSE 83; RESP 12; TEMP 36.2; O2SAT 95
[2024-05-13] MEDS: Furosemide 20 MG TABLET PO (08:39)
[2024-05-13] MEDS: QUEtiapine Fumarate 25 MG TABLET PO (08:39)
[2024-05-13] MEDS: Midodrine HCl 5 MG TABLET PO ×3 (08:39→20:08)
[2024-05-13] MEDS: Gabapentin 300 MG CAPSULE 600 MG PO ×3 (08:39→20:05)
[2024-05-13] MEDS: Magnesium Oxide 400 MG TABLET PO (08:39)
[2024-05-13] MEDS: Lactulose 20 GM/30 ML SOLUTION PO ×3 (08:40→20:05)
[2024-05-13] MEDS: Escitalopram Oxalate 10 MG TABLET PO (08:40)
[2024-05-13] MEDS: rifAXIMin 550 MG TABLET PO ×2 (08:40→20:08)
[2024-05-13] MEDS: Spironolactone 25 MG TABLET PO (08:40)
[2024-05-13 11:07] LABS: Glucose, Whole Blood 215 mg/dL (60-115)
[2024-05-13] MEDS: Insulin Lispro 100 UNIT/ML 3 ML VIAL SUBCUT ×3 (11:15→20:05)
[2024-05-13 14:19] VITALS: BP 100/67
[2024-05-13] MEDS: oxyCODONE HCl Immed Release 5 MG TABLET PO ×2 (14:19→18:48)
[2024-05-13] MEDS: LORazepam 0.5 MG TABLET PO (14:19)
[2024-05-13 16:42] LABS: Glucose, Whole Blood 240 mg/dL (60-115)
--- NOTE | 2024-05-13 16:54 | HO.PSYCHPN ---
Subjective Subjective Date of Service: 05/13/24 Reason For Visit: mood disorder Subjective Notes: Conditional Voluntary Interim History: Pt reports he slept better last night. He reports feeling less reactive today, calmer, he states more relax, which is odd for me. No acute pain. He declined daily weigh, explain this is to monitor ascites. parecentises with low amount, hoping it can be managed with diuretic therapy now that midodrine was added. he is on Na restriction diet, but also notice hyponatremia. He reports feeling overwhelmed, hopes he can go to SNF. He has been more visible, will monitor liver enzymes with new meds. Also monitor ammonia, which finally was wnl. Review of Systems Review of Systems Sleep, depression Yes all other systems are reviewed and are negative Mental Status Exam Mental Status Exam Narrative: Appearance: wearing hospital gown, fair hygiene, in NAD Behavior: cooperative Psychomotor: no agitation or retardation noted Speech: clear, normal rate/rhythm/volume, spontaneous TP: linear TC: wanting help with coordination of care Mood: better Affect: congruent, somewhat irritable at times SI: conditional to living situation post discharge HI: none VH/AH: none Delusions: no delusional content noted or reported Insight/judgment: poor x 2. Memory/cog: alert, oriented x 4. pending MOCA, ACL. Diagnostics Vital Signs (24Hr): Vital Signs - 24 hr 05/12/24 20:00 05/13/24 08:25 05/13/24 14:19 Temperature 97.7 F 97.2 F Pulse Rate 91 83 Respiratory Rate 16 12 Blood Pressure 120/81 111/71 100/67 Pulse Oximetry 99 95 Oxygen Delivery Method Room Air Room Air BMI result Body Mass Index 24.6 Labs 05/12/24 14:12 05/12/24 07:54 Labs: Laboratory Results - last 48 hr 05/08/24 05/11/24 05/12/24 07:57 20:37 06:28 WBC RBC Hgb Hct MCV MCH MCHC RDW Plt Count MPV Absolute Nucleated RBC Nucleated RBC % (auto) PT INR Sodium Potassium Chloride Carbon Dioxide Anion Gap BUN Creatinine Estim Creat Clear Calc Estimated GFR POC Glucose 161 H 186 H Random Glucose Calcium Total Bilirubin AST ALT Alkaline Phosphatase Total Protein Albumin Abnorm Protein Band 1 TNP Abnorm Protein Band 2 TNP Abnorm Protein Band 3 TNP IgG Total 2696 H IgA Total 1335 H IgM 90 ADALGISA Interpretation SEE NOTE 05/12/24 05/12/24 05/12/24 07:53 07:54 11:05 WBC 4.2 L RBC 2.44 L Hgb 8.5 L Hct 25.8 L MCV 105.7 H MCH 34.8 H MCHC 32.9 RDW 16.9 H Plt Count 84 L D MPV 10.8 Absolute Nucleated RBC 0.000 Nucleated RBC % (auto) 0.0 PT 14.1 H INR 1.2 H Sodium 132 L Potassium 3.8 D Chloride 99 Carbon Dioxide 26 Anion Gap 11 L BUN 24 H Creatinine 1.38 Estim Creat Clear Calc 55.7 Estimated GFR 53 POC Glucose 250 H Random Glucose 228 H Calcium 8.2 L Total Bilirubin 2.5 H AST 59 H ALT 21 Alkaline Phosphatase 218 H Total Protein 7.6 Albumin 2.4 L Abnorm Protein Band 1 Abnorm Protein Band 2 Abnorm Protein Band 3 IgG Total IgA Total IgM ADALGISA Interpretation 05/12/24 05/12/24 05/12/24 14:12 15:58 21:19 WBC 4.0 L RBC 2.27 L Hgb 8.0 L Hct 23.7 L MCV 104.4 H MCH 35.2 H MCHC 33.8 RDW 17.0 H Plt Count 70 L MPV 10.5 Absolute Nucleated RBC 0.000 Nucleated RBC % (auto) 0.0 PT INR Sodium Potassium Chloride Carbon Dioxide Anion Gap BUN Creatinine Estim Creat Clear Calc Estimated GFR POC Glucose 213 H 153 H Random Glucose Calcium Total Bilirubin AST ALT Alkaline Phosphatase Total Protein Albumin Abnorm Protein Band 1 Abnorm Protein Band 2 Abnorm Protein Band 3 IgG Total IgA Total IgM ADALGISA Interpretation 05/13/24 05/13/24 05/13/24 06:36 11:02 16:37 WBC RBC Hgb Hct MCV MCH MCHC RDW Plt Count MPV Absolute Nucleated RBC Nucleated RBC % (auto) PT INR Sodium Potassium Chloride Carbon Dioxide Anion Gap BUN Creatinine Estim Creat Clear Calc Estimated GFR POC Glucose 124 H 215 H 240 H Random Glucose Calcium Total Bilirubin AST ALT Alkaline Phosphatase Total Protein Albumin Abnorm Protein Band 1 Abnorm Protein Band 2 Abnorm Protein Band 3 IgG Total IgA Total IgM ADALGISA Interpretation Imaging Radiology Impressions: ITS Impressions Bone Osseous Survey 05/07/24 15:00 IMPRESSION: 1. Cortical depression and adjacent cystic change within the lateral aspect of the left humeral head is redemonstrated. Findings could represent sequela of prior trauma. No aggressive features to suggest an underlying neoplastic lesion. 2. No additional lytic or blastic osseous lesion. 3. Left lower lobe airspace opacities. 4. Isab-yc-cnofzevd stool burden. Electronically signed by: Roman Power MD 05/07/2024 11:00 PM EST RP KUB X-Ray 05/09/24 10:00 IMPRESSION: Moderate air and stool throughout the colon. Nonobstructive bowel gas pattern. Electronically signed by: Roman Power MD 05/09/2024 08:07 PM EST RP Abdomen Ultrasound 05/10/24 09:45 IMPRESSION: Moderate ascites. Electronically signed by: David Saul MD 05/10/2024 04:09 PM EST RP Medications Medications Current Medications Al Hydroxide/Mg Hydroxide (Magnesium Hydrox/Alum Hydrox 30 Ml Oral.Susp) 30 ml PO Q6H PRN PRN Reason: Heartburn/Nausea Baclofen (Baclofen 10 Mg Tablet) 10 mg PO TID PRN PRN Reason: muscle tension Last Admin: 05/11/24 21:02 Dose: 10 mg Escitalopram Oxalate (Escitalopram Oxalate 10 Mg Tablet) 10 mg PO DAILY [facility] Last Admin: 05/13/24 08:40 Dose: 10 mg Furosemide (Furosemide 20 Mg Tablet) 20 mg PO DAILY [facility]; Protocol Last Admin: 05/13/24 08:39 Dose: 20 mg Gabapentin (Gabapentin 300 Mg Capsule) 600 mg PO TID [facility] Last Admin: 05/13/24 14:19 Dose: 600 mg Hydroxyzine HCl (Hydroxyzine Hcl 25 Mg Tablet) 25 mg PO Q6H PRN PRN Reason: Anxiety Last Admin: 05/12/24 21:12 Dose: 25 mg Insulin Human Lispro (Insulin Lispro 100 Unit/Ml 3 Ml Vial) 0 unit SUBCUT QIDACHS [facility]; Protocol Last Admin: 05/13/24 16:52 Dose: 4 unit Lactulose (Lactulose 20 Gm/30 Ml Solution) 20 gm PO TID [facility] Last Admin: 05/13/24 14:19 Dose: 20 gm Lorazepam (Lorazepam 0.5 Mg Tablet) 0.5 mg PO BID PRN PRN Reason: Anxiety Last Admin: 05/13/24 14:19 Dose: 0.5 mg Magnesium Hydroxide (Milk Of Magnesia 30 Ml Oral.Susp) 30 ml PO DAILY PRN PRN Reason: Constipation Magnesium Oxide (Magnesium Oxide 400 Mg Tablet) 400 mg PO DAILY [facility] Last Admin: 05/13/24 08:39 Dose: 400 mg Midodrine (Midodrine Hcl 5 Mg Tablet) 5 mg PO TID [facility] Last Admin: 05/13/24 14:19 Dose: 5 mg Pt Own (Orphenadrine Citrate 100 Mg Tablet Extended Release) 100 mg PO BID PRN PRN Reason: Pain Last Admin: 05/12/24 17:14 Dose: 100 mg Omeprazole (Omeprazole 20 Mg Capsule.Dr) 20 mg PO BID@0630,1630 [facility] Last Admin: 05/13/24 16:52 Dose: 20 mg Ondansetron HCl (Ondansetron Odt 4 Mg Tab.Rapdis) 4 mg TRANSLINGU Q6H PRN PRN Reason: Nausea and Vomiting Last Admin: 05/10/24 16:50 Dose: 4 mg Oxycodone HCl (Oxycodone Hcl Immed Release 5 Mg Tablet) 5 mg PO Q4H PRN PRN Reason: Pain, Severe (Pain Scale 7-10) Last Admin: 05/13/24 14:19 Dose: 5 mg Quetiapine Fumarate (Quetiapine Fumarate 25 Mg Tablet) 75 mg PO BEDTIME [facility] Last Admin: 05/12/24 20:53 Dose: 75 mg Quetiapine Fumarate (Quetiapine Fumarate 25 Mg Tablet) 25 mg PO DAILY [facility] Last Admin: 05/13/24 08:39 Dose: 25 mg Rifaximin (Rifaximin 550 Mg Tablet) 550 mg PO BID [facility] Last Admin: 05/13/24 08:40 Dose: 550 mg Spironolactone (Spironolactone 25 Mg Tablet) 25 mg PO DAILY [facility]; Protocol Last Admin: 05/13/24 08:40 Dose: 25 mg Trazodone HCl (Trazodone Hcl 100 Mg Tablet) 100 mg PO BEDTIME [facility] Last Admin: 05/12/24 20:53 Dose: 100 mg Allergies Allergies Allergy/AdvReac Type Severity Reaction Status Date / Time acetaminophen AdvReac Unknown Verified 04/28/24 11:48 bismuth subsalicylate AdvReac Unknown Verified 04/28/24 11:48 [From Pepto-Bismol] celecoxib [From Celebrex] AdvReac Unknown Verified 04/28/24 11:48 NSAIDS (Non-Steroidal AdvReac Unknown Verified 04/28/24 11:48 Anti-Inflamma Assessment & Plan Assessment & Plan (1) PTSD (post-traumatic stress disorder): Status: Acute Code(s): F43.10 - Post-traumatic stress disorder, unspecified (2) Homelessness: Status: Acute Code(s): Z59.00 - Homelessness unspecified (3) MAYE (acute kidney injury): Status: Resolved Code(s): N17.9 - Acute kidney failure, unspecified Plan The patient is a middle-aged male with a past history of chronically were failure, bipolar disorder, PTSD, ADHD and chronic homelessness who was brought into the facility after he disclosed suicidal ideation with a plan [place]. The patient was assessed by crisis and transferring to this facility for psychiatric stabilization. 05/02: Continue current regimen and plans for stabilization and medication management. Added Seroquel 25 mg nightly p.r.n. 05/03: Continue current regimen and plans for stabilization and medication management 05/04 repeat cmp, cbc, ammonia. 05/05 continue tx. pending GI consult, re: dropping HgB, 05/06- discussed code, pt would like to continue full code at this moment. planning for referrals for SNF. left shoulder pain- had left shoulder xr which shows destructive lesion of 1.4cm (will contact hospitalist for dx and tx). continue to monitor HgB, ammonia (mildly elevated, pt at times refuses lactulose, he is also on rifaximin). Will check pth, ionized calcium (regular calcium low but note low albumin). may consider esr/crp 05/07 continue tx. 05/08 continue tx. pending GI consult. 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 complicated patient provider loathe to make puller over weekend for pt 05/10 starting olanzapine tonight- 25mg, lower trazodone 75mg- awaiting for paracentesis may want to further decrease trazodone and inc olanzapine- watch for nightmares 05/11 parencetises for 05/12. continue monitor hgb. 05/12 daily weights, measurement of abdominal girt. will start lexapro for depression 10mg po daily. seroquel bedtime and morning- will monitor liver function as he start these medications. 05/13 continue tx. continue daily weigh- hopefully pt won't refuse. monitor ammonia, Hgb. Per GI, transfusion if Hgb <8. Reason for continued inpatient stay Substantial Risk for: inability to function Time Spent With Patient Time: Total time managing care of this patient today ____ minutes.
[2024-05-13 19:43] LABS: Glucose, Whole Blood 215 mg/dL (60-115)
[2024-05-13 20:00] VITALS: BP 109/66; PULSE 85; RESP 17; TEMP 36.1; O2SAT 98
[2024-05-13] MEDS: traZODone HCL 100 MG TABLET PO (20:08)
[2024-05-13] MEDS: QUEtiapine Fumarate 25 MG TABLET 75 MG PO (20:08)
[2024-05-13] MEDS: hydrOXYzine HCL 25 MG TABLET PO (20:13)
[2024-05-14] MEDS: oxyCODONE HCl Immed Release 5 MG TABLET PO ×3 (00:47→21:26)
[2024-05-14] MEDS: Omeprazole 20 MG CAPSULE.DR PO ×2 (05:53→16:27)
[2024-05-14] MEDS: hydrOXYzine HCL 25 MG TABLET PO ×2 (06:00→21:26)
[2024-05-14] MEDS: LORazepam 0.5 MG TABLET PO ×2 (06:00→15:02)
[2024-05-14 06:38] LABS: Glucose, Whole Blood 163 mg/dL (60-115)
[2024-05-14 08:00] VITALS: BMI 25.4
[2024-05-14 08:08] VITALS: BP 107/74; PULSE 93; RESP 18; TEMP 36.8; O2SAT 100
[2024-05-14] MEDS: Midodrine HCl 5 MG TABLET PO ×3 (08:18→20:44)
[2024-05-14] MEDS: Spironolactone 25 MG TABLET PO (08:18)
[2024-05-14] MEDS: Magnesium Oxide 400 MG TABLET PO (08:18)
[2024-05-14] MEDS: rifAXIMin 550 MG TABLET PO ×2 (08:18→20:44)
[2024-05-14] MEDS: Furosemide 20 MG TABLET PO (08:18)
[2024-05-14] MEDS: QUEtiapine Fumarate 25 MG TABLET PO (08:18)
[2024-05-14] MEDS: Gabapentin 300 MG CAPSULE 600 MG PO ×3 (08:18→20:43)
[2024-05-14] MEDS: Lactulose 20 GM/30 ML SOLUTION PO ×3 (08:18→20:43)
[2024-05-14] MEDS: Escitalopram Oxalate 10 MG TABLET PO (08:18)
[2024-05-14] MEDS: Insulin Lispro 100 UNIT/ML 3 ML VIAL SUBCUT ×4 (08:22→20:45)
[2024-05-14 11:09] LABS: Glucose, Whole Blood 183 mg/dL (60-115)
--- NOTE | 2024-05-14 11:42 | P.PNPSI_ITS ---
Subjective Subjective Date of Service: 05/14/24 Reason For Visit: mood disorder Subjective Notes: Conditional Voluntary Interim History: Pt active in the milieu social less complaints of pain generally asking about long-acting insulin. Medication Compliance: Yes Mental Status Exam Mental Status Exam Narrative: Appearance: wearing hospital gown, fair hygiene, in NAD Behavior: cooperative Psychomotor: no agitation or retardation noted Speech: clear, normal rate/rhythm/volume, spontaneous TP: linear TC: wanting help with coordination of care Mood: ok Affect: Appropriate, somewhat irritable at times SI: Thoughts he would be better off at times HI: none VH/AH: none Delusions: no delusional content noted or reported Insight/judgment: poor x 2. Memory/cog: alert, oriented x 4. pending MOCA, ACL. Diagnostics Vital Signs (24Hr): Vital Signs - 24 hr 05/13/24 14:19 05/13/24 20:00 05/14/24 08:08 Temperature 97 F 98.3 F Pulse Rate 85 93 Respiratory Rate 17 18 Blood Pressure 100/67 109/66 107/74 Pulse Oximetry 98 100 Oxygen Delivery Method Room Air Room Air BMI result Body Mass Index 24.6 Labs 05/12/24 14:12 05/12/24 07:54 Labs: Laboratory Results - last 48 hr 05/08/24 05/12/24 05/12/24 07:57 14:12 15:58 WBC 4.0 L RBC 2.27 L Hgb 8.0 L Hct 23.7 L MCV 104.4 H MCH 35.2 H MCHC 33.8 RDW 17.0 H Plt Count 70 L MPV 10.5 Absolute Nucleated RBC 0.000 Nucleated RBC % (auto) 0.0 POC Glucose 213 H IgG Total 2696 H IgA Total 1335 H IgM 90 ADALGISA Interpretation SEE NOTE 05/12/24 05/13/24 05/13/24 21:19 06:36 11:02 WBC RBC Hgb Hct MCV MCH MCHC RDW Plt Count MPV Absolute Nucleated RBC Nucleated RBC % (auto) POC Glucose 153 H 124 H 215 H IgG Total IgA Total IgM ADALGISA Interpretation 05/13/24 05/13/24 05/14/24 16:37 19:38 06:17 WBC RBC Hgb Hct MCV MCH MCHC RDW Plt Count MPV Absolute Nucleated RBC Nucleated RBC % (auto) POC Glucose 240 H 215 H 163 H IgG Total IgA Total IgM ADALGISA Interpretation 05/14/24 11:05 WBC RBC Hgb Hct MCV MCH MCHC RDW Plt Count MPV Absolute Nucleated RBC Nucleated RBC % (auto) POC Glucose 183 H IgG Total IgA Total IgM ADALGISA Interpretation Imaging Radiology Impressions: ITS Impressions Bone Osseous Survey 05/07/24 15:00 IMPRESSION: 1. Cortical depression and adjacent cystic change within the lateral aspect of the left humeral head is redemonstrated. Findings could represent sequela of prior trauma. No aggressive features to suggest an underlying neoplastic lesion. 2. No additional lytic or blastic osseous lesion. 3. Left lower lobe airspace opacities. 4. Pmoi-vq-aafstchy stool burden. Electronically signed by: Roman Power MD 05/07/2024 11:00 PM EST RP KUB X-Ray 05/09/24 10:00 IMPRESSION: Moderate air and stool throughout the colon. Nonobstructive bowel gas pattern. Electronically signed by: Roman Power MD 05/09/2024 08:07 PM EST RP Abdomen Ultrasound 05/10/24 09:45 IMPRESSION: Moderate ascites. Electronically signed by: David Saul MD 05/10/2024 04:09 PM EST RP Medications Medications Current Medications Al Hydroxide/Mg Hydroxide (Magnesium Hydrox/Alum Hydrox 30 Ml Oral.Susp) 30 ml PO Q6H PRN PRN Reason: Heartburn/Nausea Baclofen (Baclofen 10 Mg Tablet) 10 mg PO TID PRN PRN Reason: muscle tension Last Admin: 05/11/24 21:02 Dose: 10 mg Escitalopram Oxalate (Escitalopram Oxalate 10 Mg Tablet) 10 mg PO DAILY [facility] Last Admin: 05/14/24 08:18 Dose: 10 mg Furosemide (Furosemide 20 Mg Tablet) 20 mg PO DAILY [facility]; Protocol Last Admin: 05/14/24 08:18 Dose: 20 mg Gabapentin (Gabapentin 300 Mg Capsule) 600 mg PO TID [facility] Last Admin: 05/14/24 08:18 Dose: 600 mg Hydroxyzine HCl (Hydroxyzine Hcl 25 Mg Tablet) 25 mg PO Q6H PRN PRN Reason: Anxiety Last Admin: 05/14/24 06:00 Dose: 25 mg Insulin Human Lispro (Insulin Lispro 100 Unit/Ml 3 Ml Vial) 0 unit SUBCUT QIDACHS [facility]; Protocol Last Admin: 05/14/24 11:33 Dose: 2 unit Lactulose (Lactulose 20 Gm/30 Ml Solution) 20 gm PO TID [facility] Last Admin: 05/14/24 08:18 Dose: 20 gm Lorazepam (Lorazepam 0.5 Mg Tablet) 0.5 mg PO BID PRN PRN Reason: Anxiety Last Admin: 05/14/24 06:00 Dose: 0.5 mg Magnesium Hydroxide (Milk Of Magnesia 30 Ml Oral.Susp) 30 ml PO DAILY PRN PRN Reason: Constipation Magnesium Oxide (Magnesium Oxide 400 Mg Tablet) 400 mg PO DAILY [facility] Last Admin: 05/14/24 08:18 Dose: 400 mg Midodrine (Midodrine Hcl 5 Mg Tablet) 5 mg PO TID [facility] Last Admin: 05/14/24 08:18 Dose: 5 mg Pt Own (Orphenadrine Citrate 100 Mg Tablet Extended Release) 100 mg PO BID PRN PRN Reason: Pain Last Admin: 05/12/24 17:14 Dose: 100 mg Omeprazole (Omeprazole 20 Mg Capsule.Dr) 20 mg PO BID@0630,1630 [facility] Last Admin: 05/14/24 05:53 Dose: 20 mg Ondansetron HCl (Ondansetron Odt 4 Mg Tab.Rapdis) 4 mg TRANSLINGU Q6H PRN PRN Reason: Nausea and Vomiting Last Admin: 05/10/24 16:50 Dose: 4 mg Oxycodone HCl (Oxycodone Hcl Immed Release 5 Mg Tablet) 5 mg PO Q4H PRN PRN Reason: Pain, Severe (Pain Scale 7-10) Last Admin: 05/14/24 00:47 Dose: 5 mg Quetiapine Fumarate (Quetiapine Fumarate 25 Mg Tablet) 75 mg PO BEDTIME [facility] Last Admin: 05/13/24 20:08 Dose: 75 mg Quetiapine Fumarate (Quetiapine Fumarate 25 Mg Tablet) 25 mg PO DAILY [facility] Last Admin: 05/14/24 08:18 Dose: 25 mg Rifaximin (Rifaximin 550 Mg Tablet) 550 mg PO BID [facility] Last Admin: 05/14/24 08:18 Dose: 550 mg Spironolactone (Spironolactone 25 Mg Tablet) 25 mg PO DAILY [facility]; Protocol Last Admin: 05/14/24 08:18 Dose: 25 mg Trazodone HCl (Trazodone Hcl 100 Mg Tablet) 100 mg PO BEDTIME [facility] Last Admin: 05/13/24 20:08 Dose: 100 mg Allergies Allergies Allergy/AdvReac Type Severity Reaction Status Date / Time acetaminophen AdvReac Unknown Verified 04/28/24 11:48 bismuth subsalicylate AdvReac Unknown Verified 04/28/24 11:48 [From Pepto-Bismol] celecoxib [From Celebrex] AdvReac Unknown Verified 04/28/24 11:48 NSAIDS (Non-Steroidal AdvReac Unknown Verified 04/28/24 11:48 Anti-Inflamma Assessment & Plan Assessment & Plan (1) PTSD (post-traumatic stress disorder): Status: Acute Code(s): F43.10 - Post-traumatic stress disorder, unspecified (2) Homelessness: Status: Acute Code(s): Z59.00 - Homelessness unspecified (3) MAYE (acute kidney injury): Status: Resolved Code(s): N17.9 - Acute kidney failure, unspecified Plan The patient is a middle-aged male with a past history of chronically were failure, bipolar disorder, PTSD, ADHD and chronic homelessness who was brought into the facility after he disclosed suicidal ideation with a [place] The patient was assessed by crisis and transferring to this facility for psychiatric stabilization. 05/02: Continue current regimen and plans for stabilization and medication management. Added Seroquel 25 mg nightly p.r.n. 05/03: Continue current regimen and plans for stabilization and medication management 05/04 repeat cmp, cbc, ammonia. 05/05 continue tx. pending GI consult, re: dropping HgB, 05/06- discussed code, pt would like to continue full code at this moment. planning for referrals for SNF. left shoulder pain- had left shoulder xr which shows destructive lesion of 1.4cm (will contact hospitalist for dx and tx). continue to monitor HgB, ammonia (mildly elevated, pt at times refuses lactulose, he is also on rifaximin). Will check pth, ionized calcium (regular calcium low but note low albumin). may consider esr/crp 05/07 continue tx. 05/08 continue tx. pending GI consult. 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 complicated patient provider loathe to make acid changer weekend for pt 05/10 starting olanzapine tonight- 25mg, lower trazodone 75mg- awaiting week for paracentesis may want to further decrease trazodone and inc olanzapine- watch for nightmares 05/11 parencetises for 05/12. continue monitor hgb. 05/12 daily weights, measurement of abdominal girt. will start lexapro for depression 10mg po daily. seroquel bedtime and morning- will monitor liver function as he start these medications. 05/13 continue tx. continue daily weigh- hopefully pt won't refuse. monitor ammonia, Hgb. Per GI, transfusion if Hgb <8. 05/14/2024 Patient feeling medically improved remains depressed hopeless helpless difficulty with future orientation Reason for continued inpatient stay Substantial Risk for: harm to self and med/psych decompensation Time Spent With Patient Time: Total time managing care of this patient today ____ minutes.
[2024-05-14 14:30] VITALS: BP 99/70
--- NOTE | 2024-05-14 15:19 | PM.EVENT ---
Event Note Date of Service: 05/14/24 Event Note: Patient is a 58-year-old male admitted to [facility] with complicated PMH, including insulin-dependent type 2 diabetes. Medical consult for diabetes management and recommendation for long-acting insulin. Patient currently is only on sliding scale insulin. POC is continued to be elevated in 160-240 range. Will start on Lantus 10 units at bedtime for now. Time Spent With Patient Time: Total time managing care of this patient today ____ minutes.
[2024-05-14 16:23] LABS: Glucose, Whole Blood 163 mg/dL (60-115)
[2024-05-14 19:42] LABS: Glucose, Whole Blood 159 mg/dL (60-115)
[2024-05-14 20:41] VITALS: BP 113/87; PULSE 94; RESP 16; TEMP 36.8; O2SAT 98
[2024-05-14 20:44] VITALS: BP 113/87
[2024-05-14] MEDS: traZODone HCL 100 MG TABLET PO (20:44)
[2024-05-14] MEDS: QUEtiapine Fumarate 25 MG TABLET 75 MG PO (20:44)
[2024-05-14] MEDS: Insulin Glargine,Hum.rec.anlog 100 UNIT/ML 10 ML VIAL 10 UNIT SUBCUT (20:45)
[2024-05-15] MEDS: oxyCODONE HCl Immed Release 5 MG TABLET PO ×4 (03:15→20:26)
[2024-05-15] MEDS: LORazepam 0.5 MG TABLET PO ×2 (03:15→13:21)
[2024-05-15] MEDS: Omeprazole 20 MG CAPSULE.DR PO ×2 (06:31→16:22)
[2024-05-15 06:41] LABS: Glucose, Whole Blood 134 mg/dL (60-115)
[2024-05-15 08:00] VITALS: BP 107/62; PULSE 95; RESP 16; TEMP 36.6; O2SAT 96
[2024-05-15] MEDS: Furosemide 20 MG TABLET PO (08:29)
[2024-05-15] MEDS: Spironolactone 25 MG TABLET PO (08:29)
[2024-05-15] MEDS: Lactulose 20 GM/30 ML SOLUTION PO ×3 (08:30→20:26)
[2024-05-15] MEDS: rifAXIMin 550 MG TABLET PO ×2 (08:30→20:24)
[2024-05-15] MEDS: QUEtiapine Fumarate 25 MG TABLET PO (08:30)
[2024-05-15] MEDS: hydrOXYzine HCL 25 MG TABLET PO ×2 (08:30→20:26)
[2024-05-15] MEDS: Escitalopram Oxalate 10 MG TABLET PO (08:30)
[2024-05-15] MEDS: Midodrine HCl 5 MG TABLET PO ×3 (08:31→20:36)
[2024-05-15] MEDS: Magnesium Oxide 400 MG TABLET PO (08:31)
[2024-05-15] MEDS: Gabapentin 300 MG CAPSULE 600 MG PO ×3 (08:33→20:25)
[2024-05-15 13:12] LABS: Glucose, Whole Blood 245 mg/dL (60-115)
[2024-05-15] MEDS: Insulin Lispro 100 UNIT/ML 3 ML VIAL SUBCUT ×3 (13:13→20:26)
--- NOTE | 2024-05-15 13:20 | P.PNPSI_ITS ---
Subjective Subjective Date of Service: 05/15/24 Reason For Visit: mood disorder Subjective Notes: Conditional Voluntary Interim History: Pt reports some difficulty sleeping due to peer being loud at night. He reports bilat edema seen by hospitalist. He reports feeling a little bit better, less depressed, perhaps. He denies SI/HI. tolerating medications. Review of Systems Review of Systems Sleep, depression Yes all other systems are reviewed and are negative Mental Status Exam Mental Status Exam Narrative: Appearance: wearing hospital gown, fair hygiene, in NAD Behavior: cooperative Psychomotor: no agitation or retardation noted Speech: clear, normal rate/rhythm/volume, spontaneous TP: linear TC: wanting help with coordination of care Mood: better Affect: congruent, somewhat irritable at times SI: conditional to living situation post discharge HI: none VH/AH: none Delusions: no delusional content noted or reported Insight/judgment: poor x 2. Memory/cog: alert, oriented x 4. pending MOCA, ACL. Diagnostics Vital Signs (24Hr): Vital Signs - 24 hr 05/14/24 14:30 05/14/24 20:41 05/14/24 20:44 Temperature 98.2 F Pulse Rate 94 Respiratory Rate 16 Blood Pressure 99/70 113/87 113/87 Pulse Oximetry 98 Oxygen Delivery Method Room Air 05/15/24 08:00 Temperature 97.8 F Pulse Rate 95 Respiratory Rate 16 Blood Pressure 107/62 Pulse Oximetry 96 Oxygen Delivery Method Room Air BMI result Body Mass Index 25.4 Labs 05/12/24 14:12 05/12/24 07:54 Labs: Laboratory Results - last 48 hr 05/13/24 05/13/24 05/14/24 16:37 19:38 06:17 POC Glucose 240 H 215 H 163 H 05/14/24 05/14/24 05/14/24 11:05 16:20 19:38 POC Glucose 183 H 163 H 159 H 05/15/24 05/15/24 06:31 13:08 POC Glucose 134 H 245 H Imaging Radiology Impressions: ITS Impressions Bone Osseous Survey 05/07/24 15:00 IMPRESSION: 1. Cortical depression and adjacent cystic change within the lateral aspect of the left humeral head is redemonstrated. Findings could represent sequela of prior trauma. No aggressive features to suggest an underlying neoplastic lesion. 2. No additional lytic or blastic osseous lesion. 3. Left lower lobe airspace opacities. 4. Vrsb-jf-xishzbzf stool burden. Electronically signed by: Roman Power MD 05/07/2024 11:00 PM EST RP KUB X-Ray 05/09/24 10:00 IMPRESSION: Moderate air and stool throughout the colon. Nonobstructive bowel gas pattern. Electronically signed by: Roman Power MD 05/09/2024 08:07 PM EST RP Abdomen Ultrasound 05/10/24 09:45 IMPRESSION: Moderate ascites. Electronically signed by: David Saul MD 05/10/2024 04:09 PM EST RP Medications Medications Current Medications Al Hydroxide/Mg Hydroxide (Magnesium Hydrox/Alum Hydrox 30 Ml Oral.Susp) 30 ml PO Q6H PRN PRN Reason: Heartburn/Nausea Baclofen (Baclofen 10 Mg Tablet) 10 mg PO TID PRN PRN Reason: muscle tension Last Admin: 05/11/24 21:02 Dose: 10 mg Escitalopram Oxalate (Escitalopram Oxalate 10 Mg Tablet) 10 mg PO DAILY COUNTS [facility]CLUDE 234 BEDS AT [facility] Last Admin: 05/15/24 08:30 Dose: 10 mg Furosemide (Furosemide 20 Mg Tablet) 20 mg PO DAILY [facility]; Protocol Last Admin: 05/15/24 08:29 Dose: 20 mg Gabapentin (Gabapentin 300 Mg Capsule) 600 mg PO TID [facility] Last Admin: 05/15/24 08:33 Dose: 600 mg Hydroxyzine HCl (Hydroxyzine Hcl 25 Mg Tablet) 25 mg PO Q6H PRN PRN Reason: Anxiety Last Admin: 05/15/24 08:30 Dose: 25 mg Insulin Glargine (Insulin Glargine,Hum.Rec.Anlog 100 Unit/Ml 10 Ml Vial) 10 unit SUBCUT BEDTIME [facility] Last Admin: 05/14/24 20:45 Dose: 10 unit Insulin Human Lispro (Insulin Lispro 100 Unit/Ml 3 Ml Vial) 0 unit SUBCUT QIDACHS [facility]; Protocol Last Admin: 05/15/24 13:13 Dose: 4 unit Lactulose (Lactulose 20 Gm/30 Ml Solution) 20 gm PO TID [facility] Last Admin: 05/15/24 08:30 Dose: 20 gm Lorazepam (Lorazepam 0.5 Mg Tablet) 0.5 mg PO BID PRN PRN Reason: Anxiety Last Admin: 05/15/24 03:15 Dose: 0.5 mg Magnesium Hydroxide (Milk Of Magnesia 30 Ml Oral.Susp) 30 ml PO DAILY PRN PRN Reason: Constipation Magnesium Oxide (Magnesium Oxide 400 Mg Tablet) 400 mg PO DAILY COUNTS INCLUDE 234 BEDS AT [facility] Last Admin: 05/15/24 08:31 Dose: 400 mg Midodrine (Midodrine Hcl 5 Mg Tablet) 5 mg PO TID COUNTS INCLUDE 234 BEDS AT [facility] Last Admin: 05/15/24 08:31 Dose: 5 mg Pt Own (Orphenadrine Citrate 100 Mg Tablet Extended Release) 100 mg PO BID PRN PRN Reason: Pain Last Admin: 05/12/24 17:14 Dose: 100 mg Omeprazole (Omeprazole 20 Mg Capsule.Dr) 20 mg PO BID@0630,1630 COUNTS INCLUDE 234 BEDS AT [facility] Last Admin: 05/15/24 06:31 Dose: 20 mg Ondansetron HCl (Ondansetron Odt 4 Mg Tab.Rapdis) 4 mg TRANSLINGU Q6H PRN PRN Reason: Nausea and Vomiting Last Admin: 05/10/24 16:50 Dose: 4 mg Oxycodone HCl (Oxycodone Hcl Immed Release 5 Mg Tablet) 5 mg PO Q4H PRN PRN Reason: Pain, Severe (Pain Scale 7-10) Last Admin: 05/15/24 08:32 Dose: 5 mg Quetiapine Fumarate (Quetiapine Fumarate 25 Mg Tablet) 75 mg PO BEDTIME COUNTS INCLUDE 234 BEDS AT [facility] Last Admin: 05/14/24 20:44 Dose: 75 mg Quetiapine Fumarate (Quetiapine Fumarate 25 Mg Tablet) 25 mg PO DAILY COUNTS INCLUDE 234 BEDS AT THE [facility] Last Admin: 05/15/24 08:30 Dose: 25 mg Rifaximin (Rifaximin 550 Mg Tablet) 550 mg PO BID COUNTS INCLUDE 234 BEDS AT THE [facility] Last Admin: 05/15/24 08:30 Dose: 550 mg Spironolactone (Spironolactone 25 Mg Tablet) 25 mg PO DAILY COUNTS INCLUDE 234 BEDS AT [facility]; Protocol Last Admin: 05/15/24 08:29 Dose: 25 mg Trazodone HCl (Trazodone Hcl 100 Mg Tablet) 100 mg PO BEDTIME COUNTS INCLUDE 234 BEDS AT [facility] Last Admin: 05/14/24 20:44 Dose: 100 mg Allergies Allergies Allergy/AdvReac Type Severity Reaction Status Date / Time acetaminophen AdvReac Unknown Verified 04/28/24 11:48 bismuth subsalicylate AdvReac Unknown Verified 04/28/24 11:48 [From Pepto-Bismol] celecoxib [From Celebrex] AdvReac Unknown Verified 04/28/24 11:48 NSAIDS (Non-Steroidal AdvReac Unknown Verified 04/28/24 11:48 Anti-Inflamma Assessment & Plan Assessment & Plan (1) PTSD (post-traumatic stress disorder): Status: Acute Code(s): F43.10 - Post-traumatic stress disorder, unspecified (2) Homelessness: Status: Acute Code(s): Z59.00 - Homelessness unspecified (3) MAYE (acute kidney injury): Status: Resolved Code(s): N17.9 - Acute kidney failure, unspecified Plan The patient is a middle-aged male with a past history of chronically were failure, bipolar disorder, PTSD, ADHD and chronic homelessness who was brought into the facility after he disclosed suicidal ideation with [place] The patient was assessed by crisis and transferring to this facility for psychiatric stabilization. 05/02: Continue current regimen and plans for stabilization and medication management. Added Seroquel 25 mg nightly p.r.n. 05/03: Continue current regimen and plans for stabilization and medication management 05/04 repeat cmp, cbc, ammonia. 05/05 continue tx. pending GI consult, re: dropping HgB, 05/06- discussed code, pt would like to continue full code at this moment. planning for referrals for SNF. left shoulder pain- had left shoulder xr which shows destructive lesion of 1.4cm (will contact hospitalist for dx and tx). continue to monitor HgB, ammonia (mildly elevated, pt at times refuses lactulose, he is also on rifaximin). Will check pth, ionized calcium (regular calcium low but note low albumin). may consider esr/crp 05/07 continue tx. 05/08 continue tx. pending GI consult. 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 complicated patient provider loathe to make foreign exchange services manager weekend for pt 05/10 starting olanzapine tonight- 25mg, lower trazodone 75mg- awaiting for paracentesis may want to further decrease trazodone and inc olanzapine- watch for nightmares 05/11 parencetises for 05/12. continue monitor hgb. 05/12 daily weights, measurement of abdominal girt. will start lexapro for depression 10mg po daily. seroquel bedtime and morning- will monitor liver function as he start these medications. 05/13 continue tx. continue daily weigh- hopefully pt won't refuse. monitor ammonia, Hgb. Per GI, transfusion if Hgb <8. 05/15 continue tx. Reason for continued inpatient stay Substantial Risk for: inability to function Time Spent With Patient Time: Total time managing care of this patient today ____ minutes.
[2024-05-15 13:49] VITALS: BMI 25.7
[2024-05-15 16:41] LABS: Glucose, Whole Blood 167 mg/dL (60-115)
[2024-05-15 20:00] VITALS: BP 120/57; PULSE 79; RESP 18; TEMP 36.5; O2SAT 99
[2024-05-15 20:04] LABS: Glucose, Whole Blood 164 mg/dL (60-115)
[2024-05-15] MEDS: ORPHENADRINE CITRATE 100 MG 100 EACH PO (20:24)
[2024-05-15] MEDS: QUEtiapine Fumarate 25 MG TABLET 75 MG PO (20:24)
[2024-05-15] MEDS: traZODone HCL 100 MG TABLET PO (20:25)
[2024-05-15] MEDS: Insulin Glargine,Hum.rec.anlog 100 UNIT/ML 10 ML VIAL 10 UNIT SUBCUT (20:27)
[2024-05-16] MEDS: LORazepam 0.5 MG TABLET PO ×2 (01:21→20:48)
[2024-05-16] MEDS: oxyCODONE HCl Immed Release 5 MG TABLET PO ×3 (02:31→20:48)
[2024-05-16] MEDS: hydrOXYzine HCL 25 MG TABLET PO ×3 (02:32→20:48)
[2024-05-16] MEDS: Omeprazole 20 MG CAPSULE.DR PO ×2 (06:39→16:30)
[2024-05-16 07:02] LABS: Glucose, Whole Blood 184 mg/dL (60-115)
[2024-05-16 08:00] VITALS: BP 101/63; PULSE 87; RESP 16; TEMP 36.5; O2SAT 98
[2024-05-16] MEDS: Lactulose 20 GM/30 ML SOLUTION PO ×3 (08:51→20:49)
[2024-05-16] MEDS: Insulin Lispro 100 UNIT/ML 3 ML VIAL SUBCUT ×3 (08:52→16:30)
[2024-05-16] MEDS: Midodrine HCl 5 MG TABLET PO ×3 (08:52→20:48)
[2024-05-16] MEDS: Gabapentin 300 MG CAPSULE 600 MG PO ×3 (09:20→20:47)
[2024-05-16] MEDS: rifAXIMin 550 MG TABLET PO ×2 (09:20→20:48)
[2024-05-16] MEDS: QUEtiapine Fumarate 25 MG TABLET PO (09:20)
[2024-05-16] MEDS: Escitalopram Oxalate 10 MG TABLET PO (09:21)
[2024-05-16] MEDS: Furosemide 20 MG TABLET PO (09:21)
[2024-05-16] MEDS: Spironolactone 25 MG TABLET PO (09:21)
--- NOTE | 2024-05-16 10:19 | PC.NURSE ---
md informed of pt's bp. per ok to administer meds d/t BP trend.
[2024-05-16 11:18] LABS: Glucose, Whole Blood 182 mg/dL (60-115)
[2024-05-16 14:32] VITALS: BP 95/60
[2024-05-16 16:24] LABS: Glucose, Whole Blood 160 mg/dL (60-115)
[2024-05-16] MEDS: Ondansetron ODT 4 MG TAB.RAPDIS TRANSLINGU (16:37)
[2024-05-16 20:00] VITALS: BP 116/77; PULSE 91; RESP 18; TEMP 37.1; O2SAT 96
[2024-05-16 20:13] VITALS: BMI 26.0
[2024-05-16 20:32] LABS: Glucose, Whole Blood 145 mg/dL (60-115)
[2024-05-16] MEDS: traZODone HCL 100 MG TABLET PO (20:48)
[2024-05-16] MEDS: QUEtiapine Fumarate 25 MG TABLET 75 MG PO (20:48)
[2024-05-16] MEDS: Insulin Glargine,Hum.rec.anlog 100 UNIT/ML 10 ML VIAL 10 UNIT SUBCUT (20:49)
[2024-05-16] MEDS: ORPHENADRINE CITRATE 100 MG 100 EACH PO (20:53)
--- NOTE | 2024-05-16 22:52 | P.PNPSI_ITS ---
Subjective Subjective Date of Service: 05/16/24 Reason For Visit: mood disorder Subjective Notes: Conditional Voluntary Interim History: Patient feeling somewhat improved more future oriented less suicidal preoccupations some periods of fatigue he can be socially engaged in the milieu Mental Status Exam Mental Status Exam Narrative: Appearance: wearing hospital gown, fair hygiene, in NAD Behavior: cooperative Psychomotor: no agitation or retardation noted Speech: clear, normal rate/rhythm/volume, spontaneous TP: linear TC: wanting help with coordination of care Mood: Okay Affect: congruent, somewhat irritable at times SI: conditional to living situation post discharge HI: none VH/AH: none Delusions: no delusional content noted or reported Insight/judgment: poor x 2. Memory/cog: alert, oriented x 4. pending MOCA, ACL. Diagnostics Vital Signs (24Hr): Vital Signs - 24 hr 05/16/24 08:00 05/16/24 14:32 05/16/24 20:00 Temperature 97.7 F 98.8 F Pulse Rate 87 91 Respiratory Rate 16 18 Blood Pressure 101/63 95/60 116/77 Pulse Oximetry 98 96 Oxygen Delivery Method Room Air Room Air BMI result Body Mass Index 26.0 Labs 05/12/24 14:12 05/12/24 07:54 Labs: Laboratory Results - last 48 hr 05/15/24 05/15/24 05/15/24 06:31 13:08 16:34 POC Glucose 134 H 245 H 167 H 05/15/24 05/16/24 05/16/24 20:00 06:40 11:14 POC Glucose 164 H 184 H 182 H 05/16/24 05/16/24 16:19 20:29 POC Glucose 160 H 145 H Imaging Radiology Impressions: ITS Impressions Bone Osseous Survey 05/07/24 15:00 IMPRESSION: 1. Cortical depression and adjacent cystic change within the lateral aspect of the left humeral head is redemonstrated. Findings could represent sequela of prior trauma. No aggressive features to suggest an underlying neoplastic lesion. 2. No additional lytic or blastic osseous lesion. 3. Left lower lobe airspace opacities. 4. [id number] stool burden. Electronically signed by: Roman Power MD 05/07/2024 11:[address] [facility] X-Ray 05/09/24 10:00 IMPRESSION: Moderate air and stool throughout the colon. Nonobstructive bowel gas pattern. Electronically signed by: Roman Power MD 05/09/2024 08:07 PM EST RP Abdomen Ultrasound 05/10/24 09:45 IMPRESSION: Moderate ascites. Electronically signed by: David Saul MD 05/10/2024 04:09 PM EST RP Medications Medications Current Medications Al Hydroxide/Mg Hydroxide (Magnesium Hydrox/Alum Hydrox 30 Ml Oral.Susp) 30 ml PO Q6H PRN PRN Reason: Heartburn/Nausea Baclofen (Baclofen 10 Mg Tablet) 10 mg PO TID PRN PRN Reason: muscle tension Last Admin: 05/11/24 21:02 Dose: 10 mg Escitalopram Oxalate (Escitalopram Oxalate 10 Mg Tablet) 10 mg PO DAILY [facility] Last Admin: 05/16/24 09:21 Dose: 10 mg Furosemide (Furosemide 20 Mg Tablet) 20 mg PO DAILY [facility]; Protocol Last Admin: 05/16/24 09:21 Dose: 20 mg Gabapentin (Gabapentin 300 Mg Capsule) 600 mg PO TID [facility] Last Admin: 05/16/24 20:47 Dose: 600 mg Hydroxyzine HCl (Hydroxyzine Hcl 25 Mg Tablet) 25 mg PO Q6H PRN PRN Reason: Anxiety Last Admin: 05/16/24 20:48 Dose: 25 mg Insulin Glargine (Insulin Glargine,Hum.Rec.Anlog 100 Unit/Ml 10 Ml Vial) 10 unit SUBCUT BEDTIME [facility] Last Admin: 05/16/24 20:49 Dose: 10 unit Insulin Human Lispro (Insulin Lispro 100 Unit/Ml 3 Ml Vial) 0 unit SUBCUT QIDACHS [facility]; Protocol Last Admin: 05/16/24 20:49 Dose: Not Given Lactulose (Lactulose 20 Gm/30 Ml Solution) 20 gm PO TID [facility] Last Admin: 05/16/24 20:49 Dose: 20 gm Lorazepam (Lorazepam 0.5 Mg Tablet) 0.5 mg PO BID PRN PRN Reason: Anxiety Last Admin: 05/16/24 20:48 Dose: 0.5 mg Magnesium Hydroxide (Milk Of Magnesia 30 Ml Oral.Susp) 30 ml PO DAILY PRN PRN Reason: Constipation Midodrine (Midodrine Hcl 5 Mg Tablet) 5 mg PO TID [facility] Last Admin: 05/16/24 20:48 Dose: 5 mg Pt Own (Orphenadrine Citrate 100 Mg Tablet Extended Release) 100 mg PO BID PRN PRN Reason: Pain Last Admin: 05/16/24 20:53 Dose: 100 mg Omeprazole (Omeprazole 20 Mg Capsule.Dr) 20 mg PO BID@0630,1630 [facility] Last Admin: 05/16/24 16:30 Dose: 20 mg Ondansetron HCl (Ondansetron Odt 4 Mg Tab.Rapdis) 4 mg TRANSLINGU Q6H PRN PRN Reason: Nausea and Vomiting Last Admin: 05/16/24 16:37 Dose: 4 mg Oxycodone HCl (Oxycodone Hcl Immed Release 5 Mg Tablet) 5 mg PO Q4H PRN PRN Reason: Pain, Severe (Pain Scale 7-10) Last Admin: 05/16/24 20:48 Dose: 5 mg Quetiapine Fumarate (Quetiapine Fumarate 25 Mg Tablet) 75 mg PO BEDTIME [facility] Last Admin: 05/16/24 20:48 Dose: 75 mg Quetiapine Fumarate (Quetiapine Fumarate 25 Mg Tablet) 25 mg PO DAILY [facility] Last Admin: 05/16/24 09:20 Dose: 25 mg Rifaximin (Rifaximin 550 Mg Tablet) 550 mg PO BID [facility] Last Admin: 05/16/24 20:48 Dose: 550 mg Spironolactone (Spironolactone 25 Mg Tablet) 25 mg PO DAILY [facility]; Protocol Last Admin: 05/16/24 09:21 Dose: 25 mg Trazodone HCl (Trazodone Hcl 100 Mg Tablet) 100 mg PO BEDTIME [facility] Last Admin: 05/16/24 20:48 Dose: 100 mg Allergies Allergies Allergy/AdvReac Type Severity Reaction Status Date / Time acetaminophen AdvReac Unknown Verified 04/28/24 11:48 bismuth subsalicylate AdvReac Unknown Verified 04/28/24 11:48 [From Pepto-Bismol] celecoxib [From Celebrex] AdvReac Unknown Verified 04/28/24 11:48 NSAIDS (Non-Steroidal AdvReac Unknown Verified 04/28/24 11:48 Anti-Inflamma Assessment & Plan Assessment & Plan (1) PTSD (post-traumatic stress disorder): Status: Acute Code(s): F43.10 - Post-traumatic stress disorder, unspecified (2) Homelessness: Status: Acute Code(s): Z59.00 - Homelessness unspecified (3) MAYE (acute kidney injury): Status: Resolved Code(s): N17.9 - Acute kidney failure, unspecified Plan The patient is a middle-aged male with a past history of chronically were failure, bipolar disorder, PTSD, ADHD and chronic homelessness who was brought into the facility after he disclosed suicidal ideation with a plan [place] The patient was assessed by crisis and transferring to this facility for psychiatric stabilization. 05/02: Continue current regimen and plans for stabilization and medication management. Added Seroquel 25 mg nightly p.r.n. 05/03: Continue current regimen and plans for stabilization and medication management 05/04 repeat cmp, cbc, ammonia. 05/05 continue tx. pending GI consult, re: dropping HgB, 05/06- discussed code, pt would like to continue full code at this moment. planning for referrals for SNF. left shoulder pain- had left shoulder xr which shows destructive lesion of 1.4cm (will contact hospitalist for dx and tx). continue to monitor HgB, ammonia (mildly elevated, pt at times refuses lactulose, he is also on rifaximin). Will check pth, ionized calcium (regular calcium low but note low albumin). may consider esr/crp 05/07 continue tx. 05/08 continue tx. pending GI consult. 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 continue monitor hgb. 05/12 daily weights, measurement of abdominal girt. will start lexapro for depression 10mg po daily. seroquel bedtime and morning- will monitor liver function as he start these medications. 05/13 continue tx. continue daily weigh- hopefully pt won't refuse. monitor ammonia, Hgb. Per GI, transfusion if Hgb <8. 05/14/2024 Patient feeling medically improved remains depressed hopeless helpless difficulty with future orientation 05/16/2024 Continue current medical care continue escitalopram Lasix for ascites Reason for continued inpatient stay Substantial Risk for: harm to self, inability to function and rapid decompensation Time Spent With Patient Time: Total time managing care of this patient today ____ minutes.
[2024-05-17] MEDS: hydrOXYzine HCL 25 MG TABLET PO ×2 (04:55→20:56)
[2024-05-17] MEDS: oxyCODONE HCl Immed Release 5 MG TABLET PO ×4 (04:55→22:56)
[2024-05-17] MEDS: Omeprazole 20 MG CAPSULE.DR PO ×2 (06:39→17:20)
[2024-05-17 07:05] LABS: Glucose, Whole Blood 153 mg/dL (60-115)
[2024-05-17 08:00] VITALS: BP 122/70; PULSE 82; RESP 18; TEMP 36.8; O2SAT 97
[2024-05-17] MEDS: rifAXIMin 550 MG TABLET PO ×2 (08:44→20:55)
[2024-05-17] MEDS: Gabapentin 300 MG CAPSULE 600 MG PO ×3 (08:44→20:53)
[2024-05-17] MEDS: Furosemide 20 MG TABLET PO (08:44)
[2024-05-17] MEDS: Spironolactone 25 MG TABLET PO (08:44)
[2024-05-17] MEDS: Lactulose 20 GM/30 ML SOLUTION PO ×3 (08:45→20:54)
[2024-05-17] MEDS: Midodrine HCl 5 MG TABLET PO ×3 (08:45→20:55)
[2024-05-17] MEDS: QUEtiapine Fumarate 25 MG TABLET PO (08:45)
[2024-05-17] MEDS: Escitalopram Oxalate 10 MG TABLET PO (08:46)
[2024-05-17 11:17] LABS: Glucose, Whole Blood 158 mg/dL (60-115)
[2024-05-17] MEDS: Insulin Lispro 100 UNIT/ML 3 ML VIAL SUBCUT ×3 (11:22→20:54)
[2024-05-17] MEDS: LORazepam 0.5 MG TABLET PO (12:19)
--- NOTE | 2024-05-17 13:02 | HO.PSYCHPN ---
Subjective Subjective Date of Service: 05/17/24 Reason For Visit: mood disorder Subjective Notes: Conditional Voluntary Interim History: Patient with some periods of morning lethargy otherwise patient generally feeling okay somewhat flat but more future oriented cooperative with discharge planning Mental Status Exam Mental Status Exam Narrative: Appearance: wearing hospital gown, fair hygiene, in NAD Behavior: cooperative Psychomotor: no agitation or retardation noted Speech: clear, normal rate/rhythm/volume, spontaneous TP: linear TC: wanting help with coordination of care Mood: Okay Affect: congruent, somewhat irritable at times SI some periods of despair HI: none VH/AH: none Delusions: no delusional content noted or reported Insight/judgment: poor x 2. Memory/cog: alert, oriented x 4. Diagnostics Vital Signs (24Hr): Vital Signs - 24 hr 05/16/24 14:32 05/16/24 20:00 05/17/24 08:00 Temperature 98.8 F 98.2 F Pulse Rate 91 82 Respiratory Rate 18 18 Blood Pressure 95/60 116/77 122/70 Pulse Oximetry 96 97 Oxygen Delivery Method Room Air Room Air BMI result Body Mass Index 26.0 Labs 05/12/24 14:12 05/12/24 07:54 Labs: Laboratory Results - last 48 hr 05/15/24 05/15/24 05/15/24 13:08 16:34 20:00 POC Glucose 245 H 167 H 164 H 05/16/24 05/16/24 05/16/24 06:40 11:14 16:19 POC Glucose 184 H 182 H 160 H 05/16/24 05/17/24 05/17/24 20:29 06:41 11:13 POC Glucose 145 H 153 H 158 H Imaging Radiology Impressions: ITS Impressions Bone Osseous Survey 05/07/24 15:00 IMPRESSION: 1. Cortical depression and adjacent cystic change within the lateral aspect of the left humeral head is redemonstrated. Findings could represent sequela of prior trauma. No aggressive features to suggest an underlying neoplastic lesion. 2. No additional lytic or blastic osseous lesion. 3. Left lower lobe airspace opacities. 4. Qiwc-[id number] stool burden. Electronically signed by: Roman Power MD 05/07/2024 11:00 PM [facility] X-Ray 05/09/24 10:00 IMPRESSION: Moderate air and stool throughout the colon. Nonobstructive bowel gas pattern. Electronically signed by: Roman Power MD 05/09/2024 08:07 PM EST RP Abdomen Ultrasound 05/10/24 09:45 IMPRESSION: Moderate ascites. Electronically signed by: David Saul MD 05/10/2024 04:09 PM EST RP Medications Medications Current Medications Al Hydroxide/Mg Hydroxide (Magnesium Hydrox/Alum Hydrox 30 Ml Oral.Susp) 30 ml PO Q6H PRN PRN Reason: Heartburn/Nausea Baclofen (Baclofen 10 Mg Tablet) 10 mg PO TID PRN PRN Reason: muscle tension Last Admin: 05/11/24 21:02 Dose: 10 mg Escitalopram Oxalate (Escitalopram Oxalate 10 Mg Tablet) 10 mg PO DAILY [facility] Last Admin: 05/17/24 08:46 Dose: 10 mg Furosemide (Furosemide 20 Mg Tablet) 20 mg PO DAILY [facility]; Protocol Last Admin: 05/17/24 08:44 Dose: 20 mg Gabapentin (Gabapentin 300 Mg Capsule) 600 mg PO TID [facility] Last Admin: 05/17/24 08:44 Dose: 600 mg Hydroxyzine HCl (Hydroxyzine Hcl 25 Mg Tablet) 25 mg PO Q6H PRN PRN Reason: Anxiety Last Admin: 05/17/24 04:55 Dose: 25 mg Insulin Glargine (Insulin Glargine,Hum.Rec.Anlog 100 Unit/Ml 10 Ml Vial) 10 unit SUBCUT BEDTIME [facility] Last Admin: 05/16/24 20:49 Dose: 10 unit Insulin Human Lispro (Insulin Lispro 100 Unit/Ml 3 Ml Vial) 0 unit SUBCUT QIDACHS [facility]; Protocol Last Admin: 05/17/24 11:22 Dose: 2 unit Lactulose (Lactulose 20 Gm/30 Ml Solution) 20 gm PO TID [facility] Last Admin: 05/17/24 08:45 Dose: 20 gm Lorazepam (Lorazepam 0.5 Mg Tablet) 0.5 mg PO BID PRN PRN Reason: Anxiety Last Admin: 05/17/24 12:19 Dose: 0.5 mg Magnesium Hydroxide (Milk Of Magnesia 30 Ml Oral.Susp) 30 ml PO DAILY PRN PRN Reason: Constipation Midodrine (Midodrine Hcl 5 Mg Tablet) 5 mg PO TID [facility] Last Admin: 05/17/24 08:45 Dose: 5 mg Pt Own (Orphenadrine Citrate 100 Mg Tablet Extended Release) 100 mg PO BID PRN PRN Reason: Pain Omeprazole (Omeprazole 20 Mg Capsule.Dr) 20 mg PO BID@0630,1630 [facility] Last Admin: 05/17/24 06:39 Dose: 20 mg Ondansetron HCl (Ondansetron Odt 4 Mg Tab.Rapdis) 4 mg TRANSLINGU Q6H PRN PRN Reason: Nausea and Vomiting Last Admin: 05/16/24 16:37 Dose: 4 mg Oxycodone HCl (Oxycodone Hcl Immed Release 5 Mg Tablet) 5 mg PO Q4H PRN PRN Reason: Pain, Severe (Pain Scale 7-10) Last Admin: 05/17/24 12:19 Dose: 5 mg Quetiapine Fumarate (Quetiapine Fumarate 25 Mg Tablet) 75 mg PO BEDTIME [facility] Last Admin: 05/16/24 20:48 Dose: 75 mg Quetiapine Fumarate (Quetiapine Fumarate 25 Mg Tablet) 25 mg PO DAILY [facility] Last Admin: 05/17/24 08:45 Dose: 25 mg Rifaximin (Rifaximin 550 Mg Tablet) 550 mg PO BID [facility] Last Admin: 05/17/24 08:44 Dose: 550 mg Spironolactone (Spironolactone 25 Mg Tablet) 25 mg PO DAILY [facility]; Protocol Last Admin: 05/17/24 08:44 Dose: 25 mg Trazodone HCl (Trazodone Hcl 100 Mg Tablet) 100 mg PO BEDTIME [facility] Last Admin: 05/16/24 20:48 Dose: 100 mg Allergies Allergies Allergy/AdvReac Type Severity Reaction Status Date / Time acetaminophen AdvReac Unknown Verified 04/28/24 11:48 bismuth subsalicylate AdvReac Unknown Verified 04/28/24 11:48 [From Pepto-Bismol] celecoxib [From Celebrex] AdvReac Unknown Verified 04/28/24 11:48 NSAIDS (Non-Steroidal AdvReac Unknown Verified 04/28/24 11:48 Anti-Inflamma Assessment & Plan Assessment & Plan (1) PTSD (post-traumatic stress disorder): Status: Acute Code(s): F43.10 - Post-traumatic stress disorder, unspecified (2) Homelessness: Status: Acute Code(s): Z59.00 - Homelessness unspecified (3) MAYE (acute kidney injury): Status: Resolved Code(s): N17.9 - Acute kidney failure, unspecified Plan The patient is a middle-aged male with a past history of chronically were failure, bipolar disorder, PTSD, ADHD and chronic homelessness who was brought into the facility after he disclosed suicidal ideation [place] The patient was assessed by crisis and transferring to this facility for psychiatric stabilization. 05/02: Continue current regimen and plans for stabilization and medication management. Added Seroquel 25 mg nightly p.r.n. 05/03: Continue current regimen and plans for stabilization and medication management 05/04 repeat cmp, cbc, ammonia. 05/05 continue tx. pending GI consult, re: dropping HgB, 05/06- discussed code, pt would like to continue full code at this moment. planning for referrals for SNF. left shoulder pain- had left shoulder xr which shows destructive lesion of 1.4cm (will contact hospitalist for dx and tx). continue to monitor HgB, ammonia (mildly elevated, pt at times refuses lactulose, he is also on rifaximin). Will check pth, ionized calcium (regular calcium low but note low albumin). may consider esr/crp 05/07 continue tx. 05/08 continue tx. pending GI consult. 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 continue monitor hgb. 05/12 daily weights, measurement of abdominal girt. will start lexapro for depression 10mg po daily. seroquel bedtime and morning- will monitor liver function as he start these medications. 05/13 continue tx. continue daily weigh- hopefully pt won't refuse. monitor ammonia, Hgb. Per GI, transfusion if Hgb <8. 05/14/2024 Patient feeling medically improved remains depressed hopeless helpless difficulty with future orientation 05/17/2020 Continue escitalopram trazodone patient intermittent hopelessness but more engaged feeling somewhat more hopeful regarding the future has intermittent thoughts of despair and self-harm denies in this setting Reason for continued inpatient stay Substantial Risk for: harm to self and med/psych decompensation Time Spent With Patient Time: Total time managing care of this patient today ____ minutes.
[2024-05-17 14:25] VITALS: BP 100/62
[2024-05-17 14:27] VITALS: BMI 25.4
[2024-05-17 16:57] VITALS: BMI 26.1
[2024-05-17 17:15] LABS: Glucose, Whole Blood 203 mg/dL (60-115)
[2024-05-17 19:56] LABS: Glucose, Whole Blood 163 mg/dL (60-115)
[2024-05-17 20:00] VITALS: BP 116/68; PULSE 77; RESP 14; TEMP 36.6; O2SAT 96
[2024-05-17] MEDS: Insulin Glargine,Hum.rec.anlog 100 UNIT/ML 10 ML VIAL 10 UNIT SUBCUT (20:53)
[2024-05-17] MEDS: QUEtiapine Fumarate 25 MG TABLET 75 MG PO (20:55)
[2024-05-17] MEDS: traZODone HCL 100 MG TABLET PO (20:56)
[2024-05-18] MEDS: hydrOXYzine HCL 25 MG TABLET PO ×2 (02:56→16:54)
[2024-05-18] MEDS: oxyCODONE HCl Immed Release 5 MG TABLET PO ×3 (02:57→20:56)
[2024-05-18] MEDS: LORazepam 0.5 MG TABLET PO ×2 (02:57→14:45)
[2024-05-18] MEDS: Omeprazole 20 MG CAPSULE.DR PO ×2 (05:40→16:35)
[2024-05-18 06:33] LABS: Glucose, Whole Blood 124 mg/dL (60-115)
[2024-05-18 07:51] VITALS: BP 122/80; PULSE 86; RESP 18; TEMP 36.6; O2SAT 96
[2024-05-18 08:00] VITALS: BMI 25.9
[2024-05-18] MEDS: Gabapentin 300 MG CAPSULE 600 MG PO ×3 (08:05→20:53)
[2024-05-18] MEDS: Furosemide 20 MG TABLET PO (08:06)
[2024-05-18] MEDS: QUEtiapine Fumarate 25 MG TABLET PO (08:06)
[2024-05-18] MEDS: Spironolactone 25 MG TABLET PO (08:07)
[2024-05-18] MEDS: Midodrine HCl 5 MG TABLET PO ×3 (08:07→20:55)
[2024-05-18] MEDS: Escitalopram Oxalate 10 MG TABLET PO (08:07)
[2024-05-18] MEDS: rifAXIMin 550 MG TABLET PO ×2 (08:07→20:56)
[2024-05-18] MEDS: Lactulose 20 GM/30 ML SOLUTION PO ×3 (08:07→20:55)
[2024-05-18 11:24] LABS: Glucose, Whole Blood 199 mg/dL (60-115)
[2024-05-18] MEDS: Insulin Lispro 100 UNIT/ML 3 ML VIAL SUBCUT ×3 (11:38→20:54)
[2024-05-18 14:18] VITALS: BP 112/68; PULSE 82; RESP 18; O2SAT 96
[2024-05-18 16:08] LABS: Kappa, Serum 896 mg/dL (176-443); Kappa/Lambda Ratio, Serum 2.27 (1.29-2.55); Lambda, Serum 395 mg/dL (91-240)
[2024-05-18 16:30] LABS: Glucose, Whole Blood 202 mg/dL (60-115)
[2024-05-18 20:00] VITALS: BP 113/75; PULSE 89; RESP 18; TEMP 36.2; O2SAT 96
[2024-05-18 20:01] LABS: Glucose, Whole Blood 168 mg/dL (60-115)
[2024-05-18] MEDS: Insulin Glargine,Hum.rec.anlog 100 UNIT/ML 10 ML VIAL 10 UNIT SUBCUT (20:54)
[2024-05-18] MEDS: QUEtiapine Fumarate 25 MG TABLET 75 MG PO (20:56)
[2024-05-18] MEDS: traZODone HCL 100 MG TABLET PO (20:56)
[2024-05-19] MEDS: hydrOXYzine HCL 25 MG TABLET PO ×3 (01:01→21:35)
[2024-05-19] MEDS: LORazepam 0.5 MG TABLET PO ×2 (01:01→14:18)
[2024-05-19] MEDS: oxyCODONE HCl Immed Release 5 MG TABLET PO ×4 (01:02→21:35)
[2024-05-19] MEDS: Omeprazole 20 MG CAPSULE.DR PO ×2 (06:06→16:32)
[2024-05-19 06:41] LABS: Glucose, Whole Blood 166 mg/dL (60-115)
[2024-05-19] MEDS: Insulin Lispro 100 UNIT/ML 3 ML VIAL SUBCUT ×4 (07:41→21:32)
[2024-05-19 08:00] VITALS: BMI 25.8
[2024-05-19 08:20] VITALS: BP 107/69; PULSE 96; RESP 17; TEMP 36.6; O2SAT 95
[2024-05-19] MEDS: Midodrine HCl 5 MG TABLET PO ×2 (08:21→21:34)
[2024-05-19] MEDS: Spironolactone 25 MG TABLET PO (08:21)
[2024-05-19] MEDS: Escitalopram Oxalate 10 MG TABLET PO (08:21)
[2024-05-19] MEDS: Gabapentin 300 MG CAPSULE 600 MG PO ×3 (08:21→21:35)
[2024-05-19] MEDS: rifAXIMin 550 MG TABLET PO ×2 (08:21→21:35)
[2024-05-19] MEDS: QUEtiapine Fumarate 25 MG TABLET PO (08:21)
[2024-05-19] MEDS: Furosemide 20 MG TABLET PO (08:22)
[2024-05-19] MEDS: Lactulose 20 GM/30 ML SOLUTION PO ×3 (08:27→21:32)
[2024-05-19] MEDS: Ondansetron ODT 4 MG TAB.RAPDIS TRANSLINGU (09:05)
[2024-05-19 11:15] LABS: Glucose, Whole Blood 217 mg/dL (60-115)
[2024-05-19 15:44] VITALS: BP 132/90; PULSE 89
[2024-05-19 16:17] LABS: Glucose, Whole Blood 159 mg/dL (60-115)
[2024-05-19 19:47] LABS: Glucose, Whole Blood 166 mg/dL (60-115)
[2024-05-19 20:00] VITALS: BP 126/75; PULSE 93; RESP 18; TEMP 36.4; O2SAT 98
[2024-05-19] MEDS: ORPHENADRINE CITRATE 100 MG 100 EACH PO (21:33)
[2024-05-19] MEDS: Insulin Glargine,Hum.rec.anlog 100 UNIT/ML 10 ML VIAL 10 UNIT SUBCUT (21:33)
[2024-05-19 21:34] VITALS: BP 126/75
[2024-05-19] MEDS: QUEtiapine Fumarate 25 MG TABLET 75 MG PO (21:34)
[2024-05-19] MEDS: traZODone HCL 100 MG TABLET PO (21:35)
--- NOTE | 2024-05-19 22:36 | P.PNPSI_ITS ---
Subjective Subjective Date of Service: 05/19/24 Reason For Visit: mood disorder Healthcare Proxy: No Guardianship: No Medical Problems Affecting Mental Status: Yes Interim History: Patient is complaining of more pain is his extremities and legs. He is having a difficult time sleeping he appears somewhat more apathetic complains of swelling in both legs not short of breath. He is at times isolated in his room fatigued at other time engaged social with peers. Medication Compliance: Yes Diagnostics Vital Signs (24Hr): Vital Signs - 24 hr 05/19/24 08:20 05/19/24 15:44 05/19/24 21:34 Temperature 97.8 F Pulse Rate 96 89 Respiratory Rate 17 Blood Pressure 107/69 132/90 H 126/75 Pulse Oximetry 95 Oxygen Delivery Method Room Air BMI result Body Mass Index 25.8 Labs 05/12/24 14:12 05/12/24 07:54 Labs: Laboratory Results - last 48 hr 05/08/24 05/18/24 05/18/24 07:57 06:27 11:18 POC Glucose 124 H 199 H [place]/Lambda Ratio 2.27 [place] Light Chain Anal 896 H [place] Light Chain Anal 395 H 05/18/24 05/18/24 05/19/24 16:26 19:54 06:26 POC Glucose 202 H 168 H 166 H [place]/Lambda Ratio [place] Light Chain Anal Lambda Light Chain Anal 05/19/24 05/19/24 05/19/24 11:11 16:12 19:42 POC Glucose 217 H 159 H 166 H [place]/Lambda Ratio [place] Light Chain Anal Lambda Light Chain Anal Imaging Radiology Impressions: ITS Impressions Bone Osseous Survey 05/07/24 15:00 IMPRESSION: 1. Cortical depression and adjacent cystic change within the lateral aspect of the left humeral head is redemonstrated. Findings could represent sequela of prior trauma. No aggressive features to suggest an underlying neoplastic lesion. 2. No additional lytic or blastic osseous lesion. 3. Left lower lobe airspace opacities. 4. Eivn-ob-wiyjpvyp stool burden. Electronically signed by: Romna Power MD 05/07/2024 11:00 PM [facility] X-Ray 05/09/24 10:00 IMPRESSION: Moderate air and stool throughout the colon. Nonobstructive bowel gas pattern. Electronically signed by: Roman Power MD 05/09/2024 08:07 PM EST RP Abdomen Ultrasound 05/10/24 09:45 IMPRESSION: Moderate ascites. Electronically signed by: David Saul MD 05/10/2024 04:09 PM EST RP Medications Medications Current Medications Al Hydroxide/Mg Hydroxide (Magnesium Hydrox/Alum Hydrox 30 Ml Oral.Susp) 30 ml PO Q6H PRN PRN Reason: Heartburn/Nausea Baclofen (Baclofen 10 Mg Tablet) 10 mg PO TID PRN PRN Reason: muscle tension Last Admin: 05/11/24 21:02 Dose: 10 mg Escitalopram Oxalate (Escitalopram Oxalate 10 Mg Tablet) 10 mg PO DAILY [facility] Last Admin: 05/19/24 08:21 Dose: 10 mg Furosemide (Furosemide 20 Mg Tablet) 20 mg PO DAILY [facility]; Protocol Last Admin: 05/19/24 08:22 Dose: 20 mg Gabapentin (Gabapentin 300 Mg Capsule) 600 mg PO TID [facility] Last Admin: 05/19/24 21:35 Dose: 600 mg Hydroxyzine HCl (Hydroxyzine Hcl 25 Mg Tablet) 25 mg PO Q6H PRN PRN Reason: Anxiety Last Admin: 05/19/24 21:35 Dose: 25 mg Insulin Glargine (Insulin Glargine,Hum.Rec.Anlog 100 Unit/Ml 10 Ml Vial) 10 unit SUBCUT BEDTIME [facility] Last Admin: 05/19/24 21:33 Dose: 10 unit Insulin Human Lispro (Insulin Lispro 100 Unit/Ml 3 Ml Vial) 0 unit SUBCUT QIDACHS [facility]; Protocol Last Admin: 05/19/24 21:32 Dose: 2 unit Lactulose (Lactulose 20 Gm/30 Ml Solution) 20 gm PO TID [facility] Last Admin: 05/19/24 21:32 Dose: 20 gm Lorazepam (Lorazepam 0.5 Mg Tablet) 0.5 mg PO BID PRN PRN Reason: Anxiety Last Admin: 05/19/24 14:18 Dose: 0.5 mg Magnesium Hydroxide (Milk Of Magnesia 30 Ml Oral.Susp) 30 ml PO DAILY PRN PRN Reason: Constipation Midodrine (Midodrine Hcl 5 Mg Tablet) 5 mg PO TID [facility] Last Admin: 05/19/24 21:34 Dose: 5 mg Pt Own (Orphenadrine Citrate 100 Mg Tablet Extended Release) 100 mg PO BID PRN PRN Reason: Pain Last Admin: 05/19/24 21:33 Dose: 100 mg Omeprazole (Omeprazole 20 Mg Capsule.Dr) 20 mg PO BID@0630,1630 [facility] Last Admin: 05/19/24 16:32 Dose: 20 mg Ondansetron HCl (Ondansetron Odt 4 Mg Tab.Rapdis) 4 mg TRANSLINGU Q6H PRN PRN Reason: Nausea and Vomiting Last Admin: 05/19/24 09:05 Dose: 4 mg Oxycodone HCl (Oxycodone Hcl Immed Release 5 Mg Tablet) 5 mg PO Q4H PRN PRN Reason: Pain, Severe (Pain Scale 7-10) Last Admin: 05/19/24 21:35 Dose: 5 mg Quetiapine Fumarate (Quetiapine Fumarate 25 Mg Tablet) 75 mg PO BEDTIME [facility] Last Admin: 05/19/24 21:34 Dose: 75 mg Quetiapine Fumarate (Quetiapine Fumarate 25 Mg Tablet) 25 mg PO DAILY [facility] Last Admin: 05/19/24 08:21 Dose: 25 mg Rifaximin (Rifaximin 550 Mg Tablet) 550 mg PO BID [facility] Last Admin: 05/19/24 21:35 Dose: 550 mg Spironolactone (Spironolactone 25 Mg Tablet) 25 mg PO DAILY [facility]; Protocol Last Admin: 05/19/24 08:21 Dose: 25 mg Trazodone HCl (Trazodone Hcl 100 Mg Tablet) 100 mg PO BEDTIME [facility] Last Admin: 05/19/24 21:35 Dose: 100 mg Allergies Allergies Allergy/AdvReac Type Severity Reaction Status Date / Time acetaminophen AdvReac Unknown Verified 04/28/24 11:48 bismuth subsalicylate AdvReac Unknown Verified 04/28/24 11:48 [From Pepto-Bismol] celecoxib [From Celebrex] AdvReac Unknown Verified 04/28/24 11:48 NSAIDS (Non-Steroidal AdvReac Unknown Verified 04/28/24 11:48 Anti-Inflamma Assessment & Plan Assessment & Plan (1) PTSD (post-traumatic stress disorder): Status: Acute Code(s): F43.10 - Post-traumatic stress disorder, unspecified (2) Homelessness: Status: Acute Code(s): Z59.00 - Homelessness unspecified (3) MAYE (acute kidney injury): Status: Resolved Code(s): N17.9 - Acute kidney failure, unspecified (4) Cirrhosis, alcoholic: Status: Acute Code(s): K70.30 - Alcoholic cirrhosis of liver without ascites (5) Portal hypertension: Status: Acute Code(s): K76.6 - Portal hypertension Plan The patient is a middle-aged male with a past history of chronically were failure, bipolar disorder, PTSD, ADHD and chronic homelessness who was brought into the facility after he disclosed suicidal ideation with a [place] The patient was assessed by crisis and transferring to this facility for psychiatric stabilization. 05/02: Continue current regimen and plans for stabilization and medication management. Added Seroquel 25 mg nightly p.r.n. 05/03: Continue current regimen and plans for stabilization and medication management 05/04 repeat cmp, cbc, ammonia. 05/05 continue tx. pending GI consult, re: dropping HgB, 05/06- discussed code, pt would like to continue full code at this moment. planning for referrals for SNF. left shoulder pain- had left shoulder xr which shows destructive lesion of 1.4cm (will contact hospitalist for dx and tx). continue to monitor HgB, ammonia (mildly elevated, pt at times refuses lactulose, he is also on rifaximin). Will check pth, ionized calcium (regular calcium low but note low albumin). may consider esr/crp 05/07 continue tx. 05/08 continue tx. pending GI consult. 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 continue monitor hgb. 05/12 daily weights, measurement of abdominal girt. will start lexapro for depression 10mg po daily. seroquel bedtime and morning- will monitor liver function as he start these medications. 05/13 continue tx. continue daily weigh- hopefully pt won't refuse. monitor ammonia, Hgb. Per GI, transfusion if Hgb <8. 05/14/2024 Patient feeling medically improved remains depressed hopeless helpless difficulty with future orientation 05/17/2020 Continue escitalopram trazodone patient intermittent hopelessness but more engaged feeling somewhat more hopeful regarding the future has intermittent thoughts of despair and self-harm denies in this setting 05/19/2024 Patient increasingly depressed withdrawn unclear if related to his cirrhosis edema will check ammonia electrolytes LFTs. He is on Lexapro and gabapentin gabapentin presumably for neuropathy questionable history of bipolar disorder versus recurrent depression he is on Lexapro Check labs Reason for continued inpatient stay Substantial Risk for: harm to self, rapid decompensation and med/psych decompensation Time Spent With Patient Time: Total time managing care of this patient today ____ minutes.
[2024-05-20] MEDS: oxyCODONE HCl Immed Release 5 MG TABLET PO ×4 (03:42→20:46)
[2024-05-20] MEDS: hydrOXYzine HCL 25 MG TABLET PO ×2 (03:43→16:15)
[2024-05-20] MEDS: Omeprazole 20 MG CAPSULE.DR PO ×2 (06:33→16:46)
[2024-05-20 07:16] LABS: Glucose, Whole Blood 154 mg/dL (60-115)
[2024-05-20] MEDS: Insulin Lispro 100 UNIT/ML 3 ML VIAL SUBCUT ×2 (07:35→11:38)
[2024-05-20 08:00] VITALS: BMI 26.3
[2024-05-20 08:21] VITALS: BP 126/72; PULSE 88; RESP 18; TEMP 36.9; O2SAT 96
[2024-05-20] MEDS: Spironolactone 25 MG TABLET PO (08:35)
[2024-05-20] MEDS: rifAXIMin 550 MG TABLET PO ×2 (08:35→20:42)
[2024-05-20] MEDS: Gabapentin 300 MG CAPSULE 600 MG PO ×3 (08:35→20:43)
[2024-05-20] MEDS: Furosemide 20 MG TABLET PO (08:35)
[2024-05-20] MEDS: Lactulose 20 GM/30 ML SOLUTION PO ×3 (08:36→20:40)
[2024-05-20] MEDS: Midodrine HCl 5 MG TABLET PO ×3 (08:36→20:45)
[2024-05-20] MEDS: Escitalopram Oxalate 10 MG TABLET PO (08:36)
[2024-05-20] MEDS: QUEtiapine Fumarate 25 MG TABLET PO (08:36)
[2024-05-20] MEDS: LORazepam 0.5 MG TABLET PO ×2 (09:01→20:45)
--- NOTE | 2024-05-20 10:26 | HO.PSYCHPN ---
Subjective Subjective Date of Service: 05/20/24 Reason For Visit: mood disorder Subjective Notes: Conditional Voluntary Interim History: Pt somewhat flat dysphoric mild le noted . engaged at times in milieu Medication Compliance: Yes Mental Status Exam Mental Status Exam Narrative: Appearance: wearing hospital pants, fair hygiene, in NAD Behavior: cooperative Psychomotor: no agitation or retardation noted Speech: clear, normal rate/rhythm/volume, spontaneous TP: linear TC: wanting help with coordination of care Mood: Okay Affect: flat SI denies HI: none VH/AH: none Delusions: no delusional content noted or reported Insight/judgment: impaired Memory/cog: alert, oriented x 4. Diagnostics Vital Signs (24Hr): Vital Signs - 24 hr 05/19/24 15:44 05/19/24 20:00 05/19/24 21:34 Temperature 97.6 F Pulse Rate 89 93 Respiratory Rate 18 Blood Pressure 132/90 H 126/75 126/75 Pulse Oximetry 98 Oxygen Delivery Method Room Air 05/20/24 08:21 Temperature 98.4 F Pulse Rate 88 Respiratory Rate 18 Blood Pressure 126/72 Pulse Oximetry 96 Oxygen Delivery Method Room Air BMI result Body Mass Index 25.8 Labs 05/26/24 08:56 05/20/24 15:55 Labs: Laboratory Results - last 48 hr 05/08/24 05/18/24 05/18/24 07:57 11:18 16:26 POC Glucose 199 H 202 H [place]/Lambda Ratio 2.27 [place] Light Chain Anal 896 H Lambda Light Chain Anal 395 H 05/18/24 05/19/24 05/19/24 19:54 06:26 11:11 POC Glucose 168 H 166 H 217 H [place]/Lambda Ratio [place] Light Chain Anal Lambda Light Chain Anal 05/19/24 05/19/24 05/20/24 16:12 19:42 06:51 POC Glucose 159 H 166 H 154 H [place]/Lambda Ratio [place] Light Chain Anal Lambda Light Chain Anal Imaging Radiology Impressions: ITS Impressions Bone Osseous Survey 05/07/24 15:00 IMPRESSION: 1. Cortical depression and adjacent cystic change within the lateral aspect of the left humeral head is redemonstrated. Findings could represent sequela of prior trauma. No aggressive features to suggest an underlying neoplastic lesion. 2. No additional lytic or blastic osseous lesion. 3. Left lower lobe airspace opacities. 4. Snlb-do-riryyyow stool burden. Electronically signed by: Roman Power MD 05/07/2024 11:00 PM EST [facility] X-Ray 05/09/24 10:00 IMPRESSION: Moderate air and stool throughout the colon. Nonobstructive bowel gas pattern. Electronically signed by: Roman Power MD 05/09/2024 08:07 PM EST RP Abdomen Ultrasound 05/10/24 09:45 IMPRESSION: Moderate ascites. Electronically signed by: David Saul MD 05/10/2024 04:09 PM EST RP Medications Medications Current Medications Al Hydroxide/Mg Hydroxide (Magnesium Hydrox/Alum Hydrox 30 Ml Oral.Susp) 30 ml PO Q6H PRN PRN Reason: Heartburn/Nausea Baclofen (Baclofen 10 Mg Tablet) 10 mg PO TID PRN PRN Reason: muscle tension Last Admin: 05/11/24 21:02 Dose: 10 mg Escitalopram Oxalate (Escitalopram Oxalate 10 Mg Tablet) 10 mg PO DAILY [facility] Last Admin: 05/20/24 08:36 Dose: 10 mg Furosemide (Furosemide 20 Mg Tablet) 20 mg PO DAILY [facility]; Protocol Last Admin: 05/20/24 08:35 Dose: 20 mg Gabapentin (Gabapentin 300 Mg Capsule) 600 mg PO TID [facility] Last Admin: 05/20/24 08:35 Dose: 600 mg Hydroxyzine HCl (Hydroxyzine Hcl 25 Mg Tablet) 25 mg PO Q6H PRN PRN Reason: Anxiety Last Admin: 05/20/24 03:43 Dose: 25 mg Insulin Glargine (Insulin Glargine,Hum.Rec.Anlog 100 Unit/Ml 10 Ml Vial) 10 unit SUBCUT BEDTIME [facility] Last Admin: 05/19/24 21:33 Dose: 10 unit Insulin Human Lispro (Insulin Lispro 100 Unit/Ml 3 Ml Vial) 0 unit SUBCUT QIDACHS [facility]; Protocol Last Admin: 05/20/24 07:35 Dose: 2 unit Lactulose (Lactulose 20 Gm/30 Ml Solution) 20 gm PO TID [facility] Last Admin: 05/20/24 08:36 Dose: 20 gm Lorazepam (Lorazepam 0.5 Mg Tablet) 0.5 mg PO BID PRN PRN Reason: Anxiety Last Admin: 05/20/24 09:01 Dose: 0.5 mg Magnesium Hydroxide (Milk Of Magnesia 30 Ml Oral.Susp) 30 ml PO DAILY PRN PRN Reason: Constipation Midodrine (Midodrine Hcl 5 Mg Tablet) 5 mg PO TID [facility] Last Admin: 05/20/24 08:36 Dose: 5 mg Pt Own (Orphenadrine Citrate 100 Mg Tablet Extended Release) 100 mg PO BID PRN PRN Reason: Pain Last Admin: 05/19/24 21:33 Dose: 100 mg Omeprazole (Omeprazole 20 Mg Capsule.Dr) 20 mg PO BID@0630,1630 [facility] Last Admin: 05/20/24 06:33 Dose: 20 mg Ondansetron HCl (Ondansetron Odt 4 Mg Tab.Rapdis) 4 mg TRANSLINGU Q6H PRN PRN Reason: Nausea and Vomiting Last Admin: 05/19/24 09:05 Dose: 4 mg Oxycodone HCl (Oxycodone Hcl Immed Release 5 Mg Tablet) 5 mg PO Q4H PRN PRN Reason: Pain, Severe (Pain Scale 7-10) Last Admin: 05/20/24 08:57 Dose: 5 mg Quetiapine Fumarate (Quetiapine Fumarate 25 Mg Tablet) 75 mg PO BEDTIME [facility] Last Admin: 05/19/24 21:34 Dose: 75 mg Quetiapine Fumarate (Quetiapine Fumarate 25 Mg Tablet) 25 mg PO DAILY [facility] Last Admin: 05/20/24 08:36 Dose: 25 mg Rifaximin (Rifaximin 550 Mg Tablet) 550 mg PO BID [facility] Last Admin: 05/20/24 08:35 Dose: 550 mg Spironolactone (Spironolactone 25 Mg Tablet) 25 mg PO DAILY [facility]; Protocol Last Admin: 05/20/24 08:35 Dose: 25 mg Trazodone HCl (Trazodone Hcl 100 Mg Tablet) 100 mg PO BEDTIME [facility] Last Admin: 05/19/24 21:35 Dose: 100 mg Allergies Allergies Allergy/AdvReac Type Severity Reaction Status Date / Time acetaminophen AdvReac Unknown Verified 04/28/24 11:48 bismuth subsalicylate AdvReac Unknown Verified 04/28/24 11:48 [From Pepto-Bismol] celecoxib [From Celebrex] AdvReac Unknown Verified 04/28/24 11:48 NSAIDS (Non-Steroidal AdvReac Unknown Verified 04/28/24 11:48 Anti-Inflamma Assessment & Plan Assessment & Plan (1) PTSD (post-traumatic stress disorder): Status: Acute Code(s): F43.10 - Post-traumatic stress disorder, unspecified (2) Homelessness: Status: Acute Code(s): Z59.00 - Homelessness unspecified (3) MAYE (acute kidney injury): Status: Resolved Code(s): N17.9 - Acute kidney failure, unspecified (4) Cirrhosis, alcoholic: Status: Acute Code(s): K70.30 - Alcoholic cirrhosis of liver without ascites (5) Portal hypertension: Status: Acute Code(s): K76.6 - Portal hypertension Plan The patient is a middle-aged male with a past history of chronically were failure, bipolar disorder, PTSD, ADHD and chronic homelessness who was brought into the facility after he disclosed suicidal ideation [place] The patient was assessed by crisis and transferring to this facility for psychiatric stabilization. 05/02: Continue current regimen and plans for stabilization and medication management. Added Seroquel 25 mg nightly p.r.n. 05/03: Continue current regimen and plans for stabilization and medication management 05/04 repeat cmp, cbc, ammonia. 05/05 continue tx. pending GI consult, re: dropping HgB, 05/06- discussed code, pt would like to continue full code at this moment. planning for referrals for SNF. left shoulder pain- had left shoulder xr which shows destructive lesion of 1.4cm (will contact hospitalist for dx and tx). continue to monitor HgB, ammonia (mildly elevated, pt at times refuses lactulose, he is also on rifaximin). Will check pth, ionized calcium (regular calcium low but note low albumin). may consider esr/crp 05/07 continue tx. 05/08 continue tx. pending GI consult. 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 continue monitor hgb. 05/12 daily weights, measurement of abdominal girt. will start lexapro for depression 10mg po daily. seroquel bedtime and morning- will monitor liver function as he start these medications. 05/13 continue tx. continue daily weigh- hopefully pt won't refuse. monitor ammonia, Hgb. Per GI, transfusion if Hgb <8. 05/14/2024 Patient feeling medically improved remains depressed hopeless helpless difficulty with future orientation 05/17/2020 Continue escitalopram trazodone patient intermittent hopelessness but more engaged feeling somewhat more hopeful regarding the future has intermittent thoughts of despair and self-harm denies in this setting 05/19/2024 Patient increasingly depressed withdrawn unclear if related to his cirrhosis edema will check ammonia electrolytes LFTs. He is on Lexapro and gabapentin gabapentin presumably for neuropathy questionable history of bipolar disorder versus recurrent depression he is on Lexapro Check labs 05/20 cont plan of care less withdrawn today Reason for continued inpatient stay Substantial Risk for: harm to self, rapid decompensation and med/psych decompensation Time Spent With Patient Time: Total time managing care of this patient today ____ minutes.
[2024-05-20 11:20] LABS: Glucose, Whole Blood 213 mg/dL (60-115)
[2024-05-20 16:00] LABS: MANUAL DIFF FLAG NO
[2024-05-20 16:02] LABS: Basophils Percent Auto 0.6 % (0-2); Eosinophils Absolute Auto 0.1 X10*3/uL (0.0-0.4); Eosinophils Percent Auto 2.2 % (0-4); Hematocrit 23.2 % (42.0-52.0); Hemoglobin 7.7 g/dl (14.0-18.0); Imm Gran Abs Auto 0.01 X10*3/uL (0.00-0.03); Imm Gran Pct Auto 0.3 % (0.0-0.4); Lymphocytes Absolute Auto 0.3 X10*3/uL (1.2-4.9); Mean Corpuscular HGB Conc 33.2 g/dl (31.0-36.0); Mean Corpuscular Volume 105.5 fL (80.0-98.0); Mean Platelet Volume 10.5 fL (9.4-12.4); Monocytes Absolute Auto 0.6 X10*3/uL (0.1-1.2); Monocytes Percent Auto 17.6 % (2-11); Neutrophils Absolute Auto 2.5 x10*3/uL (2.0-8.3); Neutrophils Percent Auto 70.3 % (45-73); Red Cell Distribution Width 17.1 % (11.0-16.0); White Blood Count 3.6 X10*3/uL (4.8-10.8)
[2024-05-20 16:03] LABS: Platelet Count 65 X10*3/uL (160-400)
[2024-05-20 16:07] VITALS: BP 100/63; PULSE 80
[2024-05-20 16:08] LABS: Ammonia 25 umol/L (13-55)
[2024-05-20 16:18] LABS: Alanine Aminotransferase 8 U/L (0-40); Albumin Level 2.1 g/dL (3.5-5.0); Alkaline Phosphatase 217 U/L (39-117); Anion Gap 10 (12-20); Aspartate Amino Transferase 54 U/L (5-37); Blood Urea Nitrogen 21 mg/dL (9-16); Calcium 8.2 mg/dL (8.4-10.2); Carbon Dioxide 25 mmol/L (22-29); Chloride 104 mmol/L (96-108); Creatinine Clr Calc Pharmacy 51.6; Estimated Glomerular Filt Rate 48; Glucose Random 161 mg/dL (60-115); Potassium 4.6 mmol/L (3.3-5.1); Sodium 134 mmol/L (135-145); Total Protein 7.2 g/dL (6.5-8.0)
[2024-05-20 16:25] LABS: Glucose, Whole Blood 144 mg/dL (60-115)
[2024-05-20 20:00] VITALS: BP 121/84; PULSE 100; RESP 16; TEMP 36.4; O2SAT 93
[2024-05-20 20:16] LABS: Glucose, Whole Blood 145 mg/dL (60-115)
[2024-05-20] MEDS: Ondansetron ODT 4 MG TAB.RAPDIS TRANSLINGU (20:41)
[2024-05-20] MEDS: ORPHENADRINE CITRATE 100 MG 100 EACH PO (20:42)
[2024-05-20] MEDS: QUEtiapine Fumarate 25 MG TABLET 75 MG PO (20:43)
[2024-05-20 20:45] VITALS: BP 121/84
[2024-05-20] MEDS: traZODone HCL 100 MG TABLET PO (20:45)
[2024-05-20] MEDS: Insulin Glargine,Hum.rec.anlog 100 UNIT/ML 10 ML VIAL 10 UNIT SUBCUT (20:49)
[2024-05-21] MEDS: hydrOXYzine HCL 25 MG TABLET PO (02:55)
[2024-05-21] MEDS: oxyCODONE HCl Immed Release 5 MG TABLET PO ×3 (02:55→20:15)
[2024-05-21] MEDS: Omeprazole 20 MG CAPSULE.DR PO ×2 (06:53→16:33)
[2024-05-21 07:55] VITALS: BP 106/59; PULSE 84; RESP 18; TEMP 36.6; O2SAT 95
[2024-05-21 08:00] VITALS: BMI 26.2
[2024-05-21] MEDS: Lactulose 20 GM/30 ML SOLUTION PO ×3 (08:04→20:16)
[2024-05-21] MEDS: Spironolactone 25 MG TABLET PO (08:04)
[2024-05-21] MEDS: Midodrine HCl 5 MG TABLET PO ×3 (08:05→20:14)
[2024-05-21] MEDS: Gabapentin 300 MG CAPSULE 600 MG PO ×3 (08:05→20:16)
[2024-05-21] MEDS: Furosemide 20 MG TABLET PO (08:05)
[2024-05-21] MEDS: QUEtiapine Fumarate 25 MG TABLET PO (08:05)
[2024-05-21] MEDS: rifAXIMin 550 MG TABLET PO ×2 (08:05→20:15)
[2024-05-21] MEDS: Escitalopram Oxalate 10 MG TABLET PO (08:05)
[2024-05-21 11:24] LABS: Glucose, Whole Blood 155 mg/dL (60-115)
[2024-05-21] MEDS: Insulin Lispro 100 UNIT/ML 3 ML VIAL SUBCUT ×3 (11:28→20:16)
[2024-05-21 14:45] VITALS: BP 97/57
[2024-05-21 14:58] VITALS: BMI 26.2
[2024-05-21 15:45] LABS: Glucose, Whole Blood 97 mg/dL (60-115)
--- NOTE | 2024-05-21 16:04 | P.PNPSI_ITS ---
Subjective Subjective Date of Service: 05/21/24 Reason For Visit: mood disorder Interim History: met with pt; discussed with team pt says he's doing OK but lamenting about past abilities such as bodybuilding. Pt shows his legs, both with pitting edema. Pt agrees to Yaya stockings. Mental Status Exam Mental Status Exam Narrative: Appearance: wearing hospital pants, fair hygiene, in NAD Behavior: cooperative Psychomotor: no agitation or retardation noted Speech: clear, normal rate/rhythm/volume, spontaneous TP: linear TC: wanting help with coordination of care Mood: Okay Affect: congruent, SI denies HI: none VH/AH: none Delusions: no delusional content noted or reported Insight/judgment: impaired Memory/cog: alert, oriented x 4. Diagnostics Vital Signs (24Hr): Vital Signs - 24 hr 05/20/24 16:07 05/20/24 20:00 05/20/24 20:45 Temperature 97.5 F Pulse Rate 80 100 Respiratory Rate 16 Blood Pressure 100/63 121/84 121/84 Pulse Oximetry 93 Oxygen Delivery Method Room Air 05/21/24 07:55 05/21/24 14:45 Temperature 97.9 F Pulse Rate 84 Respiratory Rate 18 Blood Pressure 106/59 L 97/57 L Pulse Oximetry 95 Oxygen Delivery Method Room Air BMI result Body Mass Index 26.2 Labs 05/20/24 15:55 05/20/24 15:55 Labs: Laboratory Results - last 48 hr 05/19/24 05/19/24 05/20/24 16:12 19:42 06:51 WBC RBC Hgb Hct MCV MCH MCHC RDW Plt Count MPV Immature Gran % (Auto) Neut % (Auto) Lymph % (Auto) Zapata % (Auto) Eos % (Auto) Baso % (Auto) Lymph # (Auto) Zapata # (Auto) Eos # (Auto) Baso # (Auto) Abs Immat Gran (auto) Absolute Neuts (auto) Absolute Nucleated RBC Nucleated RBC % (auto) Sodium Potassium Chloride Carbon Dioxide Anion Gap BUN Creatinine Estim Creat Clear Calc Estimated GFR POC Glucose 159 H 166 H 154 H Random Glucose Calcium Total Bilirubin AST ALT Alkaline Phosphatase Ammonia Total Protein Albumin 05/20/24 05/20/24 05/20/24 11:15 15:55 16:19 WBC 3.6 L RBC 2.20 L Hgb 7.7 L Hct 23.2 L MCV 105.5 H MCH 35.0 H MCHC 33.2 RDW 17.1 H Plt Count 65 L MPV 10.5 Immature Gran % (Auto) 0.3 Neut % (Auto) 70.3 Lymph % (Auto) 9.0 L Zapata % (Auto) 17.6 H Eos % (Auto) 2.2 Baso % (Auto) 0.6 Lymph # (Auto) 0.3 L Zapata # (Auto) 0.6 Eos # (Auto) 0.1 Baso # (Auto) 0.0 Abs Immat Gran (auto) 0.01 Absolute Neuts (auto) 2.5 Absolute Nucleated RBC 0.000 Nucleated RBC % (auto) 0.0 Sodium 134 L Potassium 4.6 D Chloride 104 Carbon Dioxide 25 Anion Gap 10 L BUN 21 H Creatinine 1.49 H Estim Creat Clear Calc 51.6 Estimated GFR 48 POC Glucose 213 H 144 H Random Glucose 161 H Calcium 8.2 L Total Bilirubin 2.0 H AST 54 H ALT 8 Alkaline Phosphatase 217 H Ammonia 25 Total Protein 7.2 Albumin 2.1 L 05/20/24 05/21/24 05/21/24 19:56 06:47 11:20 WBC RBC Hgb Hct MCV MCH MCHC RDW Plt Count MPV Immature Gran % (Auto) Neut % (Auto) Lymph % (Auto) Zapata % (Auto) Eos % (Auto) Baso % (Auto) Lymph # (Auto) Zapata # (Auto) Eos # (Auto) Baso # (Auto) Abs Immat Gran (auto) Absolute Neuts (auto) Absolute Nucleated RBC Nucleated RBC % (auto) Sodium Potassium Chloride Carbon Dioxide Anion Gap BUN Creatinine Estim Creat Clear Calc Estimated GFR POC Glucose 145 H 97 155 H Random Glucose Calcium Total Bilirubin AST ALT Alkaline Phosphatase Ammonia Total Protein Albumin Imaging Radiology Impressions: ITS Impressions Bone Osseous Survey 05/07/24 15:00 IMPRESSION: 1. Cortical depression and adjacent cystic change within the lateral aspect of the left humeral head is redemonstrated. Findings could represent sequela of prior trauma. No aggressive features to suggest an underlying neoplastic lesion. 2. No additional lytic or blastic osseous lesion. 3. Left lower lobe airspace opacities. 4. Yojq-kd-tjrufwwy stool burden. Electronically signed by: Roman Power MD 05/07/2024 11:00 PM EST [id number] 05/09/24 10:00 IMPRESSION: Moderate air and stool throughout the colon. Nonobstructive bowel gas pattern. Electronically signed by: Roman Power MD 05/09/2024 08:07 PM EST RP Abdomen Ultrasound 05/10/24 09:45 IMPRESSION: Moderate ascites. Electronically signed by: David Saul MD 05/10/2024 04:09 PM EST RP Medications Medications Current Medications Al Hydroxide/Mg Hydroxide (Magnesium Hydrox/Alum Hydrox 30 Ml Oral.Susp) 30 ml PO Q6H PRN PRN Reason: Heartburn/Nausea Baclofen (Baclofen 10 Mg Tablet) 10 mg PO TID PRN PRN Reason: muscle tension Last Admin: 05/11/24 21:02 Dose: 10 mg Escitalopram Oxalate (Escitalopram Oxalate 10 Mg Tablet) 10 mg PO DAILY [facility] Last Admin: 05/21/24 08:05 Dose: 10 mg Furosemide (Furosemide 20 Mg Tablet) 20 mg PO DAILY [facility]; Protocol Last Admin: 05/21/24 08:05 Dose: 20 mg Gabapentin (Gabapentin 300 Mg Capsule) 600 mg PO TID BREEZY Last Admin: 05/21/24 14:45 Dose: 600 mg Hydroxyzine HCl (Hydroxyzine Hcl 25 Mg Tablet) 25 mg PO Q6H PRN PRN Reason: Anxiety Last Admin: 05/21/24 02:55 Dose: 25 mg Insulin Glargine (Insulin Glargine,Hum.Rec.Anlog 100 Unit/Ml 10 Ml Vial) 10 unit SUBCUT BEDTIME [facility] Last Admin: 05/20/24 20:49 Dose: 10 unit Insulin Human Lispro (Insulin Lispro 100 Unit/Ml 3 Ml Vial) 0 unit SUBCUT QIDACHS [facility]; Protocol Last Admin: 05/21/24 11:28 Dose: 2 unit Lactulose (Lactulose 20 Gm/30 Ml Solution) 20 gm PO TID BREEZY Last Admin: 05/21/24 14:45 Dose: 20 gm Lorazepam (Lorazepam 0.5 Mg Tablet) 0.5 mg PO BID PRN PRN Reason: Anxiety Last Admin: 05/20/24 20:45 Dose: 0.5 mg Magnesium Hydroxide (Milk Of Magnesia 30 Ml Oral.Susp) 30 ml PO DAILY PRN PRN Reason: Constipation Midodrine (Midodrine Hcl 5 Mg Tablet) 5 mg PO TID [facility] Last Admin: 05/21/24 14:45 Dose: 5 mg Pt Own (Orphenadrine Citrate 100 Mg Tablet Extended Release) 100 mg PO BID PRN PRN Reason: Pain Last Admin: 05/20/24 20:42 Dose: 100 mg Omeprazole (Omeprazole 20 Mg Capsule.Dr) 20 mg PO BID@0630,1630 [facility] Last Admin: 05/21/24 06:53 Dose: 20 mg Ondansetron HCl (Ondansetron Odt 4 Mg Tab.Rapdis) 4 mg TRANSLINGU Q6H PRN PRN Reason: Nausea and Vomiting Last Admin: 05/20/24 20:41 Dose: 4 mg Oxycodone HCl (Oxycodone Hcl Immed Release 5 Mg Tablet) 5 mg PO Q4H PRN PRN Reason: Pain, Severe (Pain Scale 7-10) Last Admin: 05/21/24 14:57 Dose: 5 mg Quetiapine Fumarate (Quetiapine Fumarate 25 Mg Tablet) 75 mg PO BEDTIME [facility] Last Admin: 05/20/24 20:43 Dose: 75 mg Quetiapine Fumarate (Quetiapine Fumarate 25 Mg Tablet) 25 mg PO DAILY [facility] Last Admin: 05/21/24 08:05 Dose: 25 mg Rifaximin (Rifaximin 550 Mg Tablet) 550 mg PO BID [facility] Last Admin: 05/21/24 08:05 Dose: 550 mg Spironolactone (Spironolactone 25 Mg Tablet) 25 mg PO DAILY [facility]; Protocol Last Admin: 05/21/24 08:04 Dose: 25 mg Trazodone HCl (Trazodone Hcl 100 Mg Tablet) 100 mg PO BEDTIME [facility] Last Admin: 05/20/24 20:45 Dose: 100 mg Allergies Allergies Allergy/AdvReac Type Severity Reaction Status Date / Time acetaminophen AdvReac Unknown Verified 04/28/24 11:48 bismuth subsalicylate AdvReac Unknown Verified 04/28/24 11:48 [From Pepto-Bismol] celecoxib [From Celebrex] AdvReac Unknown Verified 04/28/24 11:48 NSAIDS (Non-Steroidal AdvReac Unknown Verified 04/28/24 11:48 Anti-Inflamma Assessment & Plan Assessment & Plan (1) PTSD (post-traumatic stress disorder): Status: Acute Code(s): F43.10 - Post-traumatic stress disorder, unspecified (2) Homelessness: Status: Acute Code(s): Z59.00 - Homelessness unspecified (3) MAYE (acute kidney injury): Status: Resolved Code(s): N17.9 - Acute kidney failure, unspecified (4) Cirrhosis, alcoholic: Status: Acute Code(s): K70.30 - Alcoholic cirrhosis of liver without ascites (5) Portal hypertension: Status: Acute Code(s): K76.6 - Portal hypertension Plan The patient is a middle-aged male with a past history of chronically were failure, bipolar disorder, PTSD, ADHD and chronic homelessness who was brought into the facility after he disclosed suicidal ideation with a plan [place]. The patient was assessed by crisis and transferring to this facility for psychiatric stabilization. 05/02: Continue current regimen and plans for stabilization and medication management. Added Seroquel 25 mg nightly p.r.n. 05/03: Continue current regimen and plans for stabilization and medication management 05/04 repeat cmp, cbc, ammonia. 05/05 continue tx. pending GI consult, re: dropping HgB, 05/06- discussed code, pt would like to continue full code at this moment. planning for referrals for SNF. left shoulder pain- had left shoulder xr which shows destructive lesion of 1.4cm (will contact hospitalist for dx and tx). continue to monitor HgB, ammonia (mildly elevated, pt at times refuses lactulose, he is also on rifaximin). Will check pth, ionized calcium (regular calcium low but note low albumin). may consider esr/crp 05/07 continue tx. 05/08 continue tx. pending GI consult. 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 complicated patient provider loathe to make change advisor weekend for pt 05/10 starting olanzapine tonight- 25mg, lower trazodone 75mg- awaiting for paracentesis may want to further decrease trazodone and inc olanzapine- watch for nightmares 05/11 parencetises for 05/12. continue monitor hgb. 05/12 daily weights, measurement of abdominal girt. will start lexapro for depression 10mg po daily. seroquel bedtime and morning- will monitor liver function as he start these medications. 05/13 continue tx. continue daily weigh- hopefully pt won't refuse. monitor ammonia, Hgb. Per GI, transfusion if Hgb <8. 05/14/2024 Patient feeling medically improved remains depressed hopeless helpless difficulty with future orientation 05/17/2020 Continue escitalopram trazodone patient intermittent hopelessness but more engaged feeling somewhat more hopeful regarding the future has intermittent thoughts of despair and self-harm denies in this setting 05/19/2024 Patient increasingly depressed withdrawn unclear if related to his cirrhosis edema will check ammonia electrolytes LFTs. He is on Lexapro and gabapentin gabapentin presumably for neuropathy questionable history of bipolar disorder versus recurrent depression he is on Lexapro Check labs 05/21 will order yaya stockings for b/l lower limb edema Patient educated on: diagnosis, medication risk/benefits and medical condition Informed Consent: understands Reason for continued inpatient stay Substantial Risk for: rapid decompensation Time Spent With Patient Time: Total time managing care of this patient today ____ minutes.
[2024-05-21 16:13] LABS: Glucose, Whole Blood 210 mg/dL (60-115)
[2024-05-21 20:00] VITALS: BP 101/69; PULSE 83; RESP 16; TEMP 36.6; O2SAT 95
[2024-05-21 20:06] LABS: Glucose, Whole Blood 163 mg/dL (60-115)
[2024-05-21 20:14] VITALS: BP 101/69
[2024-05-21] MEDS: traZODone HCL 100 MG TABLET PO (20:14)
[2024-05-21] MEDS: QUEtiapine Fumarate 25 MG TABLET 75 MG PO (20:15)
[2024-05-21] MEDS: LORazepam 0.5 MG TABLET PO (20:16)
[2024-05-21] MEDS: Insulin Glargine,Hum.rec.anlog 100 UNIT/ML 10 ML VIAL 10 UNIT SUBCUT (20:17)
[2024-05-22] MEDS: hydrOXYzine HCL 25 MG TABLET PO ×2 (01:16→20:29)
[2024-05-22] MEDS: oxyCODONE HCl Immed Release 5 MG TABLET PO ×3 (01:16→20:15)
[2024-05-22] MEDS: ORPHENADRINE CITRATE 100 MG 100 EACH PO ×2 (01:17→20:29)
[2024-05-22] MEDS: Omeprazole 20 MG CAPSULE.DR PO ×2 (06:29→16:38)
[2024-05-22 06:37] LABS: Glucose, Whole Blood 114 mg/dL (60-115)
[2024-05-22] MEDS: Furosemide 20 MG TABLET PO (07:52)
[2024-05-22] MEDS: rifAXIMin 550 MG TABLET PO ×2 (07:53→20:15)
[2024-05-22] MEDS: Midodrine HCl 5 MG TABLET PO ×3 (07:53→20:18)
[2024-05-22] MEDS: QUEtiapine Fumarate 25 MG TABLET PO (07:53)
[2024-05-22] MEDS: Lactulose 20 GM/30 ML SOLUTION PO ×3 (07:54→20:18)
[2024-05-22] MEDS: Escitalopram Oxalate 10 MG TABLET PO (07:54)
[2024-05-22] MEDS: Gabapentin 300 MG CAPSULE 600 MG PO ×3 (07:54→20:14)
[2024-05-22 08:00] VITALS: BP 98/68; PULSE 94; RESP 16; TEMP 37.4; O2SAT 94; BMI 26.4
[2024-05-22 10:48] LABS: Glucose, Whole Blood 200 mg/dL (60-115)
[2024-05-22] MEDS: Insulin Lispro 100 UNIT/ML 3 ML VIAL SUBCUT ×2 (11:45→16:37)
[2024-05-22 14:35] VITALS: BP 101/66; PULSE 86; RESP 16; O2SAT 96
[2024-05-22 16:12] LABS: Glucose, Whole Blood 216 mg/dL (60-115)
[2024-05-22 20:00] VITALS: BP 130/74; PULSE 91; RESP 14; TEMP 36.6; O2SAT 100
[2024-05-22] MEDS: Insulin Glargine,Hum.rec.anlog 100 UNIT/ML 10 ML VIAL 10 UNIT SUBCUT (20:15)
[2024-05-22] MEDS: QUEtiapine Fumarate 25 MG TABLET 75 MG PO (20:17)
[2024-05-22] MEDS: LORazepam 0.5 MG TABLET PO (20:17)
[2024-05-22] MEDS: traZODone HCL 100 MG TABLET PO (20:18)
[2024-05-22 20:43] LABS: Glucose, Whole Blood 132 mg/dL (60-115)
--- NOTE | 2024-05-22 23:53 | HO.PSYCHPN ---
Subjective Subjective Date of Service: 05/22/24 Reason For Visit: mood disorder Interim History: met w/ patient; discussed with team pt says he's Ok; thankful for Yaya stockings. Discussed parcentesis. Mental Status Exam Mental Status Exam Narrative: Appearance: wearing hospital pants, fair hygiene, in NAD Behavior: cooperative Psychomotor: no agitation or retardation noted Speech: clear, normal rate/rhythm/volume, spontaneous TP: linear TC: wanting help with coordination of care Mood: Okay Affect: congruent, SI denies HI: none VH/AH: none Delusions: no delusional content noted or reported Insight/judgment: impaired Memory/cog: alert, oriented x 4. Diagnostics Vital Signs (24Hr): Vital Signs - 24 hr 05/22/24 08:00 05/22/24 14:35 05/22/24 20:00 Temperature 99.3 F 97.8 F Pulse Rate 94 86 91 Respiratory Rate 16 16 14 Blood Pressure 98/68 101/66 130/74 Pulse Oximetry 94 96 100 Oxygen Delivery Method Room Air Room Air Room Air BMI result Body Mass Index 26.4 Labs 05/20/24 15:55 05/20/24 15:55 Labs: Laboratory Results - last 48 hr 05/21/24 05/21/24 05/21/24 06:47 11:20 16:09 POC Glucose 97 155 H 210 H 05/21/24 05/22/24 05/22/24 19:57 06:32 10:43 POC Glucose 163 H 114 200 H 05/22/24 05/22/24 16:08 20:11 POC Glucose 216 H 132 H Imaging Radiology Impressions: ITS Impressions Bone Osseous Survey 05/07/24 15:00 IMPRESSION: 1. Cortical depression and adjacent cystic change within the lateral aspect of the left humeral head is redemonstrated. Findings could represent sequela of prior trauma. No aggressive features to suggest an underlying neoplastic lesion. 2. No additional lytic or blastic osseous lesion. 3. Left lower lobe airspace opacities. 4. Ayli-tq-[id number] stool burden. Electronically signed by: Roman Power MD 05/07/2024 11:00 PM [facility] X-Ray 05/09/24 10:00 IMPRESSION: Moderate air and stool throughout the colon. Nonobstructive bowel gas pattern. Electronically signed by: Roman Power MD 05/09/2024 08:07 PM EST RP Abdomen Ultrasound 05/10/24 09:45 IMPRESSION: Moderate ascites. Electronically signed by: David Saul MD 05/10/2024 04:09 PM EST RP Medications Medications Current Medications Al Hydroxide/Mg Hydroxide (Magnesium Hydrox/Alum Hydrox 30 Ml Oral.Susp) 30 ml PO Q6H PRN PRN Reason: Heartburn/Nausea Baclofen (Baclofen 10 Mg Tablet) 10 mg PO TID PRN PRN Reason: muscle tension Last Admin: 05/11/24 21:02 Dose: 10 mg Escitalopram Oxalate (Escitalopram Oxalate 10 Mg Tablet) 10 mg PO DAILY [facility] Last Admin: 05/22/24 07:54 Dose: 10 mg Furosemide (Furosemide 20 Mg Tablet) 20 mg PO DAILY [facility]; Protocol Last Admin: 05/22/24 07:52 Dose: 20 mg Gabapentin (Gabapentin 300 Mg Capsule) 600 mg PO TID [facility] Last Admin: 05/22/24 20:14 Dose: 600 mg Hydroxyzine HCl (Hydroxyzine Hcl 25 Mg Tablet) 25 mg PO Q6H PRN PRN Reason: Anxiety Last Admin: 05/22/24 20:29 Dose: 25 mg Insulin Glargine (Insulin Glargine,Hum.Rec.Anlog 100 Unit/Ml 10 Ml Vial) 10 unit SUBCUT BEDTIME [facility] Last Admin: 05/22/24 20:15 Dose: 10 unit Insulin Human Lispro (Insulin Lispro 100 Unit/Ml 3 Ml Vial) 0 unit SUBCUT QIDACHS [facility]; Protocol Last Admin: 05/22/24 22:01 Dose: Not Given Lactulose (Lactulose 20 Gm/30 Ml Solution) 20 gm PO TID [facility] Last Admin: 05/22/24 20:18 Dose: 20 gm Lorazepam (Lorazepam 0.5 Mg Tablet) 0.5 mg PO BID PRN PRN Reason: Anxiety Last Admin: 05/22/24 20:17 Dose: 0.5 mg Magnesium Hydroxide (Milk Of Magnesia 30 Ml Oral.Susp) 30 ml PO DAILY PRN PRN Reason: Constipation Midodrine (Midodrine Hcl 5 Mg Tablet) 5 mg PO TID [facility] Last Admin: 05/22/24 20:18 Dose: 5 mg Pt Own (Orphenadrine Citrate 100 Mg Tablet Extended Release) 100 mg PO BID PRN PRN Reason: Pain Last Admin: 05/22/24 20:29 Dose: 100 mg Omeprazole (Omeprazole 20 Mg Capsule.Dr) 20 mg PO BID@0630,1630 [facility] Last Admin: 05/22/24 16:38 Dose: 20 mg Ondansetron HCl (Ondansetron Odt 4 Mg Tab.Rapdis) 4 mg TRANSLINGU Q6H PRN PRN Reason: Nausea and Vomiting Last Admin: 05/20/24 20:41 Dose: 4 mg Oxycodone HCl (Oxycodone Hcl Immed Release 5 Mg Tablet) 5 mg PO Q4H PRN PRN Reason: Pain, Severe (Pain Scale 7-10) Last Admin: 05/22/24 20:15 Dose: 5 mg Quetiapine Fumarate (Quetiapine Fumarate 25 Mg Tablet) 75 mg PO BEDTIME [facility] Last Admin: 05/22/24 20:17 Dose: 75 mg Quetiapine Fumarate (Quetiapine Fumarate 25 Mg Tablet) 25 mg PO DAILY [facility] Last Admin: 05/22/24 07:53 Dose: 25 mg Rifaximin (Rifaximin 550 Mg Tablet) 550 mg PO BID [facility] Last Admin: 05/22/24 20:15 Dose: 550 mg Spironolactone (Spironolactone 25 Mg Tablet) 25 mg PO DAILY [facility]; Protocol Last Admin: 05/22/24 11:28 Dose: Not Given Trazodone HCl (Trazodone Hcl 100 Mg Tablet) 100 mg PO BEDTIME [facility] Last Admin: 05/22/24 20:18 Dose: 100 mg Allergies Allergies Allergy/AdvReac Type Severity Reaction Status Date / Time acetaminophen AdvReac Unknown Verified 04/28/24 11:48 bismuth subsalicylate AdvReac Unknown Verified 04/28/24 11:48 [From Pepto-Bismol] celecoxib [From Celebrex] AdvReac Unknown Verified 04/28/24 11:48 NSAIDS (Non-Steroidal AdvReac Unknown Verified 04/28/24 11:48 Anti-Inflamma Assessment & Plan Assessment & Plan (1) PTSD (post-traumatic stress disorder): Status: Acute Code(s): F43.10 - Post-traumatic stress disorder, unspecified (2) Homelessness: Status: Acute Code(s): Z59.00 - Homelessness unspecified (3) MAYE (acute kidney injury): Status: Resolved Code(s): N17.9 - Acute kidney failure, unspecified (4) Cirrhosis, alcoholic: Status: Acute Code(s): K70.30 - Alcoholic cirrhosis of liver without ascites (5) Portal hypertension: Status: Acute Code(s): K76.6 - Portal hypertension Plan The patient is a middle-aged male with a past history of chronically were failure, bipolar disorder, PTSD, ADHD and chronic homelessness who was brought into the facility after he disclosed suicidal ideation with a plan [place]. The patient was assessed by crisis and transferring to this facility for psychiatric stabilization. 05/02: Continue current regimen and plans for stabilization and medication management. Added Seroquel 25 mg nightly p.r.n. 05/03: Continue current regimen and plans for stabilization and medication management 05/04 repeat cmp, cbc, ammonia. 05/05 continue tx. pending GI consult, re: dropping HgB, 05/06- discussed code, pt would like to continue full code at this moment. planning for referrals for SNF. left shoulder pain- had left shoulder xr which shows destructive lesion of 1.4cm (will contact hospitalist for dx and tx). continue to monitor HgB, ammonia (mildly elevated, pt at times refuses lactulose, he is also on rifaximin). Will check pth, ionized calcium (regular calcium low but note low albumin). may consider esr/crp 05/07 continue tx. 05/08 continue tx. pending GI consult. 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 continue monitor hgb. 05/12 daily weights, measurement of abdominal girt. will start lexapro for depression 10mg po daily. seroquel bedtime and morning- will monitor liver function as he start these medications. 05/13 continue tx. continue daily weigh- hopefully pt won't refuse. monitor ammonia, Hgb. Per GI, transfusion if Hgb <8. 05/14/2024 Patient feeling medically improved remains depressed hopeless helpless difficulty with future orientation 05/17/2020 Continue escitalopram trazodone patient intermittent hopelessness but more engaged feeling somewhat more hopeful regarding the future has intermittent thoughts of despair and self-harm denies in this setting 05/19/2024 Patient increasingly depressed withdrawn unclear if related to his cirrhosis edema will check ammonia electrolytes LFTs. He is on Lexapro and gabapentin gabapentin presumably for neuropathy questionable history of bipolar disorder versus recurrent depression he is on Lexapro Check labs 05/21 will order yaya stockings for b/l lower limb edema 05/22 pt wearing Yaya stockings -commercial real estate underwriter placed consult to asses for continued paracentesis Patient educated on: diagnosis and medical condition Informed Consent: understands Reason for continued inpatient stay Substantial Risk for: rapid decompensation Time Spent With Patient Time: Total time managing care of this patient today ____ minutes.
--- NOTE | 2024-05-23 00:21 | P.EN_ITS ---
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 Medical consult to evaluate for paracentesis. Pt last received paracentesis 11 days prior on 05/12/2024 where 1.8 L of ascitic fluid were removed. Will schedule pt for therapeutic paracentesis. Time Spent With Patient Time: Total time managing care of this patient today ____ minutes.
[2024-05-23] MEDS: oxyCODONE HCl Immed Release 5 MG TABLET PO ×2 (03:23→21:10)
[2024-05-23] MEDS: Omeprazole 20 MG CAPSULE.DR PO ×2 (06:34→16:47)
[2024-05-23 06:48] LABS: Glucose, Whole Blood 109 mg/dL (60-115)
[2024-05-23 08:00] VITALS: BP 92/58; PULSE 85; RESP 16; TEMP 36.6; O2SAT 96; BMI 26.4
[2024-05-23] MEDS: Midodrine HCl 5 MG TABLET PO ×3 (08:31→21:11)
[2024-05-23] MEDS: rifAXIMin 550 MG TABLET PO ×2 (08:31→21:10)
[2024-05-23] MEDS: QUEtiapine Fumarate 25 MG TABLET PO (08:32)
[2024-05-23] MEDS: Gabapentin 300 MG CAPSULE 600 MG PO ×3 (08:32→21:11)
[2024-05-23] MEDS: Escitalopram Oxalate 10 MG TABLET PO (08:32)
[2024-05-23] MEDS: Lactulose 20 GM/30 ML SOLUTION PO ×3 (09:01→21:12)
[2024-05-23 11:08] LABS: Glucose, Whole Blood 174 mg/dL (60-115)
[2024-05-23] MEDS: Insulin Lispro 100 UNIT/ML 3 ML VIAL SUBCUT ×3 (11:46→21:21)
[2024-05-23 15:28] VITALS: BP 113/76; PULSE 97; RESP 18; O2SAT 95
--- NOTE | 2024-05-23 16:12 | P.PNPSI_ITS ---
Subjective Subjective Date of Service: 05/23/24 Reason For Visit: mood disorder Interim History: Met with patient; discussed with team Patient reports that mood is good and that he is overall feeling better. Appreciate Fili stockings and also that paracentesis is being scheduled for next week. Patient reported some eye discomfort, thinking something was in his eye; no redness, no discharge; ordered eyedrops and discomfort resolved. Mental Status Exam Mental Status Exam Narrative: Appearance: wearing casual cloths; adequately groomed/hygiene, in NAD Behavior: cooperative, calm, friendly Psychomotor: no agitation or retardation noted Speech: clear, normal rate/rhythm/volume, spontaneous TP: linear TC: On medical issues, aftercare Mood: Good Affect: congruent, , bright, calm SI denies HI: none VH/AH: none Delusions: no delusional content noted or reported Insight/judgment: Fair Memory/cog: alert, oriented x 4. Diagnostics Vital Signs (24Hr): Vital Signs - 24 hr 05/22/24 20:00 05/23/24 08:00 05/23/24 15:28 Temperature 97.8 F 97.8 F Pulse Rate 91 85 97 Respiratory Rate 14 16 18 Blood Pressure 130/74 92/58 L 113/76 Pulse Oximetry 100 96 95 Oxygen Delivery Method Room Air Room Air Room Air BMI result Body Mass Index 26.4 Labs 05/26/24 08:56 05/20/24 15:55 Labs: Laboratory Results - last 48 hr 05/21/24 05/21/24 05/22/24 16:09 19:57 06:32 POC Glucose 210 H 163 H 114 05/22/24 05/22/24 05/22/24 10:43 16:08 20:11 POC Glucose 200 H 216 H 132 H 05/23/24 05/23/24 06:36 11:02 POC Glucose 109 174 H Imaging Radiology Impressions: ITS Impressions Bone Osseous Survey 05/07/24 15:00 IMPRESSION: 1. Cortical depression and adjacent cystic change within the lateral aspect of the left humeral head is redemonstrated. Findings could represent sequela of prior trauma. No aggressive features to suggest an underlying neoplastic lesion. 2. No additional lytic or blastic osseous lesion. 3. Left lower lobe airspace opacities. 4. Rogz-wa-cefqsmil stool burden. Electronically signed by: Roman Power MD 05/07/2024 11:00 PM EST RP KUB X-Ray 05/09/24 10:00 IMPRESSION: Moderate air and stool throughout the colon. Nonobstructive bowel gas pattern. Electronically signed by: Roman Power MD 05/09/2024 08:07 PM EST RP Abdomen Ultrasound 05/10/24 09:45 IMPRESSION: Moderate ascites. Electronically signed by: David Saul MD 05/10/2024 04:09 PM EST RP Medications Medications Current Medications Al Hydroxide/Mg Hydroxide (Magnesium Hydrox/Alum Hydrox 30 Ml Oral.Susp) 30 ml PO Q6H PRN PRN Reason: Heartburn/Nausea Baclofen (Baclofen 10 Mg Tablet) 10 mg PO TID PRN PRN Reason: muscle tension Last Admin: 05/11/24 21:02 Dose: 10 mg Escitalopram Oxalate (Escitalopram Oxalate 10 Mg Tablet) 10 mg PO DAILY [facility] Last Admin: 05/23/24 08:32 Dose: 10 mg Furosemide (Furosemide 20 Mg Tablet) 20 mg PO DAILY [facility]; Protocol Last Admin: 05/23/24 08:47 Dose: Not Given Gabapentin (Gabapentin 300 Mg Capsule) 600 mg PO TID [facility] Last Admin: 05/23/24 15:19 Dose: 600 mg Hydroxyzine HCl (Hydroxyzine Hcl 25 Mg Tablet) 25 mg PO Q6H PRN PRN Reason: Anxiety Last Admin: 05/22/24 20:29 Dose: 25 mg Insulin Glargine (Insulin Glargine,Hum.Rec.Anlog 100 Unit/Ml 10 Ml Vial) 10 unit SUBCUT BEDTIME [facility] Last Admin: 05/22/24 20:15 Dose: 10 unit Insulin Human Lispro (Insulin Lispro 100 Unit/Ml 3 Ml Vial) 0 unit SUBCUT QIDACHS [facility]; Protocol Last Admin: 05/23/24 11:46 Dose: 2 unit Lactulose (Lactulose 20 Gm/30 Ml Solution) 20 gm PO TID [facility] Last Admin: 05/23/24 15:20 Dose: 20 gm Lorazepam (Lorazepam 0.5 Mg Tablet) 0.5 mg PO BID PRN PRN Reason: Anxiety Last Admin: 05/22/24 20:17 Dose: 0.5 mg Magnesium Hydroxide (Milk Of Magnesia 30 Ml Oral.Susp) 30 ml PO DAILY PRN PRN Reason: Constipation Midodrine (Midodrine Hcl 5 Mg Tablet) 5 mg PO TID [facility] Last Admin: 05/23/24 15:19 Dose: 5 mg Pt Own (Orphenadrine Citrate 100 Mg Tablet Extended Release) 100 mg PO BID PRN PRN Reason: Pain Last Admin: 05/22/24 20:29 Dose: 100 mg Omeprazole (Omeprazole 20 Mg Capsule.Dr) 20 mg PO BID@0630,1630 [facility] Last Admin: 05/23/24 06:34 Dose: 20 mg Ondansetron HCl (Ondansetron Odt 4 Mg Tab.Rapdis) 4 mg TRANSLINGU Q6H PRN PRN Reason: Nausea and Vomiting Last Admin: 05/20/24 20:41 Dose: 4 mg Oxycodone HCl (Oxycodone Hcl Immed Release 5 Mg Tablet) 5 mg PO Q4H PRN PRN Reason: Pain, Severe (Pain Scale 7-10) Last Admin: 05/23/24 03:23 Dose: 5 mg Quetiapine Fumarate (Quetiapine Fumarate 25 Mg Tablet) 75 mg PO BEDTIME [facility] Last Admin: 05/22/24 20:17 Dose: 75 mg Quetiapine Fumarate (Quetiapine Fumarate 25 Mg Tablet) 25 mg PO DAILY [facility] Last Admin: 05/23/24 08:32 Dose: 25 mg Rifaximin (Rifaximin 550 Mg Tablet) 550 mg PO BID [facility] Last Admin: 05/23/24 08:31 Dose: 550 mg Spironolactone (Spironolactone 25 Mg Tablet) 25 mg PO DAILY [facility]; Protocol Last Admin: 05/23/24 08:48 Dose: Not Given Trazodone HCl (Trazodone Hcl 100 Mg Tablet) 100 mg PO BEDTIME [facility] Last Admin: 05/22/24 20:18 Dose: 100 mg Allergies Allergies Allergy/AdvReac Type Severity Reaction Status Date / Time acetaminophen AdvReac Unknown Verified 04/28/24 11:48 bismuth subsalicylate AdvReac Unknown Verified 04/28/24 11:48 [From Pepto-Bismol] celecoxib [From Celebrex] AdvReac Unknown Verified 04/28/24 11:48 NSAIDS (Non-Steroidal AdvReac Unknown Verified 04/28/24 11:48 Anti-Inflamma Assessment & Plan Assessment & Plan (1) PTSD (post-traumatic stress disorder): Status: Acute Code(s): F43.10 - Post-traumatic stress disorder, unspecified (2) Homelessness: Status: Acute Code(s): Z59.00 - Homelessness unspecified (3) MAYE (acute kidney injury): Status: Resolved Code(s): N17.9 - Acute kidney failure, unspecified (4) Cirrhosis, alcoholic: Status: Acute Code(s): K70.30 - Alcoholic cirrhosis of liver without ascites (5) Portal hypertension: Status: Acute Code(s): K76.6 - Portal hypertension Plan The patient is a middle-aged male with a past history of chronically were failure, bipolar disorder, PTSD, ADHD and chronic homelessness who was brought into the facility after he disclosed suicidal ideation with a [place] The patient was assessed by crisis and transferring to this facility for psychiatric stabilization. 05/02: Continue current regimen and plans for stabilization and medication management. Added Seroquel 25 mg nightly p.r.n. 05/03: Continue current regimen and plans for stabilization and medication management 05/04 repeat cmp, cbc, ammonia. 05/05 continue tx. pending GI consult, re: dropping HgB, 05/06- discussed code, pt would like to continue full code at this moment. planning for referrals for SNF. left shoulder pain- had left shoulder xr which shows destructive lesion of 1.4cm (will contact hospitalist for dx and tx). continue to monitor HgB, ammonia (mildly elevated, pt at times refuses lactulose, he is also on rifaximin). Will check pth, ionized calcium (regular calcium low but note low albumin). may consider esr/crp 05/07 continue tx. 05/08 continue tx. pending GI consult. 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 complicated patient provider loathe to make price changer weekend for pt 05/10 starting olanzapine tonight- 25mg, lower trazodone 75mg- awaiting for paracentesis may want to further decrease trazodone and inc olanzapine- watch for nightmares 05/11 parencetises for 05/12. continue monitor hgb. 05/12 daily weights, measurement of abdominal girt. will start lexapro for depression 10mg po daily. seroquel bedtime and morning- will monitor liver function as he start these medications. 05/13 continue tx. continue daily weigh- hopefully pt won't refuse. monitor ammonia, Hgb. Per GI, transfusion if Hgb <8. 05/14/2024 Patient feeling medically improved remains depressed hopeless helpless difficulty with future orientation 05/17/2020 Continue escitalopram trazodone patient intermittent hopelessness but more engaged feeling somewhat more hopeful regarding the future has intermittent thoughts of despair and self-harm denies in this setting 05/19/2024 Patient increasingly depressed withdrawn unclear if related to his cirrhosis edema will check ammonia electrolytes LFTs. He is on Lexapro and gabapentin gabapentin presumably for neuropathy questionable history of bipolar disorder versus recurrent depression he is on Lexapro Check labs 05/21 will order yaya stockings for b/l lower limb edema 05/22 pt wearing Yaya stockings -technical publications writer placed consult to asses for continued paracentesis 05/23 Patient reports that mood is good and that he is overall feeling better. Appreciate Fili stockings and also that paracentesis is being scheduled for next week. Patient reported some eye discomfort, thinking something was in his eye; no redness, no discharge; ordered eyedrops and discomfort resolved. Patient educated on: diagnosis, medication risk/benefits and medical condition Informed Consent: understands Reason for continued inpatient stay Substantial Risk for: stable for discharge Time Spent With Patient Time: Total time managing care of this patient today ____ minutes.
[2024-05-23 16:25] LABS: Glucose, Whole Blood 240 mg/dL (60-115)
--- NOTE | 2024-05-23 18:45 | PC.NURSE ---
Patient BP was 92/58, Spironolactone and Furosemide held, Dr. Mott notified.
[2024-05-23 20:00] VITALS: BP 137/81; PULSE 81; RESP 16; TEMP 36.4; O2SAT 97
[2024-05-23] MEDS: Insulin Glargine,Hum.rec.anlog 100 UNIT/ML 10 ML VIAL 10 UNIT SUBCUT (21:08)
[2024-05-23] MEDS: traZODone HCL 100 MG TABLET PO (21:10)
[2024-05-23 21:11] VITALS: BP 137/81
[2024-05-23] MEDS: QUEtiapine Fumarate 25 MG TABLET 75 MG PO (21:11)
[2024-05-23 22:58] LABS: Glucose, Whole Blood 156 mg/dL (60-115)
[2024-05-24] MEDS: Omeprazole 20 MG CAPSULE.DR PO ×2 (06:18→16:21)
[2024-05-24 06:37] LABS: Glucose, Whole Blood 126 mg/dL (60-115)
[2024-05-24 08:00] VITALS: BP 102/62; PULSE 79; RESP 16; TEMP 36.1; O2SAT 96; BMI 26.1
[2024-05-24] MEDS: Furosemide 20 MG TABLET PO (08:51)
[2024-05-24] MEDS: Spironolactone 25 MG TABLET PO (08:51)
[2024-05-24] MEDS: Escitalopram Oxalate 10 MG TABLET PO (08:51)
[2024-05-24] MEDS: QUEtiapine Fumarate 25 MG TABLET PO (08:51)
[2024-05-24] MEDS: Lactulose 20 GM/30 ML SOLUTION PO ×3 (08:52→21:00)
[2024-05-24] MEDS: Midodrine HCl 5 MG TABLET PO ×3 (08:52→21:00)
[2024-05-24] MEDS: Gabapentin 300 MG CAPSULE 600 MG PO ×3 (08:52→21:02)
[2024-05-24] MEDS: rifAXIMin 550 MG TABLET PO ×2 (08:52→21:02)
[2024-05-24 11:13] LABS: Glucose, Whole Blood 188 mg/dL (60-115)
[2024-05-24] MEDS: Insulin Lispro 100 UNIT/ML 3 ML VIAL SUBCUT ×3 (11:53→21:03)
[2024-05-24 14:32] VITALS: BP 120/80; PULSE 93; RESP 16; O2SAT 94
[2024-05-24 16:18] LABS: Glucose, Whole Blood 185 mg/dL (60-115)
[2024-05-24 19:53] LABS: Glucose, Whole Blood 186 mg/dL (60-115)
[2024-05-24 20:00] VITALS: BP 124/74; PULSE 88; RESP 18; TEMP 36.9; O2SAT 99
[2024-05-24 21:00] VITALS: BP 124/74
[2024-05-24] MEDS: oxyCODONE HCl Immed Release 5 MG TABLET PO (21:00)
[2024-05-24] MEDS: traZODone HCL 100 MG TABLET PO (21:01)
[2024-05-24] MEDS: QUEtiapine Fumarate 25 MG TABLET 75 MG PO (21:02)
[2024-05-24] MEDS: Insulin Glargine,Hum.rec.anlog 100 UNIT/ML 10 ML VIAL 10 UNIT SUBCUT (21:04)
--- NOTE | 2024-05-24 22:35 | HO.PSYCHPN ---
Subjective Subjective Date of Service: 05/24/24 Reason For Visit: mood disorder Interim History: Met with patient; discussed with team Patient said that he is doing good... Not so bad. Again thanks for paracentesis being set up; denies any pain. Mental Status Exam Mental Status Exam Narrative: Appearance: wearing casual cloths; adequately groomed/hygiene, in NAD Behavior: cooperative, calm, friendly Psychomotor: no agitation or retardation noted Speech: clear, normal rate/rhythm/volume, spontaneous TP: linear TC: On medical issues, aftercare Mood: Good Affect: congruent, , bright, calm SI denies HI: none VH/AH: none Delusions: no delusional content noted or reported Insight/judgment: Fair Memory/cog: alert, oriented x 4. Diagnostics Vital Signs (24Hr): Vital Signs - 24 hr 05/24/24 08:00 05/24/24 14:32 05/24/24 20:00 Temperature 97 F 98.5 F Pulse Rate 79 93 88 Respiratory Rate 16 16 18 Blood Pressure 102/62 120/80 124/74 Pulse Oximetry 96 94 99 Oxygen Delivery Method Room Air Room Air Room Air 05/24/24 21:00 Temperature Pulse Rate Respiratory Rate Blood Pressure 124/74 Pulse Oximetry Oxygen Delivery Method BMI result Body Mass Index 26.1 Labs 05/26/24 08:56 05/20/24 15:55 Labs: Laboratory Results - last 48 hr 05/23/24 05/23/24 05/23/24 06:36 11:02 16:20 POC Glucose 109 174 H 240 H 05/23/24 05/24/24 05/24/24 21:06 06:32 11:06 POC Glucose 156 H 126 H 188 H 05/24/24 05/24/24 16:12 19:49 POC Glucose 185 H 186 H Imaging Radiology Impressions: ITS Impressions Bone Osseous Survey 05/07/24 15:00 IMPRESSION: 1. Cortical depression and adjacent cystic change within the lateral aspect of the left humeral head is redemonstrated. Findings could represent sequela of prior trauma. No aggressive features to suggest an underlying neoplastic lesion. 2. No additional lytic or blastic osseous lesion. 3. Left lower lobe airspace opacities. 4. Aygr-bk-yxxnmsri stool burden. Electronically signed by: Roman Power MD 05/07/2024 11:00 PM EST RP KUB X-Ray 05/09/24 10:00 IMPRESSION: Moderate air and stool throughout the colon. Nonobstructive bowel gas pattern. Electronically signed by: Roman Power MD 05/09/2024 08:07 PM EST RP Abdomen Ultrasound 05/10/24 09:45 IMPRESSION: Moderate ascites. Electronically signed by: David Saul MD 05/10/2024 04:09 PM EST RP Medications Medications Current Medications Al Hydroxide/Mg Hydroxide (Magnesium Hydrox/Alum Hydrox 30 Ml Oral.Susp) 30 ml PO Q6H PRN PRN Reason: Heartburn/Nausea Artificial Tears (Artificial Tears 15 Ml Drops) 1 drop EYE-RIGHT Q4H PRN PRN Reason: eye irritation Baclofen (Baclofen 10 Mg Tablet) 10 mg PO TID PRN PRN Reason: muscle tension Last Admin: 05/11/24 21:02 Dose: 10 mg Escitalopram Oxalate (Escitalopram Oxalate 10 Mg Tablet) 10 mg PO DAILY [facility] Last Admin: 05/24/24 08:51 Dose: 10 mg Furosemide (Furosemide 20 Mg Tablet) 20 mg PO DAILY [facility]; Protocol Last Admin: 05/24/24 08:51 Dose: 20 mg Gabapentin (Gabapentin 300 Mg Capsule) 600 mg PO TID [facility] Last Admin: 05/24/24 21:02 Dose: 600 mg Hydroxyzine HCl (Hydroxyzine Hcl 25 Mg Tablet) 25 mg PO Q6H PRN PRN Reason: Anxiety Last Admin: 05/22/24 20:29 Dose: 25 mg Insulin Glargine (Insulin Glargine,Hum.Rec.Anlog 100 Unit/Ml 10 Ml Vial) 10 unit SUBCUT BEDTIME [facility] Last Admin: 05/24/24 21:04 Dose: 10 unit Insulin Human Lispro (Insulin Lispro 100 Unit/Ml 3 Ml Vial) 0 unit SUBCUT QIDACHS [facility]; Protocol Last Admin: 05/24/24 21:03 Dose: 2 unit Lactulose (Lactulose 20 Gm/30 Ml Solution) 20 gm PO TID [facility] Last Admin: 05/24/24 21:00 Dose: 20 gm Lorazepam (Lorazepam 0.5 Mg Tablet) 0.5 mg PO BID PRN PRN Reason: Anxiety Last Admin: 05/22/24 20:17 Dose: 0.5 mg Magnesium Hydroxide (Milk Of Magnesia 30 Ml Oral.Susp) 30 ml PO DAILY PRN PRN Reason: Constipation Midodrine (Midodrine Hcl 5 Mg Tablet) 5 mg PO TID [facility] Last Admin: 05/24/24 21:00 Dose: 5 mg Pt Own (Orphenadrine Citrate 100 Mg Tablet Extended Release) 100 mg PO BID PRN PRN Reason: Pain Last Admin: 05/22/24 20:29 Dose: 100 mg Omeprazole (Omeprazole 20 Mg Capsule.Dr) 20 mg PO BID@0630,1630 [facility] Last Admin: 05/24/24 16:21 Dose: 20 mg Ondansetron HCl (Ondansetron Odt 4 Mg Tab.Rapdis) 4 mg TRANSLINGU Q6H PRN PRN Reason: Nausea and Vomiting Last Admin: 05/20/24 20:41 Dose: 4 mg Oxycodone HCl (Oxycodone Hcl Immed Release 5 Mg Tablet) 5 mg PO Q4H PRN PRN Reason: Pain, Severe (Pain Scale 7-10) Last Admin: 05/24/24 21:00 Dose: 5 mg Quetiapine Fumarate (Quetiapine Fumarate 25 Mg Tablet) 75 mg PO BEDTIME [facility] Last Admin: 05/24/24 21:02 Dose: 75 mg Quetiapine Fumarate (Quetiapine Fumarate 25 Mg Tablet) 25 mg PO DAILY [facility] Last Admin: 05/24/24 08:51 Dose: 25 mg Rifaximin (Rifaximin 550 Mg Tablet) 550 mg PO BID [facility] Last Admin: 05/24/24 21:02 Dose: 550 mg Spironolactone (Spironolactone 25 Mg Tablet) 25 mg PO DAILY [facility]; Protocol Last Admin: 05/24/24 08:51 Dose: 25 mg Trazodone HCl (Trazodone Hcl 100 Mg Tablet) 100 mg PO BEDTIME [facility] Last Admin: 05/24/24 21:01 Dose: 100 mg Allergies Allergies Allergy/AdvReac Type Severity Reaction Status Date / Time acetaminophen AdvReac Unknown Verified 04/28/24 11:48 bismuth subsalicylate AdvReac Unknown Verified 04/28/24 11:48 [From Pepto-Bismol] celecoxib [From Celebrex] AdvReac Unknown Verified 04/28/24 11:48 NSAIDS (Non-Steroidal AdvReac Unknown Verified 04/28/24 11:48 Anti-Inflamma Assessment & Plan Assessment & Plan (1) PTSD (post-traumatic stress disorder): Status: Acute Code(s): F43.10 - Post-traumatic stress disorder, unspecified (2) Homelessness: Status: Acute Code(s): Z59.00 - Homelessness unspecified (3) MAYE (acute kidney injury): Status: Resolved Code(s): N17.9 - Acute kidney failure, unspecified (4) Cirrhosis, alcoholic: Status: Acute Code(s): K70.30 - Alcoholic cirrhosis of liver without ascites (5) Portal hypertension: Status: Acute Code(s): K76.6 - Portal hypertension Plan The patient is a middle-aged male with a past history of chronically were failure, bipolar disorder, PTSD, ADHD and chronic homelessness who was brought into the facility after he disclosed suicidal ideation [place] The patient was assessed by crisis and transferring to this facility for psychiatric stabilization. 05/02: Continue current regimen and plans for stabilization and medication management. Added Seroquel 25 mg nightly p.r.n. 05/03: Continue current regimen and plans for stabilization and medication management 05/04 repeat cmp, cbc, ammonia. 05/05 continue tx. pending GI consult, re: dropping HgB, 05/06- discussed code, pt would like to continue full code at this moment. planning for referrals for SNF. left shoulder pain- had left shoulder xr which shows destructive lesion of 1.4cm (will contact hospitalist for dx and tx). continue to monitor HgB, ammonia (mildly elevated, pt at times refuses lactulose, he is also on rifaximin). Will check pth, ionized calcium (regular calcium low but note low albumin). may consider esr/crp 05/07 continue tx. 05/08 continue tx. pending GI consult. 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 complicated patient provider loathe to make drying rack changer weekend for pt 05/10 starting olanzapine tonight- 25mg, lower trazodone 75mg- awaiting for paracentesis may want to further decrease trazodone and inc olanzapine- watch for nightmares 05/11 parencetises for 05/12. continue monitor hgb. 05/12 daily weights, measurement of abdominal girt. will start lexapro for depression 10mg po daily. seroquel bedtime and morning- will monitor liver function as he start these medications. 05/13 continue tx. continue daily weigh- hopefully pt won't refuse. monitor ammonia, Hgb. Per GI, transfusion if Hgb <8. 05/14/2024 Patient feeling medically improved remains depressed hopeless helpless difficulty with future orientation 05/17/2020 Continue escitalopram trazodone patient intermittent hopelessness but more engaged feeling somewhat more hopeful regarding the future has intermittent thoughts of despair and self-harm denies in this setting 05/19/2024 Patient increasingly depressed withdrawn unclear if related to his cirrhosis edema will check ammonia electrolytes LFTs. He is on Lexapro and gabapentin gabapentin presumably for neuropathy questionable history of bipolar disorder versus recurrent depression he is on Lexapro Check labs 05/21 will order yaya stockings for b/l lower limb edema 05/22 pt wearing Yaya stockings -engineering technical writer placed consult to asses for continued paracentesis 05/23 Patient reports that mood is good and that he is overall feeling better. Appreciate Fili stockings and also that paracentesis is being scheduled for next week. Patient reported some eye discomfort, thinking something was in his eye; no redness, no discharge; ordered eyedrops and discomfort resolved 05/24 Patient said that he is doing good... Not so bad. Again thanks for paracentesis being set up; denies any pain. -paracentesis scheduled for 05/25 Patient educated on: diagnosis and medical condition Informed Consent: understands Reason for continued inpatient stay Substantial Risk for: stable for discharge Time Spent With Patient Time: Total time managing care of this patient today ____ minutes.
[2024-05-25] VITALS (8 sets, daily range): BP systolic 105–123; BP diastolic 65–86; PULSE 81–90; RESP 16–20; TEMP 36.2–36.6; O2SAT 96–99; BMI 26.5
[2024-05-25] MEDS: Gabapentin 300 MG CAPSULE 600 MG PO ×3 (02:20→21:06)
[2024-05-25] MEDS: Omeprazole 20 MG CAPSULE.DR PO ×2 (06:39→16:37)
[2024-05-25 06:48] LABS: Glucose, Whole Blood 115 mg/dL (60-115)
[2024-05-25] MEDS: Insulin Lispro 100 UNIT/ML 3 ML VIAL SUBCUT ×4 (08:01→20:56)
[2024-05-25] MEDS: QUEtiapine Fumarate 25 MG TABLET PO (08:02)
[2024-05-25] MEDS: rifAXIMin 550 MG TABLET PO ×2 (08:02→21:06)
[2024-05-25] MEDS: Furosemide 20 MG TABLET PO (08:02)
[2024-05-25] MEDS: Escitalopram Oxalate 10 MG TABLET PO (08:03)
[2024-05-25] MEDS: Lactulose 20 GM/30 ML SOLUTION PO ×3 (08:03→21:06)
[2024-05-25] MEDS: Midodrine HCl 5 MG TABLET PO ×3 (08:03→21:06)
[2024-05-25] MEDS: Spironolactone 25 MG TABLET PO (08:03)
--- NOTE | 2024-05-25 09:51 | PC.NURSE ---
Drainage catheter placed by Felipe ALFREDO. Drainage is clear yellow and pt kervin well
[2024-05-25 11:48] LABS: Glucose, Whole Blood 158 mg/dL (60-115)
--- NOTE | 2024-05-25 15:03 | PM.PROC ---
Brief Operative Note Date of procedure: 05/25/24 Pre-op diagnosis: Ascites Post-op diagnosis: same Procedure: US paracentesis 2.3 L yellow fluid removed. No immediate complications. Anesthesia: local
[2024-05-25 15:56] LABS: Glucose, Whole Blood 186 mg/dL (60-115)
--- NOTE | 2024-05-25 17:46 | P.PNPSI_ITS ---
Subjective Subjective Date of Service: 05/25/24 Reason For Visit: mood disorder Interim History: Met with patient; discussed with team Patient says he is good had paracentesis today and reports that he is a little sore, which he says is typical the day of paracentesis. Patient had a brief spell where he was spitting out some blood; it was minimal and not clear the origin although patient said earlier he had some bleeding gums (now resolved) that it seemed to come from his throat. This remained fully resolved however and health underwriter discussed case with hospitalist Dr. Campos who recommended monitoring. -health underwriter ordered CBC to monitor H&H, out of an abundance of caution Mental Status Exam Mental Status Exam Narrative: Appearance: wearing hospital cloths; adequately groomed/hygiene, in NAD Behavior: cooperative, calm, friendly Psychomotor: no agitation or retardation noted Speech: clear, normal rate/rhythm/volume, spontaneous TP: linear TC: On medical issues, aftercare Mood: Good...a little sore Affect: congruent, , bright, calm SI denies HI: none VH/AH: none Delusions: no delusional content noted or reported Insight/judgment: Fair Memory/cog: alert, oriented x 4. Diagnostics Vital Signs (24Hr): Vital Signs - 24 hr 05/24/24 20:00 05/24/24 21:00 05/25/24 08:00 Temperature 98.5 F 98 F Pulse Rate 88 90 Respiratory Rate 18 16 Blood Pressure 124/74 124/74 105/77 Pulse Oximetry 99 98 Oxygen Delivery Method Room Air Room Air 05/25/24 09:29 05/25/24 09:36 05/25/24 09:48 Temperature Pulse Rate 86 85 84 Respiratory Rate 16 20 20 Blood Pressure 122/80 116/86 123/85 Pulse Oximetry 96 97 97 Oxygen Delivery Method Room Air Room Air Room Air 05/25/24 09:55 05/25/24 10:05 05/25/24 13:08 Temperature 97.1 F Pulse Rate 85 85 84 Respiratory Rate 20 16 16 Blood Pressure 116/82 120/80 107/65 Pulse Oximetry 97 97 99 Oxygen Delivery Method Room Air Room Air Room Air BMI result Body Mass Index 26.5 Labs 05/26/24 08:56 05/20/24 15:55 Labs: Laboratory Results - last 48 hr 05/23/24 05/24/24 05/24/24 21:06 06:32 11:06 POC Glucose 156 H 126 H 188 H 05/24/24 05/24/24 05/25/24 16:12 19:49 06:38 POC Glucose 185 H 186 H 115 05/25/24 05/25/24 11:44 15:52 POC Glucose 158 H 186 H Imaging Radiology Impressions: ITS Impressions Bone Osseous Survey 05/07/24 15:00 IMPRESSION: 1. Cortical depression and adjacent cystic change within the lateral aspect of the left humeral head is redemonstrated. Findings could represent sequela of prior trauma. No aggressive features to suggest an underlying neoplastic lesion. 2. No additional lytic or blastic osseous lesion. 3. Left lower lobe airspace opacities. 4. Dyqm-qp-grzlcqdx stool burden. Electronically signed by: Roman Power MD 05/07/2024 11:00 PM EST RP KUB X-Ray 05/09/24 10:00 IMPRESSION: Moderate air and stool throughout the colon. Nonobstructive bowel gas pattern. Electronically signed by: Roman Power MD 05/09/2024 08:07 PM EST RP Abdomen Ultrasound 05/10/24 09:45 IMPRESSION: Moderate ascites. Electronically signed by: David Saul MD 05/10/2024 04:09 PM EST RP Medications Medications Current Medications Al Hydroxide/Mg Hydroxide (Magnesium Hydrox/Alum Hydrox 30 Ml Oral.Susp) 30 ml PO Q6H PRN PRN Reason: Heartburn/Nausea Artificial Tears (Artificial Tears 15 Ml Drops) 1 drop EYE-RIGHT Q4H PRN PRN Reason: eye irritation Baclofen (Baclofen 10 Mg Tablet) 10 mg PO TID PRN PRN Reason: muscle tension Last Admin: 05/11/24 21:02 Dose: 10 mg Escitalopram Oxalate (Escitalopram Oxalate 10 Mg Tablet) 10 mg PO DAILY [facility] Last Admin: 05/25/24 08:03 Dose: 10 mg Furosemide (Furosemide 20 Mg Tablet) 20 mg PO DAILY [facility]; Protocol Last Admin: 05/25/24 08:02 Dose: 20 mg Gabapentin (Gabapentin 300 Mg Capsule) 600 mg PO TID [facility] Last Admin: 05/25/24 08:02 Dose: 600 mg Hydroxyzine HCl (Hydroxyzine Hcl 25 Mg Tablet) 25 mg PO Q6H PRN PRN Reason: Anxiety Last Admin: 05/22/24 20:29 Dose: 25 mg Insulin Glargine (Insulin Glargine,Hum.Rec.Anlog 100 Unit/Ml 10 Ml Vial) 10 unit SUBCUT BEDTIME [facility] Last Admin: 05/24/24 21:04 Dose: 10 unit Insulin Human Lispro (Insulin Lispro 100 Unit/Ml 3 Ml Vial) 0 unit SUBCUT QIDACHS [facility]; Protocol Last Admin: 05/25/24 16:37 Dose: 2 unit Lactulose (Lactulose 20 Gm/30 Ml Solution) 20 gm PO TID [facility] Last Admin: 05/25/24 14:20 Dose: 20 gm Lorazepam (Lorazepam 0.5 Mg Tablet) 0.5 mg PO BID PRN PRN Reason: Anxiety Last Admin: 05/22/24 20:17 Dose: 0.5 mg Magnesium Hydroxide (Milk Of Magnesia 30 Ml Oral.Susp) 30 ml PO DAILY PRN PRN Reason: Constipation Midodrine (Midodrine Hcl 5 Mg Tablet) 5 mg PO TID [facility] Last Admin: 05/25/24 14:26 Dose: 5 mg Pt Own (Orphenadrine Citrate 100 Mg Tablet Extended Release) 100 mg PO BID PRN PRN Reason: Pain Last Admin: 05/22/24 20:29 Dose: 100 mg Omeprazole (Omeprazole 20 Mg Capsule.Dr) 20 mg PO BID@0630,1630 [facility] Last Admin: 05/25/24 16:37 Dose: 20 mg Ondansetron HCl (Ondansetron Odt 4 Mg Tab.Rapdis) 4 mg TRANSLINGU Q6H PRN PRN Reason: Nausea and Vomiting Last Admin: 05/20/24 20:41 Dose: 4 mg Oxycodone HCl (Oxycodone Hcl Immed Release 5 Mg Tablet) 5 mg PO Q4H PRN PRN Reason: Pain, Severe (Pain Scale 7-10) Last Admin: 05/24/24 21:00 Dose: 5 mg Quetiapine Fumarate (Quetiapine Fumarate 25 Mg Tablet) 75 mg PO BEDTIME [facility] Last Admin: 05/24/24 21:02 Dose: 75 mg Quetiapine Fumarate (Quetiapine Fumarate 25 Mg Tablet) 25 mg PO DAILY [facility] Last Admin: 05/25/24 08:02 Dose: 25 mg Rifaximin (Rifaximin 550 Mg Tablet) 550 mg PO BID [facility] Last Admin: 05/25/24 08:02 Dose: 550 mg Spironolactone (Spironolactone 25 Mg Tablet) 25 mg PO DAILY [facility]; Protocol Last Admin: 05/25/24 08:03 Dose: 25 mg Trazodone HCl (Trazodone Hcl 100 Mg Tablet) 100 mg PO BEDTIME [facility] Last Admin: 05/24/24 21:01 Dose: 100 mg Allergies Allergies Allergy/AdvReac Type Severity Reaction Status Date / Time acetaminophen AdvReac Unknown Verified 04/28/24 11:48 bismuth subsalicylate AdvReac Unknown Verified 04/28/24 11:48 [From Pepto-Bismol] celecoxib [From Celebrex] AdvReac Unknown Verified 04/28/24 11:48 NSAIDS (Non-Steroidal AdvReac Unknown Verified 04/28/24 11:48 Anti-Inflamma Assessment & Plan Assessment & Plan (1) PTSD (post-traumatic stress disorder): Status: Acute Code(s): F43.10 - Post-traumatic stress disorder, unspecified (2) Homelessness: Status: Acute Code(s): Z59.00 - Homelessness unspecified (3) MAYE (acute kidney injury): Status: Resolved Code(s): N17.9 - Acute kidney failure, unspecified (4) Cirrhosis, alcoholic: Status: Acute Code(s): K70.30 - Alcoholic cirrhosis of liver without ascites (5) Portal hypertension: Status: Acute Code(s): K76.6 - Portal hypertension Plan The patient is a middle-aged male with a past history of chronically were failure, bipolar disorder, PTSD, ADHD and chronic homelessness who was brought into the facility after he disclosed suicidal ideation with a plan to drive his car into the bridge. The patient was assessed by crisis and transferring to this facility for psychiatric stabilization. 05/02: Continue current regimen and plans for stabilization and medication management. Added Seroquel 25 mg nightly p.r.n. 05/03: Continue current regimen and plans for stabilization and medication management 05/04 repeat cmp, cbc, ammonia. 05/05 continue tx. pending GI consult, re: dropping HgB, 05/06- discussed code, pt would like to continue full code at this moment. planning for referrals for SNF. left shoulder pain- had left shoulder xr which shows destructive lesion of 1.4cm (will contact hospitalist for dx and tx). continue to monitor HgB, ammonia (mildly elevated, pt at times refuses lactulose, he is also on rifaximin). Will check pth, ionized calcium (regular calcium low but note low albumin). may consider esr/crp 05/07 continue tx. 05/08 continue tx. pending GI consult. 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 complicated patient provider loathe to make foreign exchange clerk weekend for pt 05/10 starting olanzapine tonight- 25mg, lower trazodone 75mg- awaiting for paracentesis may want to further decrease trazodone and inc olanzapine- watch for nightmares 05/11 parencetises for 05/12. continue monitor hgb. 05/12 daily weights, measurement of abdominal girt. will start lexapro for depression 10mg po daily. seroquel bedtime and morning- will monitor liver function as he start these medications. 05/13 continue tx. continue daily weigh- hopefully pt won't refuse. monitor ammonia, Hgb. Per GI, transfusion if Hgb <8. 05/14/2024 Patient feeling medically improved remains depressed hopeless helpless difficulty with future orientation 05/17/2020 Continue escitalopram trazodone patient intermittent hopelessness but more engaged feeling somewhat more hopeful regarding the future has intermittent thoughts of despair and self-harm denies in this setting 05/19/2024 Patient increasingly depressed withdrawn unclear if related to his cirrhosis edema will check ammonia electrolytes LFTs. He is on Lexapro and gabapentin gabapentin presumably for neuropathy questionable history of bipolar disorder versus recurrent depression he is on Lexapro Check labs 05/21 will order yaya stockings for b/l lower limb edema 05/22 pt wearing Yaya stockings -health underwriter placed consult to asses for continued paracentesis 05/23 Patient reports that mood is good and that he is overall feeling better. Appreciate Fili stockings and also that paracentesis is being scheduled for next week. Patient reported some eye discomfort, thinking something was in his eye; no redness, no discharge; ordered eyedrops and discomfort resolved 05/24 Patient said that he is doing good... Not so bad. Again thanks for paracentesis being set up; denies any pain. -paracentesis scheduled for 05/25 05/25 Patient says he is good had paracentesis today and reports that he is a little sore, which he says is typical the day of paracentesis. Patient had a brief spell where he was spitting out some blood; it was minimal and not clear the origin although patient said earlier he had some bleeding gums (now resolved) that it seemed to come from his throat. This remained fully resolved however and health underwriter discussed case with hospitalist Dr. Campos who recommended monitoring. -health underwriter ordered CBC to monitor H&H, out of an abundance of caution Patient educated on: diagnosis and medical condition Informed Consent: understands Reason for continued inpatient stay Substantial Risk for: stable for discharge Time Spent With Patient Time: Total time managing care of this patient today ____ minutes.
--- NOTE | 2024-05-25 18:40 | PC.NURSE ---
Patient had an episode of spitting blood after paracentesis, Dr. Mott notified. VS, T 97.1, HR 84, BP 107/65, O2 sat 99%.
[2024-05-25 20:04] LABS: Glucose, Whole Blood 158 mg/dL (60-115)
[2024-05-25] MEDS: Insulin Glargine,Hum.rec.anlog 100 UNIT/ML 10 ML VIAL 10 UNIT SUBCUT (20:57)
[2024-05-25] MEDS: LORazepam 0.5 MG TABLET PO (21:06)
[2024-05-25] MEDS: QUEtiapine Fumarate 25 MG TABLET 75 MG PO (21:07)
[2024-05-25] MEDS: hydrOXYzine HCL 25 MG TABLET PO (21:07)
[2024-05-25] MEDS: oxyCODONE HCl Immed Release 5 MG TABLET PO (21:07)
[2024-05-25] MEDS: traZODone HCL 100 MG TABLET PO (21:07)
[2024-05-26] MEDS: oxyCODONE HCl Immed Release 5 MG TABLET PO ×3 (00:21→20:04)
[2024-05-26] MEDS: Omeprazole 20 MG CAPSULE.DR PO ×2 (06:48→16:51)
[2024-05-26 07:06] LABS: Glucose, Whole Blood 85 mg/dL (60-115)
[2024-05-26 08:00] VITALS: BP 101/73; PULSE 87; RESP 16; TEMP 36.1; O2SAT 100; BMI 25.8
[2024-05-26] MEDS: Furosemide 20 MG TABLET PO (08:20)
[2024-05-26] MEDS: Spironolactone 25 MG TABLET PO (08:20)
[2024-05-26] MEDS: Gabapentin 300 MG CAPSULE 600 MG PO ×3 (08:21→20:04)
[2024-05-26] MEDS: QUEtiapine Fumarate 25 MG TABLET PO (08:21)
[2024-05-26] MEDS: Midodrine HCl 5 MG TABLET PO ×3 (08:21→20:04)
[2024-05-26] MEDS: Escitalopram Oxalate 10 MG TABLET PO (08:21)
[2024-05-26] MEDS: rifAXIMin 550 MG TABLET PO ×2 (08:21→20:05)
[2024-05-26] MEDS: Lactulose 20 GM/30 ML SOLUTION PO ×3 (08:22→20:06)
[2024-05-26 09:04] LABS: MANUAL DIFF FLAG NO
[2024-05-26 09:08] LABS: Basophils Percent Auto 0.6 % (0-2); Eosinophils Absolute Auto 0.1 X10*3/uL (0.0-0.4); Hematocrit 25.4 % (42.0-52.0); Hemoglobin 8.5 g/dl (14.0-18.0); Imm Gran Abs Auto 0.03 X10*3/uL (0.00-0.03); Imm Gran Pct Auto 0.9 % (0.0-0.4); Lymphocytes Absolute Auto 0.4 X10*3/uL (1.2-4.9); Lymphocytes Percent Auto 10.3 % (20-40); Mean Corpuscular HGB Conc 33.5 g/dl (31.0-36.0); Mean Corpuscular Hemoglobin 35.4 pg (27.0-33.0); Mean Corpuscular Volume 105.8 fL (80.0-98.0); Mean Platelet Volume 11.4 fL (9.4-12.4); Monocytes Absolute Auto 0.4 X10*3/uL (0.1-1.2); Monocytes Percent Auto 12.6 % (2-11); Neutrophils Absolute Auto 2.6 x10*3/uL (2.0-8.3); Neutrophils Percent Auto 73.6 % (45-73); Platelet Count 72 X10*3/uL (160-400); White Blood Count 3.5 X10*3/uL (4.8-10.8)
[2024-05-26 11:02] LABS: Glucose, Whole Blood 217 mg/dL (60-115)
[2024-05-26] MEDS: Insulin Lispro 100 UNIT/ML 3 ML VIAL SUBCUT ×3 (11:42→20:05)
--- NOTE | 2024-05-26 14:51 | P.PNPSI_ITS ---
Subjective Subjective Date of Service: 05/26/24 Reason For Visit: mood disorder Interim History: Met with patient; discussed with team Patient reports that he is good and has no complaints or requests; no more episodes of spitting blood and H&H reviewed which is stable. Discussed with social work that patient is accepted to [facility]. Mental Status Exam Mental Status Exam Narrative: Appearance: wearing casual attire, well groomed; NAD Behavior: cooperative, calm, friendly Psychomotor: no agitation or retardation noted Speech: clear, normal rate/rhythm/volume, spontaneous TP: linear TC: On medical issues, aftercare Mood: Good Affect: congruent, , bright, calm SI denies HI: none VH/AH: none Delusions: no delusional content noted or reported Insight/judgment: Fair Memory/cog: alert, oriented x 4. Diagnostics Vital Signs (24Hr): Vital Signs - 24 hr 05/25/24 20:00 05/26/24 08:00 Temperature 97.8 F 97 F Pulse Rate 81 87 Respiratory Rate 18 16 Blood Pressure 114/81 101/73 Pulse Oximetry 97 100 Oxygen Delivery Method Room Air Room Air BMI result Body Mass Index 25.8 Labs 05/26/24 08:56 05/20/24 15:55 Labs: Laboratory Results - last 48 hr 05/24/24 05/24/24 05/25/24 16:12 19:49 06:38 WBC RBC Hgb Hct MCV MCH MCHC RDW Plt Count MPV Immature Gran % (Auto) Neut % (Auto) Lymph % (Auto) [place] % (Auto) Eos % (Auto) Baso % (Auto) Lymph # (Auto) [place] # (Auto) Eos # (Auto) Baso # (Auto) Abs Immat Gran (auto) Absolute Neuts (auto) Absolute Nucleated RBC Nucleated RBC % (auto) POC Glucose 185 H 186 H 115 05/25/24 05/25/24 05/25/24 11:44 15:52 19:53 WBC RBC Hgb Hct MCV MCH MCHC RDW Plt Count MPV Immature Gran % (Auto) Neut % (Auto) Lymph % (Auto) [place] % (Auto) Eos % (Auto) Baso % (Auto) Lymph # (Auto) [place] # (Auto) Eos # (Auto) Baso # (Auto) Abs Immat Gran (auto) Absolute Neuts (auto) Absolute Nucleated RBC Nucleated RBC % (auto) POC Glucose 158 H 186 H 158 H 05/26/24 05/26/24 05/26/24 06:50 08:56 10:56 WBC 3.5 L RBC 2.40 L Hgb 8.5 L Hct 25.4 L MCV 105.8 H MCH 35.4 H MCHC 33.5 RDW 17.0 H Plt Count 72 L MPV 11.4 Immature Gran % (Auto) 0.9 H Neut % (Auto) 73.6 H Lymph % (Auto) 10.3 L [place] % (Auto) 12.6 H Eos % (Auto) 2.0 Baso % (Auto) 0.6 Lymph # (Auto) 0.4 L [place] # (Auto) 0.4 Eos # (Auto) 0.1 Baso # (Auto) 0.0 Abs Immat Gran (auto) 0.03 Absolute Neuts (auto) 2.6 Absolute Nucleated RBC 0.000 Nucleated RBC % (auto) 0.0 POC Glucose 85 217 H Imaging Radiology Impressions: ITS Impressions Bone Osseous Survey 05/07/24 15:00 IMPRESSION: 1. Cortical depression and adjacent cystic change within the lateral aspect of the left humeral head is redemonstrated. Findings could represent sequela of prior trauma. No aggressive features to suggest an underlying neoplastic lesion. 2. No additional lytic or blastic osseous lesion. 3. Left lower lobe airspace opacities. 4. Uzme-jh-[id number] stool burden. Electronically signed by: Roman Power MD 05/07/2024 11:00 PM [employer] KUB X-Ray 05/09/24 10:00 IMPRESSION: Moderate air and stool throughout the colon. Nonobstructive bowel gas pattern. Electronically signed by: Roman Power MD 05/09/2024 08:07 PM [employer] RP Abdomen Ultrasound 05/10/24 09:45 IMPRESSION: Moderate ascites. Electronically signed by: David Saul MD 05/10/2024 04:09 PM [facility] [place] Medications Medications Current Medications Al Hydroxide/Mg Hydroxide (Magnesium Hydrox/Alum Hydrox 30 Ml Oral.Susp) 30 ml PO Q6H PRN PRN Reason: Heartburn/Nausea Artificial Tears (Artificial Tears 15 Ml Drops) 1 drop EYE-RIGHT Q4H PRN PRN Reason: eye irritation Baclofen (Baclofen 10 Mg Tablet) 10 mg PO TID PRN PRN Reason: muscle tension Last Admin: 05/11/24 21:02 Dose: 10 mg Escitalopram Oxalate (Escitalopram Oxalate 10 Mg Tablet) 10 mg PO DAILY [facility] Last Admin: 05/26/24 08:21 Dose: 10 mg Furosemide (Furosemide 20 Mg Tablet) 20 mg PO DAILY [facility]; Protocol Last Admin: 05/26/24 08:20 Dose: 20 mg Gabapentin (Gabapentin 300 Mg Capsule) 600 mg PO TID [facility] Last Admin: 05/26/24 08:21 Dose: 600 mg Hydroxyzine HCl (Hydroxyzine Hcl 25 Mg Tablet) 25 mg PO Q6H PRN PRN Reason: Anxiety Last Admin: 05/25/24 21:07 Dose: 25 mg Insulin Glargine (Insulin Glargine,Hum.Rec.Anlog 100 Unit/Ml 10 Ml Vial) 10 unit SUBCUT BEDTIME [facility] Last Admin: 05/25/24 20:57 Dose: 10 unit Insulin Human Lispro (Insulin Lispro 100 Unit/Ml 3 Ml Vial) 0 unit SUBCUT QIDACHS [facility]; Protocol Last Admin: 05/26/24 11:42 Dose: 4 unit Lactulose (Lactulose 20 Gm/30 Ml Solution) 20 gm PO TID [facility] Last Admin: 05/26/24 08:22 Dose: 20 gm Lorazepam (Lorazepam 0.5 Mg Tablet) 0.5 mg PO BID PRN PRN Reason: Anxiety Last Admin: 05/25/24 21:06 Dose: 0.5 mg Magnesium Hydroxide (Milk Of Magnesia 30 Ml Oral.Susp) 30 ml PO DAILY PRN PRN Reason: Constipation Midodrine (Midodrine Hcl 5 Mg Tablet) 5 mg PO TID [facility] Last Admin: 05/26/24 08:21 Dose: 5 mg Pt Own (Orphenadrine Citrate 100 Mg Tablet Extended Release) 100 mg PO BID PRN PRN Reason: Pain Last Admin: 05/22/24 20:29 Dose: 100 mg Omeprazole (Omeprazole 20 Mg Capsule.Dr) 20 mg PO BID@0630,1630 [facility] Last Admin: 05/26/24 06:48 Dose: 20 mg Ondansetron HCl (Ondansetron Odt 4 Mg Tab.Rapdis) 4 mg TRANSLINGU Q6H PRN PRN Reason: Nausea and Vomiting Last Admin: 05/20/24 20:41 Dose: 4 mg Oxycodone HCl (Oxycodone Hcl Immed Release 5 Mg Tablet) 5 mg PO Q4H PRN PRN Reason: Pain, Severe (Pain Scale 7-10) Last Admin: 05/26/24 07:13 Dose: 5 mg Quetiapine Fumarate (Quetiapine Fumarate 25 Mg Tablet) 75 mg PO BEDTIME [facility] Last Admin: 05/25/24 21:07 Dose: 75 mg Quetiapine Fumarate (Quetiapine Fumarate 25 Mg Tablet) 25 mg PO DAILY [facility] Last Admin: 05/26/24 08:21 Dose: 25 mg Rifaximin (Rifaximin 550 Mg Tablet) 550 mg PO BID [facility] Last Admin: 05/26/24 08:21 Dose: 550 mg Spironolactone (Spironolactone 25 Mg Tablet) 25 mg PO DAILY [facility]; Protocol Last Admin: 05/26/24 08:20 Dose: 25 mg Trazodone HCl (Trazodone Hcl 100 Mg Tablet) 100 mg PO BEDTIME [facility] Last Admin: 05/25/24 21:07 Dose: 100 mg Allergies Allergies Allergy/AdvReac Type Severity Reaction Status Date / Time acetaminophen AdvReac Unknown Verified 04/28/24 11:48 bismuth subsalicylate AdvReac Unknown Verified 04/28/24 11:48 [From Pepto-Bismol] celecoxib [From Celebrex] AdvReac Unknown Verified 04/28/24 11:48 NSAIDS (Non-Steroidal AdvReac Unknown Verified 04/28/24 11:48 Anti-Inflamma Assessment & Plan Assessment & Plan (1) PTSD (post-traumatic stress disorder): Status: Acute Code(s): F43.10 - Post-traumatic stress disorder, unspecified (2) Homelessness: Status: Acute Code(s): Z59.00 - Homelessness unspecified (3) MAYE (acute kidney injury): Status: Resolved Code(s): N17.9 - Acute kidney failure, unspecified (4) Cirrhosis, alcoholic: Status: Acute Code(s): K70.30 - Alcoholic cirrhosis of liver without ascites (5) Portal hypertension: Status: Acute Code(s): K76.6 - Portal hypertension Plan The patient is a middle-aged male with a past history of chronically were failure, bipolar disorder, PTSD, ADHD and chronic homelessness who was brought into the facility after he disclosed suicidal ideation with a plan to drive his car into the bridge. The patient was assessed by crisis and transferring to this facility for psychiatric stabilization. 05/02: Continue current regimen and plans for stabilization and medication management. Added Seroquel 25 mg nightly p.r.n. 05/03: Continue current regimen and plans for stabilization and medication management 05/04 repeat cmp, cbc, ammonia. 05/05 continue tx. pending GI consult, re: dropping HgB, 05/06- discussed code, pt would like to continue full code at this moment. planning for referrals for SNF. left shoulder pain- had left shoulder xr which shows destructive lesion of 1.4cm (will contact hospitalist for dx and tx). continue to monitor HgB, ammonia (mildly elevated, pt at times refuses lactulose, he is also on rifaximin). Will check pth, ionized calcium (regular calcium low but note low albumin). may consider esr/crp 05/07 continue tx. 05/08 continue tx. pending GI consult. 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 complicated patient provider loathe to make exchange consultant weekend for pt 05/10 starting olanzapine tonight- 25mg, lower trazodone 75mg- awaiting week for paracentesis may want to further decrease trazodone and inc olanzapine- watch for nightmares 05/11 parencetises for 05/12. continue monitor hgb. 05/12 daily weights, measurement of abdominal girt. will start lexapro for depression 10mg po daily. seroquel bedtime and morning- will monitor liver function as he start these medications. 05/13 continue tx. continue daily weigh- hopefully pt won't refuse. monitor ammonia, Hgb. Per GI, transfusion if Hgb <8. 05/14/2024 Patient feeling medically improved remains depressed hopeless helpless difficulty with future orientation 05/17/2020 Continue escitalopram trazodone patient intermittent hopelessness but more engaged feeling somewhat more hopeful regarding the future has intermittent thoughts of despair and self-harm denies in this setting 05/19/2024 Patient increasingly depressed withdrawn unclear if related to his cirrhosis edema will check ammonia electrolytes LFTs. He is on Lexapro and gabapentin gabapentin presumably for neuropathy questionable history of bipolar disorder versus recurrent depression he is on Lexapro Check labs 05/21 will order yaya stockings for b/l lower limb edema 05/22 pt wearing Yaya stockings -keno writer/runner placed consult to asses for continued paracentesis 05/23 Patient reports that mood is good and that he is overall feeling better. Appreciate Fili stockings and also that paracentesis is being scheduled for next week. Patient reported some eye discomfort, thinking something was in his eye; no redness, no discharge; ordered eyedrops and discomfort resolved 05/24 Patient said that he is doing good... Not so bad. Again thanks for paracentesis being set up; denies any pain. -paracentesis scheduled for 05/25 05/25 Patient says he is good had paracentesis today and reports that he is a little sore, which he says is typical the day of paracentesis. Patient had a brief spell where he was spitting out some blood; it was minimal and not clear the origin although patient said earlier he had some bleeding gums (now resolved) that it seemed to come from his throat. This remained fully resolved however and keno writer/runner discussed case with hospitalist Dr. Campos who recommended monitoring. -keno writer/runner ordered CBC to monitor H&H, out of an abundance of caution 05/26 Patient reports that he is good and has no complaints or requests; no more episodes of spitting blood and H&H reviewed which is stable. Discussed with social work that patient is accepted to [facility] facility. Patient has remained in good behavioral and impulse control throughout his time on the unit; organized in speech and behavior, sleeping in overall eating well. Patient is at baseline. He is not in imminent risk for harm to self or others and appropriate to return to the community for treatment Patient educated on: diagnosis and medical condition Informed Consent: understands Reason for continued inpatient stay Substantial Risk for: stable for discharge Time Spent With Patient Time: Total time managing care of this patient today ____ minutes.
[2024-05-26 15:27] VITALS: BP 119/85; PULSE 93; RESP 16; O2SAT 100
[2024-05-26 16:10] LABS: Glucose, Whole Blood 184 mg/dL (60-115)
[2024-05-26 19:45] LABS: Glucose, Whole Blood 192 mg/dL (60-115)
[2024-05-26 20:00] VITALS: BP 119/76; PULSE 85; RESP 18; TEMP 37; O2SAT 98
[2024-05-26 20:04] VITALS: BP 119/76
[2024-05-26] MEDS: hydrOXYzine HCL 25 MG TABLET PO (20:04)
[2024-05-26] MEDS: traZODone HCL 100 MG TABLET PO (20:05)
[2024-05-26] MEDS: LORazepam 0.5 MG TABLET PO (20:05)
[2024-05-26] MEDS: QUEtiapine Fumarate 25 MG TABLET 75 MG PO (20:05)
[2024-05-26] MEDS: Insulin Glargine,Hum.rec.anlog 100 UNIT/ML 10 ML VIAL 10 UNIT SUBCUT (20:06)
[2024-05-26] MEDS: ORPHENADRINE CITRATE 100 MG 100 EACH PO (21:58)
--- NOTE | 2024-05-26 22:24 | PM.PSYDC ---
DS: Providers Provider Date of Service: 05/28/24 Date of admission: 04/29/24 13:42 Date of discharge: 05/28/24 Primary care physician: Unknown Physician Attending physician on admission: Yaquelin Pulliam Consults: 05/05/24 08:53 Consult to Hospitalist Routine Comment: [facility] Reason For Exam: Hgb dropping to 7.5 05/05/24 11:37 Consult to Gastroenterology Routine Consulting Provider: Zion Guerrero Reason for consultation: anemia for liver cirrhosis Has provider been notified: Yes 05/07/24 14:02 Consult to Hospitalist Routine Comment: Consulting Provider: [facility] Reason For Exam: f/u on finding of shoulder xr 05/08/24 23:30 Consult to Hospitalist Routine Comment: [facility] Reason For Exam: Abdominal discomfort/distention and pain 05/11/24 13:48 Consult to Hospitalist Routine Comment: [facility]ing [facility] Reason For Exam: need for parecenteses/cirrhosis 05/14/24 12:36 Consult to Hospitalist Routine Comment: [facility]ing [facility] Reason For Exam: was previously on long acting insulin ?rec 05/22/24 15:27 Consult to Hospitalist Routine Comment: [facility]ing [facility] Reason For Exam: Paracentesis? Attending physician on discharge: Wallace Mott DS: Diagnosis Discharge Diagnosis (1) PTSD (post-traumatic stress disorder): Status: Acute (2) Homelessness: Status: Acute (3) MAYE (acute kidney injury): Status: Resolved (4) Cirrhosis, alcoholic: Status: Acute (5) Portal hypertension: Status: Acute DS: Medications Discharge Medications Home Medications: Home Medications ?Medication ?Instructions ?Recorded ?Confirmed spironolactone 25 mg tablet 25 mg PO DAILY 04/27/24 04/29/24 Previous Rx's ?Medication ?Instructions ?Recorded orphenadrine citrate 100 mg 100 mg PO BID PRN Pain #60 tabs 04/23/24 tablet,extended release gabapentin 300 mg capsule 600 mg (2 x 300 mg) PO TID #0 caps 04/27/24 insulin lispro 100 unit/mL See Protocol subcut QIDACHS #0 mL 04/27/24 subcutaneous solution (Admelog U-100 Insulin lispro) rifaximin 550 mg tablet (Xifaxan) 550 mg PO BID #0 tabs 04/27/24 lactulose 20 gram/30 mL oral 20 g (30 mL) PO DAILY 30 days #900 04/29/24 solution mL omeprazole 20 mg capsule,delayed 20 mg PO BID #60 caps 04/29/24 release baclofen 10 mg tablet 10 mg PO TID PRN muscle tension #0 05/26/24 tabs escitalopram oxalate 10 mg tablet 10 mg PO DAILY #0 tabs 05/26/24 furosemide 20 mg tablet 20 mg PO DAILY #0 tabs 05/26/24 hydroxyzine HCl 25 mg tablet 25 mg PO Q6H PRN Anxiety #0 tabs 05/26/24 insulin glargine 100 unit/mL 10 unit (0.1 mL) subcut BEDTIME #0 05/26/24 subcutaneous solution (Lantus mL U-100 Insulin) lorazepam 0.5 mg tablet 0.5 mg PO BID PRN Anxiety #0 tabs 05/26/24 midodrine 5 mg tablet 5 mg PO TID #0 tabs 05/26/24 ondansetron 4 mg disintegrating 4 mg translingual Q6H PRN Nausea 05/26/24 tablet And Vomiting #0 tabs oxycodone 5 mg tablet 5 mg PO Q4H PRN Pain, Severe (Pain 05/26/24 Scale 7-10) #0 tabs quetiapine 25 mg tablet 25 mg PO DAILY #0 tabs 05/26/24 quetiapine 25 mg tablet 75 mg (3 x 25 mg) PO BEDTIME #0 05/26/24 tabs trazodone 100 mg tablet 100 mg PO BEDTIME #0 tabs 05/26/24 Mental Status Exam Mental Status Exam Narrative: Appearance: wearing casual attire; adequate grooming/hygiene, in NAD Behavior: cooperative, calm Psychomotor: no agitation or retardation noted Speech: clear, normal rate/rhythm/volume, spontaneous TP: linear TC: wanting help with coordination of care Mood: euthymic Affect: congruent, SI denies HI: none VH/AH: none Delusions: no delusional content noted or reported Insight/judgment: impaired Memory/cog: alert, oriented x 4. Data Data Completed and Pending Completed studies during hospitalization [Text1]: 05/20/24 05/20/24 05/20/24 06:51 11:15 15:55 WBC 3.6 L RBC 2.20 L Hgb 7.7 L Hct 23.2 L MCV 105.5 H MCH 35.0 H MCHC 33.2 RDW 17.1 H Plt Count 65 L MPV 10.5 Immature Gran % (Auto) 0.3 Neut % (Auto) 70.3 Lymph % (Auto) 9.0 L [place] % (Auto) 17.6 H Eos % (Auto) 2.2 Baso % (Auto) 0.6 Lymph # (Auto) 0.3 L [place] # (Auto) 0.6 Eos # (Auto) 0.1 Baso # (Auto) 0.0 Abs Immat Gran (auto) 0.01 Absolute Neuts (auto) 2.5 Absolute Nucleated RBC 0.000 Nucleated RBC % (auto) 0.0 Sodium 134 L Potassium 4.6 D Chloride 104 Carbon Dioxide 25 Anion Gap 10 L BUN 21 H Creatinine 1.49 H Estim Creat Clear Calc 51.6 Estimated GFR 48 POC Glucose 154 H 213 H Random Glucose 161 H Calcium 8.2 L Total Bilirubin 2.0 H AST 54 H ALT 8 Alkaline Phosphatase 217 H Ammonia 25 Total Protein 7.2 Albumin 2.1 L 05/20/24 05/20/24 05/21/24 16:19 19:56 06:47 WBC RBC Hgb Hct MCV MCH MCHC RDW Plt Count MPV Immature Gran % (Auto) Neut % (Auto) Lymph % (Auto) [place] % (Auto) Eos % (Auto) Baso % (Auto) Lymph # (Auto) [place] # (Auto) Eos # (Auto) Baso # (Auto) Abs Immat Gran (auto) Absolute Neuts (auto) Absolute Nucleated RBC Nucleated RBC % (auto) Sodium Potassium Chloride Carbon Dioxide Anion Gap BUN Creatinine Estim Creat Clear Calc Estimated GFR POC Glucose 144 H 145 H 97 Random Glucose Calcium Total Bilirubin AST ALT Alkaline Phosphatase Ammonia Total Protein Albumin 05/21/24 05/21/24 05/21/24 11:20 16:09 19:57 WBC RBC Hgb Hct MCV MCH MCHC RDW Plt Count MPV Immature Gran % (Auto) Neut % (Auto) Lymph % (Auto) [place] % (Auto) Eos % (Auto) Baso % (Auto) Lymph # (Auto) [place] # (Auto) Eos # (Auto) Baso # (Auto) Abs Immat Gran (auto) Absolute Neuts (auto) Absolute Nucleated RBC Nucleated RBC % (auto) Sodium Potassium Chloride Carbon Dioxide Anion Gap BUN Creatinine Estim Creat Clear Calc Estimated GFR POC Glucose 155 H 210 H 163 H Random Glucose Calcium Total Bilirubin AST ALT Alkaline Phosphatase Ammonia Total Protein Albumin 05/22/24 05/22/24 05/22/24 06:32 10:43 16:08 WBC RBC Hgb Hct MCV MCH MCHC RDW Plt Count MPV Immature Gran % (Auto) Neut % (Auto) Lymph % (Auto) [place] % (Auto) Eos % (Auto) Baso % (Auto) Lymph # (Auto) [place] # (Auto) Eos # (Auto) Baso # (Auto) Abs Immat Gran (auto) Absolute Neuts (auto) Absolute Nucleated RBC Nucleated RBC % (auto) Sodium Potassium Chloride Carbon Dioxide Anion Gap BUN Creatinine Estim Creat Clear Calc Estimated GFR POC Glucose 114 200 H 216 H Random Glucose Calcium Total Bilirubin AST ALT Alkaline Phosphatase Ammonia Total Protein Albumin 05/22/24 05/23/24 05/23/24 20:11 06:36 11:02 WBC RBC Hgb Hct MCV MCH MCHC RDW Plt Count MPV Immature Gran % (Auto) Neut % (Auto) Lymph % (Auto) [place] % (Auto) Eos % (Auto) Baso % (Auto) Lymph # (Auto) [place] # (Auto) Eos # (Auto) Baso # (Auto) Abs Immat Gran (auto) Absolute Neuts (auto) Absolute Nucleated RBC Nucleated RBC % (auto) Sodium Potassium Chloride Carbon Dioxide Anion Gap BUN Creatinine Estim Creat Clear Calc Estimated GFR POC Glucose 132 H 109 174 H Random Glucose Calcium Total Bilirubin AST ALT Alkaline Phosphatase Ammonia Total Protein Albumin 05/23/24 05/23/24 05/24/24 16:20 21:06 06:32 WBC RBC Hgb Hct MCV MCH MCHC RDW Plt Count MPV Immature Gran % (Auto) Neut % (Auto) Lymph % (Auto) [place] % (Auto) Eos % (Auto) Baso % (Auto) Lymph # (Auto) [place] # (Auto) Eos # (Auto) Baso # (Auto) Abs Immat Gran (auto) Absolute Neuts (auto) Absolute Nucleated RBC Nucleated RBC % (auto) Sodium Potassium Chloride Carbon Dioxide Anion Gap BUN Creatinine Estim Creat Clear Calc Estimated GFR POC Glucose 240 H 156 H 126 H Random Glucose Calcium Total Bilirubin AST ALT Alkaline Phosphatase Ammonia Total Protein Albumin 05/24/24 05/24/24 05/24/24 11:06 16:12 19:49 WBC RBC Hgb Hct MCV MCH MCHC RDW Plt Count MPV Immature Gran % (Auto) Neut % (Auto) Lymph % (Auto) [place] % (Auto) Eos % (Auto) Baso % (Auto) Lymph # (Auto) [place] # (Auto) Eos # (Auto) Baso # (Auto) Abs Immat Gran (auto) Absolute Neuts (auto) Absolute Nucleated RBC Nucleated RBC % (auto) Sodium Potassium Chloride Carbon Dioxide Anion Gap BUN Creatinine Estim Creat Clear Calc Estimated GFR POC Glucose 188 H 185 H 186 H Random Glucose Calcium Total Bilirubin AST ALT Alkaline Phosphatase Ammonia Total Protein Albumin 05/25/24 05/25/24 05/25/24 06:38 11:44 15:52 WBC RBC Hgb Hct MCV MCH MCHC RDW Plt Count MPV Immature Gran % (Auto) Neut % (Auto) Lymph % (Auto) [place] % (Auto) Eos % (Auto) Baso % (Auto) Lymph # (Auto) [place] # (Auto) Eos # (Auto) Baso # (Auto) Abs Immat Gran (auto) Absolute Neuts (auto) Absolute Nucleated RBC Nucleated RBC % (auto) Sodium Potassium Chloride Carbon Dioxide Anion Gap BUN Creatinine Estim Creat Clear Calc Estimated GFR POC Glucose 115 158 H 186 H Random Glucose Calcium Total Bilirubin AST ALT Alkaline Phosphatase Ammonia Total Protein Albumin 05/25/24 05/26/24 05/26/24 19:53 06:50 08:56 WBC 3.5 L RBC 2.40 L Hgb 8.5 L Hct 25.4 L MCV 105.8 H MCH 35.4 H MCHC 33.5 RDW 17.0 H Plt Count 72 L MPV 11.4 Immature Gran % (Auto) 0.9 H Neut % (Auto) 73.6 H Lymph % (Auto) 10.3 L [place] % (Auto) 12.6 H Eos % (Auto) 2.0 Baso % (Auto) 0.6 Lymph # (Auto) 0.4 L [place] # (Auto) 0.4 Eos # (Auto) 0.1 Baso # (Auto) 0.0 Abs Immat Gran (auto) 0.03 Absolute Neuts (auto) 2.6 Absolute Nucleated RBC 0.000 Nucleated RBC % (auto) 0.0 Sodium Potassium Chloride Carbon Dioxide Anion Gap BUN Creatinine Estim Creat Clear Calc Estimated GFR POC Glucose 158 H 85 Random Glucose Calcium Total Bilirubin AST ALT Alkaline Phosphatase Ammonia Total Protein Albumin 05/26/24 05/26/24 05/26/24 10:56 16:03 19:40 WBC RBC Hgb Hct MCV MCH MCHC RDW Plt Count MPV Immature Gran % (Auto) Neut % (Auto) Lymph % (Auto) [place] % (Auto) Eos % (Auto) Baso % (Auto) Lymph # (Auto) [place] # (Auto) Eos # (Auto) Baso # (Auto) Abs Immat Gran (auto) Absolute Neuts (auto) Absolute Nucleated RBC Nucleated RBC % (auto) Sodium Potassium Chloride Carbon Dioxide Anion Gap BUN Creatinine Estim Creat Clear Calc Estimated GFR POC Glucose 217 H 184 H 192 H Random Glucose Calcium Total Bilirubin AST ALT Alkaline Phosphatase Ammonia Total Protein Albumin Imaging Diagnostic Imaging Impressions Bone Osseous Survey 05/07/24 15:00 IMPRESSION: 1. Cortical depression and adjacent cystic change within the lateral aspect of the left humeral head is redemonstrated. Findings could represent sequela of prior trauma. No aggressive features to suggest an underlying neoplastic lesion. 2. No additional lytic or blastic osseous lesion. 3. Left lower lobe airspace opacities. 4. [id number] stool burden. Electronically signed by: Roman Power MD 05/07/2024 11:00 PM EST RP KUB X-Ray 05/09/24 10:00 IMPRESSION: Moderate air and stool throughout the colon. Nonobstructive bowel gas pattern. Electronically signed by: Roman Power MD 05/09/2024 08:07 PM EST RP Abdomen Ultrasound 05/10/24 09:45 IMPRESSION: Moderate ascites. Electronically signed by: David Saul MD 05/10/2024 04:09 PM EST RP DS: Summary Hospital Course Hospital Course: Patient is a 58-year-old with diagnosis of bipolar disorder, PTSD, ADHD who presents to the geriatric psychiatric unit for SI with plan to drive his car into a bridge. 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 Medical consult to evaluate for paracentesis. Pt last received paracentesis 11 days prior on 05/12/2024 where 1.8 L of ascitic fluid were removed. Will schedule pt for therapeutic paracentesis. Hospital course: Patient with manic symptoms on admission, hyperverbal, tangential, impulsive, low frustration tolerance. Initially concern for gudelia/bipolar, however with observation dx seemed more likely combination of MDD, Roosevelt II traits, high expressed emotion; Bipolar remains a rule out. Pt was Continued home regimen but added Seroquel low-dose. GI consult placed. Initially patient refusing some of his medication including lactulose. Patient was also started on Lexapro. Patient started taking medications. Patient transitioned to depressed and struggling with hopelessness which seemed to wax and wane in degree. Patient had several ongoing medical issues. Liver cirrhosis/ascites; patient had paracentesis last time on 05/25. Patient had left shoulder pain left shoulder xr which shows destructive lesion of 1.4cm H&H monitored and remains stable [id number] Lower limb edema developed but treated with Fili stockings With time, medication management and patient's medical issues being addressed, patient's mood significantly improved and depression abated; he struggled with intermittent hopeless feelings but these also resolved and patient denied any SI. Patient was organized and in good behavioral and impulse control. Patient also seemed to develop a positive outlook. Patient was accepted to a facility and was looking for to discharge. Patient has remained in good behavioral and impulse control throughout his time on the unit; organized in speech and behavior, sleeping in overall eating well. Patient is at baseline. He is not in imminent risk for harm to self or others and appropriate to return to the community for treatment. Time spent discussing smoking cessation with patient: 3 to 10 minutes Status at Discharge Functional status at discharge: independent ambulation Overall status at discharge: patient is back to baseline Time Spent with Patient Time attestation: Total time managing care of this patient today _40___ minutes. Time spent: Greater than 30 minutes Specific discharge activities: discussion with team; charting Discharge Plan Discharge Anticipated Discharge Date/Time: 05/28/24 11:30 Patient Disposition: Home, Self-Care Discharge Diagnosis: MDD; axis II (r/o bipolar) Referrals: [facility] [Other] - 05/28/24 10:00 am (Transfer for ocean transportation intermediary care to [facility] on 05/28/24 at 10AM. ) [facility] [Other] - 1 Week (Request for next treatment was placed on 05/26/24. Please contact [phone] to schedule appointment for next paracentesis. ) Discharge Medications: New quetiapine 25 mg Tablet 25 mg PO DAILY Qty: 0 0RF quetiapine 25 mg Tablet 75 mg PO BEDTIME Qty: 0 0RF insulin glargine [Lantus U-100 Insulin] 100 unit/mL Solution 10 unit subcut BEDTIME Qty: 0 0RF midodrine 5 mg Tablet 5 mg PO TID Qty: 0 0RF lorazepam 0.5 mg Tablet 0.5 mg PO BID PRN (Reason: Anxiety) Qty: 0 0RF trazodone 100 mg Tablet 100 mg PO BEDTIME Qty: 0 0RF baclofen 10 mg Tablet 10 mg PO TID PRN (Reason: muscle tension) Qty: 0 0RF hydroxyzine HCl 25 mg Tablet 25 mg PO Q6H PRN (Reason: Anxiety) Qty: 0 0RF furosemide 20 mg Tablet 20 mg PO DAILY Qty: 0 0RF Protocol: Hold for SBP< HOLD for SBP < : 90 ondansetron 4 mg Tablet,Disintegrating 4 mg translingual Q6H PRN (Reason: Nausea And Vomiting) Qty: 0 0RF oxycodone 5 mg Tablet 5 mg PO Q4H PRN (Reason: Pain, Severe (Pain Scale 7-10)) Qty: 0 0RF Rx Instructions: Partial Fill upon patient request. escitalopram oxalate 10 mg Tablet 10 mg PO DAILY Qty: 0 0RF Continued orphenadrine citrate 100 mg tablet extended release 100 mg PO BID PRN (Reason: Pain) Qty: 60 0RF gabapentin 300 mg Capsule 600 mg PO TID Qty: 0 0RF insulin lispro [Admelog U-100 Insulin lispro] 100 unit/mL Solution See Protocol subcut QIDACHS Qty: 0 0RF Protocol: Insulin Correction Scale Less than or equal to 110 ---- Give (units): 0 111 to 150 Give (units): 0 151 to 200 Give (units): 2 201 to 250 Give (units): 4 251 to 300 Give (units): 6 301 to 350 Give (units): 8 Greater than 350 Give (units): 10 Call MD if Blood Glucose > : 350 Rx Instructions: 0-20 units Xifaxan 550 mg Tablet 550 mg PO BID Qty: 0 0RF spironolactone 25 mg tablet 25 mg PO DAILY Protocol: Hold for SBP< HOLD for SBP < : 90 lactulose 20 gram/30 mL Solution 20 g PO DAILY 30 Days Qty: 900 0RF omeprazole 20 mg capsule,delayed release(DR/EC) 20 mg PO BID Qty: 60 0RF Discontinued magnesium oxide 400 mg (241.3 mg magnesium) Tablet 400 mg PO DAILY Qty: 0 0RF baclofen 10 mg Tablet 10 mg PO TID PRN (Reason: muscle tension) Qty: 0 0RF furosemide 20 mg Tablet 60 mg PO DAILY Qty: 0 0RF Protocol: Hold for SBP< HOLD for SBP < : 90 trazodone 50 mg Tablet 50 mg PO BEDTIME PRN (Reason: Insomnia) Discharge Orders: Discharge Order (Routine); Ordered 05/28/24 Ordered By: Scott Gimenez Diet: Regular diet Activity on Discharge: As tolerated Stand Alone Forms: Patient Portal Discharge page Print Language: Persian Care Plan Goals: Maintain mood and safe behaviors Take medications as prescribed Continue to pursue sobriety Practice coping skills Continue with outpatient providers and reach out to them as needed Health Concerns: Mood stability and behaviors Sobriety alcoholic cirrhosis complicated by portal hypertension, esophageal varices ascites with weekly paracentesis insulin-dependent type 2 diabetes hx of treated hepatitis-C, 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 Patient was interviewed prior to discharge and found to be fully oriented and without any SI or HI. Patient has improved insight and judgment and wants to continue treatment. Patient is not in imminent risk of harm to self or others and has a safety plan that includes presenting to the closest ER or calling 911 if feeling unsafe.? Patient has been observed closely by nursing and unit staff throughout admission; patient has not engaged in any behaviors that suggest dangerousness to self or others and has demonstrated appropriate behaviors and impulse control
[2024-05-27] MEDS: oxyCODONE HCl Immed Release 5 MG TABLET PO ×3 (02:57→21:08)
[2024-05-27] MEDS: Omeprazole 20 MG CAPSULE.DR PO ×2 (05:46→15:57)
[2024-05-27 07:59] VITALS: BP 110/77; PULSE 80; RESP 17; TEMP 36.4; O2SAT 98
[2024-05-27 08:00] LABS: Glucose, Whole Blood 76 mg/dL (60-115)
[2024-05-27 10:01] VITALS: BP 109/71; PULSE 82; RESP 18; TEMP 36.3; O2SAT 97
[2024-05-27] MEDS: Lactulose 20 GM/30 ML SOLUTION PO ×3 (10:05→20:21)
[2024-05-27] MEDS: Gabapentin 300 MG CAPSULE 600 MG PO ×3 (10:06→20:20)
[2024-05-27] MEDS: Spironolactone 25 MG TABLET PO (10:10)
[2024-05-27] MEDS: rifAXIMin 550 MG TABLET PO ×2 (10:10→20:19)
[2024-05-27] MEDS: Midodrine HCl 5 MG TABLET PO ×3 (10:11→20:20)
[2024-05-27] MEDS: QUEtiapine Fumarate 25 MG TABLET PO (10:11)
[2024-05-27] MEDS: Escitalopram Oxalate 10 MG TABLET PO (10:11)
[2024-05-27] MEDS: Furosemide 20 MG TABLET PO (10:12)
[2024-05-27 11:25] LABS: Glucose, Whole Blood 140 mg/dL (60-115)
[2024-05-27] MEDS: LORazepam 0.5 MG TABLET PO ×2 (12:11→21:08)
[2024-05-27] MEDS: Ondansetron ODT 4 MG TAB.RAPDIS TRANSLINGU (12:31)
[2024-05-27 14:50] VITALS: BP 113/66; PULSE 88
[2024-05-27 15:50] LABS: Glucose, Whole Blood 154 mg/dL (60-115)
[2024-05-27] MEDS: Insulin Lispro 100 UNIT/ML 3 ML VIAL SUBCUT ×2 (15:56→20:18)
[2024-05-27 20:00] VITALS: BP 114/77; PULSE 82; RESP 17; TEMP 36.2; O2SAT 98
[2024-05-27 20:01] LABS: Glucose, Whole Blood 155 mg/dL (60-115)
[2024-05-27] MEDS: Insulin Glargine,Hum.rec.anlog 100 UNIT/ML 10 ML VIAL 10 UNIT SUBCUT (20:17)
[2024-05-27] MEDS: QUEtiapine Fumarate 25 MG TABLET 75 MG PO (20:19)
[2024-05-27] MEDS: traZODone HCL 100 MG TABLET PO (20:19)
[2024-05-27 20:20] VITALS: BP 110/77
[2024-05-27] MEDS: hydrOXYzine HCL 25 MG TABLET PO (21:07)
[2024-05-28] MEDS: oxyCODONE HCl Immed Release 5 MG TABLET PO ×2 (01:44→08:25)
[2024-05-28] MEDS: Omeprazole 20 MG CAPSULE.DR PO (05:49)
[2024-05-28 07:33] LABS: Glucose, Whole Blood 140 mg/dL (60-115)
[2024-05-28 08:21] VITALS: BP 118/78; PULSE 85; RESP 17; TEMP 36; O2SAT 96
[2024-05-28] MEDS: QUEtiapine Fumarate 25 MG TABLET PO (08:25)
[2024-05-28] MEDS: Furosemide 20 MG TABLET PO (08:25)
[2024-05-28] MEDS: Gabapentin 300 MG CAPSULE 600 MG PO (08:25)
[2024-05-28] MEDS: Spironolactone 25 MG TABLET PO (08:25)
[2024-05-28] MEDS: rifAXIMin 550 MG TABLET PO (08:25)
[2024-05-28] MEDS: Midodrine HCl 5 MG TABLET PO (08:25)
[2024-05-28] MEDS: Escitalopram Oxalate 10 MG TABLET PO (08:25)
[2024-05-28] MEDS: Lactulose 20 GM/30 ML SOLUTION PO (08:26)
--- NOTE | 2024-05-28 08:43 | HO.PSYCHPN ---
Subjective Subjective Date of Service: 05/27/24 Reason For Visit: mood disorder Subjective Notes: Conditional Voluntary Interim History: Pt slept most of the night. He reports nausea, malaise, in bed. poor appetite. No SI/HI. No VH/AH. reports antidepressant has been helpful. Diagnostics Vital Signs (24Hr): Vital Signs - 24 hr 05/27/24 10:01 05/27/24 14:50 05/27/24 20:00 Temperature 97.3 F 97.1 F Pulse Rate 82 88 82 Respiratory Rate 18 17 Blood Pressure 109/71 113/66 114/77 Pulse Oximetry 97 98 Oxygen Delivery Method Room Air Room Air 05/27/24 20:20 05/28/24 08:21 Temperature 96.8 F Pulse Rate 85 Respiratory Rate 17 Blood Pressure 110/77 118/78 Pulse Oximetry 96 Oxygen Delivery Method Room Air BMI result Body Mass Index 25.8 Labs 05/26/24 08:56 05/20/24 15:55 Labs: Laboratory Results - last 48 hr 05/26/24 05/26/24 05/26/24 08:56 10:56 16:03 WBC 3.5 L RBC 2.40 L Hgb 8.5 L Hct 25.4 L MCV 105.8 H MCH 35.4 H MCHC 33.5 RDW 17.0 H Plt Count 72 L MPV 11.4 Immature Gran % (Auto) 0.9 H Neut % (Auto) 73.6 H Lymph % (Auto) 10.[address] [place] % (Auto) 12.6 H Eos % (Auto) 2.0 Baso % (Auto) 0.6 Lymph # (Auto) 0.[address] [place] # (Auto) 0.4 Eos # (Auto) 0.1 Baso # (Auto) 0.0 Abs Immat Gran (auto) 0.03 Absolute Neuts (auto) 2.6 Absolute Nucleated RBC 0.000 Nucleated RBC % (auto) 0.0 POC Glucose 217 H 184 H 05/26/24 05/27/24 05/27/24 19:40 06:43 11:21 WBC RBC Hgb Hct MCV MCH MCHC RDW Plt Count MPV Immature Gran % (Auto) Neut % (Auto) Lymph % (Auto) [place] % (Auto) Eos % (Auto) Baso % (Auto) Lymph # (Auto) [place] # (Auto) Eos # (Auto) Baso # (Auto) Abs Immat Gran (auto) Absolute Neuts (auto) Absolute Nucleated RBC Nucleated RBC % (auto) POC Glucose 192 H 76 140 H 05/27/24 05/27/24 05/28/24 15:46 19:53 06:31 WBC RBC Hgb Hct MCV MCH MCHC RDW Plt Count MPV Immature Gran % (Auto) Neut % (Auto) Lymph % (Auto) [place] % (Auto) Eos % (Auto) Baso % (Auto) Lymph # (Auto) [place] # (Auto) Eos # (Auto) Baso # (Auto) Abs Immat Gran (auto) Absolute Neuts (auto) Absolute Nucleated RBC Nucleated RBC % (auto) POC Glucose 154 H 155 H 140 H Imaging Radiology Impressions: ITS Impressions Bone Osseous Survey 05/07/24 15:00 IMPRESSION: 1. Cortical depression and adjacent cystic change within the lateral aspect of the left humeral head is redemonstrated. Findings could represent sequela of prior trauma. No aggressive features to suggest an underlying neoplastic lesion. 2. No additional lytic or blastic osseous lesion. 3. Left lower lobe airspace opacities. 4. [id number] stool burden. Electronically signed by: Roman Power MD 05/07/2024 11:00 PM EST RP KUB X-Ray 05/09/24 10:00 IMPRESSION: Moderate air and stool throughout the colon. Nonobstructive bowel gas pattern. Electronically signed by: Roman Power MD 05/09/2024 08:07 PM EST RP Abdomen Ultrasound 05/10/24 09:45 IMPRESSION: Moderate ascites. Electronically signed by: David Saul MD 05/10/2024 04:09 PM EST RP Medications Medications Current Medications Al Hydroxide/Mg Hydroxide (Magnesium Hydrox/Alum Hydrox 30 Ml Oral.Susp) 30 ml PO Q6H PRN PRN Reason: Heartburn/Nausea Artificial Tears (Artificial Tears 15 Ml Drops) 1 drop EYE-RIGHT Q4H PRN PRN Reason: eye irritation Baclofen (Baclofen 10 Mg Tablet) 10 mg PO TID PRN PRN Reason: muscle tension Last Admin: 05/11/24 21:02 Dose: 10 mg Escitalopram Oxalate (Escitalopram Oxalate 10 Mg Tablet) 10 mg PO DAILY [facility] Last Admin: 05/28/24 08:25 Dose: 10 mg Furosemide (Furosemide 20 Mg Tablet) 20 mg PO DAILY [facility]; Protocol Last Admin: 05/28/24 08:25 Dose: 20 mg Gabapentin (Gabapentin 300 Mg Capsule) 600 mg PO TID [facility] Last Admin: 05/28/24 08:25 Dose: 600 mg Hydroxyzine HCl (Hydroxyzine Hcl 25 Mg Tablet) 25 mg PO Q6H PRN PRN Reason: Anxiety Last Admin: 05/27/24 21:07 Dose: 25 mg Insulin Glargine (Insulin Glargine,Hum.Rec.Anlog 100 Unit/Ml 10 Ml Vial) 10 unit SUBCUT BEDTIME [facility] Last Admin: 05/27/24 20:17 Dose: 10 unit Insulin Human Lispro (Insulin Lispro 100 Unit/Ml 3 Ml Vial) 0 unit SUBCUT QIDACHS [facility]; Protocol Last Admin: 05/28/24 07:35 Dose: Not Given Lactulose (Lactulose 20 Gm/30 Ml Solution) 20 gm PO TID [facility] Last Admin: 05/28/24 08:26 Dose: 20 gm Lorazepam (Lorazepam 0.5 Mg Tablet) 0.5 mg PO BID PRN PRN Reason: anxiety/restlessness Last Admin: 05/27/24 21:08 Dose: 0.5 mg Magnesium Hydroxide (Milk Of Magnesia 30 Ml Oral.Susp) 30 ml PO DAILY PRN PRN Reason: Constipation Midodrine (Midodrine Hcl 5 Mg Tablet) 5 mg PO TID [facility] Last Admin: 05/28/24 08:25 Dose: 5 mg Pt Own (Orphenadrine Citrate 100 Mg Tablet Extended Release) 100 mg PO BID PRN PRN Reason: Pain Last Admin: 05/26/24 21:58 Dose: 100 mg Omeprazole (Omeprazole 20 Mg Capsule.Dr) 20 mg PO BID@0630,1630 [facility] Last Admin: 05/28/24 05:49 Dose: 20 mg Ondansetron HCl (Ondansetron Odt 4 Mg Tab.Rapdis) 4 mg TRANSLINGU Q6H PRN PRN Reason: Nausea and Vomiting Last Admin: 05/27/24 12:31 Dose: 4 mg Oxycodone HCl (Oxycodone Hcl Immed Release 5 Mg Tablet) 5 mg PO Q4H PRN PRN Reason: severe pain Last Admin: 05/28/24 08:25 Dose: 5 mg Quetiapine Fumarate (Quetiapine Fumarate 25 Mg Tablet) 75 mg PO BEDTIME [facility] Last Admin: 05/27/24 20:19 Dose: 75 mg Quetiapine Fumarate (Quetiapine Fumarate 25 Mg Tablet) 25 mg PO DAILY [facility] Last Admin: 05/28/24 08:25 Dose: 25 mg Rifaximin (Rifaximin 550 Mg Tablet) 550 mg PO BID [facility] Last Admin: 05/28/24 08:25 Dose: 550 mg Spironolactone (Spironolactone 25 Mg Tablet) 25 mg PO DAILY [facility]; Protocol Last Admin: 05/28/24 08:25 Dose: 25 mg Trazodone HCl (Trazodone Hcl 100 Mg Tablet) 100 mg PO BEDTIME [facility] Last Admin: 05/27/24 20:19 Dose: 100 mg Allergies Allergies Allergy/AdvReac Type Severity Reaction Status Date / Time acetaminophen AdvReac Unknown Verified 04/28/24 11:48 bismuth subsalicylate AdvReac Unknown Verified 04/28/24 11:48 [From Pepto-Bismol] celecoxib [From Celebrex] AdvReac Unknown Verified 04/28/24 11:48 NSAIDS (Non-Steroidal AdvReac Unknown Verified 04/28/24 11:48 Anti-Inflamma Assessment & Plan Assessment & Plan (1) PTSD (post-traumatic stress disorder): Status: Acute Code(s): F43.10 - Post-traumatic stress disorder, unspecified (2) Homelessness: Status: Acute Code(s): Z59.00 - Homelessness unspecified (3) MAYE (acute kidney injury): Status: Resolved Code(s): N17.9 - Acute kidney failure, unspecified (4) Cirrhosis, alcoholic: Status: Acute Code(s): K70.30 - Alcoholic cirrhosis of liver without ascites (5) Portal hypertension: Status: Acute Code(s): K76.6 - Portal hypertension Plan The patient is a middle-aged male with a past history of chronically were failure, bipolar disorder, PTSD, ADHD and chronic homelessness who was brought into the facility after he disclosed suicidal ideation with a plan to drive his car into the [facility]. The patient was assessed by crisis and transferring to this facility for psychiatric stabilization. 05/02: Continue current regimen and plans for stabilization and medication management. Added Seroquel 25 mg nightly p.r.n. 05/03: Continue current regimen and plans for stabilization and medication management 05/04 repeat cmp, cbc, ammonia. 05/05 continue tx. pending GI consult, re: dropping HgB, 05/06- discussed code, pt would like to continue full code at this moment. planning for referrals for SNF. left shoulder pain- had left shoulder xr which shows destructive lesion of 1.4cm (will contact hospitalist for dx and tx). continue to monitor HgB, ammonia (mildly elevated, pt at times refuses lactulose, he is also on rifaximin). Will check pth, ionized calcium (regular calcium low but note low albumin). may consider esr/crp 05/07 continue tx. 05/08 continue tx. pending GI consult. 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 complicated patient provider loathe to make private branch exchange service advisor weekend for pt 05/10 starting olanzapine tonight- 25mg, lower trazodone 75mg- awaiting weekdays for paracentesis may want to further decrease trazodone and inc olanzapine- watch for nightmares 05/11 parencetises for 05/12. continue monitor hgb. 05/12 daily weights, measurement of abdominal girt. will start lexapro for depression 10mg po daily. seroquel bedtime and morning- will monitor liver function as he start these medications. 05/13 continue tx. continue daily weigh- hopefully pt won't refuse. monitor ammonia, Hgb. Per GI, transfusion if Hgb <8. 05/14/2024 Patient feeling medically improved remains depressed hopeless helpless difficulty with future orientation 05/17/2020 Continue escitalopram trazodone patient intermittent hopelessness but more engaged feeling somewhat more hopeful regarding the future has intermittent thoughts of despair and self-harm denies in this setting 05/19/2024 Patient increasingly depressed withdrawn unclear if related to his cirrhosis edema will check ammonia electrolytes LFTs. He is on Lexapro and gabapentin gabapentin presumably for neuropathy questionable history of bipolar disorder versus recurrent depression he is on Lexapro Check labs 05/21 will order yaya stockings for b/l lower limb edema 05/22 pt wearing Yaya stockings -policy writer placed consult to asses for continued paracentesis 05/23 Patient reports that mood is good and that he is overall feeling better. Appreciate Fili stockings and also that paracentesis is being scheduled for next week. Patient reported some eye discomfort, thinking something was in his eye; no redness, no discharge; ordered eyedrops and discomfort resolved 05/24 Patient said that he is doing good... Not so bad. Again thanks for paracentesis being set up; denies any pain. -paracentesis scheduled for 05/25 05/25 Patient says he is good had paracentesis today and reports that he is a little sore, which he says is typical the day of paracentesis. Patient had a brief spell where he was spitting out some blood; it was minimal and not clear the origin although patient said earlier he had some bleeding gums (now resolved) that it seemed to come from his throat. This remained fully resolved however and policy writer discussed case with hospitalist Dr. Campos who recommended monitoring. -policy writer ordered CBC to monitor H&H, out of an abundance of caution 05/26 Patient reports that he is good and has no complaints or requests; no more episodes of spitting blood and H&H reviewed which is stable. Discussed with social work that patient is accepted to care home facility. Patient has remained in good behavioral and impulse control throughout his time on the unit; organized in speech and behavior, sleeping in overall eating well. Patient is at baseline. He is not in imminent risk for harm to self or others and appropriate to return to the community for treatment 05/27 continue tx. Reason for continued inpatient stay Substantial Risk for: inability to function Time Spent With Patient Time: Total time managing care of this patient today ____ minutes.
--- NOTE | 2024-05-28 08:53 | P.PNPSI_ITS ---
Subjective Subjective Date of Service: 05/28/24 Reason For Visit: mood disorder Subjective Notes: Conditional Voluntary Interim History: Pt discharging today. He denies SI/HI. Pt presents as future oriented. No behavioral concerns. Review of Systems Review of Systems Sleep, depression Yes all other systems are reviewed and are negative Mental Status Exam Mental Status Exam Narrative: Appearance: wearing casual attire; adequate grooming/hygiene, in NAD Behavior: cooperative, calm Psychomotor: no agitation or retardation noted Speech: clear, normal rate/rhythm/volume, spontaneous TP: linear TC: wanting help with coordination of care Mood: euthymic Affect: congruent, SI denies HI: none VH/AH: none Delusions: no delusional content noted or reported Insight/judgment: impaired Memory/cog: alert, oriented x 4. Diagnostics Vital Signs (24Hr): Vital Signs - 24 hr 05/27/24 10:01 05/27/24 14:50 05/27/24 20:00 Temperature 97.3 F 97.1 F Pulse Rate 82 88 82 Respiratory Rate 18 17 Blood Pressure 109/71 113/66 114/77 Pulse Oximetry 97 98 Oxygen Delivery Method Room Air Room Air 05/27/24 20:20 05/28/24 08:21 Temperature 96.8 F Pulse Rate 85 Respiratory Rate 17 Blood Pressure 110/77 118/78 Pulse Oximetry 96 Oxygen Delivery Method Room Air BMI result Body Mass Index 25.8 Labs 05/26/24 08:56 05/20/24 15:55 Labs: Laboratory Results - last 48 hr 05/26/24 05/26/24 05/26/24 08:56 10:56 16:03 WBC 3.5 L RBC 2.40 L Hgb 8.5 L Hct 25.4 L MCV 105.8 H MCH 35.4 H MCHC 33.5 RDW 17.0 H Plt Count 72 L MPV 11.4 Immature Gran % (Auto) 0.9 H Neut % (Auto) 73.6 H Lymph % (Auto) 10.3 L [place] % (Auto) 12.6 H Eos % (Auto) 2.0 Baso % (Auto) 0.6 Lymph # (Auto) 0.4 L [place] # (Auto) 0.4 Eos # (Auto) 0.1 Baso # (Auto) 0.0 Abs Immat Gran (auto) 0.03 Absolute Neuts (auto) 2.6 Absolute Nucleated RBC 0.000 Nucleated RBC % (auto) 0.0 POC Glucose 217 H 184 H 05/26/24 05/27/24 05/27/24 19:40 06:43 11:21 WBC RBC Hgb Hct MCV MCH MCHC RDW Plt Count MPV Immature Gran % (Auto) Neut % (Auto) Lymph % (Auto) [place] % (Auto) Eos % (Auto) Baso % (Auto) Lymph # (Auto) [place] # (Auto) Eos # (Auto) Baso # (Auto) Abs Immat Gran (auto) Absolute Neuts (auto) Absolute Nucleated RBC Nucleated RBC % (auto) POC Glucose 192 H 76 140 H 05/27/24 05/27/24 05/28/24 15:46 19:53 06:31 WBC RBC Hgb Hct MCV MCH MCHC RDW Plt Count MPV Immature Gran % (Auto) Neut % (Auto) Lymph % (Auto) [place] % (Auto) Eos % (Auto) Baso % (Auto) Lymph # (Auto) [place] # (Auto) Eos # (Auto) Baso # (Auto) Abs Immat Gran (auto) Absolute Neuts (auto) Absolute Nucleated RBC Nucleated RBC % (auto) POC Glucose 154 H 155 H 140 H Imaging Radiology Impressions: ITS Impressions Bone Osseous Survey 05/07/24 15:00 IMPRESSION: 1. Cortical depression and adjacent cystic change within the lateral aspect of the left humeral head is redemonstrated. Findings could represent sequela of prior trauma. No aggressive features to suggest an underlying neoplastic lesion. 2. No additional lytic or blastic osseous lesion. 3. Left lower lobe airspace opacities. 4. [id number] stool burden. Electronically signed by: Roman Power MD 05/07/2024 11:00 PM EST RP KUB X-Ray 05/09/24 10:00 IMPRESSION: Moderate air and stool throughout the colon. Nonobstructive bowel gas pattern. Electronically signed by: Roman Power MD 05/09/2024 08:07 PM EST RP Abdomen Ultrasound 05/10/24 09:45 IMPRESSION: Moderate ascites. Electronically signed by: David Saul MD 05/10/2024 04:09 PM EST RP Medications Medications Current Medications Al Hydroxide/Mg Hydroxide (Magnesium Hydrox/Alum Hydrox 30 Ml Oral.Susp) 30 ml PO Q6H PRN PRN Reason: Heartburn/Nausea Artificial Tears (Artificial Tears 15 Ml Drops) 1 drop EYE-RIGHT Q4H PRN PRN Reason: eye irritation Baclofen (Baclofen 10 Mg Tablet) 10 mg PO TID PRN PRN Reason: muscle tension Last Admin: 05/11/24 21:02 Dose: 10 mg Escitalopram Oxalate (Escitalopram Oxalate 10 Mg Tablet) 10 mg PO DAILY [facility] Last Admin: 05/28/24 08:25 Dose: 10 mg Furosemide (Furosemide 20 Mg Tablet) 20 mg PO DAILY [facility]; Protocol Last Admin: 05/28/24 08:25 Dose: 20 mg Gabapentin (Gabapentin 300 Mg Capsule) 600 mg PO TID [facility] Last Admin: 05/28/24 08:25 Dose: 600 mg Hydroxyzine HCl (Hydroxyzine Hcl 25 Mg Tablet) 25 mg PO Q6H PRN PRN Reason: Anxiety Last Admin: 05/27/24 21:07 Dose: 25 mg Insulin Glargine (Insulin Glargine,Hum.Rec.Anlog 100 Unit/Ml 10 Ml Vial) 10 unit SUBCUT BEDTIME [facility] Last Admin: 05/27/24 20:17 Dose: 10 unit Insulin Human Lispro (Insulin Lispro 100 Unit/Ml 3 Ml Vial) 0 unit SUBCUT QIDACHS [facility]; Protocol Last Admin: 05/28/24 07:35 Dose: Not Given Lactulose (Lactulose 20 Gm/30 Ml Solution) 20 gm PO TID [facility] Last Admin: 05/28/24 08:26 Dose: 20 gm Lorazepam (Lorazepam 0.5 Mg Tablet) 0.5 mg PO BID PRN PRN Reason: anxiety/restlessness Last Admin: 05/27/24 21:08 Dose: 0.5 mg Magnesium Hydroxide (Milk Of Magnesia 30 Ml Oral.Susp) 30 ml PO DAILY PRN PRN Reason: Constipation Midodrine (Midodrine Hcl 5 Mg Tablet) 5 mg PO TID [facility] Last Admin: 05/28/24 08:25 Dose: 5 mg Pt Own (Orphenadrine Citrate 100 Mg Tablet Extended Release) 100 mg PO BID PRN PRN Reason: Pain Last Admin: 05/26/24 21:58 Dose: 100 mg Omeprazole (Omeprazole 20 Mg Capsule.Dr) 20 mg PO BID@0630,1630 [facility] Last Admin: 05/28/24 05:49 Dose: 20 mg Ondansetron HCl (Ondansetron Odt 4 Mg Tab.Rapdis) 4 mg TRANSLINGU Q6H PRN PRN Reason: Nausea and Vomiting Last Admin: 05/27/24 12:31 Dose: 4 mg Quetiapine Fumarate (Quetiapine Fumarate 25 Mg Tablet) 75 mg PO BEDTIME [facility] Last Admin: 05/27/24 20:19 Dose: 75 mg Quetiapine Fumarate (Quetiapine Fumarate 25 Mg Tablet) 25 mg PO DAILY [facility] Last Admin: 05/28/24 08:25 Dose: 25 mg Rifaximin (Rifaximin 550 Mg Tablet) 550 mg PO BID [facility] Last Admin: 05/28/24 08:25 Dose: 550 mg Spironolactone (Spironolactone 25 Mg Tablet) 25 mg PO DAILY [facility]; Protocol Last Admin: 05/28/24 08:25 Dose: 25 mg Trazodone HCl (Trazodone Hcl 100 Mg Tablet) 100 mg PO BEDTIME [facility] Last Admin: 05/27/24 20:19 Dose: 100 mg Allergies Allergies Allergy/AdvReac Type Severity Reaction Status Date / Time acetaminophen AdvReac Unknown Verified 04/28/24 11:48 bismuth subsalicylate AdvReac Unknown Verified 04/28/24 11:48 [From Pepto-Bismol] celecoxib [From Celebrex] AdvReac Unknown Verified 04/28/24 11:48 NSAIDS (Non-Steroidal AdvReac Unknown Verified 04/28/24 11:48 Anti-Inflamma Assessment & Plan Assessment & Plan (1) PTSD (post-traumatic stress disorder): Status: Acute Code(s): F43.10 - Post-traumatic stress disorder, unspecified (2) Homelessness: Status: Acute Code(s): Z59.00 - Homelessness unspecified (3) MAYE (acute kidney injury): Status: Resolved Code(s): N17.9 - Acute kidney failure, unspecified (4) Cirrhosis, alcoholic: Status: Acute Code(s): K70.30 - Alcoholic cirrhosis of liver without ascites (5) Portal hypertension: Status: Acute Code(s): K76.6 - Portal hypertension Plan The patient is a middle-aged male with a past history of chronically were failure, bipolar disorder, PTSD, ADHD and chronic homelessness who was brought into the facility after he disclosed suicidal ideation [place] The patient was assessed by crisis and transferring to this facility for psychiatric stabilization. 05/02: Continue current regimen and plans for stabilization and medication management. Added Seroquel 25 mg nightly p.r.n. 05/03: Continue current regimen and plans for stabilization and medication management 05/04 repeat cmp, cbc, ammonia. 05/05 continue tx. pending GI consult, re: dropping HgB, 05/06- discussed code, pt would like to continue full code at this moment. planning for referrals for SNF. left shoulder pain- had left shoulder xr which shows destructive lesion of 1.4cm (will contact hospitalist for dx and tx). continue to monitor HgB, ammonia (mildly elevated, pt at times refuses lactulose, he is also on rifaximin). Will check pth, ionized calcium (regular calcium low but note low albumin). may consider esr/crp 05/07 continue tx. 05/08 continue tx. pending GI consult. 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 complicated patient provider loathe to make record changer tester weekend for pt 05/10 starting olanzapine tonight- 25mg, lower trazodone 75mg- awaiting week for paracentesis may want to further decrease trazodone and inc olanzapine- watch for nightmares 05/11 parencetises for 05/12. continue monitor hgb. 05/12 daily weights, measurement of abdominal girt. will start lexapro for depression 10mg po daily. seroquel bedtime and morning- will monitor liver function as he start these medications. 05/13 continue tx. continue daily weigh- hopefully pt won't refuse. monitor ammonia, Hgb. Per GI, transfusion if Hgb <8. 05/14/2024 Patient feeling medically improved remains depressed hopeless helpless difficulty with future orientation 05/17/2020 Continue escitalopram trazodone patient intermittent hopelessness but more engaged feeling somewhat more hopeful regarding the future has intermittent thoughts of despair and self-harm denies in this setting 05/19/2024 Patient increasingly depressed withdrawn unclear if related to his cirrhosis edema will check ammonia electrolytes LFTs. He is on Lexapro and gabapentin gabapentin presumably for neuropathy questionable history of bipolar disorder versus recurrent depression he is on Lexapro Check labs 05/21 will order yaya stockings for b/l lower limb edema 05/22 pt wearing Yaya stockings -personal lines underwriter placed consult to asses for continued paracentesis 05/23 Patient reports that mood is good and that he is overall feeling better. Appreciate Fili stockings and also that paracentesis is being scheduled for next week. Patient reported some eye discomfort, thinking something was in his eye; no redness, no discharge; ordered eyedrops and discomfort resolved 05/24 Patient said that he is doing good... Not so bad. Again thanks for paracentesis being set up; denies any pain. -paracentesis scheduled for 05/25 05/25 Patient says he is good had paracentesis today and reports that he is a little sore, which he says is typical the day of paracentesis. Patient had a brief spell where he was spitting out some blood; it was minimal and not clear the origin although patient said earlier he had some bleeding gums (now resolved) that it seemed to come from his throat. This remained fully resolved however and personal lines underwriter discussed case with hospitalist Dr. Campos who recommended monitoring. -personal lines underwriter ordered CBC to monitor H&H, out of an abundance of caution 05/26 Patient reports that he is good and has no complaints or requests; no more episodes of spitting blood and H&H reviewed which is stable. Discussed with social work that patient is accepted to long term facility. Patient has remained in good behavioral and impulse control throughout his time on the unit; organized in speech and behavior, sleeping in overall eating well. Patient is at baseline. He is not in imminent risk for harm to self or others and appropriate to return to the community for treatment 05/27 continue tx. 05/28 d/c today Reason for continued inpatient stay Substantial Risk for: inability to function Time Spent With Patient Time: Total time managing care of this patient today ____ minutes.
== END 2024-05-28 10:30 | disposition home or self-care (01) | DRG 885 ==
PROVIDERS: Internal Medicine; Nurse Practitioner Acute Care; Psychiatry & Neurology Psychiatry; Social Worker; Student in an Organized Health Care Education/Training Program; Admitting Provider Student in an Organized Health Care Education/Training Program; Visit Provider Psychiatry & Neurology Psychiatry
DX: F31.9 Bipolar disorder, unspecified (principal); R45.851 Suicidal ideations; N17.9 Acute kidney failure, unspecified; K76.6 Portal hypertension; I82.891 Chronic embolism and thrombosis of other specified veins; I85.10 Secondary esophageal varices without bleeding; F43.10 Post-traumatic stress disorder, unspecified; K70.31 Alcoholic cirrhosis of liver with ascites; G47.33 Obstructive sleep apnea (adult) (pediatric); I95.9 Hypotension, unspecified; M89.9 Disorder of bone, unspecified; E11.40 Type 2 diabetes mellitus with diabetic neuropathy, unspecified; D64.9 Anemia, unspecified; Z86.19 Personal history of other infectious and parasitic diseases; F90.9 Attention-deficit hyperactivity disorder, unspecified type; D69.6 Thrombocytopenia, unspecified; F17.210 Nicotine dependence, cigarettes, uncomplicated; K59.02 Outlet dysfunction constipation; Z71.6 Tobacco abuse counseling; Z79.4 Long term (current) use of insulin; Z79.899 Other long term (current) drug therapy
CPT/HCPCS: 36415; 74018; 76705; 77075; 80053; 80061; 82140; 82330; 82784; 82947; 82977; 83690; 83883; 83970; 84165; 85025; 85027; 85610; 86334

== ENCOUNTER → 2024-04-29 13:42 | Outpatient (BNV) | payer OTHER, SELFPAY | PROVIDERS: Admitting Provider Student in an Organized Health Care Education/Training Program; Visit Provider Psychiatry & Neurology Psychiatry | DX: F43.11 Post-traumatic stress disorder, acute (principal); Z59.00 Homelessness unspecified; N17.9 Acute kidney failure, unspecified; K70.30 Alcoholic cirrhosis of liver without ascites; K76.6 Portal hypertension | CPT/HCPCS: 99231; 99232 ==

== ENCOUNTER → 2024-04-29 13:42 | Outpatient (BNV) | payer OTHER, SELFPAY | PROVIDERS: Admitting Provider Student in an Organized Health Care Education/Training Program; Visit Provider Psychiatry & Neurology Psychiatry | DX: F31.4 Bipolar disorder, current episode depressed, severe, without psychotic features (principal); F43.11 Post-traumatic stress disorder, acute; Z59.00 Homelessness unspecified; K70.31 Alcoholic cirrhosis of liver with ascites | CPT/HCPCS: 90792; 99231; 99232; 99239 ==

== ENCOUNTER → 2024-04-30 14:21 | Day surgery (SDC) | payer OTHER, SELFPAY ==
[2024-04-30 14:30] VITALS: BP 130/82; PULSE 88; RESP 18; O2SAT 99
[2024-04-30 14:31] VITALS: BP 129/82; PULSE 89; RESP 18; O2SAT 99
[2024-04-30 14:35] VITALS: BP 129/82; PULSE 89; RESP 18; O2SAT 99
[2024-04-30 14:40] VITALS: BP 124/87; PULSE 88; RESP 15; O2SAT 99
[2024-04-30 14:45] VITALS: BP 118/83; PULSE 86; RESP 15; O2SAT 99
[2024-04-30 14:50] VITALS: BP 102/69; PULSE 86; RESP 15; O2SAT 99
[2024-04-30] MEDS: Lidocaine HCl 1 % MPF 5 ML VIAL SUBCUT (14:59)
--- NOTE | 2024-04-30 15:09 | PCN2_ITS ---
Brief Operative Note Date of procedure: 04/30/24 Pre-op diagnosis: Ascites Post-op diagnosis: same Procedure: US paracentesis 1.3 L serous fluid removed. No immediate complications
== END ==
LOC: HO.SSS 14:21
PROVIDERS: Physician Assistant Surgical; Visit Provider Psychiatry & Neurology Psychiatry
DX: R18.8 Other ascites (principal)
CPT/HCPCS: 49083

== ENCOUNTER → 2024-04-30 14:21 | Outpatient (BNV) | payer OTHER, SELFPAY | PROVIDERS: Visit Provider Physician Assistant Surgical | DX: R18.8 Other ascites (principal) | CPT/HCPCS: 49083 ==

== ENCOUNTER 2024-05-12 10:19 | Day surgery (SDC) | payer OTHER, SELFPAY ==
--- NOTE | ~2024-05-12 | US_ITS ---
Ultrasound paracentesis History: Ascites. Risks and benefits and possible complications were discussed with the patient and consent form was signed. A safe pocket of ascitic fluid was identified using ultrasound guidance, and the overlying skin was marked. The abdomen prepped and draped in sterile fashion. 1% lidocaine was used as a local anesthetic. Using ultrasound guidance, a 5 fr catheter was placed into the ascitic pocket. 1.8 liters of yellow fluid was removed passively. The catheter was then removed. A few senior outside sales representative images from before and after the examination were obtained. The procedure was performed by Scott Gimenez PA-C and supervised by Dr. Vargas. US/US paracentesis abd w/image Impression: Ultrasound-guided paracentesis as described above. No immediate complications Electronically signed by: Constantin Chowdhury MD 05/18/2024 04:21 PM J[facility] PENALO[facility]
[2024-05-12 12:16] VITALS: BP 111/79; PULSE 84; RESP 18; TEMP 36.8; O2SAT 97; BMI 26.0
[2024-05-12 12:57] VITALS: BP 109/64; PULSE 85; RESP 19; TEMP 36.9; O2SAT 98
[2024-05-12 13:07] VITALS: BP 117/81; PULSE 84; RESP 17; O2SAT 97
[2024-05-12 13:17] VITALS: BP 123/87; PULSE 86; RESP 19; O2SAT 100
[2024-05-12 13:27] VITALS: BP 122/80; PULSE 85; RESP 13; O2SAT 99
[2024-05-12] MEDS: Lidocaine HCl 1 % MPF 5 ML VIAL SUBCUT (13:35)
[2024-05-12 13:40] VITALS: BP 121/76; PULSE 86; RESP 20; TEMP 37.2; O2SAT 99
[2024-05-12 21:08] LABS: Glucose, Whole Blood 166 mg/dL (60-115)
== END 2024-05-12 15:00 | disposition home or self-care (01) ==
LOC: HO.SSS 10:20
PROVIDERS: Physician Assistant Surgical; Visit Provider Student in an Organized Health Care Education/Training Program
DX: R18.8 Other ascites (principal); K70.30 Alcoholic cirrhosis of liver without ascites; I85.00 Esophageal varices without bleeding; E11.22 Type 2 diabetes mellitus with diabetic chronic kidney disease; N18.9 Chronic kidney disease, unspecified; F31.81 Bipolar II disorder; F43.10 Post-traumatic stress disorder, unspecified; K76.6 Portal hypertension; D50.9 Iron deficiency anemia, unspecified; K21.9 Gastro-esophageal reflux disease without esophagitis; F17.210 Nicotine dependence, cigarettes, uncomplicated; Z59.00 Homelessness unspecified; Z86.718 Personal history of other venous thrombosis and embolism
CPT/HCPCS: 49083; 82947; J2003

== ENCOUNTER → 2024-05-12 13:00 | Outpatient (BNV) | payer OTHER, SELFPAY | PROVIDERS: Visit Provider Physician Assistant Surgical | DX: R18.8 Other ascites (principal) | CPT/HCPCS: 49083 ==

== ENCOUNTER → 2024-05-25 09:26 | Outpatient (BNV) | payer OTHER, SELFPAY | PROVIDERS: Visit Provider Physician Assistant Surgical | DX: R18.8 Other ascites (principal) | CPT/HCPCS: 49083 ==

== ENCOUNTER → 2024-05-25 09:26 | Day surgery (SDC) | payer OTHER, SELFPAY ==
--- NOTE | ~2024-05-25 | US_ITS ---
Ultrasound paracentesis History: Ascites. Risks and benefits and possible complications were discussed with the patient and consent form was signed. A safe pocket of ascitic fluid was identified using ultrasound guidance, and the overlying skin was marked. The abdomen prepped and draped in sterile fashion. 1% lidocaine was used as a local anesthetic. Using ultrasound guidance, a 5 fr catheter was placed into the ascitic pocket. 2.3 liters of yellow fluid was removed passively. The catheter was then removed. A few sales representative electric service images from before and after the examination were obtained. The procedure was performed by Scott Gimenez PA-C and supervised by Dr. Knox. US/US paracentesis abd w/image Impression: Ultrasound-guided paracentesis as described above. No immediate complications Electronically signed by: Kel Knox MD 06/04/2024 02:51 PM JADA PENALOZA
[2024-05-25] MEDS: Lidocaine HCl 1 % MPF 5 ML VIAL SUBCUT (10:27)
--- NOTE | 2024-05-25 15:03 | PCN2_ITS ---
Brief Operative Note Date of procedure: 05/25/24 Pre-op diagnosis: Ascites Post-op diagnosis: same Procedure: US paracentesis 2.3 L yellow fluid removed. No immediate complications. Anesthesia: local
== END ==
PROVIDERS: Physician Assistant Surgical; Visit Provider Psychiatry & Neurology Psychiatry
DX: R18.8 Other ascites (principal)
CPT/HCPCS: 49083; J2003